=== PATIENT | female | born 1945 | race Caucasian/White ===

== ENCOUNTER 2016-10-04 09:10 | Inpatient (IN) | payer OTHER, MEDICARE ==
--- NOTE | 2016-09-30 14:09 | GHP ---
[f rep st] PREOP HISTORY AND PHYSICAL DATE OF ADMISSION: 10/04/2016 DATE OF SURGERY: 10/04/2016. PREOP DIAGNOSIS: Left diabetic foot ulcer. HISTORY OF PRESENT ILLNESS: The patient is a 71-year-old woman who underwent left great toe amputati on in June 2016 at [facility]. She presented to [facility] on er 2015 with severe septic shock and [place] due to left foot osteomyelitis. She underwent amputation of the left 5th metatarsal and partial 1st cuneiform, with debridement of skin and soft tissue on 2015. She also underwent EpiFix application and wound VAC placement. She returned to the operating room on July 21, 2016 for further debridement. At the time of surge ry, the wound measured 15 x 8.5 x 1 cm. There was tendon and bone exposed. Culture showed MSSA, and she underwent a course of IV Ancef. She was discharged to [facility] with IV antibiotics on July 24, 2016. She is a nonsmoker. She has presented to our office weekly for EpiFix application and wound VAC change, with improvement of the wound dimensions. PAST MEDICAL HISTORY: Diabetes, hypertension, [place], anemia. MEDICATIONS: Atorvastatin, 81 mg of aspirin, Lantus, lisinopril, metformin, metoprolol, MiraLAX and Senokot. PAST SURGICAL HISTORY: Left foot surgeries, as mentioned above. ALLERGIES: Augmentin, adhesives, MSG, sulfa, tetracycline. FAMILY HISTORY: She reports a family history of type 1 diabetes. SOCIAL HISTORY: She is a nonsmoker. She denies alcohol or recreational drug use. She lives in a [place] [facility] apartment, but is currently at [facility]. REVIEW OF SYSTEMS: A 10-point review of systems is negative, aside from HPI. PHYSICAL EXAMINATION: GENERAL: Well-developed, well-nourished woman in no acute distress. HEENT: Normocephalic, atraumatic. No hearing deficits. Pupils equal and round. No scleral icterus. Mucou s membranes moist. She wears glasses. NECK: Trachea midline. RESPIRATORY: Clear to auscultation bilaterally. No increased work of breathing. CARDIOVASCULAR: Regular rate and rhythm. No peripher al edema. SKIN: On September 27, 2016, the wound measured 12.4 x 11.5 x 0.2 cm. There is a small am ount of tendon exposed. No bone is exposed. There was no active drainage, surrounding erythema or e vidence of infection. PSYCH: Mood and affect normal. IMPRESSION AND PLAN: The patient is a 71-year-old woman status post amputation for a left foot diabe tic foot ulcer. At this time, she is ready for a split-thickness skin graft on the dorsal part of he r foot. PLAN: We discussed risks of surgery including, but not limited to, heart attack, stroke, blood clots , and . We discussed the risks of infection, bleeding, failure for graft take, continued delaye d wound healing, or need for additional procedures. She understands the risks and would like to proc eed. She is scheduled for left foot split-thickness skin graft with wound VAC placement. I anticipa te this to be an outpatient procedure. She will receive [facility] on-call to the operating room. /[id number]/MODL
[~2016-10-04 09:10] MED LIST: ceFAZolin 2 GM/DEXTROSE 100 ML IV ONE
[2016-10-04] MEDS ORDERED: CEFAZOLIN 2 GM/DEXTROSE/100 ML BAG IV ONE (10:37)
[2016-10-04] MEDS ORDERED: THROMBIN (RECOMBINANT) 20,000 UNIT SPRAY TP ONE (10:48)
[2016-10-04] MEDS ORDERED: BUPIVACAINE 0.5% 30 ML SDV ONE (10:49)
[2016-10-04] MEDS ORDERED: MINERAL OIL 10 ML VIAL TP ONE (10:49)
[2016-10-04] MEDS ORDERED: MIDAZOLAM 2 MG/2 ML VIAL ONE (12:00)
[2016-10-04] MEDS ORDERED: fentaNYL 100 MCG/2 ML INJ ONE ×2 (12:12→13:15)
[2016-10-04] MEDS ORDERED: ONDANSETRON 4 MG/2 ML VIAL ONE (12:13)
[2016-10-04] MEDS ORDERED: LIDOCAINE 2% 5 ML SDV ONE (12:14)
[2016-10-04] MEDS ORDERED: KETOROLAC 30 MG/1 ML SDV ONE (12:45)
[2016-10-04] MEDS ORDERED: ONDANSETRON DISINTEGRATING 4 MG TAB PO PRN (12:59)
[2016-10-04] MEDS ORDERED: ONDANSETRON 4 MG/2 ML VIAL IVP PRN (12:59)
[2016-10-04] MEDS ORDERED: diphenhydrAMINE 25 MG CAP PO PRN (12:59)
[2016-10-04] MEDS ORDERED: ACETAMINOPHEN 325 MG TAB PO PRN (12:59)
[2016-10-04] MEDS ORDERED: D50W 25 GM/50 ML SYR IVP PRN (12:59)
[2016-10-04] MEDS ORDERED: hydrALAZINE 20 MG/ML VIAL ONE (14:02)
[2016-10-04] MEDS ORDERED: hydrALAZINE 20 MG/ML VIAL IVP ONE (14:30)
[2016-10-04] MEDS ORDERED: SENNOSIDES/DOCUSATE SODIUM TAB PO PRN (15:57)
[2016-10-04] MEDS ORDERED: POLYETHYLENE GLYCOL 3350 17 GM PKT PO PRN (15:57)
[2016-10-04] MEDS ORDERED: INSULIN LISPRO 100 UNIT/ML SC SCH (18:00)
[2016-10-04] MEDS: metFORMIN HCL 500 MG TAB PO SCH (18:26)
[2016-10-04] MEDS: HYDROCODONE/APAP 5/325 TAB PO PRN (20:47)
[2016-10-04] MEDS: METOPROLOL TARTRATE 50 MG TAB PO SCH (20:47)
[2016-10-04] MEDS ORDERED: INSULIN GLARGINE HUM REC ANLOG 5 UNIT SQ SCH (21:00)
[2016-10-04] MEDS: INSULIN GLARGINE 100 UNITS/ML SYRINGE SC SCH (21:13)
[2016-10-05] MEDS: HYDROCODONE/APAP 5/325 TAB PO PRN (00:52)
[2016-10-05] MEDS: ASPIRIN 81 MG CHEWABLE TAB PO SCH (08:33)
[2016-10-05] MEDS: metFORMIN HCL 500 MG TAB PO SCH ×2 (08:33→17:46)
[2016-10-05] MEDS: LISINOPRIL 5 MG TAB PO SCH (08:33)
[2016-10-05] MEDS: METOPROLOL TARTRATE 50 MG TAB PO SCH ×2 (08:33→20:13)
[2016-10-05] MEDS: VITAMIN B COMPLEX 1 EA CAP/TAB PO SCH (08:33)
[2016-10-05] MEDS ORDERED: SODIUM CL NASAL 45 ML BTL EACHNARE PRN (10:41)
--- NOTE | 2016-10-05 10:45 | SOAPPROG ---
SOAP Progress Note Assessment/Plan: Assessment: 71 yo with DM, HTN and large diabetic foot ulcer. She is s/p debridement of skin soft tissue and tendon. Yesterday I grafted it. Wound vac until 10/11. Dr. burt will remove it in her office The vac she has on is from her facility but I did not want to risk loosing the graft by changing the vac twice. Please do not hesitate to call me with any questions or concerns. Change thigh dressing as needed S: Pain controlled O: Thigh dressing saturated. changed. Wound vac to suction. Reactionary erythema Plan: 10/05/16 10:43 Objective: Vital Signs Temp Pulse Resp BP Pulse Ox 36.4 C 63 18 145/78 H 100 10/05/16 07:51 10/05/16 07:51 10/05/16 07:51 10/05/16 07:51 10/05/16 07:51 10/04/16 10/05/16 10/06/16 05:59 05:59 05:59 Intake Total 1650 Output Total 410 Balance 1240 ICD10 Worksheet Patient Problems: Problems Problem Status Onset Cellulitis of foot Acute Myocardial infarct Acute Rhabdomyolysis Acute
[2016-10-05] MEDS: oxyCODONE IR 5 MG TAB PO PRN ×3 (11:27→22:02)
[2016-10-05] MEDS ORDERED: diphenhydrAMINE 50 MG CAP PO PRN (13:36)
[2016-10-05] MEDS ORDERED: ACETAMINOPHEN 325 MG TAB PO PRN (13:36)
[2016-10-05] MEDS ORDERED: guaiFENesin 600 MG TAB.ER PO PRN (13:36)
[2016-10-05] MEDS ORDERED: DICLOFENAC SODIUM TP PRN (13:36)
--- NOTE | 2016-10-05 14:30 | GCON ---
[f rep st] CONSULTATION DATE OF CONSULTATION: 10/05/2016 REASON FOR CONSULTATION: Medical management. HISTORY OF PRESENT ILLNESS: Ms Gutierrez is a 71-year-old female, who has a history of diabetes with hy pertension and underwent a debridement and skin soft tissue and tendon with grafting performed by Dr Beena Rubi. I am asked to consult on the patient during this hospitalization to assist in medical zackary gement. The patient tells me she is feeling well. She denies any nausea, vomiting, diarrhea. Socrates es any fevers, sweats or night chills. Denies any dyspnea, chest pain, shortness of breath or other problems. Her pain is well managed at this time. She is just lethargic and tired. PAST MEDICAL HISTORY: 1. Diabetes mellitus. 2. Hypertension. 3. Diabetic foot ulcer. 4. Osteomyelitis. 5. History of septic shock due to cellulitis. 6. Non ST-elevation myocardial infarction. 7. Anemia. PAST SURGICAL HISTORY: 1. Several left foot surgical interventions. 2. Right great toe foot graft. MEDICATIONS: Please refer to [facility] for specific outpatient medications. ALLERGIES: Sulfa, tetracyclines, Augmentin and MSG. FAMILY HISTORY: Her father had history of colon cancer. Mother had porotic leg cancer. SOCIAL HISTORY: The patient lives independently. Has recently been at a long-term facility. She denies any tobacco, alcohol or drug use. REVIEW OF SYSTEMS: Comprehensive 10-point review of systems is negative other than noted in the HPI . PHYSICAL EXAM: GENERAL: The patient is alert and oriented, in no acute distress. Well-developed. VITAL SIGNS: Afebrile 36.4, pulse is 63, respiratory rate is 18, blood pressure is 145/78, she is saturating 100% on 1 L. HEENT: Normocephalic, atraumatic. Mucosal membranes are moist. Pupils eq ual, round, reactive to light. NECK: Supple. No JVD noted. CARDIOVASCULAR: Regular rate and rhy thm. No gallop or murmur appreciated. LUNGS: Clear to auscultation bilaterally. No rhonchi or wh eezes noted. ABDOMEN: Bowel sounds are positive. Soft and nontender. There is no guarding or rig idity noted. EXTREMITIES: She has a wound VAC on her left foot. There is no clubbing or cyanosis appreciated. NEUROLOGIC: Patient is grossly intact. LABORATORY DATA: Blood glucose is 109. ASSESSMENT/PLAN: This is a 71-year-old female, with planned surgical intervention performed by Dr. Rubi for skin graft and debridement of the left foot. 1. Diabetes mellitus. We will continue the patient's previously prescribed insulin regimen and fol low closely during this hospitalization given her acute stress situation. 2. History of myocardial infarction. We will monitor the patient closely and consult Cardiology if felt warranted. She has no signs of complication or infarction at this time. 3. Left foot wound. This is managed by Dr. Rubi. The wound VAC is intact and will continue per Jessica Rubi's plan. 4. History of hypertension. The patient's blood pressure is stable at this time. 5. History of anemia. I will order laboratory evaluation to evaluate the patient's current level o f anemia. Thank you for the ability to consult in this pleasant woman's care. We will follow along during thi s patient's hospital course. /[id number]/MODL
[2016-10-05] MEDS: HYDROCORTISONE 1% CREAM TP SCH (20:13)
[2016-10-05] MEDS: CLOTRIMAZOLE/BETAMET DIPROP 15 GM CRTUBE TP SCH (20:13)
[2016-10-05] MEDS: INSULIN GLARGINE 100 UNITS/ML SYRINGE SC SCH (22:02)
[2016-10-06] MEDS: oxyCODONE IR 5 MG TAB PO PRN ×2 (02:50→09:30)
[2016-10-06 03:03] VITALS: RESP 18
[2016-10-06 05:46] LABS: HEMATOCRIT 28.9 % (38.0-47.0); MEAN CELL HEMOGLOBIN 24.4 pg (27.9-34.1); MEAN CELL HEMOGLOBIN CONCENTR. 31.1 g/dL (32.4-36.7); MEAN CELL VOLUME 78.3 fL (81.5-99.8); RED BLOOD CELL COUNT 3.69 10^6/uL (4.18-5.33); RED CELL DISTRIBUTION WIDTH 16.2 % (11.5-15.2)
[2016-10-06 05:56] LABS: ANION GAP 8 mEq/L (8-16); CARBON DIOXIDE 27 mEq/l (22-31); CHLORIDE 96 mEq/L (97-110); CREATININE 0.8 mg/dL (0.6-1.0); GLOMERULAR FILTRATION RATE > 60; GLUCOSE 132 mg/dL (70-100); POTASSIUM 4.3 mEq/L (3.5-5.2); SODIUM 131 mEq/L (134-144)
[2016-10-06] MEDS ORDERED: POTASSIUM CL 10 MEQ TAB PO SCH (09:00)
[2016-10-06] MEDS ORDERED: ATORVASTATIN CALCIUM 20 MG TAB PO SCH (09:00)
[2016-10-06] MEDS ORDERED: FUROSEMIDE 20 MG TAB PO SCH (09:00)
[2016-10-06] MEDS: VITAMIN B COMPLEX 1 EA CAP/TAB PO SCH (09:08)
[2016-10-06] MEDS: METOPROLOL TARTRATE 50 MG TAB PO SCH (09:08)
[2016-10-06] MEDS: ASPIRIN 81 MG CHEWABLE TAB PO SCH (09:08)
[2016-10-06] MEDS: metFORMIN HCL 500 MG TAB PO SCH (09:08)
[2016-10-06] MEDS: LISINOPRIL 5 MG TAB PO SCH (09:08)
[2016-10-06] MEDS: HYDROCORTISONE 1% CREAM TP SCH (09:13)
[2016-10-06] MEDS: CLOTRIMAZOLE/BETAMET DIPROP 15 GM CRTUBE TP SCH (09:13)
--- NOTE | 2016-10-06 10:01 | SOAPPROG ---
SOAP Progress Note Assessment/Plan: Assessment: 71 yo with DM, HTN and large diabetic foot ulcer. She is s/p debridement of skin soft tissue and tendon. I grafted it 10/04/2016. Wound vac until 10/11. Dr. Rubi will remove it in her office on 10/11/2016. Change thigh dressing as needed S: Pain controlled O: Thigh dressing dry - recently changed Wound vac to suction. Reactionary erythema Plan: 10/05/16 10:43 10/06/16 10:00 Objective: Vital Signs Temp Pulse Resp BP Pulse Ox 36.4 C 68 18 140/74 H 90 L 10/06/16 07:27 10/06/16 07:27 10/06/16 07:27 10/06/16 07:27 10/06/16 07:27 Laboratory Results 10/06/16 05:16 10/06/16 05:16 10/05/16 10/06/16 10/07/16 05:59 05:59 05:59 Intake Total 1650 Output Total 410 300 Balance 1240 -300 ICD10 Worksheet Patient Problems: Problems Problem Status Onset Cellulitis of foot Acute Myocardial infarct Acute Rhabdomyolysis Acute
--- NOTE | 2016-10-06 10:04 | PDIAF ---
- Diagnosis Diagnosis: diabetic foot ulcer s/p skin graft Code Status: Full Code - Medication Management Discharge Medications: Medications to Continue on Transfer Acetaminophen [Tylenol 325mg (*)] 650 mg PO Q4 PRN 07/09/16 [Last Taken Unknown] Vitamin B Complex [B Complex] 1 each PO DAILY 07/09/16 [Last Taken Unknown] Aspirin [Aspirin 81mg (*)] 81 mg PO DAILY #0 tab.chew 07/24/16 [Last Taken Unknown] Lisinopril [Zestril 5 mg (*)] 5 mg PO DAILY #0 tab 07/24/16 [Last Taken 07:30] Metoprolol Tartrate [Lopressor 50 mg (*)] 50 mg PO BID #0 tab 07/24/16 [Last Taken 10/04/16 07:00] Polyethylene Glycol 3350 [Miralax 17 gm (*)] 17 gm PO DAILY PRN #0 pkt 07/24/16 [Last Taken Unknown] oxyCODONE IR [Oxycodone Ir (*)] 5 - 10 mg PO Q3HRS PRN #0 tab 07/24/16 [Last Taken 10/04/16 07:30] Insulin Glargine,Hum.rec.anlog [Lantus Solostar] 5 unit SQ HS 10/02/16 [Last Taken Unknown] Atorvastatin Calcium [Lipitor 20 mg (*)] 20 mg PO DAILY 10/04/16 [Last Taken Unknown] Clotrimazole/Betamethasone Dip [Clotrimazole-Betamethasone Crm] 1 nona TP BID [Last Taken Unknown] Diclofenac Sodium [Voltaren Gel (*)] 1 nona TP TID PRN 10/04/16 [Last Taken Unknown] Furosemide [Lasix 20 MG (*)] 20 mg PO DAILY 10/04/16 [Last Taken Unknown] Hydrocortisone 1% [Hydrocortisone 1% cream (*)] 1 nona TP BID 10/04/16 [Last Taken Unknown] Metformin HCl [Glucophage 1000 mg] 1,000 mg PO BIDMEAL 10/04/16 [Last Taken Unknown] Potassium Cl [Klor-Con] 10 meq PO DAILY 10/04/16 [Last Taken Unknown] Sennosides/Docusate Sodium [Senokot-S (OTC)] 1 each PO BID PRN 10/04/16 [Last Taken Unknown] Sennosides/Docusate Sodium [Senokot-S] 1 tab PO BID 10/04/16 [Last Taken ] Sodium Cl Nasal [[place] (*)] 2 spray EACHNARE QID PRN 10/04/16 [Last Taken Unknown] diphenhydrAMINE [Benadryl 50 MG (*)] 50 mg PO Q8 PRN 10/04/16 [Last Taken Unknown] guaiFENesin [Mucinex 600 MG (*)] 600 mg PO BID PRN 10/04/16 [Last Taken Unknown] Discharge Medications: Refer to the Discharge Home Medication list for PRN reason. - Orders Services needed: Registered Nurse, Physical Therapy, Occupational Therapy Diet Recommendation: no restrictions on diet Wound Care Instructions: Do not shower. Sponge bath. Wound vac to suction continously. No wound vac changes. Change the thigh dressing as needed for saturation. Non stick dressing (I was using mepilex transfer and tegaderm) Activity/Weight Bearing Restrictions: Non weight bearing with bathroom privledges. Graft on Bottom of the foot as well so want to try not to disturb it as much as possible. This will need to be balanced with her weak right leg - Follow Up Care Current Providers and Referrals: JOSE HERNANDEZ [Other] Kait Rubi MD [Medical Doctor] - 10/11/16 (Call to make an appointment)
[2016-10-06 11:07] VITALS: BP 132/94; PULSE 74; TEMP 98.4; O2SAT 91
--- NOTE | 2016-10-06 13:57 | GDS ---
[f rep st] DISCHARGE SUMMARY REASON FOR ADMISSION: The patient is a 71-year-old woman with severe diabetes, who presented with a severe diabetic foot infection. I have been following her outpatient. She is ready for skin graft ing. PRIMARY DIAGNOSIS: Chronic diabetic foot wound. OTHER PERTINENT DIAGNOSES: Diabetes mellitus, hypertension, osteomyelitis, history of non-ST elevat ion myocardial infarction, anemia. HOSPITAL COURSE: The patient was taken to the operating room on October 04, 2016 for debridement a nd split-thickness skin grafting. A wound VAC was placed. She was monitored on the floor postopera tively. Her thigh dressing was changed daily. The wound VAC maintained suction. CONDITIONS ON DISCHARGE: 1. Has difficulty doing any weightbearing. 2. She is tolerating a normal diet. 3. Her pain is controlled. 4. Limit weightbearing on left foot as much as possible. This will be difficult as she has weaknes s in her right leg already. She may pivot and transfer to chair, but I do not want her doing long d istance ambulation as the graft is on the bottom of her foot. 5. Maintain wound VAC to suction. Dr. Rubi will remove it in her office on October 11, 2016. Taisha franco needs to call to make an appointment. /[id number]/MODL
--- NOTE | 2016-11-01 06:36 | GOP ---
[f rep st] OPERATIVE REPORT DATE OF OPERATION: 11/01/2016 SURGEON: Kait Rubi MD PLAN CHECKER: ELMER Roe ANESTHESIA: General. PREOPERATIVE DIAGNOSIS: Diabetic foot ulcer POSTOPERATIVE DIAGNOSIS: Diabetic foot ulcer PROCEDURE PERFORMED: Debridement skin soft tissue and grafting of left foot wound [id number].03 FINDINGS: healthy granulation tissue SPECIMENS: None. ESTIMATED BLOOD LOSS: Minimal. INDICATIONS: She had a left great toe amputation June 2016, with extensive debridement of skin, soft tissue, and tendon. I met her, and she was in severe septic shock, with myocardial infarction, due to left foot osteomyelitis. I amputated her 1st metatarsal partial 1st cuneiform, with debridement of skin, soft tissue, July 12, 2016. She returned to the operating room, July, for further debridement. In the office she has had EpiFix and negative pressure wound therapy. Her wound measures approximately 15 x 8.5 cm DESCRIPTION OF PROCEDURE: The patient was brought into the operating room, placed supine on the table, and general anesthesia was administered. Her foot and thigh were prepped and draped in the usual sterile fashion. I debrided the wound on her left foot so that there was healthy clean viable granulation tissue. I then obtained a split-thickness skin graft from her left upper thigh at 1:12,000 of an inch. I hand pie-crusted this. I placed an epinephrine- soaked sponge to the left upper thigh. I placed a skin graft over the foot. I stapled this in place. I placed Adaptic Touch followed by a wound VAC. Hemostasis was achieved on the thigh. I then placed Mepilex transfer and a Tegaderm. She was awakened in the operating room, extubated, transferred to PACU in stable condition. /[id number]/MODL MTDD
== END 2016-10-06 13:51 | DRG 624 ==
LOC: FSGY 09:10 → F3E 10:53
PROVIDERS: ADMIT Surgery; ATTEND Surgery
PROC: 0HBJXZZ Excision of Left Upper Leg Skin, External Approach (ICD-10-PCS; principal; 2016-10-04 10:15)
PROC: 0HRNX74 Replacement of Left Foot Skin with Autologous Tissue Substitute, Partial Thickness, External Approach (ICD-10-PCS; principal; 2016-10-04 10:15)
PROC: 0HBNXZZ Excision of Left Foot Skin, External Approach (ICD-10-PCS; principal; 2016-10-04 10:15)
DX: E11.621 Type 2 diabetes mellitus with foot ulcer (principal); L97.509 Non-pressure chronic ulcer of other part of unspecified foot with unspecified severity; I10 Essential (primary) hypertension; I25.10 Atherosclerotic heart disease of native coronary artery without angina pectoris; I25.2 Old myocardial infarction; Z86.14 Personal history of Methicillin resistant Staphylococcus aureus infection; Z89.412 Acquired absence of left great toe
CPT/HCPCS: 97161-GP; G8978-GP-CL; G8979-GP-CK; J0171; J0360; J0690; J1815; J1885; J2250; J2405; J3010

== ENCOUNTER 2016-10-12 19:56 | Inpatient (IN) | payer OTHER, MEDICARE ==
[2016-10-12] MEDS ORDERED: VANCOMYCIN 1.25 GM in D5W 250 ML IV ONE (20:16)
--- NOTE | 2016-10-12 20:44 | EDPHY ---
H & P Time Seen by Provider: 10/12/16 20:10 HPI/ROS: HPI Fever, possible wound infection. 71-year-old female by ambulance from [facility]. Patient has a history of a diabetic foot ulcer. She underwent left great toe amputation in June 2016 at [facility]. She then was admitted to [facility] for severe septic shock and [place] due to left foot osteomyelitis. She then underwent amputation of the 5th metatarsal and partial 1st cuneiform with debridement of skin and soft tissue July 122015. She had a wound VAC placed at that time. After further surgeries in other complications including MSSA infection was treated with IV Ancef, she underwent a left foot split-thickness skin graft placement with wound VAC placement on October 04. [facility] reports that she developed a fever tonight and had an episode of vomiting. The also noted increased erythema around the area of her wound VAC spreading up her left medial leg. ROS: Constitutional: As, no chills. No weakness. Eyes: No discharge. No changes in vision. ENT: No sore throat. No nasal congestion or rhinorrhea. Respiratory: No cough. No shortness of breath. Cardiac: No chest pain, no palpitations. Gastrointestinal: No abdominal pain, no vomiting, no diarrhea. Genitourinary: No hematuria. No dysuria or increased frequency with urination. Musculoskeletal: No back pain. No neck pain. No myalgias or arthralgias. Skin: As above Neurological: No headache. No focal weakness or altered sensation. Past medical history: Diabetes, hypertension, mi, anemia. As above. Her general surgeon is Dr. Kait Rubi. Social history: Here by herself. Physical Exam: General Appearance: Alert, no distress. This patient is responding to questions appropriately and in full sentences. This patient appears well- hydrated and well-nourished. Eyes: Pupils equal and round no pallor or injection. No lid edema, erythema or injection. Respiratory: There are no retractions, lungs are clear to auscultation with good air movement bilaterally. Cardiovascular: Regular rate and rhythm. No murmur. Gastrointestinal: Abdomen is soft and nontender, no masses, bowel sounds normal. No focal tenderness at McBurney's point. No Wilson sign. Neurological: Motor sensory function is grossly intact. Cranial nerves are normal. Skin: Warm and dry, no rashes. The patient was rolled. No decubitus ulcers. The wound VAC was taken down. The left foot graft was inspected. This appears intact. She does have erythematous borders around the graft site with erythema spreading up the medial aspect of her left ankle and distal leg. The graft harvest site which is on the left mid anterior lateral thigh was inspected. This appears to be without evidence of infectious process. Musculoskeletal: Neck is supple and nontender. Extremities are symmetrical. All joints range without pain or impingement. Psychiatric: No agitation. No depression. Database: EKG: Imaging: Left foot x-ray series: Questionable osteomyelitis versus degenerative changes of the medial cuneiform. No acute fracture. No gas. Interpreted by me. Chest x-ray AP portable; the cardiac mediastinal silhouette is unremarkable. No evidence of pneumothorax. Possible early left lower lobe infiltrate. Mild bronchitis. No other acute cardiopulmonary disease process noted. Interpreted by me. Procedures: Emergency department course: IV was placed. She was placed on a monitor. She was started on IV normal saline with 1 L to be given over the next hour. Vital signs have been reviewed. White blood cell count is 27.7. Lactate was obtained and is 2.9. Sepsis declared. During my inspection of her skin graft Gram stain and culture obtained and sent. After appropriate cultures obtained patient started on IV vancomycin at 1.25 g. 9:40 p.m., discussed case with Dr. Stan Hinds. Reviewed past medical history and Olivia Rubi involvement with this patient. He has agreed to accept patient for admission with hospitalist to consult. 10:15 p.m., spoke with Dr. Ennis. Case discussed in detail. She is currently at the patient's bedside. 10:30 p.m., severe sepsis declared and protocol initiated. Repeat venous lactate were ordered, patient to be given additional antibiotic coverage with IV Levaquin for possible left lower lobe pneumonia. 11:00 p.m., patient admitted in stable condition to Dr. Hinds. Differential Diagnosis: The differential diagnosis on this patient includes but is not limited to left foot skin graft infection, bronchitis. Sepsis unlikely. This represents a partial list of diagnoses considered. These considerations are based on history , physical exam, past history, reassessment and diagnostic testing. Smoking Status: Never smoked Constitutional: Initial Vital Signs Temperature (C) 36.9 C 10/12/16 20:08 Heart Rate 69 02/25/17 20:08 Respiratory Rate 16 10/12/16 20:08 Blood Pressure 124/55 H 10/12/16 20:08 O2 Sat (%) 76 L 10/12/16 20:08 O2 Delivery Mode Nasal Cannula O2 (L/minute) 3 Allergies/Adverse Reactions: amoxicillin trihydrate [From Augmentin] Allergy (Intermediate, Verified 20:06) potassium clavulanate [From Augmentin] Allergy (Intermediate, Verified 10/12/16 20:06) monosodium glutamate Allergy (Mild, Verified 10/12/16 20:06) adhesive tape Allergy (Verified 10/12/16 20:06) Sulfa (Sulfonamide Antibiotics) Allergy (Verified 10/12/16 20:06) Tetracyclines Allergy (Verified 10/12/16 20:06) Home Medications: Medication Instructions Recorded Vitamin B Complex [B Complex] 1 tab PO DAILY 07/09/16 Lisinopril [Zestril 5 mg (*)] 5 mg PO DAILY #0 tab 07/24/16 Metoprolol Tartrate [Lopressor 50 50 mg PO BID #0 tab 07/24/16 mg (*)] Polyethylene Glycol 3350 [Miralax 17 gm PO DAILY PRN #0 pkt 07/24/16 17 gm (*)] oxyCODONE IR [Oxycodone Ir (*)] 5 - 10 mg PO Q3HRS PRN #0 tab 07/24/16 Insulin Glargine,Hum.rec.anlog 5 unit SQ HS 10/02/16 [Lantus Solostar] Atorvastatin Calcium [Lipitor 20 20 mg PO DAILY 10/04/16 mg (*)] Clotrimazole/Betamethasone Dip 1 nona TP BID 10/04/16 [Clotrimazole-Betamethasone Crm] Diclofenac Sodium [Voltaren Gel 1 nona TP TID PRN 10/04/16 (*)] Furosemide [Lasix 20 MG (*)] 20 mg PO DAILY 10/04/16 Hydrocortisone 1% [Hydrocortisone 1 nona TP BID 10/04/16 1% cream (*)] Metformin HCl [Glucophage 1000 mg] 1,000 mg PO BIDMEAL 10/04/16 Potassium Cl [Klor-Con 10 meq (RX)] 10 meq PO DAILY 10/04/16 Sennosides/Docusate Sodium 1 each PO BID PRN 10/04/16 [Senokot-S] Sennosides/Docusate Sodium 1 tab PO DAILY 10/04/16 [Senokot-S] Sodium Cl Nasal [[place] (*)] 2 spray EACHNARE QID PRN 10/04/16 diphenhydrAMINE [Benadryl 50 MG 50 mg PO Q8 PRN 10/04/16 (*)] guaiFENesin [Mucinex 600 MG (*)] 600 mg PO BID PRN 10/04/16 Aspirin EC [Aspirin EC 81 mg (*)] 81 mg PO DAILY 10/13/16 Medical Decision Making - Data Points Laboratory Results: Laboratory Results 10/12/16 20:45 10/12/16 20:45 Microbiology Results: MICROBIOLOGY 10/12/16 20:45 Foot - Swab Gram Stain - Final 10/12/16 20:45 Foot - Swab Wound Culture - Preliminary Gram Neg Fredi Nonlactose Ferm. Streptococcus Pyogenes Grp A MRSA 10/12/16 20:45 Blood Blood Culture - Preliminary Gram Positive Cocci Chains 10/12/16 20:45 Blood Blood Panel (PCR) - Final Strep Pyogenes Group A Medications Given: Discontinued Medications Vancomycin HCl 1.25 gm/ (Dextrose) 250 mls @ 166.67 mls/hr IV EDNOW ONE PRN Reason: Protocol Stop: 10/12/16 21:45 Last Admin: 10/12/16 21:20 Dose: 250 mls Sodium Chloride (Ns) 1,000 mls @ 0 mls/hr IV ONCE ONE PRN Reason: Wide Open Stop: 10/12/16 20:46 Last Admin: 10/12/16 20:45 Dose: 1,000 mls Sodium Chloride (Ns) 1,000 mls @ 0 mls/hr IV ONCE ONE PRN Reason: Wide Open Stop: 10/12/16 21:45 Last Admin: 10/12/16 22:15 Dose: Not Given Levofloxacin/Dextrose (Levaquin 750 Mg (Premix)) 150 mls @ 100 mls/hr IV EDNOW ONE PRN Reason: Protocol Stop: 10/13/16 00:00 Last Admin: 10/12/16 23:10 Dose: 150 mls Sodium Chloride (Ns) 1,000 mls @ 3,000 mls/hr IV ONCE ONE Stop: 10/12/16 23:20 Last Admin: 10/13/16 00:36 Dose: 1,000 mls Magnesium Sulfate (Magnesium Sulf 2 Gm (Premix)) 50 mls @ 50 mls/hr IV ONCE ONE Stop: 10/13/16 06:22 Last Admin: 10/13/16 05:45 Dose: 50 mls Levofloxacin/Dextrose (Levaquin 500 Mg (Premix)) 100 mls @ 100 mls/hr IV DAILY [facility] PRN Reason: Protocol Stop: 11/12/16 08:59 Last Admin: 10/13/16 09:22 Dose: 100 mls Cefazolin Sodium 2 gm/ (Dextrose) 100 mls @ 200 mls/hr IV Q8 [facility] Stop: 11/12/16 11:59 Last Admin: 10/13/16 12:13 Dose: Not Given Potassium Chloride (Klor-Con) 10 - 40 meq PO ONCE ONE PRN Reason: Protocol Stop: 10/13/16 09:36 Last Admin: 10/13/16 09:44 Dose: 10 meq Sodium Chloride (Ns *For Sepsis Order Set Only*) 2,041 ml 30 ml/kg (2041 ml) IV EDNOW ONE Stop: 10/12/16 22:32 Last Admin: 10/12/16 22:35 Dose: Not Given Departure - Departure Disposition: [facility] Acute Clinical Impression: History of fever, Vomiting, Skin graft infection, Possible pneumonia, Sepsis
[2016-10-12] MEDS ORDERED: NS 1,000 ML IV ONE ×3 (20:45→23:01)
[2016-10-12 21:05] LABS: ADD DIFF? YES; ADD MORPH? NO; ADD SCAN? NO; ATYPICAL LYMPHOCYTE FLAG 0 (0-99); FRAGMENT RBC FLAG 0 (0-99); HEMATOCRIT 31.8 % (38.0-47.0); HEMOGLOBIN 9.9 g/dL (12.6-16.3); LEFT SHIFT FLG 0 (0-99); LIPEMIA HEMOLYSIS FLAG 80 (0-99); MEAN CELL HEMOGLOBIN 24.4 pg (27.9-34.1); MEAN CELL HEMOGLOBIN CONCENTR. 31.1 g/dL (32.4-36.7); MEAN CELL VOLUME 78.3 fL (81.5-99.8); MEAN PLATELET VOLUME 8.4 fL (8.7-11.7); PLATELET CLUMPS FLAG 0 (0-99); PLATELET COUNT 334 10^3/uL (150-400); RED BLOOD CELL COUNT 4.06 10^6/uL (4.18-5.33); RED CELL DISTRIBUTION WIDTH 16.4 % (11.5-15.2)
[2016-10-12 21:09] LABS: INR 1.14 (0.83-1.16); PROTIME(PATIENT) 14.5 SEC (12.0-15.0)
[2016-10-12 21:10] LABS: APTT 28.5 SEC (23.0-38.0)
[2016-10-12 21:12] LABS: ANION GAP 11 mEq/L (8-16); BILIRUBIN,TOTAL 0.6 mg/dL (0.1-1.4); CARBON DIOXIDE 26 mEq/l (22-31); CHLORIDE 92 mEq/L (97-110); CREATININE 0.8 mg/dL (0.6-1.0); GLOMERULAR FILTRATION RATE > 60; GLUCOSE 170 mg/dL (70-100); POTASSIUM 3.4 mEq/L (3.5-5.2); SODIUM 129 mEq/L (134-144)
[2016-10-12 21:33] LABS: MACROCYTES 1+; PLATELET ESTIMATE ADEQUATE (ADEQ); POLYCHROMASIA 1+; TOXIC GRANULATION PRESENT; TOXIC VACUOLIZATION PRESENT
[2016-10-12 21:56] LABS: LACGHOST ORDER
[2016-10-12] MEDS ORDERED: ONDANSETRON 4 MG/2 ML VIAL IVP PRN (22:12)
[2016-10-12] MEDS ORDERED: ACETAMINOPHEN 325 MG TAB PO PRN (22:12)
[2016-10-12] MEDS ORDERED: ONDANSETRON DISINTEGRATING 4 MG TAB PO PRN (22:12)
[2016-10-12] MEDS ORDERED: NS 1,000 ML BAG *FOR SEPSIS ORDER SET ONLY IV ONE (22:31)
--- NOTE | 2016-10-12 22:44 | GCON ---
DATE OF CONSULTATION: 10/12/2016 CHIEF COMPLAINT: Chills. HISTORY OF PRESENT ILLNESS: This is a 71-year-old female, well known to my partner, Dr. Rubi. Briefly, in June 2016, she underwent left great toe amputation at an outside hospital. She subsequently presented to the [facility] approximately 1 month later with severe septic shock and CT secondary to left foot osteomyelitis. She subsequently underwent further amputation of the left 5th metatarsal and partial 1st cuneiform with debridement of skin and soft tissues on the . She subsequently left with a wound VAC. At that time. She was subsequently discharged home on July 24 with wound VAC and IV antibiotic care. She subsequently presented back as an outpatient basis in early September where it was evaluated the wound had healed and she was subsequently taken to the operating room on October 04 for split-thickness skin graft, left thigh donor site. She subsequently had an uneventful hospital stay and was discharged back to rehab facility on the of this month. She states that she has been doing well. She was seen in the clinic most recently yesterday, where Dr. Rubi took the wound VAC down, felt that the site was healing appropriately. She had no stigmata of infection and was doing well. The wound VAC was subsequently replaced. She states that last evening she felt well, into the morning had breakfast, later this morning and into the afternoon began to have rigors and chills and was reportedly febrile at her care facility which is why she was brought here. Here in the emergency department, she is currently afebrile and nontoxic appearing. She states that she has no pain in that left lower extremity and she has been not weightbearing as per her recommendations, but she overall feels well other than the rigors and chills that she experienced earlier today. She continues to tolerate a regular diet and other than this feels well. PAST MEDICAL HISTORY: Diabetes, hypertension, CT, anemia. PAST SURGICAL HISTORY: Multiple left foot surgeries, as mentioned above. REVIEW OF SYSTEMS: A full 10-point review was performed and unless explicitly stated above is otherwise negative. ALLERGIES: Augmentin, adhesive, MSG, sulfa, and tetracycline. SOCIAL HISTORY: Currently lives at [facility]. PHYSICAL EXAM: VITAL SIGNS: Temperature 36.9, blood pressure 124/55, heart rate 69, she is currently 91% on 2 L. GENERAL: She is alert and oriented, in no acute distress. CV: She has a regular rate and rhythm without any murmurs. LUNGS: Clear to auscultation bilaterally. ABDOMEN: Obese, soft, nondistended and nontender. EXTREMITIES: Her left thigh donor site is clean, dry and intact. There are some punctate areas of recent bleeding which have scabbed over. The site is tender, but nonerythematous. Her graft site has for the most part taken. There is a surrounding rim superiorly of erythematous tissue which is warm to the touch. It does not appear as though the wound has completely sloughed, although it looks that is threatened at this time. LABORATORY DATA: Leukocytosis to 27,000, lactic acid 2.9, sodium of 129, K of 3.4. A chest x-ray which looks unremarkable. ASSESSMENT: A 71-year-old female with left lower extremity infection status post split-thickness skin graft. We will plan to admit the patient to my service. I have asked the Medicine Service to consult and assist with management of her multiple medical comorbidities. In addition, I am not 100% certain her leukocytosis is completely attributable to her extremity cellulitis and will continue to search for an additional source. In the past, she has been on IV Ancef, as she has been dennis-sensitive. I am concerned this time, given her history of methicillin-resistant Staphylococcus aureus and leukocytosis to 27,000 that she may have a more virulent infection. Will discuss with the Medicine Team which antibiotics are appropriate. I do not feel at this point in time that she requires any further debridement, as a majority of the wound bed and graft has successfully taken and is viable. We will continue nonweightbearing status. /[id number]/MODL MTDD
[2016-10-13] MEDS: CEPACOL LOZENGE PO PRN ×7 (00:36→20:37)
[2016-10-13] MEDS ORDERED: D50W 25 GM/50 ML SYR IVP PRN (02:16)
--- NOTE | 2016-10-13 02:19 | PDGENHP ---
History and Physical - Chief Complaint chills - History of Present Illness Patient is a 71-year-old female with history of hypertension, dm 2, diastolic heart failure, history of RI and chronic left foot wound who presents to the ED with fever and chills. Patient underwent a left great toe a amputation in 2015, this was complicated by osteomyelitis with associated septic shock and [facility] hospitalization. Subsequently she underwent L 5th metatarsal amputation and surrounding debridement, with postop wound VAC placement. Since this surgery in mid July, she has been following in an outpatient basis with General surgery. In mid September she underwent split-thickness skin graft to the left foot wound (10/04-10/06 hospitalization). She was most recently evaluated in the general surgery clinic on 10/11 and graft site appeared to be healing well, wound Vac was removed. Today, 10/12, at [facility] patient reports sudden onset chills/rigors and was noted to be febrile by SNF staff, so she was transported to the ED for further evaluation. Patient does report feeling increased pressure/tightness and warmth in her LLE. She denies any recent headache, dizziness, coughing, congestion, chest pain, abdominal pain, n/v/d or dysuria. She also denies any obvious sick contacts. On arrival to the ED, patient is afebrile and hemodynamically stable. Evaluation of her left lower extremity reveals edema, erythema and warmth of her left foot and extending proximately. Labs revealed leukocytosis, elevated lactate. She was cultured in initiated on antibiotics and admitted to the general surgery service for presumed recurrent L foot wound infection. CXR revealed possible infiltrate, so she was also covered for possible respiratory infection. Hospitalist service was consulted for management of her chronic medical conditions. History Information - Allergies/Home Medication List Allergies/Adverse Reactions: amoxicillin trihydrate [From Augmentin] Allergy (Intermediate, Verified 20:06) potassium clavulanate [From Augmentin] Allergy (Intermediate, Verified 10/12/16 20:06) monosodium glutamate Allergy (Mild, Verified 10/12/16 20:06) adhesive tape Allergy (Verified 10/12/16 20:06) Sulfa (Sulfonamide Antibiotics) Allergy (Verified 10/12/16 20:06) Tetracyclines Allergy (Verified 10/12/16 20:06) Home Medications: Acetaminophen [Tylenol 325mg (*)] 650 mg PO Q4 PRN 07/09/16 [Last Taken Unknown] Vitamin B Complex [B Complex] 1 each PO DAILY 07/09/16 [Last Taken Unknown] Insulin Glargine,Hum.rec.anlog [Lantus Solostar] 5 unit SQ HS 10/02/16 [Last Taken Unknown] Atorvastatin Calcium [Lipitor 20 mg (*)] 20 mg PO DAILY 10/04/16 [Last Taken Unknown] Clotrimazole/Betamethasone Dip [Clotrimazole-Betamethasone Crm] 1 nona TP BID [Last Taken Unknown] Diclofenac Sodium [Voltaren Gel (*)] 1 nona TP TID PRN 10/04/16 [Last Taken Unknown] Furosemide [Lasix 20 MG (*)] 20 mg PO DAILY 10/04/16 [Last Taken Unknown] Hydrocortisone 1% [Hydrocortisone 1% cream (*)] 1 nona TP BID 10/04/16 [Last Taken Unknown] Metformin HCl [Glucophage 1000 mg] 1,000 mg PO BIDMEAL 10/04/16 [Last Taken Unknown] Potassium Cl [Klor-Con 10 meq (RX)] 10 meq PO DAILY 10/04/16 [Last Taken Unknown ] Sennosides/Docusate Sodium [Senokot-S] 1 each PO BID PRN 10/04/16 [Last Taken Unknown] Sennosides/Docusate Sodium [Senokot-S] 1 tab PO BID 10/04/16 [Last Taken ] Sodium Cl Nasal [[place] (*)] 2 spray [place] QID PRN 10/04/16 [Last Taken Unknown] diphenhydrAMINE [Benadryl 50 MG (*)] 50 mg PO Q8 PRN 10/04/16 [Last Taken Unknown] guaiFENesin [Mucinex 600 MG (*)] 600 mg PO BID PRN 10/04/16 [Last Taken Unknown] I have personally reviewed and updated: family history, medical history, social history, surgical history - Past Medical History Additional medical history: Hypertension. DM2, on insulin. h/o NSTEMI, medically managed. diastolic heart failure, 06/2016 TTE, EF 60%. chronic anemia - Surgical History Additional surgical history: multiple L foot surgeries. hysterectomy - Family History Positive for: non-pertinent - Social History Smoking Status: Never smoked Alcohol Use: None Drug Use: None Additional social history: Currently resides in [facility]. Review of Systems ROS: 10pt was reviewed & negative except for what was stated in HPI & below Physical Exam Temp Pulse Resp BP Pulse Ox 36.9 C 70 16 116/48 L 96 10/13/16 00:24 10/13/16 00:24 10/13/16 00:24 10/13/16 00:24 10/13/16 00:24 O2 (L/minute) 3 Constitutional: no apparent distress, appears nourished, not in pain Eyes: PERRL, anicteric sclera, EOMI Ears, Nose, Mouth, Throat: hearing normal, ears appear normal, no oral mucosal ulcers, dry mucous membranes Cardiovascular: regular rate and rhythym, no murmur, rub, or gallop, edema (LLE edema and warmth extending to thigh), No JVD Peripheral Pulses: 2+: dorsalis-pedis (R), dorsalis-pedis (L) Respiratory: no respiratory distress, no rales or rhonchi, clear to auscultation Gastrointestinal: normoactive bowel sounds, soft, non-tender abdomen, no palpable masses, No tenderness, No guarding, No rebound, No distension Genitourinary: no bladder fullness, no bladder tenderness Skin: erythema (left foot in dressing, skin graft in place with wound with surrounding tenderness to palpation, erythema and edema extending from foot proximately to thigh) Neurologic: AAOx3, sensation intact bilaterally, CN II-XII Intact, No weakness, No numbness, No facial droop Psychiatric: interacting appropriately, not anxious, not encephalopathic, thought process linear Lab Data & Imaging Review 10/12/16 20:45 10/12/16 20:45 WBC 27.77 10^3/uL (3.80-9.50) H 10/12/16 20:45 RBC 4.06 10^6/uL (4.18-5.33) L 10/12/16 20:45 Hgb 9.9 g/dL (12.6-16.3) L 10/12/16 20:45 Hct 31.8 % (38.0-47.0) L 10/12/16 20:45 MCV 78.3 fL (81.5-99.8) L 10/12/16 20:45 MCH 24.4 pg (27.9-34.1) L 10/12/16 20:45 MCHC 31.1 g/dL (32.4-36.7) L 10/12/16 20:45 RDW 16.4 % (11.5-15.2) H 10/12/16 20:45 Plt Count 334 10^3/uL (150-400) 10/12/16 20:45 MPV 8.4 fL (8.7-11.7) L 10/12/16 20:45 Neut % (Auto) Not Reported 10/12/16 20:45 Lymph % (Auto) Not Reported 10/12/16 20:45 [place] % (Auto) Not Reported 10/12/16 20:45 Eos % (Auto) Not Reported 10/12/16 20:45 Baso % (Auto) Not Reported 10/12/16 20:45 Nucleat RBC Rel Count 0.0 % (0.0-0.2) 10/12/16 20:45 Absolute Neuts (auto) Not Reported 10/12/16 20:45 Absolute Lymphs (auto) Not Reported 10/12/16 20:45 Absolute Monos (auto) Not Reported 10/12/16 20:45 Absolute Eos (auto) Not Reported 10/12/16 20:45 Absolute Basos (auto) Not Reported 10/12/16 20:45 Absolute Nucleated RBC 0.00 10^3/uL (0-0.01) 10/12/16 20:45 Immature Gran % Not Reported 10/12/16 20:45 Seg Neutrophils % 74 % 10/12/16 20:45 Band Neutrophils % 21 % 10/12/16 20:45 Lymphocytes % 1 % 10/12/16 20:45 Monocytes % 4 % 10/12/16 20:45 Immature Gran # Not Reported 10/12/16 20:45 Absolute Seg Neuts 20.55 10^/uL (1.70-6.50) H 10/12/16 20:45 Absolute Band Neuts 5.83 10^3/uL (0.00-0.70) H 10/12/16 20:45 Absolute Lymphocytes 0.28 10^3/uL (1.00-3.00) L 10/12/16 20:45 Absolute Monocytes 1.11 10^3/uL (0.30-0.80) H 10/12/16 20:45 Toxic Granulation PRESENT H 10/12/16 20:45 Toxic Vacuolation PRESENT H 10/12/16 20:45 Platelet Estimate ADEQUATE (ADEQ) 10/12/16 20:45 Polychromasia 1+ H 10/12/16 20:45 Oval Macrocytes 1+ H 10/12/16 20:45 PT 14.5 SEC (12.0-15.0) 10/12/16 20:45 INR 1.14 (0.83-1.16) 10/12/16 20:45 APTT 28.5 SEC (23.0-38.0) 10/12/16 20:45 VBG Lactic Acid 3.1 mmol/L (0.7-2.1) H 10/12/16 22:50 Sodium 129 mEq/L (134-144) L 10/12/16 20:45 Potassium 3.4 mEq/L (3.5-5.2) L 10/12/16 20:45 Chloride 92 mEq/L (97-110) L 10/12/16 20:45 Carbon Dioxide 26 mEq/l (22-31) 10/12/16 20:45 Anion Gap 11 mEq/L (8-16) 10/12/16 20:45 BUN 26 mg/dL (7-23) H 10/12/16 20:45 Creatinine 0.8 mg/dL (0.6-1.0) 10/12/16 20:45 Estimated GFR > 60 10/12/16 20:45 Glucose 170 mg/dL (70-100) H 10/12/16 20:45 Calcium 8.0 mg/dL (8.5-10.4) L 10/12/16 20:45 Total Bilirubin 0.6 mg/dL (0.1-1.4) 10/12/16 20:45 Visualized and Interpreted Chest x-ray results: Yes Chest X-Ray results: other (possible retrocardiac opacity vs atelectasis) Visualized and Interpreted imaging results: Yes Interpretation: L foot x-ray: post surgical changes, cannot r/o osteomyelitis Assessment & Plan Assessment: Patient is a 71/F with DM2, HTN, CAD and chronic L foot wound with recent skin graft to the wound who presents to ED after a febrile episode at her SNF. ED evaluation reveals leukocytosis, elevated lactic acid, consistent with acute infection, with source presumed to be recurrent L foot cellulitis. Plan: # sepsis Patient with recorded fever in SNF prior to arrival and with leukocytosis, meeting sepsis criteria with source presumed to be L foot chronic wound site infection/cellulitis. CXR shows possible LLL infiltrate, however, patient denies any respiratory symptoms. UA and flu swab are still pending to complete the infectious w/u. Will cover with broadly Vanc and levaquin until cultures result. # lactic acidosis Likely related to sepsis and an element of hypovolemia. Patient was given 2 L NS and will repeat LA in AM. Patient does have a history of diastolic CHF, so will be cautious with IV fluid resuscitation and monitor volume status closely. # hyperglycemia, DM2 Patient slightly hyperglycemic on presentation. Will monitor FS TIDAC, place on sliding scale coverage and resume home insulin regimen once confirmed. # HTN BP normal on presentation. Will hold antihypertensives in setting of acute infection/sepsis and resume if patient becomes hypertensive. # CAD, diastolic CHF Patient without any cardiac complaints on presentation. Will check admission EKG. Will confirm and continue home meds. # dispo: admit to inpatient service for > 2 [place] stay # gen: cardiac/diabetic diet DVT ppx: lovenox Full code
[2016-10-13] MEDS ORDERED: PROTOCOL MAGNESIUM 1 DOSE IV PRN (03:09)
[2016-10-13] MEDS ORDERED: PROTOCOL POTASSIUM 1 DOSE MISC PRN (03:09)
[2016-10-13 03:24] LABS: COLOR YELLOW; LEUKOCYTE ESTERASE,URINE NEGATIVE (NEGATIVE); NITRITE,URINE NEGATIVE (NEGATIVE)
[2016-10-13 05:06] LABS: % IMMATURE GRANULYOCYTES 0.9 % (0.0-1.1); ABSOLUTE IMMATURE GRANULOCYTES 0.28 10^3/uL (0.00-0.10); ABSOLUTE NRBC COUNT 0.02 10^3/uL (0-0.01); ADD DIFF? NO; ADD MORPH? NO; ADD SCAN? NO; ATYPICAL LYMPHOCYTE FLAG 0 (0-99); FRAGMENT RBC FLAG 0 (0-99); HEMATOCRIT 27.3 % (38.0-47.0); HEMOGLOBIN 8.8 g/dL (12.6-16.3); LEFT SHIFT FLG 40 (0-99); LIPEMIA HEMOLYSIS FLAG 80 (0-99); MEAN CELL HEMOGLOBIN 24.3 pg (27.9-34.1); MEAN CELL HEMOGLOBIN CONCENTR. 32.2 g/dL (32.4-36.7); MEAN CELL VOLUME 75.4 fL (81.5-99.8); MEAN PLATELET VOLUME 8.3 fL (8.7-11.7); NRBC-AUTO% 0.1 % (0.0-0.2); PLATELET CLUMPS FLAG 0 (0-99); PLATELET COUNT 315 10^3/uL (150-400); RED BLOOD CELL COUNT 3.62 10^6/uL (4.18-5.33); RED CELL DISTRIBUTION WIDTH 16.4 % (11.5-15.2)
[2016-10-13 05:15] LABS: ANION GAP 8 mEq/L (8-16); CALCIUM 7.2 mg/dL (8.5-10.4); CARBON DIOXIDE 24 mEq/l (22-31); CHLORIDE 95 mEq/L (97-110); CREATININE 0.9 mg/dL (0.6-1.0); GLOMERULAR FILTRATION RATE > 60; GLUCOSE 216 mg/dL (70-100); POTASSIUM 3.9 mEq/L (3.5-5.2); SODIUM 127 mEq/L (134-144)
[2016-10-13 05:16] LABS: MAGNESIUM 0.8 mg/dL (1.6-2.3)
[2016-10-13] MEDS ORDERED: MAGNESIUM SULF 2 GM/WATER 50 ML IV ONE (05:23)
--- NOTE | 2016-10-13 05:42 | CPEKG ---
Heart Rate: 77 RR Interval: 779 P-R Interval: 156 QRSD Interval: 90 QT Interval: 432 QTC Interval: 489 P [place]: 52 QRS [place]: 103 T Wave [place]: 38 EKG Severity - BORDERLINE ECG - EKG Impression: SINUS RHYTHM EKG Impression: RIGHT AXIS DEVIATION EKG Impression: BORDERLINE PROLONGED QT INTERVAL Electronically Signed By: Getachew Matthews 13-Oct-2016 09:21:48
[2016-10-13] MEDS ORDERED: levOFLOXACIN 500 MG/DEXTROSE 100 ML IV SCH (09:00)
--- NOTE | 2016-10-13 09:18 | SOAPPROG ---
SOAP Progress Note Assessment/Plan: Assessment/Plan - erythema on superior portion of wound appears improved today. Graft site once again c/d/i with good graft take and good granulation elsewhere - WBC up to 29k, on vanc. Have asked Dr Edmonds who is familiar with the patient to evaluate and assist - Other than her leukocytosis she clinically looks well. She wants to eat and not be here. Her chest sounds clear and her abdomen is soft. - Will cont W-D dressings on graft site for the time being until erythema resolves 10/13/16 09:16 Subjective: Grumpy, no general complaints tho Objective: Vital Signs Temp Pulse Resp BP Pulse Ox 37.2 C 75 16 120/63 94 10/13/16 08:03 10/13/16 08:03 10/13/16 08:03 10/13/16 08:03 10/13/16 08:03 Laboratory Results 10/13/16 04:42 10/13/16 04:42 10/12/16 10/13/16 10/14/16 05:59 05:59 05:59 Intake Total 1300 Output Total 100 Balance 1200 PT 14.5 SEC (12.0-15.0) 10/12/16 20:45 INR 1.14 (0.83-1.16) 10/12/16 20:45 ICD10 Worksheet Patient Problems: Problems Problem Status Onset History of fever Acute Sepsis Acute Skin graft infection Acute Vomiting Acute Cellulitis of foot Acute Myocardial infarct Acute Rhabdomyolysis Acute
[2016-10-13] MEDS: INSULIN LISPRO 100 UNIT/ML SC SCH ×3 (09:23→17:21)
[2016-10-13] MEDS: ENOXAPARIN 40 MG/0.4 ML SYR SC SCH (09:23)
[2016-10-13] MEDS ORDERED: POTASSIUM CL 10 MEQ TAB PO ONE ×2 (09:35→20:11)
[2016-10-13] MEDS: HYDROCODONE/APAP 5/325 TAB PO PRN ×3 (09:37→20:06)
[2016-10-13] MEDS ORDERED: POTASSIUM CL 10 MEQ TAB ONE (09:37)
--- NOTE | 2016-10-13 09:45 | HOSPPROG ---
Hospitalist Progress Note Assessment/Plan: Patient is a 71/F with DM2, HTN, CAD and chronic L foot wound with recent skin graft to the wound who presents to ED fever and chills. Today is my 1st encounter with the patient. Chart reviewed. Evaluated the patient with Dr. Edmonds. # sepsis +blood culture this a.m. significant leukocytosis cxr shows poss LLL infiltrate but without any respiratory symptoms ua and influenza negative most likely from foot infection # Gas cellulitis to the left lower extremity with associated bacteremia vanco + Levaquin initially this has been discontinued and patient has been started on cefazolin left great toe amputation in 06/2016 (complications of sepsis and osteo) skin graft to left foot wound 10/04 unclear the infection is from the left foot versus the skin graft will get repeat labs in the morning. Continue supportive treatment. # lactic acidosis recent lactate stable improved w Iv hydration # anemia will follow # Hypomagnesium protocol #Hyponatremia was given 2 liters of fluid in ER will check urine studies # hyperglycemia, DM2 ada diet sliding scale hold metformin in the setting of high lactate # HTN resumed home med # CAD, diastolic CHF Patient without any cardiac complaints on presentation. Will check admission EKG. Will confirm and continue home meds. # dispo: admit to inpatient service for > 2 [place] stay # plan: will ask Physical therapy and Occupational therapy to see the patient. Recommending that she be nonweightbearing to the left foot. She is very fearful of causing more problems to her foot. Subjective: Brina is not complaining of pain but is very nervous about getting out of bed and fearful about hurting her foot Objective: Vital Signs Temp Pulse Resp BP Pulse Ox 37.2 C 75 16 120/63 94 10/13/16 08:03 10/13/16 08:03 10/13/16 08:03 10/13/16 08:03 10/13/16 08:03 Laboratory Results 10/13/16 04:42 10/13/16 04:42 10/12/16 10/13/16 10/14/16 05:59 05:59 05:59 Intake Total 1300 Output Total 100 Balance 1200 PT 14.5 SEC (12.0-15.0) 10/12/16 20:45 INR 1.14 (0.83-1.16) 10/12/16 20:45 - Physical Exam Constitutional: chronically ill appearing, uncomfortable Eyes: PERRL Ears, Nose, Mouth, Throat: hearing normal Cardiovascular: regular rate and rhythym, no murmur, rub, or gallop ( soft systolic murmur noted at the left sternal border) Respiratory: no respiratory distress Gastrointestinal: normoactive bowel sounds Skin: other ( evaluated left lower extremity with Dr. Edmonds. Were amputation was performed patient has good tissue healing. Left calf area has some erythema this extends to the outer side of the knee area. Upper thigh has a dressing in place from where the skin graft was taken) Musculoskeletal: generalized weakness Neurologic: AAOx3 Psychiatric: interacting appropriately, anxious ICD10 Worksheet Patient Problems: Problems Problem Status Onset History of fever Acute Sepsis Acute Skin graft infection Acute Vomiting Acute Cellulitis of foot Acute Myocardial infarct Acute Rhabdomyolysis Acute
[2016-10-13] MEDS ORDERED: guaiFENesin 600 MG TAB.ER PO PRN (10:41)
[2016-10-13] MEDS ORDERED: POLYETHYLENE GLYCOL 3350 17 GM PKT PO PRN (10:41)
[2016-10-13] MEDS ORDERED: SENNOSIDES/DOCUSATE SODIUM TAB PO PRN (10:41)
--- NOTE | 2016-10-13 11:42 | PCMIDPN ---
Assessment/Plan: GAS cellulitis LLE/bacteremia with portal of entry either L foot medial graft site vs L upper thigh harvest site. Fairly un-impressive exam LLE but does have faint erythema and warmth L calf, and posterior part of graft site on foot c/w cellulitis. Noted faint SM during last hospitalization. No symptoms of PNA. --narrow antibiotics to cefazolin, will need at least 2 weeks IV antibiotics. Reviewed abx duration with patient. 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 On presentation 07/09/2016, patient had severe sepsis with acute renal failure, hepatitis due to her left foot infection all resolving after ICU care, antibiotics and surgical intervention. Rec'd 6 weeks cefazolin, off since 08/23/16. Most recently she had graft placement 10/04/2016. In usual state of health until shaking chills at NH yesterday and "nurse over- reacted and sent me to the hospital." Very worried about graft site, worried about wound vac removal in ER last night. In ER patient started on levofloxacin for possible PNA and vancomycin for possible LLE cellulitis. Today blood cx grew GAS. Primary location of pain this AM is L calf Objective: Vital Signs Temp Pulse Resp BP Pulse Ox 37.2 C 75 16 120/63 94 10/13/16 08:03 10/13/16 08:03 10/13/16 08:03 10/13/16 08:03 10/13/16 08:03 Laboratory Results 10/13/16 04:42 10/13/16 04:42 10/12/16 10/13/16 10/14/16 05:59 05:59 05:59 Intake Total 1300 Output Total 100 300 Balance 1200 -300 - Physical Exam General Appearance: alert, no apparent distress EENT: pale conjunctiva, No scleral icterus Respiratory: lungs clear, No accessory muscle use Neck: supple Cardiac/Chest: systolic murmur (2/6) Extremities: pedal edema (L>R), erythema (faint erythema calf, more prominent posterior portion of foot wound, erythema more prominent lateral knee and medial calf) Abdomen: non-tender, soft Skin: No rash Neuro/Psych: alert, normal mood/affect, oriented x 3 - Time Spent With Patient Time Spent with Patient: greater than 35 minutes Time Spent with Patient: Greater than 35 minutes spent on this patients care, greater than 50% of time spent counseling, educating, and coordinating care regarding the above mentioned plan. ICD10 Worksheet Patient Problems: Problems Problem Status Onset History of fever Acute Sepsis Acute Skin graft infection Acute Vomiting Acute Cellulitis of foot Acute Myocardial infarct Acute Rhabdomyolysis Acute
[2016-10-13] MEDS ORDERED: ceFAZolin 2 GM/DEXTROSE 100 ML IV SCH (12:00)
[2016-10-13] MEDS: ceFAZolin 2 GM in D5W 100 ML IV SCH ×2 (12:12→12:13)
[2016-10-13] MEDS: SODIUM CL NASAL 45 ML BTL EACHNARE PRN (12:25)
--- NOTE | 2016-10-13 13:23 | WOCRNPDOC ---
NIKO Advanced Assessment Note - Skin Integrity Problem, Advanced Assess Left Upper Leg Surgical Wound/Incision Dressing Description: Clean/Dry, Intact Left Foot Surgical Wound/Incision Dressing Type: Kerlix Dressing Description: Clean/Dry, Intact Skin Integrity Problem Comment: Rounded on patient immediately following ID consult and placement of wet-to-dry dressing by Dr. Edmonds. At Dr. Edmonds' request, did not remove dressing to assess. Plan is for Dr. Rubi and team to see patient by Friday. Report to TOMASZ Balbuena. Coccyx Dressing Type: Allevyn Life Dressing Description: Not Intact (detaching 2/2 Calazime under dressing, preventing adherence.) Exudate Amount: None Exudate Characteristic(s): None Integumentary Issue Intervention: Dressing Applied (new Allevyn Sacrum ), Dressing Changed, Dressing Initialed & Dated Vidhya Wound Tissue: Intact Vidhya Wound Swelling: None Wound Bed Constitution: Healed Site Odor: None Site Measurement - Head-to-Toe Length X Width X Depth (cm): 1.5 x 1 x 0 Pressure Injury Present on Admit: Yes Skin Integrity Problem Comment: Removed non-viable sacrum dressing. Intact re- epithelializing scar tissue present at coccyx, currently presenting with evidence of a resurfaced pressure ulcer of unknown (to this senior writer) depth, prior to present assessment. Cleansed site, applied skin prep to intact perimeter, and placed new sacrum dressing. TOMASZ Balbuena assisting. Educated patient about importance of turns to maintain new tissue integrity: Verbalized understanding.
[2016-10-13 13:38] LABS: ALBUMIN 2.4 g/dL (3.5-5.0); BILIRUBIN,TOTAL 0.6 mg/dL (0.1-1.4); BILIRUBIN-CONJUGATED 0.4 mg/dL (0.0-0.5); BILIRUBIN-UNCONJUGATED 0.2 mg/dL (0.0-1.1); TOTAL PROTEIN 5.4 g/dL (6.3-8.2)
[2016-10-13] MEDS: VANCOMYCIN HCL/NORMAL SALINE 250 ML IV SCH (17:11)
[2016-10-13 19:54] LABS: POTASSIUM 3.7 mEq/L (3.5-5.2)
[2016-10-13] MEDS: METOPROLOL TARTRATE 50 MG TAB PO SCH (20:26)
[2016-10-13] MEDS: HYDROCORTISONE 1% CREAM TP SCH (20:28)
[2016-10-13] MEDS: CLOTRIMAZOLE/BETAMET DIPROP 15 GM CRTUBE TP SCH (20:28)
[2016-10-13] MEDS: INSULIN GLARGINE 100 UNITS/ML SYRINGE SC SCH (20:30)
[2016-10-13] MEDS ORDERED: INSULIN GLARGINE HUM REC ANLOG 5 UNIT SQ SCH (21:00)
[2016-10-13] MEDS ORDERED: VANCOMYCIN 1.5 GM in D5W 250 ML IV SCH (21:00)
[2016-10-14] MEDS: HYDROCODONE/APAP 5/325 TAB PO PRN ×4 (00:51→22:16)
[2016-10-14] MEDS: CEPACOL LOZENGE PO PRN ×5 (00:52→18:11)
[2016-10-14] MEDS: VANCOMYCIN HCL/NORMAL SALINE 250 ML IV SCH ×2 (02:38→17:04)
[2016-10-14 05:26] LABS: % IMMATURE GRANULYOCYTES 0.7 % (0.0-1.1); ABSOLUTE IMMATURE GRANULOCYTES 0.14 10^3/uL (0.00-0.10); ADD DIFF? NO; ADD MORPH? NO; ADD SCAN? NO; ATYPICAL LYMPHOCYTE FLAG 0 (0-99); FRAGMENT RBC FLAG 0 (0-99); HEMATOCRIT 25.7 % (38.0-47.0); HEMOGLOBIN 8.2 g/dL (12.6-16.3); LEFT SHIFT FLG 0 (0-99); LIPEMIA HEMOLYSIS FLAG 80 (0-99); MEAN CELL HEMOGLOBIN 24.6 pg (27.9-34.1); MEAN CELL HEMOGLOBIN CONCENTR. 31.9 g/dL (32.4-36.7); MEAN CELL VOLUME 76.9 fL (81.5-99.8); MEAN PLATELET VOLUME 8.3 fL (8.7-11.7); PLATELET CLUMPS FLAG 0 (0-99); PLATELET COUNT 285 10^3/uL (150-400); RED BLOOD CELL COUNT 3.34 10^6/uL (4.18-5.33); RED CELL DISTRIBUTION WIDTH 16.3 % (11.5-15.2)
[2016-10-14 05:47] LABS: ANION GAP 6 mEq/L (8-16); CALCIUM 7.8 mg/dL (8.5-10.4); CARBON DIOXIDE 25 mEq/l (22-31); CHLORIDE 97 mEq/L (97-110); CREATININE 0.8 mg/dL (0.6-1.0); GLOMERULAR FILTRATION RATE > 60; GLUCOSE 109 mg/dL (70-100); MAGNESIUM 1.5 mg/dL (1.6-2.3); SODIUM 128 mEq/L (134-144)
--- NOTE | 2016-10-14 09:07 | SOAPPROG ---
SOAP Progress Note Assessment/Plan: Assessment: 71 yo F s/p extensive LLE debridement and most recently STSG admitted with fevers and leukocytosis. Wound culture shows MRSA, GAS and E coli. IV vancomycin per ID Surrounding erythema resolved 75% graft take Dressings changed this am - donor site with mepilex transfer and tegaderm. Graft site with adaptic touch, gauze and kerlix. Change PRN Pain controlled S: feeling well this morning. [facility] to [facility]. No pain. O: sitting upright in chair, comfortable, NAD No increased wob dressings taken down. donor site CDI without surrounding erythema or drainage LLE graft site with appx 75% take. minimal erythema. no active drainage. nontender to palpation. dressings replaced - see above Objective: Vital Signs Temp Pulse Resp BP Pulse Ox 36.8 C 69 18 130/51 H 94 10/14/16 07:47 10/14/16 07:47 10/14/16 07:47 10/14/16 07:47 10/14/16 07:47 Laboratory Results 10/14/16 04:45 10/14/16 04:45 10/13/16 10/14/16 10/15/16 05:59 05:59 05:59 Intake Total 1300 250 Output Total 100 700 Balance 1200 -700 250 PT 14.5 SEC (12.0-15.0) 10/12/16 20:45 INR 1.14 (0.83-1.16) 10/12/16 20:45 ICD10 Worksheet Patient Problems: Problems Problem Status Onset History of fever Acute Sepsis Acute Skin graft infection Acute Vomiting Acute Cellulitis of foot Acute Myocardial infarct Acute Rhabdomyolysis Acute
[2016-10-14] MEDS: ENOXAPARIN 40 MG/0.4 ML SYR SC SCH (09:23)
[2016-10-14] MEDS: SENNOSIDES/DOCUSATE SODIUM TAB PO SCH (09:24)
[2016-10-14] MEDS: ATORVASTATIN CALCIUM 20 MG TAB PO SCH (09:24)
[2016-10-14] MEDS: VITAMIN B COMPLEX 1 EA CAP/TAB PO SCH (09:25)
[2016-10-14] MEDS: ASPIRIN EC 81 MG TAB PO SCH (09:26)
[2016-10-14] MEDS: POTASSIUM CL 10 MEQ TAB PO SCH (09:26)
[2016-10-14] MEDS: SODIUM CL NASAL 45 ML BTL EACHNARE PRN (09:28)
[2016-10-14] MEDS: INSULIN LISPRO 100 UNIT/ML SC SCH ×3 (09:28→18:21)
[2016-10-14] MEDS: METOPROLOL TARTRATE 50 MG TAB PO SCH ×2 (09:29→20:19)
[2016-10-14] MEDS: LISINOPRIL 5 MG TAB PO SCH (09:29)
[2016-10-14] MEDS: FUROSEMIDE 20 MG TAB PO SCH (09:29)
[2016-10-14] MEDS: HYDROCORTISONE 1% CREAM TP SCH ×2 (09:31→20:20)
[2016-10-14] MEDS: CLOTRIMAZOLE/BETAMET DIPROP 15 GM CRTUBE TP SCH ×2 (09:53→20:20)
[2016-10-14] MEDS ORDERED: MAGNESIUM SULF 1 GM/DEXTROSE 100 ML IV ONE ×2 (10:31→14:30)
[2016-10-14] MEDS ORDERED: MAGNESIUM SULF 1 GM/DEXTROSE 100 ML BAG IV ONE (14:00)
[2016-10-14] MEDS: NYSTATIN POWDER 15 GM BTL TP SCH ×3 (15:57→20:18)
--- NOTE | 2016-10-14 16:22 | HOSPPROG ---
Hospitalist Progress Note Assessment/Plan: Assessment: 71 yo F p/w sepsis 2/2 bacteremia and cellulitis in setting of chronic L foot wound with recent skin graft to the wound Plan: # Gas cellulitis to the left lower extremity. 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 Strep Pyogenes, suspect this is the overt source of infxn - cont Abx - appreciate ID - get repeat BCx 10/15 AM # Sepsis. Evidenced by sepsis-2 criteria of leukocytosis (WBC 27,800) + e/o end- organ failure (lactic acid 3.1) w/ likely blunted tachycardic response from bblocker, resulting in autonomic dysregulation in setting of infxn - s/p IVF and Abx - monitor CBC # Metabolic acidosis. Acute, lactic acidosis in setting of sepsis and hypovolemia, resolved w/ IVF # Anemia of chronic inflammatory disease. No e/o blood loss # Hyponatremia. 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 ISS, holding metformin # HTN. Chronic, resumed home Rx # Chronic diastolic CHF. No e/o acute exacerbation, cont bblocker, lasix, ACEi Diet. ADA PPx. High risk, lovenox 40 Code. Full Dispo. ADD uncertain, pending neg repeat BCx Subjective: Patient reporting fraction underneath her bilateral breasts as well as pannus, counseled the patient regarding her need for negative repeat blood cultures and increasing physical activity Objective: Vital Signs Temp Pulse Resp BP Pulse Ox 36.8 C 73 18 130/51 H 94 10/14/16 07:47 10/14/16 09:00 10/14/16 07:47 10/14/16 09:00 10/14/16 09:00 Laboratory Results 10/14/16 04:45 10/14/16 04:45 10/13/16 10/14/16 10/15/16 05:59 05:59 05:59 Intake Total 1300 250 Output Total 100 700 Balance 1200 -700 250 PT 14.5 SEC (12.0-15.0) 10/12/16 20:45 INR 1.14 (0.83-1.16) 10/12/16 20:45 - Time Spent With Patient Time Spent with Patient: greater than 35 minutes Time Spent with Patient: Greater than 35 minutes spent on this patients care, greater than 50% of time spent counseling, educating, and coordinating care regarding the above mentioned plan. - Physical Exam Constitutional: no apparent distress, chronically ill appearing, uncomfortable Cardiovascular: No systolic murmur, No irregularly irregular, No tachycardia, No edema Respiratory: no respiratory distress, no rales or rhonchi, clear to auscultation Gastrointestinal: normoactive bowel sounds, soft, non-tender abdomen, no palpable masses Skin: other (Mild erythema bilaterally under pannus with small abrasion on the left) Neurologic: AAOx3 Psychiatric: interacting appropriately, not anxious, not encephalopathic, thought process linear ICD10 Worksheet Patient Problems: Problems Problem Status Onset History of fever Acute Sepsis Acute Skin graft infection Acute Vomiting Acute Cellulitis of foot Acute Myocardial infarct Acute Rhabdomyolysis Acute
[2016-10-14] MEDS: TEARS/DEXTRAN 70/HYPROMELLOSE 15 ML OPHT.BTL EACHEYE PRN (18:09)
--- NOTE | 2016-10-14 18:28 | PCMIDPN ---
Assessment/Plan: Assessment/Plan: * Group A strep bacteremia/sepsis likely associated with left foot wound post skin grafting: Cultures of the wound bed also showing growth of MRSA and an ESBL producing E coli. Clinically has improved with antibiotic therapy. Continue vancomycin which will provide activity against both group A strep and MRSA. Suspect ESBL producing E coli may represent colonization and is not actively contributing to current presentation - therefore, will not provide targeted antibiotic therapy for this organism. Vancomycin dose adjusted based on trough level. Repeat blood cultures to document clearing of bacteremia. 10/14/16 18:25 10/14/16 18:28 Subjective: Patient without specific complaints. Overall left foot feels improved. Objective: Vital Signs Temp Pulse Resp BP Pulse Ox 36.3 C 58 L 16 132/72 H 95 10/14/16 16:00 10/14/16 16:00 10/14/16 16:00 10/14/16 16:00 10/14/16 16:00 Laboratory Results 10/14/16 04:45 10/14/16 04:45 10/13/16 10/14/16 10/15/16 05:59 05:59 05:59 Intake Total 1300 750 Output Total 100 700 150 Balance 1200 -700 600 Vancomycin # 2 Wound culture with growth of MRSA, group A Streptococcus, and ESBL producing E coli - Physical Exam General Appearance: alert, no apparent distress EENT: pharynx normal, No conjunctival petechiae Respiratory: lungs clear, No respiratory distress Cardiac/Chest: regular rate, rhythm, systolic murmur (2/6 left upper sternal border) Extremities: inflammation (Left foot wound without surrounding cellulitis; no tenderness around left thigh donor site) ICD10 Worksheet Patient Problems: Problems Problem Status Onset History of fever Acute Sepsis Acute Skin graft infection Acute Vomiting Acute Cellulitis of foot Acute Myocardial infarct Acute Rhabdomyolysis Acute
[2016-10-14] MEDS: INSULIN GLARGINE 100 UNITS/ML SYRINGE SC SCH (20:18)
[2016-10-15 06:30] LABS: % IMMATURE GRANULYOCYTES 0.6 % (0.0-1.1); ABSOLUTE IMMATURE GRANULOCYTES 0.07 10^3/uL (0.00-0.10); ADD DIFF? NO; ADD MORPH? NO; ADD SCAN? NO; ATYPICAL LYMPHOCYTE FLAG 0 (0-99); FRAGMENT RBC FLAG 0 (0-99); HEMATOCRIT 27.4 % (38.0-47.0); HEMOGLOBIN 8.6 g/dL (12.6-16.3); LEFT SHIFT FLG 0 (0-99); LIPEMIA HEMOLYSIS FLAG 80 (0-99); MEAN CELL HEMOGLOBIN 24.5 pg (27.9-34.1); MEAN CELL HEMOGLOBIN CONCENTR. 31.4 g/dL (32.4-36.7); MEAN CELL VOLUME 78.1 fL (81.5-99.8); MEAN PLATELET VOLUME 8.9 fL (8.7-11.7); PLATELET CLUMPS FLAG 0 (0-99); PLATELET COUNT 336 10^3/uL (150-400); RED BLOOD CELL COUNT 3.51 10^6/uL (4.18-5.33); RED CELL DISTRIBUTION WIDTH 16.1 % (11.5-15.2)
[2016-10-15 06:37] LABS: ANION GAP 8 mEq/L (8-16); CALCIUM 8.6 mg/dL (8.5-10.4); CARBON DIOXIDE 25 mEq/l (22-31); CHLORIDE 95 mEq/L (97-110); CREATININE 0.8 mg/dL (0.6-1.0); GLOMERULAR FILTRATION RATE > 60; GLUCOSE 124 mg/dL (70-100); POTASSIUM 4.5 mEq/L (3.5-5.2); SODIUM 128 mEq/L (134-144)
[2016-10-15] MEDS ORDERED: VANCOMYCIN HCL/NORMAL SALINE 250 ML IV SCH (07:00)
[2016-10-15] MEDS: NYSTATIN POWDER 15 GM BTL TP SCH ×3 (07:53→21:46)
[2016-10-15] MEDS: METOPROLOL TARTRATE 50 MG TAB PO SCH ×2 (07:54→21:43)
[2016-10-15] MEDS: POTASSIUM CL 10 MEQ TAB PO SCH (07:54)
[2016-10-15] MEDS: FUROSEMIDE 20 MG TAB PO SCH (07:54)
[2016-10-15] MEDS: SENNOSIDES/DOCUSATE SODIUM TAB PO SCH (07:54)
[2016-10-15] MEDS: LISINOPRIL 5 MG TAB PO SCH (07:54)
[2016-10-15] MEDS: VITAMIN B COMPLEX 1 EA CAP/TAB PO SCH (07:55)
[2016-10-15] MEDS: ATORVASTATIN CALCIUM 20 MG TAB PO SCH (07:55)
[2016-10-15] MEDS: ASPIRIN EC 81 MG TAB PO SCH (07:55)
[2016-10-15] MEDS: ENOXAPARIN 40 MG/0.4 ML SYR SC SCH (07:55)
[2016-10-15] MEDS: CLOTRIMAZOLE/BETAMET DIPROP 15 GM CRTUBE TP SCH ×2 (07:56→21:46)
[2016-10-15] MEDS: HYDROCORTISONE 1% CREAM TP SCH ×2 (07:57→21:46)
[2016-10-15] MEDS: VANCOMYCIN HCL/NORMAL SALINE 250 ML IV SCH (07:58)
[2016-10-15] MEDS: INSULIN LISPRO 100 UNIT/ML SC SCH ×3 (08:11→16:55)
--- NOTE | 2016-10-15 09:08 | PCMIDPN ---
Assessment/Plan: Assessment/Plan: 1. Group A Strep sepsis, bacteremia: -f/u blood cx from 10/14, 10/15 are pending. -Currently on vanco -WBC markedly improved. Creatinine stable at 0.8. -Trough done after two doses was at 19. Dosed was reduced already from q12 to daily. -Will reassess trough later in the week 2. Left foot graft site: - s/p graft on 10/04/16. - Cx with Group A Strep, MRSA, ESBL E.coli -Currently on Vanco to cover GAS, MRSA for now. -Graft site and harvest examined with surgical team. [place] removed today at bedside by them. Meds Vanco 1g daily - PRevious was on q12 Subjective: Afebrile. Feels better overall. denies pain involving her LLE thigh or foot. just spilled hot tea on herself. Denies sob, abd pain or diarrhea. She tells me that a small wound on her upper back had some pus in it last week and that the nurse had squeezed out some pus from it. denies pain at that site. Objective: Vital Signs Temp Pulse Resp BP Pulse Ox 36.7 C 94 16 127/64 H 95 10/15/16 07:45 10/15/16 07:45 10/15/16 07:45 10/15/16 07:45 10/14/16 16:00 Laboratory Results 10/15/16 05:25 10/15/16 05:25 10/14/16 10/15/16 10/16/16 05:59 05:59 05:59 Intake Total 1050 Output Total 700 150 Balance -700 900 - Physical Exam General Appearance: alert, no apparent distress Respiratory: lungs clear Cardiac/Chest: regular rate, rhythm Extremities: swelling (bilateral LE edema) Abdomen: normal bowel sounds, non-tender, soft, No distended Skin: erythema (left thigh harvest site: clean no surrounding erythema. left foot graft site mostly well taken. one spot with some slough. [place] removed by DR. Rubi at bedside while i was present. no real surrounding erythema as such. Left leg has chronic venous stasis pigmentation to it. ) ICD10 Worksheet Patient Problems: Problems Problem Status Onset History of fever Acute Sepsis Acute Skin graft infection Acute Vomiting Acute Cellulitis of foot Acute Myocardial infarct Acute Rhabdomyolysis Acute
[2016-10-15] MEDS: HYDROCODONE/APAP 5/325 TAB PO PRN ×2 (10:09→21:41)
--- NOTE | 2016-10-15 10:56 | SOAPPROG ---
SOAP Progress Note Assessment/Plan: Assessment: 71 yo F s/p extensive LLE debridement and most recently STSG admitted with fevers and leukocytosis. Wound culture shows MRSA, GAS and E coli. IV vancomycin per ID. Waiting for bactremia to clear Surrounding erythema resolved 75% graft take Dressings changed and [place] removed. Pain controlled Seen with Dr. Rubi and Dr. Moncada S: No complaints this morning. pain controlled. O: laying in bed, comfortable, NAD No increased wob dressings taken down. donor site CDI without surrounding erythema or drainage LLE graft site with appx 75% take. fibrinous slough overlying site of previously exposed bone. no bone exposed at this time. no surrounding erythema. no active drainage. nontender to palpation. dressings replaced Objective: Vital Signs Temp Pulse Resp BP Pulse Ox 36.7 C 94 16 127/64 H 95 10/15/16 07:45 10/15/16 07:45 10/15/16 07:45 10/15/16 07:45 10/14/16 16:00 Laboratory Results 10/15/16 05:25 10/15/16 05:25 10/14/16 10/15/16 10/16/16 05:59 05:59 05:59 Intake Total 1050 Output Total 700 150 Balance -700 900 PT 14.5 SEC (12.0-15.0) 10/12/16 20:45 INR 1.14 (0.83-1.16) 10/12/16 20:45 ICD10 Worksheet Patient Problems: Problems Problem Status Onset History of fever Acute Sepsis Acute Skin graft infection Acute Vomiting Acute Cellulitis of foot Acute Myocardial infarct Acute Rhabdomyolysis Acute
[2016-10-15] MEDS: TEARS/DEXTRAN 70/HYPROMELLOSE 15 ML OPHT.BTL EACHEYE PRN (11:02)
--- NOTE | 2016-10-15 21:21 | HOSPPROG ---
Hospitalist Progress Note Assessment/Plan: DIAGNOSES: -ACUTE CELLULITIS AND WOUND INFECTION L FOOT, W RECENT SKIN GRAFT AFTER PRIOR DEBRIDEMENT -ACUTE SEPSIS -BATEREMIA -GRP A STREP, MRSA, ECOLI IN CULTURES SO FAR -ANEMIA PLANS: -continue current abx -wound care, elevation -dvt prophylaxis SUBJECTIVE: no pain in leg or foot no nausea, sob, chills eating ok VITAL SIGNS: stable without fever EXAMINATION: alert oriented relaxed watching tv skin warm dry color ok resps easy lungs clear heart reg abd soft nondistended nontender L leg/foot in bandages, toes are warm w good color distally; I did not remove bandage as it had just but removed and replaced iv site good Objective: Vital Signs Temp Pulse Resp BP Pulse Ox 37 C 94 16 131/83 H 95 10/15/16 15:27 10/15/16 15:27 10/15/16 15:27 10/15/16 15:27 10/14/16 16:00 Laboratory Results 10/15/16 05:25 10/15/16 05:25 10/14/16 10/15/16 10/16/16 06:59 06:59 06:59 Intake Total 971 022 8147 Output Total 522 279 4225 Balance -450 650 -75 PT 14.5 SEC (12.0-15.0) 10/12/16 20:45 INR 1.14 (0.83-1.16) 10/12/16 20:45 ICD10 Worksheet Patient Problems: Problems Problem Status Onset History of fever Acute Sepsis Acute Skin graft infection Acute Vomiting Acute Cellulitis of foot Acute Myocardial infarct Acute Rhabdomyolysis Acute
[2016-10-15] MEDS: SODIUM CL NASAL 45 ML BTL EACHNARE PRN (21:48)
[2016-10-15] MEDS: INSULIN GLARGINE 100 UNITS/ML SYRINGE SC SCH (21:51)
[2016-10-16] MEDS: HYDROCODONE/APAP 5/325 TAB PO PRN ×2 (04:02→20:58)
[2016-10-16] MEDS: VANCOMYCIN HCL/NORMAL SALINE 250 ML IV SCH (05:39)
[2016-10-16 06:00] LABS: % IMMATURE GRANULYOCYTES 0.4 % (0.0-1.1); ABSOLUTE IMMATURE GRANULOCYTES 0.03 10^3/uL (0.00-0.10); ADD DIFF? NO; ADD MORPH? NO; ADD SCAN? NO; ATYPICAL LYMPHOCYTE FLAG 20 (0-99); FRAGMENT RBC FLAG 0 (0-99); HEMATOCRIT 27.6 % (38.0-47.0); HEMOGLOBIN 8.7 g/dL (12.6-16.3); LEFT SHIFT FLG 0 (0-99); LIPEMIA HEMOLYSIS FLAG 80 (0-99); MEAN CELL HEMOGLOBIN 24.3 pg (27.9-34.1); MEAN CELL HEMOGLOBIN CONCENTR. 31.5 g/dL (32.4-36.7); MEAN CELL VOLUME 77.1 fL (81.5-99.8); MEAN PLATELET VOLUME 8.6 fL (8.7-11.7); PLATELET CLUMPS FLAG 0 (0-99); PLATELET COUNT 313 10^3/uL (150-400); RED BLOOD CELL COUNT 3.58 10^6/uL (4.18-5.33); RED CELL DISTRIBUTION WIDTH 16.1 % (11.5-15.2)
[2016-10-16 06:10] LABS: ANION GAP 7 mEq/L (8-16); CALCIUM 8.5 mg/dL (8.5-10.4); CARBON DIOXIDE 25 mEq/l (22-31); CHLORIDE 98 mEq/L (97-110); CREATININE 0.7 mg/dL (0.6-1.0); GLOMERULAR FILTRATION RATE > 60; GLUCOSE 132 mg/dL (70-100); POTASSIUM 4.2 mEq/L (3.5-5.2); SODIUM 130 mEq/L (134-144)
[2016-10-16] MEDS: ENOXAPARIN 40 MG/0.4 ML SYR SC SCH (08:20)
[2016-10-16] MEDS: NYSTATIN POWDER 15 GM BTL TP SCH ×3 (08:20→20:54)
[2016-10-16] MEDS: INSULIN LISPRO 100 UNIT/ML SC SCH ×3 (08:20→18:16)
[2016-10-16] MEDS: ASPIRIN EC 81 MG TAB PO SCH (08:21)
[2016-10-16] MEDS: METOPROLOL TARTRATE 50 MG TAB PO SCH ×2 (08:21→20:51)
[2016-10-16] MEDS: POTASSIUM CL 10 MEQ TAB PO SCH (08:21)
[2016-10-16] MEDS: VITAMIN B COMPLEX 1 EA CAP/TAB PO SCH (08:21)
[2016-10-16] MEDS: LISINOPRIL 5 MG TAB PO SCH (08:21)
[2016-10-16] MEDS: ATORVASTATIN CALCIUM 20 MG TAB PO SCH (08:21)
[2016-10-16] MEDS: FUROSEMIDE 20 MG TAB PO SCH (08:21)
[2016-10-16] MEDS: SENNOSIDES/DOCUSATE SODIUM TAB PO SCH (08:21)
[2016-10-16] MEDS: HYDROCORTISONE 1% CREAM TP SCH ×2 (09:44→21:10)
[2016-10-16] MEDS: CLOTRIMAZOLE/BETAMET DIPROP 15 GM CRTUBE TP SCH ×2 (09:44→20:54)
--- NOTE | 2016-10-16 12:52 | SOAPPROG ---
SOAP Progress Note Assessment/Plan: Assessment: 71 yo F s/p extensive LLE debridement and most recently STSG admitted with fevers and leukocytosis. Wound culture shows MRSA, GAS and E coli. IV vancomycin per ID. Repeat blood cx pending Surrounding erythema resolved Dressings intact - change PRN Pain controlled Seen with Dr. Rubi S: No complaints this morning. likely back to [facility] today or tomorrow per pt O: laying in bed, comfortable, NAD No increased wob dressings intact without staining or surrounding erythema 10/16/16 12:50 Objective: Vital Signs Temp Pulse Resp BP Pulse Ox 36.8 C 65 16 155/81 H 93 10/16/16 07:23 10/16/16 08:21 10/16/16 07:23 10/16/16 08:21 10/16/16 07:23 Laboratory Results 10/16/16 05:16 10/16/16 05:16 10/15/16 10/16/16 10/17/16 05:59 05:59 05:59 Intake Total 1050 1875 300 Output Total 150 2000 200 Balance 900 -125 100 PT 14.5 SEC (12.0-15.0) 10/12/16 20:45 INR 1.14 (0.83-1.16) 10/12/16 20:45 ICD10 Worksheet Patient Problems: Problems Problem Status Onset ESBL (extended spectrum beta-lactamase) producing bacteria infection Acute ~ History of fever Acute MRSA (methicillin resistant Staphylococcus aureus) Acute ~10/12/16 Sepsis Acute Skin graft infection Acute Vomiting Acute Cellulitis of foot Acute Myocardial infarct Acute Rhabdomyolysis Acute
[2016-10-16] MEDS: TEARS/DEXTRAN 70/HYPROMELLOSE 15 ML OPHT.BTL EACHEYE PRN (16:00)
[2016-10-16] MEDS ORDERED: ALTEPLASE 2 MG VIAL IVP PRN (16:10)
--- NOTE | 2016-10-16 16:29 | HOSPPROG ---
Hospitalist Progress Note Assessment/Plan: 71-year-old female with known history foot wound infection. Is my 1st encounter with the patient, chart reviewed. Patient reviewed with Dr. Shaggy Luke. DIAGNOSES: #ACUTE CELLULITIS AND WOUND INFECTION L FOOT, W RECENT SKIN GRAFT AFTER PRIOR DEBRIDEMENT Antibiotics per Infectious Disease further intervention per surgery #ACUTE SEPSIS resolved #BACTEREMIA will need IV antibiotic therapy per Infectious Disease #GRP A STREP, MRSA, ECOLI IN CULTURES continue to follow #ANEMIA chronic and stable PLANS: -continue current abx -wound care, elevation -dvt prophylaxis Subjective: denies any pain currently no other specific issues. Up in the chair eating lunch. Objective: Vital Signs Temp Pulse Resp BP Pulse Ox 36.8 C 65 16 168/71 H 97 10/16/16 15:52 10/16/16 15:52 10/16/16 15:52 10/16/16 15:52 10/16/16 15:52 Laboratory Results 10/16/16 05:16 10/16/16 05:16 10/15/16 10/16/16 10/17/16 05:59 05:59 05:59 Intake Total 1050 1875 300 Output Total 150 2000 800 Balance 900 -125 -500 PT 14.5 SEC (12.0-15.0) 10/12/16 20:45 INR 1.14 (0.83-1.16) 10/12/16 20:45 - Physical Exam Constitutional: no apparent distress, appears nourished, not in pain Eyes: PERRL, anicteric sclera, EOMI Ears, Nose, Mouth, Throat: moist mucous membranes, hearing normal, ears appear normal Cardiovascular: No JVD, No tachycardia, No edema Respiratory: no respiratory distress, no rales or rhonchi, reduced air movement Gastrointestinal: No tenderness, No ascites Skin: warm, No abrasion, No rash Musculoskeletal: no joint effusions, abnormal gait, generalized weakness Neurologic: AAOx3 Psychiatric: interacting appropriately, not anxious, not encephalopathic ICD10 Worksheet Patient Problems: Problems Problem Status Onset MRSA (methicillin resistant Staphylococcus aureus) Acute ~10/12/16 ESBL (extended spectrum beta-lactamase) producing bacteria infection Acute ~ Myocardial infarct Acute Rhabdomyolysis Acute Cellulitis of foot Acute History of fever Acute Vomiting Acute Skin graft infection Acute Sepsis Acute
--- NOTE | 2016-10-16 18:43 | PCMIDPN ---
Assessment/Plan: Assessment/Plan: * Group A strep bacteremia/sepsis likely associated with left foot wound post skin grafting: Cultures of the wound bed also showing growth of MRSA and an ESBL producing E coli. Continued clinical improvement with some residual erythema although significantly fainter in quality. Plan 2 weeks of vancomycin post clearance of blood cultures. Continued local wound care as outlined by Dr. Rubi. Reassess vancomycin trough in a.m. prior to discharge. Place PICC line prior to discharge with anticipated discharge tomorrow. 10/16/16 18:40 Subjective: Patient eager to go home. No pain in left lower extremity over previous cellulitic areas. Notes these are less warm. Objective: Vital Signs Temp Pulse Resp BP Pulse Ox 36.8 C 65 16 168/71 H 97 10/16/16 15:52 10/16/16 15:52 10/16/16 15:52 10/16/16 15:52 10/16/16 15:52 Laboratory Results 10/16/16 05:16 10/16/16 05:16 10/15/16 10/16/16 10/17/16 05:59 05:59 05:59 Intake Total 1050 1875 500 Output Total 150 2000 800 Balance 900 -125 -300 Vancomycin # for Blood cultures 09/2026 and 10/15/2016 no growth - Physical Exam General Appearance: alert, no apparent distress EENT: No scleral icterus, No conjunctival petechiae Respiratory: lungs clear, No respiratory distress Cardiac/Chest: regular rate, rhythm Extremities: inflammation (Left lower extremity with faint erythema over foot, anterior martin and medial thigh without significant tenderness; edema present in dependent areas; mild warmth present) ICD10 Worksheet Patient Problems: Problems Problem Status Onset ESBL (extended spectrum beta-lactamase) producing bacteria infection Acute ~ History of fever Acute MRSA (methicillin resistant Staphylococcus aureus) Acute ~10/12/16 Sepsis Acute Skin graft infection Acute Vomiting Acute Cellulitis of foot Acute Myocardial infarct Acute Rhabdomyolysis Acute
[2016-10-16] MEDS: INSULIN GLARGINE 100 UNITS/ML SYRINGE SC SCH (20:53)
[2016-10-16] MEDS: CEPACOL LOZENGE PO PRN (21:00)
[2016-10-17] MEDS: HYDROCODONE/APAP 5/325 TAB PO PRN ×2 (01:39→16:03)
[2016-10-17] MEDS: CEPACOL LOZENGE PO PRN (01:42)
[2016-10-17 04:29] LABS: % IMMATURE GRANULYOCYTES 0.6 % (0.0-1.1); ABSOLUTE IMMATURE GRANULOCYTES 0.04 10^3/uL (0.00-0.10); ADD DIFF? NO; ADD MORPH? NO; ADD SCAN? NO; ATYPICAL LYMPHOCYTE FLAG 30 (0-99); FRAGMENT RBC FLAG 0 (0-99); HEMATOCRIT 25.6 % (38.0-47.0); HEMOGLOBIN 8.2 g/dL (12.6-16.3); LEFT SHIFT FLG 0 (0-99); LIPEMIA HEMOLYSIS FLAG 80 (0-99); MEAN CELL HEMOGLOBIN 24.2 pg (27.9-34.1); MEAN CELL VOLUME 75.5 fL (81.5-99.8); MEAN PLATELET VOLUME 8.6 fL (8.7-11.7); PLATELET CLUMPS FLAG 0 (0-99); PLATELET COUNT 330 10^3/uL (150-400); RED BLOOD CELL COUNT 3.39 10^6/uL (4.18-5.33); RED CELL DISTRIBUTION WIDTH 16.3 % (11.5-15.2)
[2016-10-17 05:13] LABS: ANION GAP 6 mEq/L (8-16); CALCIUM 8.4 mg/dL (8.5-10.4); CARBON DIOXIDE 27 mEq/l (22-31); CHLORIDE 97 mEq/L (97-110); CREATININE 0.7 mg/dL (0.6-1.0); GLOMERULAR FILTRATION RATE > 60; GLUCOSE 162 mg/dL (70-100); POTASSIUM 4.1 mEq/L (3.5-5.2); SODIUM 130 mEq/L (134-144)
[2016-10-17] MEDS: VANCOMYCIN HCL/NORMAL SALINE 250 ML IV SCH (05:30)
[2016-10-17] MEDS: INSULIN LISPRO 100 UNIT/ML SC SCH ×2 (08:01→11:42)
[2016-10-17] MEDS: METOPROLOL TARTRATE 50 MG TAB PO SCH (08:51)
[2016-10-17] MEDS: SENNOSIDES/DOCUSATE SODIUM TAB PO SCH (08:51)
[2016-10-17] MEDS: FUROSEMIDE 20 MG TAB PO SCH (08:53)
[2016-10-17] MEDS: ASPIRIN EC 81 MG TAB PO SCH (08:53)
[2016-10-17] MEDS: ENOXAPARIN 40 MG/0.4 ML SYR SC SCH (08:53)
[2016-10-17] MEDS: VITAMIN B COMPLEX 1 EA CAP/TAB PO SCH (08:53)
[2016-10-17] MEDS: LISINOPRIL 5 MG TAB PO SCH (08:54)
[2016-10-17] MEDS: POTASSIUM CL 10 MEQ TAB PO SCH (08:55)
[2016-10-17] MEDS: ATORVASTATIN CALCIUM 20 MG TAB PO SCH (08:55)
[2016-10-17] MEDS: HYDROCORTISONE 1% CREAM TP SCH (09:03)
[2016-10-17] MEDS: NYSTATIN POWDER 15 GM BTL TP SCH (09:03)
[2016-10-17] MEDS: CLOTRIMAZOLE/BETAMET DIPROP 15 GM CRTUBE TP SCH (09:03)
[2016-10-17] MEDS: TEARS/DEXTRAN 70/HYPROMELLOSE 15 ML OPHT.BTL EACHEYE PRN (09:06)
--- NOTE | 2016-10-17 10:16 | SOAPPROG ---
SOAP Progress Note Assessment/Plan: Assessment: s/p sTSG for severe diabetic foot ulcer. She was admitted for bacteremia. She should be returning to her facility soon. She may shower without any dressings on. Pat the wound dry. Re-dress the foot with a nonstick layer such as Adaptic Touch and wrapped with gauze. The size should be dressed with a nonstick dressing such as Mepilex transfer or Vaseline gauze. She has a scheduled follow-up appointment with me next . Continue nonweightbearing as much as possible for another 2 weeks. S: Feeling improved. Eager to return to facility O: there is about 80% graft take. Her foot is healthy. There is no surrounding erythema. The donor site is clean without signs of infection. It has minimal drainage Plan: 10/17/16 10:15 Objective: Vital Signs Temp Pulse Resp BP Pulse Ox 36.7 C 62 16 162/84 H 92 10/17/16 08:00 10/17/16 08:51 10/17/16 08:00 10/17/16 08:54 10/17/16 08:00 Laboratory Results 10/17/16 04:15 10/17/16 04:15 10/16/16 10/17/16 10/18/16 05:59 05:59 05:59 Intake Total 1875 750 Output Total 1999 1450 500 Balance -125 -700 -500 PT 14.5 SEC (12.0-15.0) 10/12/16 20:45 INR 1.14 (0.83-1.16) 10/12/16 20:45 ICD10 Worksheet Patient Problems: Problems Problem Status Onset ESBL (extended spectrum beta-lactamase) producing bacteria infection Acute ~ History of fever Acute MRSA (methicillin resistant Staphylococcus aureus) Acute ~10/12/16 Sepsis Acute Skin graft infection Acute Vomiting Acute Cellulitis of foot Acute Myocardial infarct Acute Rhabdomyolysis Acute
--- NOTE | 2016-10-17 10:50 | PDIAF ---
- Diagnosis Diagnosis: Group A strep bacteremia Code Status: Full Code - Medication Management Discharge Medications: Medications to Continue on Transfer Vitamin B Complex [B Complex] 1 tab PO DAILY 07/09/16 [Last Taken 10/12/16 08:00 ] Lisinopril [Zestril 5 mg (*)] 5 mg PO DAILY #0 tab 07/24/16 [Last Taken 08:00] Metoprolol Tartrate [Lopressor 50 mg (*)] 50 mg PO BID #0 tab 07/24/16 [Last Taken 10/12/16 08:00] Polyethylene Glycol 3350 [Miralax 17 gm (*)] 17 gm PO DAILY PRN #0 pkt 07/24/16 [Last Taken Unknown] oxyCODONE IR [Oxycodone Ir (*)] 5 - 10 mg PO Q3HRS PRN #0 tab 07/24/16 [Last Taken 10/12/16 14:00 10 MG] Insulin Glargine,Hum.rec.anlog [Lantus Solostar] 5 unit SQ HS 10/02/16 [Last Taken 10/11/16] Atorvastatin Calcium [Lipitor 20 mg (*)] 20 mg PO DAILY 10/04/16 [Last Taken ] Clotrimazole/Betamethasone Dip [Clotrimazole-Betamethasone Crm] 1 nona TP BID [Last Taken 10/12/16 08:00] Diclofenac Sodium [Voltaren Gel (*)] 1 nona TP TID PRN 10/04/16 [Last Taken 10/12] Furosemide [Lasix 20 MG (*)] 20 mg PO DAILY 10/04/16 [Last Taken 10/12/16 08:00] Hydrocortisone 1% [Hydrocortisone 1% cream (*)] 1 nona TP BID 10/04/16 [Last Taken 10/11/16 08:00] Metformin HCl [Glucophage 1000 mg] 1,000 mg PO BIDMEAL 10/04/16 [Last Taken 08:00] Potassium Cl [Klor-Con 10 meq (RX)] 10 meq PO DAILY 10/04/16 [Last Taken 08:00] Sennosides/Docusate Sodium [Senokot-S] 1 each PO BID PRN 10/04/16 [Last Taken Unknown] Sennosides/Docusate Sodium [Senokot-S] 1 tab PO DAILY 10/04/16 [Last Taken 10/12 08:00] Sodium Cl Nasal [[place] (*)] 2 spray EACHNARE QID PRN 10/04/16 [Last Taken Unknown] diphenhydrAMINE [Benadryl 50 MG (*)] 50 mg PO Q8 PRN 10/04/16 [Last Taken 08:00] guaiFENesin [Mucinex 600 MG (*)] 600 mg PO BID PRN 10/04/16 [Last Taken Unknown] Aspirin EC [Aspirin EC 81 mg (*)] 81 mg PO DAILY 10/13/16 [Last Taken 10/12/16 08:00] Intermediate Antibiotics: Vancomycin 1 g IV q24 Facility Engineer Antibiotic Stop Date: 10/28/16 Discharge Medications: Refer to the Discharge Home Medication list for PRN reason. PICC Care - Routine: Yes - Labs/Radiology CBC Date: 10/21/16 (weekly q friday) CMP Date: 10/21/16 (weekly q friday) Creatinine Date: 10/24/16 (weekly q ) Vanco Trough Date and Time: weekly q friday and 30 minutes before dose Call or Fax Lab and Imaging Results to: Dr. Edmonds, - Follow Up Care Current Providers and Referrals: Kait Rubi MD [Medical Doctor] - 10/24/16 12:30 pm Patient,NotPresent [Unknown] - As per Instructions Arielle Edmonds MD [Medical Doctor] - 10/22/16 1:30 pm
--- NOTE | 2016-10-17 12:43 | PDIAF ---
- Diagnosis Diagnosis: Group A strep bacteremia Code Status: Full Code - Medication Management Discharge Medications: Medications to Continue on Transfer Vitamin B Complex [B Complex] 1 tab PO DAILY 07/09/16 [Last Taken 10/12/16 08:00 ] Lisinopril [Zestril 5 mg (*)] 5 mg PO DAILY #0 tab 07/24/16 [Last Taken 08:00] Metoprolol Tartrate [Lopressor 50 mg (*)] 50 mg PO BID #0 tab 07/24/16 [Last Taken 10/12/16 08:00] Polyethylene Glycol 3350 [Miralax 17 gm (*)] 17 gm PO DAILY PRN #0 pkt 07/24/16 [Last Taken Unknown] oxyCODONE IR [Oxycodone Ir (*)] 5 - 10 mg PO Q3HRS PRN #0 tab 07/24/16 [Last Taken 10/12/16 14:00 10 MG] Insulin Glargine,Hum.rec.anlog [Lantus Solostar] 5 unit SQ HS 10/02/16 [Last Taken 10/11/16] Atorvastatin Calcium [Lipitor 20 mg (*)] 20 mg PO DAILY 10/04/16 [Last Taken ] Clotrimazole/Betamethasone Dip [Clotrimazole-Betamethasone Crm] 1 nona TP BID [Last Taken 10/12/16 08:00] Diclofenac Sodium [Voltaren Gel (*)] 1 nona TP TID PRN 10/04/16 [Last Taken 10/12] Furosemide [Lasix 20 MG (*)] 20 mg PO DAILY 10/04/16 [Last Taken 10/12/16 08:00] Hydrocortisone 1% [Hydrocortisone 1% cream (*)] 1 nona TP BID 10/04/16 [Last Taken 10/11/16 08:00] Metformin HCl [Glucophage 1000 mg] 1,000 mg PO BIDMEAL 10/04/16 [Last Taken 08:00] Potassium Cl [Klor-Con 10 meq (RX)] 10 meq PO DAILY 10/04/16 [Last Taken 08:00] Sennosides/Docusate Sodium [Senokot-S] 1 each PO BID PRN 10/04/16 [Last Taken Unknown] Sennosides/Docusate Sodium [Senokot-S] 1 tab PO DAILY 10/04/16 [Last Taken 10/12 08:00] Sodium Cl Nasal [[place] (*)] 2 spray EACHNARE QID PRN 10/04/16 [Last Taken Unknown] diphenhydrAMINE [Benadryl 50 MG (*)] 50 mg PO Q8 PRN 10/04/16 [Last Taken 08:00] guaiFENesin [Mucinex 600 MG (*)] 600 mg PO BID PRN 10/04/16 [Last Taken Unknown] Aspirin EC [Aspirin EC 81 mg (*)] 81 mg PO DAILY 10/13/16 [Last Taken 10/12/16 08:00] Acetaminophen [Tylenol 325mg (*)] 650 mg PO Q4HRS PRN #0 tab 10/17/16 [Last Taken Unknown] Alteplase [Cathflo Activase 2 mg (*)] 2 mg IVP PRN PRN #0 vial 10/17/16 [Last Taken Unknown] Benzocaine/Menthol 15/4 [Cepacol Lozenge] 1 ea PO PRN PRN #0 lozenge 10/17/16 [ Last Taken Unknown] Enoxaparin [Lovenox 40 MG (*)] 40 mg SC DAILY #0 syr 10/17/16 [Last Taken Unknown] Hydrocodone/APAP 5/325 [[place] 5/325 (*)] 1 - 2 tab PO Q4HRS PRN #0 tab 10/17/16 [Last Taken Unknown] Nystatin Powder [Mycostatin Powder] 1 nona TP TID #0 powder 10/17/16 [Last Taken Unknown] Tears/Dextran 70/Hypromellose [Natural Balance Tears (*)] 1 drop EACHEYE Q2HRS PRN #0 opht.btl 10/17/16 [Last Taken Unknown] Vancomycin HCl/Normal Saline [Vancomycin 1 gm (Premix)] 125 ml IV Q24H #0 bag [Last Taken Unknown] Payroll Accounting Manager Antibiotics: Vancomycin 1 g IV q24 Mcfp Antibiotic Stop Date: 10/28/16 Discharge Medications: Refer to the Discharge Home Medication list for PRN reason. PICC Care - Routine: Yes - Orders Services needed: Registered Nurse, Physical Therapy, Occupational Therapy - Labs/Radiology CBC Date: 10/21/16 (weekly q friday) CMP Date: 10/21/16 (weekly q friday) Creatinine Date: 10/24/16 (weekly q ) Vanco Trough Date and Time: weekly q friday and 30 minutes before dose Call or Fax Lab and Imaging Results to: Dr. Edmonds, - Follow Up Care Current Providers and Referrals: Kait Rubi MD [Medical Doctor] - 10/24/16 12:30 pm Arielle Edmonds MD [Medical Doctor] - 10/22/16 1:30 pm Patient,NotPresent [Unknown] - As per Instructions
--- NOTE | 2016-10-17 14:06 | GDS ---
DISCHARGE DIAGNOSES: 1. Acute cellulitis with wound infection of the left foot. 2. Acute sepsis. 3. Bacteremia. 4. Group A strep. 5. Anemia. CONSULTATIONS: 1. General Surgery. 2. Infectious Disease. PHYSICAL EXAM: GENERAL: The patient is alert. VITAL SIGNS: Afebrile at 36.7, pulse of 62, respir atory rate 16, blood pressure is 162/84, she is saturating 92% on room air. I have seen and evaluat ed the patient on the day of discharge. HOSPITAL COURSE: The patient is a 71-year-old female who has a history of a left foot wound infecti on. She was admitted to the hospital and evaluated. She was diagnosed with: 1. Acute cellulitis and wound infection of the left foot. She received consultation from Surgery a s well as Infectious Disease. Her infection is improving. She has had significant debridements. S he will require continued IV antibiotic therapy in the outpatient setting. A PICC line has been aylin stacey prior to disposition. 2. Acute sepsis. This has resolved. 3. Bacteremia. The patient demonstrated E coli as well as MRSA and group A strep. In her wound cu lture, she is noted to have group A strep bacteremia which has resolved during this hospital course and will require further antibiotic therapy. 4. Anemia. This is a chronic problem for the patient but is stable. DISPOSITION: The patient will be discharged to [facility] where she has been residing si dee her foot infection. She will continue therapies there with further evaluation to be done with Jessica Rubi as well as Dr. Edmonds in the outpatient setting. She will get dressing changes and further nursing care. There are no other pending studies. DISCHARGE MEDICATIONS: Please refer to EMR form. The patient will continue IV vancomycin 1 g in e outpatient setting. I spent greater than 35 minutes in the care, coordination, and management of this patient's disposit ion. /[id number]/MODL
[2016-10-17 15:47] VITALS: BP 170/84; PULSE 70; RESP 18; TEMP 98.4; O2SAT 94
== END 2016-10-17 16:41 | DRG 872 ==
LOC: EDUNIT# → F3N 23:40
PROVIDERS: ADMIT Surgery; ATTEND Surgery
PROC: 02HV33Z Insertion of Infusion Device into Superior Vena Cava, Percutaneous Approach (ICD-10-PCS; principal; 2016-10-17)
DX: A40.0 Sepsis due to streptococcus, group A (principal); L03.116 Cellulitis of left lower limb; I50.32 Chronic diastolic (congestive) heart failure; E87.1 Hypo-osmolality and hyponatremia; E87.2 Acidosis; D64.9 Anemia, unspecified; E83.42 Hypomagnesemia; E11.65 Type 2 diabetes mellitus with hyperglycemia; I10 Essential (primary) hypertension; I25.10 Atherosclerotic heart disease of native coronary artery without angina pectoris; I25.2 Old myocardial infarction; Z89.412 Acquired absence of left great toe; Z89.422 Acquired absence of other left toe(s)
CPT/HCPCS: 96365; 97110-GP; 97161-GP; 97165-GO; 97530-GP; 97535-GO; C1751; G8978-GP-CK; G8979-GP-CJ; G8987-GO-CK; G8988-GO-CJ; J0690; J1650; J1815; J1956; J3370; J3475

== ENCOUNTER 2016-12-25 10:30 | Inpatient (IN) | payer OTHER, MEDICARE ==
--- NOTE | 2016-12-25 11:27 | EDPHY ---
H & P Time Seen by Provider: 12/25/16 11:02 HPI/ROS: CHIEF COMPLAINT: Right facial mass HISTORY OF PRESENT ILLNESS: The patient is a 71-year-old female who presents emergency department with a right facial swelling and redness. The patient recently had a left great toe, metatarsal removal. She was recovering in a nursing facility when she developed MRI say. She was admitted to the hospital for this infection. She has been doing better until Friday when she developed redness and swelling on the right side of her face. Increased in size. She denies fevers or chills. No nausea or vomiting. She has no pain with movement of her jaw. No headache. No visual change. REVIEW OF SYSTEMS: My complete review of systems is negative except as mentioned in the HPI. Past Medical/Surgical History: Meniere's disease, diabetes, hypertension, CHF Past surgical history: Includes great toe, metatarsal resection, cataract surgery Social history: The patient is at home. She does not smoke. Smoking Status: Never smoked Physical Exam: Vitals noted. 139/90, 70, 20, 95% on room air, 36.8 GENERAL: Well-appearing, in no acute distress, alert. HEENT: Eyes normal to inspection, normal pharynx, no signs of dehydration. Right face: The patient has a palpable mass with ulcerative Center. There is white colored discharge. There is surrounding erythema and warmth. This is not include the ear or extend to the eye. NECK: No thyromegaly, no lymphadenopathy, supple. RESPIRATORY: Clear to auscultation bilaterally, no rales, rhonchi or wheezing. CVS: Regular rate and rhythm, no rubs, murmurs, or gallops. ABDOMEN: Soft, nontender, nondistended, no organomegaly. BACK: Normal to inspection, no CVA tenderness. SKIN: Normal color, no rash, warm, dry. No pallor. EXTREMITIES: No pedal edema, no calf tenderness, no Homans sign or cords, no joint swelling. Left great toe and metacarpal resection. No warmth or significant erythema. No tenderness palpation. NEURO/PSYCH: Alert and oriented x3, normal mood and affect, normal motor sensory exam. No obvious cranial nerve deficit. Constitutional: Initial Vital Signs Temperature (C) 36.8 C 12/25/16 10:38 Heart Rate 70 12/25/16 10:38 Respiratory Rate 20 12/25/16 10:38 Blood Pressure 139/90 H 12/25/16 10:38 O2 Sat (%) 95 12/25/16 10:38 O2 Delivery Mode Room Air Allergies/Adverse Reactions: amoxicillin trihydrate [From Augmentin] Allergy (Intermediate, Verified 10:36) potassium clavulanate [From Augmentin] Allergy (Intermediate, Verified 12/25/16 10:36) monosodium glutamate Allergy (Mild, Verified 12/25/16 10:36) adhesive tape Allergy (Verified 12/25/16 10:36) Sulfa (Sulfonamide Antibiotics) Allergy (Verified 12/25/16 10:36) Tetracyclines Allergy (Verified 12/25/16 10:36) Home Medications: Medication Instructions Recorded Vitamin B Complex [B Complex] 1 tab PO DAILY 07/09/16 Lisinopril [Zestril 5 mg (*)] 5 mg PO DAILY #0 tab 07/24/16 Metoprolol Tartrate [Lopressor 50 50 mg PO BID #0 tab 07/24/16 mg (*)] Polyethylene Glycol 3350 [Miralax 17 gm PO DAILY PRN #0 pkt 07/24/16 17 gm (*)] oxyCODONE IR [Oxycodone Ir (*)] 5 - 10 mg PO Q3HRS PRN #0 tab 07/24/16 Insulin Glargine,Hum.rec.anlog 5 unit SQ HS 10/02/16 [Lantus Solostar] Atorvastatin Calcium [Lipitor 20 20 mg PO DAILY 10/04/16 mg (*)] Clotrimazole/Betamethasone Dip 1 nona TP BID 10/04/16 [Clotrimazole-Betamethasone Crm] Diclofenac Sodium [Voltaren Gel 1 nona TP TID PRN 10/04/16 (*)] Hydrocortisone 1% [Hydrocortisone 1 nona TP BID 10/04/16 1% cream (*)] Potassium Cl [Klor-Con 10 meq (RX)] 10 meq PO DAILY 10/04/16 Sennosides/Docusate Sodium 1 each PO BID PRN 10/04/16 [Senokot-S] Sennosides/Docusate Sodium 1 tab PO DAILY 10/04/16 [Senokot-S] Sodium Cl Nasal [[place] (*)] 2 spray EACHNARE QID PRN 10/04/16 guaiFENesin [Mucinex 600 MG (*)] 600 mg PO BID PRN 10/04/16 metFORMIN HCL [Glucophage 1000 mg] 1,000 mg PO BIDMEAL 10/04/16 Aspirin EC [Aspirin EC 81 mg (*)] 81 mg PO DAILY 10/13/16 Acetaminophen [Tylenol 325mg (*)] 650 mg PO Q4HRS PRN #0 tab 10/17/16 Alteplase [Cathflo Activase 2 mg 2 mg IVP PRN PRN #0 vial 10/17/16 (*)] Benzocaine/Menthol 15/4 [Cepacol 1 ea PO PRN PRN #0 lozenge 10/17/16 Lozenge] Hydrocodone/APAP 5/325 [[place] 1 - 2 tab PO Q4HRS PRN #0 tab 10/17/16 5/325 (*)] Nystatin Powder [Mycostatin Powder] 1 nona TP TID #0 powder 10/17/16 Tears/Dextran 70/Hypromellose 1 drop EACHEYE Q2HRS PRN #0 10/17/16 [Natural Balance Tears (*)] [id number] Medical Decision Making - Diagnostics Imaging Results: Imaging Impressions Face CT 12/25/16 11:30 Impression: 1. Right facial temporal subcutaneous 5 x 1.8 cm solid-appearing mass representing neoplasm or less likely phlegmon. Recommend surgical consult. 2. No drainable abscesses or significant adenopathy. 3. Severe cervical spondylosis. 4. Carotid atherosclerotic disease. 5. No sinusitis. Findings and recommendations discussed with Emergency Department physician, Zoey Dexter, at 12:56 hour, 12/25/2016. Final report concurs with initial preliminary interpretation. ED Course/Re-evaluation: In the emergency department I discussed possible etiologies with the patient. I answered all her questions. An IV was placed. Laboratory studies including cultures were drawn. The patient was given vancomycin 1 g IV and Rocephin 1 g IV. Surgery was consulted to evaluate the facial abscess. I discussed the case with Dr. Thomas. He recommended that I discussed case with ENT. They were paged. 1020: I discussed the case with Dr. Paredes's scrub nurse. She was in a procedure. She was informed the patient consultation. CT of the face: Please refer the dictated report by Dr. Cooper Rosales. There is no fluid collection. This appears to be a phlegmon. 1330: ENT consulted again. Aware that patient is being admitted and needs evaluation Differential Diagnosis: My differential includes but is not limited to cellulitis, abscess, MRSA, bacteremia, sepsis - Data Points Laboratory Results: Laboratory Results 12/25/16 11:35 12/25/16 11:35 12/25/16 12/25/16 12/25/16 11:35 11:35 11:35 WBC 7.63 10^3/uL 10^3/uL (3.80-9.50) RBC 4.13 10^6/uL L 10^6/uL (4.18-5.33) Hgb 9.9 g/dL L g/dL (12.6-16.3) Hct 32.0 % L % (38.0-47.0) MCV 77.5 fL L fL (81.5-99.8) MCH 24.0 pg L pg (27.9-34.1) MCHC 30.9 g/dL L g/dL (32.4-36.7) RDW 19.8 % H % (11.5-15.2) Plt Count 337 10^3/uL 10^3/uL (150-400) MPV 8.7 fL fL (8.7-11.7) Neut % (Auto) 70.1 % % (39.3-74.2) Lymph % (Auto) 19.5 % % (15.0-45.0) Rooks % (Auto) 8.0 % % (4.5-13.0) Eos % (Auto) 1.7 % % (0.6-7.6) Baso % (Auto) 0.3 % % (0.3-1.7) Nucleat RBC Rel Count 0.0 % % (0.0-0.2) Absolute Neuts (auto) 5.35 10^3/uL 10^3/uL (1.70-6.50) Absolute Lymphs (auto) 1.49 10^3/uL 10^3/uL (1.00-3.00) Absolute Monos (auto) 0.61 10^3/uL 10^3/uL (0.30-0.80) Absolute Eos (auto) 0.13 10^3/uL 10^3/uL (0.03-0.40) Absolute Basos (auto) 0.02 10^3/uL 10^3/uL (0.02-0.10) Absolute Nucleated RBC 0.00 10^3/uL 10^3/uL (0-0.01) Immature Gran % 0.4 % % (0.0-1.1) Immature Gran # 0.03 10^3/uL 10^3/uL (0.00-0.10) PT REJ INR REJ APTT REJ Sodium 135 mEq/L mEq/L (134-144) Potassium 4.6 mEq/L mEq/L (3.5-5.2) Chloride 96 mEq/L L mEq/L (97-110) Carbon Dioxide 27 mEq/l mEq/l (22-31) Anion Gap 12 mEq/L mEq/L (8-16) BUN 25 mg/dL H mg/dL (7-23) Creatinine 0.8 mg/dL mg/dL (0.6-1.0) Estimated GFR > 60 Glucose 169 mg/dL H mg/dL (70-100) Calcium 9.4 mg/dL mg/dL (8.5-10.4) Medications Given: Discontinued Medications Ceftriaxone Sodium/Dextrose (Rocephin 1 Gm (Premix)) 50 mls @ 100 mls/hr IV EDNOW ONE PRN Reason: Protocol Stop: 12/25/16 11:58 Last Admin: 12/25/16 12:10 Dose: 50 mls Vancomycin/Sodium Chloride (Vancomycin 1 Gm (Premix)) 250 mls @ 250 mls/hr IV EDNOW ONE PRN Reason: Protocol Stop: 12/25/16 12:28 Last Admin: 12/25/16 12:10 Dose: 250 mls Morphine Sulfate (Morphine) 2 mg IVP EDNOW ONE Stop: 12/25/16 13:02 Last Admin: 12/25/16 13:14 Dose: 2 mg Ondansetron HCl (Zofran) 4 mg IVP EDNOW ONE Stop: 12/25/16 13:01 Last Admin: 12/25/16 13:14 Dose: 4 mg Departure - Departure Disposition: [facility] Inpatient Acute Clinical Impression: Facial cellulitis Condition: Good
[2016-12-25] MEDS ORDERED: VANCOMYCIN HCL/NORMAL SALINE 250 ML IV ONE (11:29)
[2016-12-25 11:53] LABS: % IMMATURE GRANULYOCYTES 0.4 % (0.0-1.1); ABSOLUTE IMMATURE GRANULOCYTES 0.03 10^3/uL (0.00-0.10); ADD DIFF? NO; ADD MORPH? NO; ADD SCAN? NO; ATYPICAL LYMPHOCYTE FLAG 10 (0-99); FRAGMENT RBC FLAG 20 (0-99); HEMOGLOBIN 9.9 g/dL (12.6-16.3); LEFT SHIFT FLG 0 (0-99); LIPEMIA HEMOLYSIS FLAG 80 (0-99); MEAN CELL HEMOGLOBIN CONCENTR. 30.9 g/dL (32.4-36.7); MEAN CELL VOLUME 77.5 fL (81.5-99.8); MEAN PLATELET VOLUME 8.7 fL (8.7-11.7); PLATELET CLUMPS FLAG 0 (0-99); PLATELET COUNT 337 10^3/uL (150-400); RED BLOOD CELL COUNT 4.13 10^6/uL (4.18-5.33); RED CELL DISTRIBUTION WIDTH 19.8 % (11.5-15.2)
[2016-12-25 12:06] LABS: ANION GAP 12 mEq/L (8-16); CALCIUM 9.4 mg/dL (8.5-10.4); CARBON DIOXIDE 27 mEq/l (22-31); CHLORIDE 96 mEq/L (97-110); CREATININE 0.8 mg/dL (0.6-1.0); GLOMERULAR FILTRATION RATE > 60; GLUCOSE 169 mg/dL (70-100); POTASSIUM 4.6 mEq/L (3.5-5.2); SODIUM 135 mEq/L (134-144)
[2016-12-25] MEDS ORDERED: IOPAMIDOL (ISOVUE-300) 100 ML BTL IV ONE (12:08)
[2016-12-25] MEDS ORDERED: ONDANSETRON 4 MG/2 ML VIAL ONE (12:58)
[2016-12-25] MEDS ORDERED: ONDANSETRON 4 MG/2 ML VIAL IVP ONE (13:00)
[2016-12-25] MEDS ORDERED: ONDANSETRON 4 MG/2 ML VIAL IVP PRN (14:52)
[2016-12-25] MEDS ORDERED: ONDANSETRON DISINTEGRATING 4 MG TAB PO PRN (14:52)
[2016-12-25] MEDS ORDERED: ACETAMINOPHEN 325 MG TAB PO PRN (14:52)
[2016-12-25] MEDS ORDERED: NS 1,000 ML IV SCH (15:00)
[2016-12-25] MEDS ORDERED: D50W 25 GM/50 ML SYR IVP PRN (15:02)
[2016-12-25] MEDS ORDERED: ERTAPENEM 1 GM in NS 100 ML IV SCH (15:30)
--- NOTE | 2016-12-25 15:33 | GHP ---
[f rep st] HISTORY AND PHYSICAL DATE OF ADMISSION: 12/25/2016 CHIEF COMPLAINT: Right-sided facial pain and swelling. HISTORY OF PRESENT ILLNESS: This is a 71-year-old female with a history of diabetes as well as a re cent left great toe metatarsal amputation due to Strep pyogenes infection who presents with right-si ded facial pain and swelling. She tells me this started over the weekend approximately 3 or 4 days ago. She says she was not picking at this. She put some topical antibiotics on it at the recommend ation of a home nurse. She tells me that the home nurse told her that it had been draining somethin g. She has not had any fevers at home. She completed vancomycin for right great toe infection with associated strep bacteremia. Also grew MRSA as well as ESBL E coli out of the wound culture. PAST MEDICAL/SURGICAL HISTORY: 1. Metatarsal amputation as above. 2. Diabetes mellitus type 2. 3. Hypertension. 4. History of NSTEMI medically managed. 5. Diastolic heart failure. 6. Chronic anemia. 7. Hysterectomy. MEDICATIONS: Please see medication reconciliation. ALLERGIES: Amoxicillin, potassium, monosodium glutamate, adhesive tape, sulfa, tetracycline. SOCIAL HISTORY: She is living at [facility]. She was discharged from a half-way facility o n November 08 back to [facility]. She does not drink or smoke. FAMILY HISTORY: This was reviewed and noncontributory. REVIEW OF SYSTEMS: A 10-point review of systems is conducted and is negative except per history of present illness. PHYSICAL EXAMINATION: VITAL SIGNS: Blood pressure is 151/82, heart rate 65, respiration rate 20, s aturating 96% on room air, temperature 36.6. GENERAL: The patient is a pleasant female who appears comfortable, in no acute distress. HEENT: Shows large right-sided fluctuant area above her right maxillary bone with surrounding erythema as well as warmth. It is very tender to palpation. CARDIO VASCULAR: Regular rate and rhythm. There are no murmurs, rubs, or gallops. PULMONARY: Lungs ren r to auscultation bilaterally. ABDOMEN: Soft, nontender, nondistended. SKIN: Shows no rash. : Shows no Hart. NEUROLOGIC: Shows her to be alert and oriented x3. She is moving all extremitie s. PSYCHIATRIC: Shows normal mood and affect. LABORATORY: White count is 7.6, hemoglobin is 9.9. INR was rejected. Basic metabolic panel is rel atively unremarkable. DATA: 1. I reviewed her chart as well as her previous microbiology. 2. I reviewed her face CT scan. This shows a right facial temporal subcutaneous 5 x 1.8 solid-appe aring mass which Radiology felt likely represents neoplasm or phlegmon. IMPRESSION AND PLAN: This is a 71-year-old female who presents with right-sided facial swelling and erythema. 1. Facial swelling, erythema: Clinically this looks more like an abscess/phlegmon with surrounding cellulitis than a neoplasm. I agree with. Will provide empiric antibiotics for now. Dr. Zhang with ENT has been consulted. She will need surgical exploration. Dr. Michelle with Infectious Disease h as been consulted, recommends at this point vancomycin. Will consider gram-negative therapy as well . Blood cultures have been drawn. She is overall nonsystemically toxic appearing. 2. Diabetes mellitus: We will continue her home insulin and follow her glucoses. 3. Hypertension: She is on metoprolol and lisinopril. We will continue these. 4. Coronary artery disease and diastolic congestive heart failure: Continue her home medications. No chest pain. 5. Deep venous thrombosis prophylaxis: Will start Lovenox after surgical consultation. 6. Diet: She will be n.p.o. pending Dr. Zhang' evaluation. /[id number]/MODL
--- NOTE | 2016-12-25 15:36 | PCMIDPN ---
Assessment/Plan: Assessment/Plan: * Right-sided facial abscess: Clinical findings consistent with right-sided facial abscess which is also noted on CT although appears to be more solid in nature radiographically. Most likely will be due to Staphylococcus aureus or beta-hemolytic streptococci. Recent history of MRSA raises this as a possibility. Also had recent group A strep bacteremia. Agree with plans for ENT consultation as this will require incision and drainage. Cultures can be obtained at time of drainage to assist with antibiotic management. Will treat with vancomycin monotherapy recognizing she was colonized with ESBL in the past given clinical stability and lower likelihood that would be related to E coli. Time spent, greater than 35 minutes, of which half was spent in education/ counseling/coordination of care related to facial abscess and plan of care. Findings and plan reviewed with Dr. Pfeiffer and patient. 12/25/16 15:26 Subjective: Patient known to Infectious Disease service from recent care associated with group A streptococcal bacteremia associated with left-sided skin and soft tissue infection with cultures also showing MRSA and ESBL producing E coli. Treated with 2 weeks of vancomycin which concluded on 10/28/2016. ESBL was not targeted as this was felt to represent colonization. Now readmitted with right- sided facial swelling, erythema and tenderness. Patient notes that she developed right-sided facial swelling beginning on Friday. This was not present preceding that time frame. This progressively enlarged and was associated with pain, erythema and warmth. She also had pain with opening her jaw. No associated fever or chills. Cultures from recent hospitalization in September were reviewed. Allergies: Augmentin associated with rash; Bactrim associated with throat closure (patient also list tetracyclines but this was associated with yeast infection which does not represent allergy) Has returned home from [facility]. ROS: Scab on right 4th toe with erythema for last week; skin graft site left foot well healed with some residual edema; dry mouth Objective: Vital Signs Temp Pulse Resp BP Pulse Ox 36.6 C 65 20 151/82 H 96 12/25/16 14:41 12/25/16 14:41 12/25/16 14:41 12/25/16 14:41 12/25/16 14:41 12/24/16 12/25/16 12/26/16 05:59 05:59 05:59 Intake Total 350 Balance 350 Status post vancomycin x1 and ceftriaxone x1 CT scan of face reviewed and interpreted by me showing 5 x 1.8 cm right temporal subcutaneous solid appearing lesion consistent with either mass or phlegmon; no continuous relationship to parotid - Physical Exam General Appearance: alert, no apparent distress EENT: pharynx normal, other (Right temporal region with fluctuant, erythematous , tender, pointing lesion measuring approximately 3-4 cm in diameter with erythema inferiorly toward lower jaw), No scleral icterus, No conjunctival petechiae Respiratory: lungs clear, No respiratory distress Cardiac/Chest: regular rate, rhythm Extremities: other (Left foot skin graft well healed; right 4th toe with superficial scab and erythema of entire toe) Abdomen: non-tender, No distended Skin: No embolic lesions ICD10 Worksheet Patient Problems: Problems Problem Status Onset Facial cellulitis Acute Cellulitis of foot Acute ESBL (extended spectrum beta-lactamase) producing bacteria infection Acute ~ History of fever Acute MRSA (methicillin resistant Staphylococcus aureus) Acute ~10/12/16 Myocardial infarct Acute Rhabdomyolysis Acute Sepsis Acute Skin graft infection Acute Vomiting Acute
--- NOTE | 2016-12-25 16:53 | GCON ---
[f rep st] CONSULTATION INPATIENT CONSULTATION REFERRING PHYSICIAN: Zoey Dexter MD REASON FOR CONSULTATION: Right facial abscess. CHIEF COMPLAINT: Facial swelling. HISTORY OF PRESENT ILLNESS: The patient is a 71-year-old female who had sudden onset of right facia l pain and swelling 5 days prior to presentation. She has a past medical history significant for di abetes, congestive heart failure, and recently had a metatarsal excision with skin grafting, in [facility] during one period of the recovery, while in an acute rehab, contracted MRSA. At this point of pre sentation back to the hospital for the facial swelling, she had actually been at home. She was not in the rehab at that time. She denies any fevers. She has no prior traumas to the area. She was s eptic at one point with her MRSA infection, however, this was several months ago. PAST MEDICAL HISTORY: 1. Type 2 diabetes. 2. Hypertension. 3. History of DE. 4. Diastolic heart failure. 5. Chronic anemia. PAST SURGICAL HISTORY: 1. Metatarsal amputation of the left foot with skin grafting. 2. Hysterectomy. ALLERGIES: Include amoxicillin, potassium, monosodium glutamate, adhesive tape, sulfa, and tetracyc line. SOCIAL HISTORY: She is a nonsmoker, nondrinker. She lives independently normally at home. FAMILY HISTORY: Noncontributory. REVIEW OF SYSTEMS: A 10-point review of systems was other performed and negative, except as in the history of present illness. CURRENT MEDICATIONS: Include ceftriaxone, vancomycin, morphine, Zofran, oxycodone. Please refer to her medication reconciliation upon admission for her home medications. PHYSICAL EXAMINATION: GENERAL: On examination, she is awake, alert, oriented, in no apparent distr ess. HEENT: Her right face has a 5 cm, erythematous, raised mass, likely infectious, over the righ t zygoma. Facial nerve is otherwise fully intact. Pupils equal and reactive to light. Extraocular muscles are intact. External ears are within normal limits. Anterior rhinoscopy is clean. Oral c avity exam is unremarkable. NECK: Supple without adenopathy or mass. SKIN: Palpation over the ma ss reveals no fluctuant areas at this time that are amenable to drainage, as this likely represents phlegmon. IMAGING: Facial CT performed earlier today confirms this is phlegmon with no drainable abscess at t his point in time. IMPRESSION: Right facial phlegmon. RECOMMENDATIONS: IV antibiotic management as per Infectious Disease. The report was suggestive of a mass, and I have doubts that this represents any sort of neoplasm given the onset and character. It is noted that Infectious Disease is requesting incision and drainage, however, this is not possib le at this moment in time. There is potential that this may be accomplished tomorrow night, after s he has had a full 24 hours of antibiotics. I discussed with the patient it is also possible that it will start draining spontaneously in that time as well. I will re-assess her tomorrow evening, or late afternoon. /[id number]/MODL
[2016-12-25] MEDS: INSULIN LISPRO 100 UNIT/ML SC SCH (18:01)
[2016-12-25] MEDS: oxyCODONE IR 5 MG TAB PO PRN (20:20)
[2016-12-25] MEDS: TEARS/DEXTRAN 70/HYPROMELLOSE 15 ML OPHT.BTL EACHEYE SCH (21:21)
[2016-12-26] MEDS: oxyCODONE IR 5 MG TAB PO PRN ×3 (01:28→19:34)
[2016-12-26 04:45] LABS: % IMMATURE GRANULYOCYTES 0.3 % (0.0-1.1); ABSOLUTE IMMATURE GRANULOCYTES 0.02 10^3/uL (0.00-0.10); ADD DIFF? NO; ADD MORPH? NO; ADD SCAN? NO; ATYPICAL LYMPHOCYTE FLAG 0 (0-99); FRAGMENT RBC FLAG 20 (0-99); HEMATOCRIT 27.6 % (38.0-47.0); HEMOGLOBIN 8.4 g/dL (12.6-16.3); LEFT SHIFT FLG 0 (0-99); LIPEMIA HEMOLYSIS FLAG 80 (0-99); MEAN CELL HEMOGLOBIN 23.8 pg (27.9-34.1); MEAN CELL HEMOGLOBIN CONCENTR. 30.4 g/dL (32.4-36.7); MEAN CELL VOLUME 78.2 fL (81.5-99.8); MEAN PLATELET VOLUME 8.7 fL (8.7-11.7); PLATELET CLUMPS FLAG 20 (0-99); PLATELET COUNT 269 10^3/uL (150-400); RED BLOOD CELL COUNT 3.53 10^6/uL (4.18-5.33)
[2016-12-26 05:03] LABS: ALANINE AMINOTRANSFERASE 30 IU/L (9-52); ALBUMIN 2.9 g/dL (3.5-5.0); ALKALINE PHOSPHATASE 93 IU/L (38-126); ANION GAP 5 mEq/L (8-16); ASPARTATE AMINOTRANSFERASE 22 IU/L (14-46); BILIRUBIN,TOTAL 0.3 mg/dL (0.1-1.4); CALCIUM 8.8 mg/dL (8.5-10.4); CARBON DIOXIDE 27 mEq/l (22-31); CHLORIDE 102 mEq/L (97-110); CREATININE 0.8 mg/dL (0.6-1.0); GLOMERULAR FILTRATION RATE > 60; GLUCOSE 125 mg/dL (70-100); POTASSIUM 4.4 mEq/L (3.5-5.2); SODIUM 134 mEq/L (134-144); TOTAL PROTEIN 5.9 g/dL (6.3-8.2)
[2016-12-26] MEDS: POTASSIUM CL 10 MEQ TAB PO SCH ×2 (08:27→10:26)
[2016-12-26] MEDS: TEARS/DEXTRAN 70/HYPROMELLOSE 15 ML OPHT.BTL EACHEYE SCH ×2 (08:27→21:52)
[2016-12-26] MEDS: INSULIN LISPRO 100 UNIT/ML SC SCH ×3 (08:28→18:59)
[2016-12-26] MEDS ORDERED: CLOTRIMAZOLE/BETAMET DIPROP 15 GM CRTUBE TP PRN (08:34)
[2016-12-26] MEDS ORDERED: HYDROCORTISONE 1% CREAM TP PRN (08:34)
[2016-12-26] MEDS ORDERED: DICLOFENAC SODIUM TP PRN ×2 (08:34→08:50)
--- NOTE | 2016-12-26 08:40 | HOSPPROG ---
Hospitalist Progress Note Assessment/Plan: # facial cellulitis - - I&D today by Dr Zhang - vanc monotherapy - taper when culture data available # DM2 - glucs ok - glargine + SSI, hold metformin # htn - home meds # CAD, dCHF - cont BB through I&D; restart asa tomorrow # vte ppx - lovenox tomorrow Subjective: face still sore Objective: Vital Signs Temp Pulse Resp BP Pulse Ox 36.9 C 84 18 142/67 H 94 12/26/16 07:59 12/26/16 07:59 12/26/16 07:59 12/26/16 07:59 12/26/16 07:59 Laboratory Results 12/26/16 04:22 12/26/16 04:22 12/25/16 12/26/16 12/27/16 05:59 05:59 05:59 Intake Total 570 Output Total 300 Balance 270 PT REJ 12/25/16 11:35 INR REJ 12/25/16 11:35 chart reviewed - Physical Exam Constitutional: no apparent distress, appears nourished Ears, Nose, Mouth, Throat: other (R face with mass/abscess, decreased erythema) Cardiovascular: regular rate and rhythym, no murmur, rub, or gallop Respiratory: no respiratory distress, no rales or rhonchi, clear to auscultation Gastrointestinal: normoactive bowel sounds, soft, non-tender abdomen, no palpable masses ICD10 Worksheet Patient Problems: Problems Problem Status Onset Facial cellulitis Acute MRSA (methicillin resistant Staphylococcus aureus) Acute ~10/12/16 ESBL (extended spectrum beta-lactamase) producing bacteria infection Acute ~ Myocardial infarct Acute Rhabdomyolysis Acute Cellulitis of foot Acute History of fever Acute Vomiting Acute Skin graft infection Acute Sepsis Acute
[2016-12-26] MEDS: METOPROLOL TARTRATE 50 MG TAB PO SCH (10:26)
[2016-12-26] MEDS: FUROSEMIDE 20 MG TAB PO SCH (10:26)
[2016-12-26] MEDS: LISINOPRIL 5 MG TAB PO SCH (10:26)
[2016-12-26] MEDS: ATORVASTATIN CALCIUM 20 MG TAB PO SCH (10:26)
[2016-12-26] MEDS: VANCOMYCIN HCL/NORMAL SALINE 250 ML IV SCH (12:03)
--- NOTE | 2016-12-26 16:42 | PCMIDPN ---
Assessment/Plan: Assessment: Right-sided facial abscess. Patient was evaluated by ENT yesterday. She is on IV vancomycin for empiric coverage. History of MRSA infections. Clinically patient needs this to be drained. Surgery to come by later today to decide on intervention. Meanwhile we will continue the IV vancomycin. Plan: 1. Continue IV vancomycin. 2. Follow up with ENT regarding drainage of probable right zygomatic arch abscess. Subjective: Patient is resting in her hospital bed. She seems to believe that ENT is coming late this afternoon early this evening to drain her abscess. She denies any complaint other than pain at the lesion. No fevers or chills. Objective: Vancomycin # 1 Vital Signs Temp Pulse Resp BP Pulse Ox 36.7 C 76 18 160/66 H 95 12/26/16 16:00 12/26/16 16:00 12/26/16 16:00 12/26/16 16:00 12/26/16 16:00 Laboratory Results 12/26/16 04:22 12/26/16 04:22 12/25/16 12/26/16 12/27/16 05:59 05:59 05:59 Intake Total 220 Output Total 300 Balance -80 - Physical Exam General Appearance: WD/WN, alert, no apparent distress, non-toxic EENT: No normal ENT inspection (Right-sided cutaneous lesion just above the zygomatic arch on the right side. Tender to palpation. Fluctuant. Some surrounding erythema.) Respiratory: lungs clear, normal breath sounds, No respiratory distress Cardiac/Chest: regular rate, rhythm, No tachycardia Neuro/Psych: alert, normal mood/affect, oriented x 3 ICD10 Worksheet Patient Problems: Problems Problem Status Onset Facial cellulitis Acute Cellulitis of foot Acute ESBL (extended spectrum beta-lactamase) producing bacteria infection Acute ~ History of fever Acute MRSA (methicillin resistant Staphylococcus aureus) Acute ~10/12/16 Myocardial infarct Acute Rhabdomyolysis Acute Sepsis Acute Skin graft infection Acute Vomiting Acute
[2016-12-26] MEDS: INSULIN GLARGINE 100 UNITS/ML SYRINGE SC SCH (18:58)
--- NOTE | 2016-12-26 19:27 | GPN ---
[f rep st] PROCEDURE NOTE PREPROCEDURE DIAGNOSIS: Right facial abscess. POSTPROCEDURE DIAGNOSIS: Right facial abscess. NAME OF PROCEDURE: Incision and drainage of right facial abscess with irrigation. ANESTHESIA: Straight local only. ESTIMATED BLOOD LOSS: Minimal. SPECIMENS: Times 2 aerobic, anaerobic, fastidious bacteria culture. INDICATIONS: The patient is a 71-year-old female with a history of MRSA who presented to the [facility] 24 hours ago with a right facial phlegmon. After 24 hours of antibiotic therapy, she has now dev eloped a soft, fluctuate, and drainable abscess. She reports a lot of pain and tenderness, but over all, there has been decreased surrounding erythema as compared to yesterday. DESCRIPTION OF PROCEDURE: The patient was anesthetized with a total of 1.5 cc of 1% lidocaine with 1:100,000 epinephrine in a ring block formation. The skin was then cleansed with chlorhexidine, and a 1 cm stab incision over the apex of the fluctuate area was made with the 15 blade scalpel. Immed iate return of purulence was cultured twice. The wound was then expressed of approximately 3 cc of purulent debris, and then irrigated with a total of 50 cc of sterile saline, and then packed with 2 inches of 1/4-inch iodoform gauze. The patient tolerated this all quite well, and reported relief at the conclusion. RECOMMENDATIONS: She should have this dressing changed with iodoform b.i.d. for at least the next f ew days. Cultures will determine, likely based on infectious disease consultation, further antibiot ic management. I will see her tomorrow, and likely follow up with her as an outpatient next week. My card was placed into the chart in the front. /[id number]/MODL
[2016-12-26] MEDS: HYDROCODONE/APAP 5/325 TAB PO PRN (21:52)
[2016-12-27] MEDS: oxyCODONE IR 5 MG TAB PO PRN ×3 (00:25→16:49)
[2016-12-27] MEDS: HYDROCODONE/APAP 5/325 TAB PO PRN ×2 (01:55→22:26)
[2016-12-27] MEDS: POTASSIUM CL 10 MEQ TAB PO SCH (08:25)
[2016-12-27] MEDS: METOPROLOL TARTRATE 50 MG TAB PO SCH (08:26)
[2016-12-27] MEDS: ASPIRIN EC 81 MG TAB PO SCH (08:26)
[2016-12-27] MEDS: FUROSEMIDE 20 MG TAB PO SCH (08:26)
[2016-12-27] MEDS: ATORVASTATIN CALCIUM 20 MG TAB PO SCH (08:26)
[2016-12-27] MEDS: INSULIN LISPRO 100 UNIT/ML SC SCH ×4 (08:26→22:42)
[2016-12-27] MEDS: LISINOPRIL 5 MG TAB PO SCH (08:26)
[2016-12-27] MEDS: ENOXAPARIN 40 MG/0.4 ML SYR SC SCH (08:26)
[2016-12-27] MEDS: TEARS/DEXTRAN 70/HYPROMELLOSE 15 ML OPHT.BTL EACHEYE SCH ×2 (08:27→22:26)
--- NOTE | 2016-12-27 08:57 | HOSPPROG ---
Hospitalist Progress Note Assessment/Plan: # facial abscess/cellulitis - - I&D yesterday by Dr. Zhang; repack twice daily - vanc monotherapy - taper when culture data available # DM2 - glucs ok - glargine + SSI, hold metformin # htn - home meds # CAD, dCHF - cont BB through I&D; restart asa tomorrow # vte ppx - lovenox tomorrow Subjective: status post I&D yesterday; pain on right maxilla feels better Objective: Vital Signs Temp Pulse Resp BP Pulse Ox 36.6 C 72 18 141/73 H 94 12/27/16 08:00 12/27/16 08:26 12/27/16 08:00 12/27/16 08:26 12/27/16 08:00 Laboratory Results 12/26/16 04:22 12/26/16 04:22 12/26/16 12/27/16 12/28/16 05:59 05:59 05:59 Intake Total 220 Output Total 300 2 Balance -80 -2 PT REJ 12/25/16 11:35 INR REJ 12/25/16 11:35 right face with a decreasing erythema, abscess which has been opened and packed. I unpacked today at bedside and expressed some pus. - Time Spent With Patient Time Spent with Patient: greater than 35 minutes Time Spent with Patient: Greater than 35 minutes spent on this patients care, greater than 50% of time spent counseling, educating, and coordinating care regarding the above mentioned plan. ICD10 Worksheet Patient Problems: Problems Problem Status Onset Facial cellulitis Acute MRSA (methicillin resistant Staphylococcus aureus) Acute ~10/12/16 ESBL (extended spectrum beta-lactamase) producing bacteria infection Acute ~ Myocardial infarct Acute Rhabdomyolysis Acute Cellulitis of foot Acute History of fever Acute Vomiting Acute Skin graft infection Acute Sepsis Acute
--- NOTE | 2016-12-27 10:01 | PCMIDPN ---
Assessment/Plan: 1. Facial abscess status post incision and drainage: Microbiology still pending, but suspect MRSA. Hopefully, the patient can be transitioned to oral doxycycline tomorrow (please note Dr. Michelle's notes were reviewed and state that the patient does not have an allergy to tetracyclines, per se,--she gets yeast infections from this antibiotic which is not an allergy) . The patient would like to be home before mother's Day. She has an appointment to see Dr. Edmonds December 31 at 2:00 p.m.. Subjective: In good spirits. Wants to go home tomorrow before mother's Day. No diarrhea. Facial abscess is still quite tender. Dressing was just changed and wound repacked. Objective: Afebrile Vancomycin 1 g IV daily day 2. Vital Signs Temp Pulse Resp BP Pulse Ox 36.6 C 72 18 141/73 H 94 12/27/16 08:00 12/27/16 08:26 12/27/16 08:00 12/27/16 08:26 12/27/16 08:00 Microbiology 12/26/16 Unknown Gram Stain - Final Face - Swab Laboratory Results 12/26/16 04:22 12/26/16 04:22 12/26/16 12/27/16 12/28/16 05:59 05:59 05:59 Intake Total 220 Output Total 300 2 Balance -80 -2 Facial abscess: G stain with 3+ GPc"s, culture pending Patient with previous history of MRSA - Physical Exam General Appearance: alert, no apparent distress EENT: pharynx normal Skin: other (Half-dollar size abscess with packing in place. Surrounding dusky erythema. Quite tender. Not fluctuant, although just drained by nursing staff when packing changed.) ICD10 Worksheet Patient Problems: Problems Problem Status Onset Facial cellulitis Acute Cellulitis of foot Acute ESBL (extended spectrum beta-lactamase) producing bacteria infection Acute ~ History of fever Acute MRSA (methicillin resistant Staphylococcus aureus) Acute ~10/12/16 Myocardial infarct Acute Rhabdomyolysis Acute Sepsis Acute Skin graft infection Acute Vomiting Acute
--- NOTE | 2016-12-27 10:05 | PDIAF ---
- Diagnosis Code Status: Full Code - Medication Management Discharge Medications: Medications to Continue on Transfer Acetaminophen [Tylenol 325mg (*)] 325 - 650 mg PO DAILY PRN 12/25/16 [Last Taken Unknown] Aspirin EC [Aspirin EC 81 mg (*)] 81 mg PO DAILY 12/25/16 [Last Taken 12/25/16] Atorvastatin Calcium [Lipitor 20 mg (*)] 20 mg PO DAILY 12/25/16 [Last Taken Unknown] Clotrimazole/Betamethasone Dip [Clotrimazole-Betamethasone Crm] 1 nona TP BID PRN 12/25/16 [Last Taken 12/25/16] Diclofenac Sodium [Voltaren] 1 nona TP BID PRN 12/25/16 [Last Taken Unknown] Furosemide [Lasix 20 MG (*)] 20 mg PO DAILY 12/25/16 [Last Taken Unknown] Hydrocodone/Acetaminophen [[place] 5/325 (*)] 1 each PO HS PRN 12/25/16 [Last Taken Unknown] Hydrocortisone 1% [Hydrocortisone 1% cream (*)] 1 nona TP DAILY PRN 12/25/16 [ Last Taken 12/25/16] Insulin Glargine [Lantus 100 UNITS/ML (*)] 10 units SC DAILY@1700 12/25/16 [ Last Taken 12/24/16] Lisinopril [Zestril 5 mg (*)] 5 mg PO DAILY 12/25/16 [Last Taken 12/25/16] Metformin HCl [Metformin 1000 mg] 1,000 mg PO BID 12/25/16 [Last Taken 12/25/16 09:00] Metoprolol Tartrate [Lopressor 50 mg (*)] 50 mg PO DAILY 12/25/16 [Last Taken ] Potassium Cl [Klor-Con] 10 meq PO DAILY 12/25/16 [Last Taken 12/25/16] Tears/Dextran 70/Hypromellose [Natural Balance Tears (*)] 1 drop EACHEYE BID 06/03 [Last Taken 12/25/16 09:00] Aircraft Life Support Fitter Antibiotics: Doxycycline 100 mg p.o. twice daily Aircraft Life Support Fitter Antibiotic Stop Date: 01/08/17 Discharge Medications: Refer to the Discharge Home Medication list for PRN reason. - Orders Services needed: Home Retirement Care Face to Face: I certify that this patient was under my care and that I had the required [id number] encounter meeting the encounter requirements on the discharge day. My findings support the fact that the patient is homebound as defined in CMS Chapter 7 Medicare Benefits Manual 30.1.1, The condition of the patient is such that there exists a normal inability to leave home and consequently, leaving home would require a considerable and taxing effort. - Follow Up Care Current Providers and Referrals: JOSE HERNANDEZ [Other] - As per Instructions Arielle Edmonds MD [Medical Doctor] - (Patient will see Dr. Edmonds at the [facility] FridayDecember 31 at 2:00 p.m.)
[2016-12-27] MEDS: VANCOMYCIN HCL/NORMAL SALINE 250 ML IV SCH (12:25)
[2016-12-27] MEDS: INSULIN GLARGINE 100 UNITS/ML SYRINGE SC SCH (16:50)
--- NOTE | 2016-12-27 18:35 | SOAPPROG ---
SOAP Progress Note Assessment/Plan: Assessment: Right +MRSA facial abscess s/p I&D - improved Plan: continue BID packing changes at home abx per ID f/u with me next friday [facility] [phone] (card in chart) my office will call her cell to arrange for appt. 12/27/16 18:33 Subjective: patient feels better, still some tenderness but much reduced Objective: Vital Signs Temp Pulse Resp BP Pulse Ox 36.6 C 68 16 133/62 H 95 12/27/16 15:42 12/27/16 15:42 12/27/16 15:42 12/27/16 15:42 12/27/16 15:42 Microbiology 12/26/16 Unknown Gram Stain - Final Face - Swab Laboratory Results 12/26/16 04:22 12/26/16 04:22 12/26/16 12/27/16 12/28/16 05:59 05:59 05:59 Intake Total 220 250 Output Total 300 2 Balance -80 -2 250 PT REJ 12/25/16 11:35 INR REJ 12/25/16 11:35 packing changed. minimall was placed in the cavity at this time. This was packed more aggressively by me. DSD over replaced overall the drainage is slowing, tenderness and redness is improved - Time Spent With Patient Time Spent With Patient: 10 minutes face to face >50% counseling and coordinating care ICD10 Worksheet Patient Problems: Problems Problem Status Onset Facial cellulitis Acute Cellulitis of foot Acute ESBL (extended spectrum beta-lactamase) producing bacteria infection Acute ~ History of fever Acute MRSA (methicillin resistant Staphylococcus aureus) Acute ~10/12/16 Myocardial infarct Acute Rhabdomyolysis Acute Sepsis Acute Skin graft infection Acute Vomiting Acute
[2016-12-28] MEDS: oxyCODONE IR 5 MG TAB PO PRN ×2 (04:44→11:14)
[2016-12-28 05:13] LABS: ANION GAP 8 mEq/L (8-16); CALCIUM 8.8 mg/dL (8.5-10.4); CARBON DIOXIDE 27 mEq/l (22-31); CHLORIDE 100 mEq/L (97-110); CREATININE 0.8 mg/dL (0.6-1.0); GLOMERULAR FILTRATION RATE > 60; GLUCOSE 148 mg/dL (70-100); POTASSIUM 4.2 mEq/L (3.5-5.2); SODIUM 135 mEq/L (134-144)
[2016-12-28 07:58] VITALS: BP 165/81; PULSE 68; RESP 14; TEMP 97.5; O2SAT 94
[2016-12-28] MEDS: FUROSEMIDE 20 MG TAB PO SCH (08:30)
[2016-12-28] MEDS: LISINOPRIL 5 MG TAB PO SCH (08:30)
[2016-12-28] MEDS: ATORVASTATIN CALCIUM 20 MG TAB PO SCH (08:31)
[2016-12-28] MEDS: ENOXAPARIN 40 MG/0.4 ML SYR SC SCH (08:31)
[2016-12-28] MEDS: ASPIRIN EC 81 MG TAB PO SCH (08:31)
[2016-12-28] MEDS: POTASSIUM CL 10 MEQ TAB PO SCH (08:31)
[2016-12-28] MEDS: METOPROLOL TARTRATE 50 MG TAB PO SCH (08:31)
[2016-12-28] MEDS: TEARS/DEXTRAN 70/HYPROMELLOSE 15 ML OPHT.BTL EACHEYE SCH (08:32)
[2016-12-28] MEDS ORDERED: DOXYCYCLINE HYCLATE 100 MG CAP/TAB PO SCH ×2 (09:45)
--- NOTE | 2016-12-28 10:05 | HOSPPROG ---
Hospitalist Progress Note Assessment/Plan: 71F PMH DM, htn, CAD/NSTEMI 07/03, recent L great toe [place] amputation due to S pyogenes (also had MRSA and ESBL E coli), bacteremia, p/w R facial pain and swelling. # facial abscess/cellulitis - - I&D yesterday by Dr. Zhang; repack twice daily - vanc monotherapy will be discontinued - start on Doxy BID # DM2 - glucs ok - glargine + SSI, hold metformin # htn - home meds mildly elevated today # CAD - NSTEMI in 07/03 with MPI without ischemia medically managed resumed ASA today #. anemia - may be monitored as outpatient if d/c today # vte ppx - lovenox #. Dispo - possible D/C if ride arrangement, abx, and dressing changes may be done Subjective: Feels facial pain tolerable. Swelling and erythema better. Objective: Vital Signs Temp Pulse Resp BP Pulse Ox 97.5 F 68 14 165/81 H 94 12/28/16 07:57 12/28/16 08:31 12/28/16 07:57 12/28/16 08:31 12/28/16 07:57 Microbiology 12/26/16 Unknown Gram Stain - Final Face - Swab Laboratory Results 12/26/16 04:22 12/28/16 04:15 12/27/16 12/28/16 12/29/16 05:59 05:59 05:59 Intake Total 250 Output Total 2 Balance -2 250 PT REJ 12/25/16 11:35 INR REJ 12/25/16 11:35 - Physical Exam Constitutional: no apparent distress, appears nourished Ears, Nose, Mouth, Throat: moist mucous membranes Cardiovascular: regular rate and rhythym, no murmur, rub, or gallop Respiratory: no respiratory distress, no rales or rhonchi Gastrointestinal: normoactive bowel sounds, soft, non-tender abdomen Genitourinary: no bladder fullness Skin: warm, normal color, other (R facial swelling with mild erythema) ICD10 Worksheet Patient Problems: Problems Problem Status Onset Facial cellulitis Acute Cellulitis of foot Acute ESBL (extended spectrum beta-lactamase) producing bacteria infection Acute ~ History of fever Acute MRSA (methicillin resistant Staphylococcus aureus) Acute ~10/12/16 Myocardial infarct Acute Rhabdomyolysis Acute Sepsis Acute Skin graft infection Acute Vomiting Acute
--- NOTE | 2016-12-28 11:13 | PDIAF ---
- Diagnosis Diagnosis: MRSA facial cellulitis Code Status: Full Code - Medication Management Discharge Medications: Medications to Continue on Transfer Acetaminophen [Tylenol 325mg (*)] 325 - 650 mg PO DAILY PRN 12/25/16 [Last Taken Unknown] Aspirin EC [Aspirin EC 81 mg (*)] 81 mg PO DAILY 12/25/16 [Last Taken 12/25/16] Atorvastatin Calcium [Lipitor 20 mg (*)] 20 mg PO DAILY 12/25/16 [Last Taken Unknown] Clotrimazole/Betamethasone Dip [Clotrimazole-Betamethasone Crm] 1 nona TP BID PRN 12/25/16 [Last Taken 12/25/16] Diclofenac Sodium [Voltaren] 1 nona TP BID PRN 12/25/16 [Last Taken Unknown] Furosemide [Lasix 20 MG (*)] 20 mg PO DAILY 12/25/16 [Last Taken Unknown] Hydrocortisone 1% [Hydrocortisone 1% cream (*)] 1 nona TP DAILY PRN 12/25/16 [ Last Taken 12/25/16] Insulin Glargine [Lantus 100 UNITS/ML (*)] 10 units SC DAILY@1700 12/25/16 [ Last Taken 12/24/16] Lisinopril [Zestril 5 mg (*)] 5 mg PO DAILY 12/25/16 [Last Taken 12/25/16] Metformin HCl [Metformin 1000 mg] 1,000 mg PO BID 12/25/16 [Last Taken 12/25/16 09:00] Metoprolol Tartrate [Lopressor 50 mg (*)] 50 mg PO DAILY 12/25/16 [Last Taken ] Potassium Cl [Klor-Con 10 meq (RX)] 10 meq PO DAILY 12/25/16 [Last Taken ] Tears/Dextran 70/Hypromellose [Natural Balance Tears (*)] 1 drop EACHEYE BID 06/03 [Last Taken 12/25/16 09:00] Doxycycline Hyclate [Vibramycin 100 MG (*)] 100 mg PO BID #10 capsule 12/28/16 [ Last Taken Unknown] Hydrocodone/Acetaminophen [[place] 5/325 (*)] 1 each PO Q4H PRN #7 tablet [Last Taken Unknown] Supply Chain Specialist Antibiotics: Doxycycline 100 mg p.o. twice daily Supply Chain Specialist Antibiotic Stop Date: 01/08/17 Discharge Medications: Refer to the Discharge Home Medication list for PRN reason. - Orders Services needed: Home Care, Registered Nurse, Physical Therapy, Occupational Therapy Home Care Face to Face: I certify that this patient was under my care and that I had the required [id number] encounter meeting the encounter requirements on the discharge day. My findings support the fact that the patient is homebound as defined in CMS Chapter 7 Medicare Benefits Manual 30.1.1, The condition of the patient is such that there exists a normal inability to leave home and consequently, leaving home would require a considerable and taxing effort. Diet Recommendation: ADA 1800 consistent carb Diet Texture: Regular Texture Diet - Follow Up Care Current Providers and Referrals: JOSE HERNANDEZ [Other] - As per Instructions Arielle Edmonds MD [Medical Doctor] - (Patient will see Dr. Edmonds at the [facility] FridayDecember 31 at 2:00 p.m.)
[2016-12-28] MEDS: INSULIN LISPRO 100 UNIT/ML SC SCH (11:18)
--- NOTE | 2016-12-28 11:47 | GDS ---
[f rep st] DISCHARGE SUMMARY DISCHARGE DIAGNOSES: 1. Facial abscess/cellulitis with Methicillin-resistant Staphylococcus aureus confirmed by I and D culture, status post I and D with Dr. Paredes. 2. Type 2 diabetes mellitus. 3. Hypertension. 4. History of [id number] myocardial infarction, medically managed. PROCEDURES: 1. 12/25/2016: Face CT showed right facial temporal subcutaneous 5 x 18 cm solid-appearing mass re presenting neoplasm or possibly phlegmon, no drainable abscess detected. 2. 12/26/2016: Right facial abscess incision and drainage. CONSULTATIONS: 1. Dr. Georgina Paredes of ENT. 2. Dr. Odom of Infectious Disease. HISTORY OF PRESENT ILLNESS: Please see H and P for complete detail. In brief, the patient is a 71- year-old female with a history of type 2 diabetes mellitus, on insulin therapies, hypertension, prev ious NSTEMI currently medically managed, recent left great toe metatarsal amputation with associated bacteremia with MRSA , ESBL, E coli, and strep pyogenes, who presented with right facial pain and s welling. The appearance was suggestive of abscess or phlegmon. ENT and ID were consulted. She has been treated with IV vancomycin as monotherapy and is being transitioned to p.o. doxycycline. Faci al erythema and swelling have improved significantly through her hospital course. HOSPITAL COURSE BY PROBLEM: 1. Facial abscess and cellulitis. She has been seen by ID and has been now switched to p.o. antibi otics after being on vancomycin as monotherapy. They are recommending p.o. doxycycline until 2016. She is being given enough doxycycline until she sees Dr. Edmonds for her followup appointment. She will then get a continuation of that prescription. 2. Facial pain. She requests a short prescription for hydrocodone in the form of [place], which will be given to her at discharge. 3. Hypertension. Some of her blood pressures have been mildly elevated. She will continue her p.o . regimen at home. 4. History of NSTEMI. She denies any symptoms suggestive of angina currently. Her home medication regimen has been continued through her hospital course. PHYSICAL EXAMINATION: VITAL SIGNS: On day of discharge, blood pressure of 165/81, heart rate 68, r espirations 14, O2 saturation 94% on room air, temp is 97.5 degrees Fahrenheit. GENERAL: She is a very pleasant female, in no apparent distress. HEENT: Eyes are without scleral icterus. Right fac ial wound is dressed with a Tegaderm and packing. HEART: Regular rate and rhythm. LUNGS: Clear. ABDOMEN: Soft with normoactive bowel sounds. EXTREMITIES: Lower extremity skin is warm and dry. LABORATORY DATA: CBC with WBC 5.88, hemoglobin 8.4, hematocrit 27.6, platelet count of 269. BMP wi th sodium 135, potassium 4.2, chloride 100, CO2 27, BUN 21, creatinine 0.8, glucose 148. ACTIVITY: As tolerated. DIET: Diabetic diet recommended. DISCHARGE MEDICATIONS: Please see med reconciliation for complete details. She is being given a ort prescription for [place], as well as doxycycline, which will be need to be refilled by ID. She wi ll be continued on her home clotrimazole, furosemide , metoprolol, metformin, lisinopril, insulin gl argine, hydrocortisone, Voltaren gel, aspirin, atorvastatin, Natural Balance tears, potassium. FOLLOWUP INSTRUCTIONS: 1. Daily wound dressing changes. 2. PT and OT through home care. 3. See Dr. Edmonds on 12/31 at 2 p.m. Please note that greater than 30 minutes was spent on discharge and coordination of care. /[id number]/MODL
--- NOTE | 2016-12-28 12:30 | PDIAF ---
- Diagnosis Diagnosis: MRSA facial cellulitis Code Status: Full Code - Medication Management Discharge Medications: Medications to Continue on Transfer Acetaminophen [Tylenol 325mg (*)] 325 - 650 mg PO DAILY PRN 12/25/16 [Last Taken Unknown] Aspirin EC [Aspirin EC 81 mg (*)] 81 mg PO DAILY 12/25/16 [Last Taken 12/25/16] Atorvastatin Calcium [Lipitor 20 mg (*)] 20 mg PO DAILY 12/25/16 [Last Taken Unknown] Clotrimazole/Betamethasone Dip [Clotrimazole-Betamethasone Crm] 1 nona TP BID PRN 12/25/16 [Last Taken 12/25/16] Diclofenac Sodium [Voltaren] 1 nona TP BID PRN 12/25/16 [Last Taken Unknown] Furosemide [Lasix 20 MG (*)] 20 mg PO DAILY 12/25/16 [Last Taken Unknown] Hydrocortisone 1% [Hydrocortisone 1% cream (*)] 1 nona TP DAILY PRN 12/25/16 [ Last Taken 12/25/16] Insulin Glargine [Lantus 100 UNITS/ML (*)] 10 units SC DAILY@1700 12/25/16 [ Last Taken 12/24/16] Lisinopril [Zestril 5 mg (*)] 5 mg PO DAILY 12/25/16 [Last Taken 12/25/16] Metformin HCl [Metformin 1000 mg] 1,000 mg PO BID 12/25/16 [Last Taken 12/25/16 09:00] Metoprolol Tartrate [Lopressor 50 mg (*)] 50 mg PO DAILY 12/25/16 [Last Taken ] Potassium Cl [Klor-Con 10 meq (RX)] 10 meq PO DAILY 12/25/16 [Last Taken ] Tears/Dextran 70/Hypromellose [Natural Balance Tears (*)] 1 drop EACHEYE BID 06/03 [Last Taken 12/25/16 09:00] Doxycycline Hyclate 100 mg PO BID #18 tab 12/28/16 [Last Taken Unknown] Hydrocodone/Acetaminophen [[place] 5/325 (*)] 1 each PO Q4H PRN #7 tablet [Last Taken Unknown] Grain Mixer Antibiotics: Doxycycline 100 mg p.o. twice daily [facility] Antibiotic Stop Date: 01/08/17 Discharge Medications: Refer to the Discharge Home Medication list for PRN reason. - Orders Services needed: Home Care, Registered Nurse, Physical Therapy, Occupational Therapy Home Care Face to Face: I certify that this patient was under my care and that I had the required [id number] encounter meeting the encounter requirements on the discharge day. My findings support the fact that the patient is homebound as defined in CMS Chapter 7 Medicare Benefits Manual 30.1.1, The condition of the patient is such that there exists a normal inability to leave home and consequently, leaving home would require a considerable and taxing effort. Diet Recommendation: ADA 1800 consistent carb Diet Texture: Regular Texture Diet Wound Care Instructions: daily packing with iodiform gauze 1/4 inch until follow up marcy Paredes/Kendal on Friday - Follow Up Care Current Providers and Referrals: JOSE HERNANDEZ [Other] - As per Instructions Arielle Edmonds MD [Medical Doctor] - (Patient will see Dr. Edmonds at the [facility] FridayDecember 31 at 2:00 p.m.)
== END 2016-12-28 13:13 | disposition home health service (06) | DRG 603 ==
LOC: F3E 14:20 → OBSVTOIN 14:52
PROVIDERS: ADMIT Student in an Organized Health Care Education/Training Program; ATTEND Internal Medicine
PROC: 0J913ZX Drainage of Face Subcutaneous Tissue and Fascia, Percutaneous Approach, Diagnostic (ICD-10-PCS; principal; 2016-12-26)
DX: L02.01 Cutaneous abscess of face (principal); B95.62 Methicillin resistant Staphylococcus aureus infection as the cause of diseases classified elsewhere; L03.211 Cellulitis of face; I11.9 Hypertensive heart disease without heart failure; I50.30 Unspecified diastolic (congestive) heart failure; E11.9 Type 2 diabetes mellitus without complications; D53.9 Nutritional anemia, unspecified; I25.10 Atherosclerotic heart disease of native coronary artery without angina pectoris; I25.2 Old myocardial infarction; Z89.412 Acquired absence of left great toe
CPT/HCPCS: 96374; J0696; J1335; J1650; J1815; J2405; J3370; Q9967

== ENCOUNTER 2017-05-06 15:15 | Inpatient (IN) | payer OTHER, MEDICARE ==
[2017-05-06] MEDS ORDERED: diphenhydrAMINE 25 MG CAP PO PRN (15:19)
[2017-05-06] MEDS ORDERED: OXYCODONE/APAP 5/325 TAB PO PRN (15:19)
[2017-05-06] MEDS ORDERED: ONDANSETRON DISINTEGRATING 4 MG TAB PO PRN (15:19)
[2017-05-06] MEDS ORDERED: ONDANSETRON 4 MG/2 ML VIAL IVP PRN ×2 (15:19→20:33)
[2017-05-06] MEDS ORDERED: NS 1,000 ML IV SCH (15:30)
--- NOTE | 2017-05-06 16:02 | GHP ---
[f rep st] HISTORY AND PHYSICAL DATE OF ADMISSION: 05/06/2017 ADMITTING DIAGNOSIS: Right buttock recurrent abscess. HISTORY OF PRESENT ILLNESS: The patient is a 72-year-old woman who developed a right buttock abscess in March 2017. She underwent I and D in the office. Culture showed MRSA. The wound healed by secondary intention. She presented to our office today with a recurrent right buttock abscess. She bumped the area on the commode 2 weeks ago. Since that time, she developed worsening swelling, redness, and drainage. Her daughter has been providing wound care. She denies any fevers or chills. She is not currently taking any antibiotics. She is using hydrocodone and Advil for pain. She last ate food at 1 p.m. and liquid at 11 a.m. PAST MEDICAL HISTORY: Anemia, type 2 diabetes, hypertension, Meniere disease, history of AK. PAST SURGICAL HISTORY: Toe amputation and skin graft. MEDICATIONS: Aspirin, B12, clotrimazole, betamethasone, furosemide, [place], [place]lor -Con, lisinopril, metformin, metoprolol, simvastatin, triamcinolone topical. ALLERGIES: Adhesive, Augmentin, MSG, sulfa, tetracycline. FAMILY MEDICAL HISTORY: CHF in father. Type 1 diabetes, hypertension and hyperlipidemia in father. SOCIAL HISTORY: She is with 1 daughter. She lives independently. She denies tobacco, alcohol, or recreational drug use. REVIEW OF SYSTEMS: 10-point review of systems negative aside from HPI. PHYSICAL EXAMINATION: GENERAL: A pleasant, well-developed, well-nourished, woman in no acute distress. HEENT: Normocephalic, atraumatic. No hearing deficits. Pupils equal and round. No scleral icterus. Mucous membranes moist. NECK: Trachea midline. RESPIRATORY: No increased work of breathing. CARDIOVASCULAR: No peripheral edema. MUSCULOSKELETAL: Status post left great toe amputation. Uses a wheelchair, transfers independently. SKIN: Warm and dry. Right buttock wound with active purulence, malodorous, boggy, and very tender to palpation and manipulation. Surrounding erythema extends 5cm circumferentially. There is also a smaller wound with 100% slough inferior to the larger wound. PSYCH: Mood and affect normal. 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 We have recommended operative debridement and wound vacuum-assisted closure placement. She will be admitted for IV antibiotics and surgical intervention. We discussed risks of surgery including, but not limited to, heart attack, stroke, blood clots, or . We discussed risks of infection, bleeding, or delayed wound healing. She understands the risks and would like to proceed. She will go to the operating room later this evening. She will remain n.p.o. until that time. All questions were answered to the patient's satisfaction. Additionally seen by Dr. Kait Rubi who agrees to the above impression and plan. /[id number]/MODL MTDD
[2017-05-06 17:48] LABS: % IMMATURE GRANULYOCYTES 0.8 % (0.0-1.1); ABSOLUTE IMMATURE GRANULOCYTES 0.07 10^3/uL (0.00-0.10); ADD DIFF? NO; ADD MORPH? NO; ADD SCAN? NO; ATYPICAL LYMPHOCYTE FLAG 10 (0-99); FRAGMENT RBC FLAG 0 (0-99); HEMATOCRIT 30.5 % (38.0-47.0); HEMOGLOBIN 9.5 g/dL (12.6-16.3); LEFT SHIFT FLG 0 (0-99); LIPEMIA HEMOLYSIS FLAG 80 (0-99); MEAN CELL HEMOGLOBIN 26.7 pg (27.9-34.1); MEAN CELL HEMOGLOBIN CONCENTR. 31.1 g/dL (32.4-36.7); MEAN CELL VOLUME 85.7 fL (81.5-99.8); PLATELET CLUMPS FLAG 0 (0-99); PLATELET COUNT 287 10^3/uL (150-400); RED BLOOD CELL COUNT 3.56 10^6/uL (4.18-5.33); RED CELL DISTRIBUTION WIDTH 16.6 % (11.5-15.2)
[2017-05-06] MEDS: VANCOMYCIN HCL/NORMAL SALINE 250 ML IV SCH (18:34)
[2017-05-06 19:16] LABS: ANION GAP 16 mEq/L (8-16); CALCIUM 9.6 mg/dL (8.5-10.4); CARBON DIOXIDE 16 mEq/l (22-31); CHLORIDE 100 mEq/L (97-110); CREATININE 1.9 mg/dL (0.6-1.0); GLOMERULAR FILTRATION RATE 26; GLUCOSE 69 mg/dL (70-100); POTASSIUM 5.1 mEq/L (3.5-5.2); SODIUM 132 mEq/L (134-144)
[2017-05-06] MEDS ORDERED: BUPIVACAINE 0.5% 30 ML SDV ONE (19:36)
--- NOTE | 2017-05-06 19:44 | PDANEPAE ---
ANE Past Medical History - Cardiovascular History Hx Hypertension: Yes Hx Arrhythmias: No Hx Chest Pain: No Hx Coronary Artery / Peripheral Vascular Disease: No Hx CHF / Valvular Disease: No Hx Palpitations: No Cardiovascular History Comment: Hx of "heart occurence" or event w/ osteomyelitis in ,anemia - Pulmonary History Hx COPD: No Hx Asthma/Reactive Airway Disease: No Hx Recent Upper Respiratory Infection: No Hx Oxygen in Use at Home: No Hx Sleep Apnea: No Sleep Apnea Screening Result - Last Documented: Negative - Neurologic History Hx Cerebrovascular Accident: No Hx Seizures: No Hx Dementia: No - Endocrine History Hx Diabetes: Yes Hypothyroid: No Hyperthyroid: No Obesity: no Endocrine History Comment: DM type 2 - Renal History Hx Renal Disorders: No - Liver History Hx Hepatic Disorders: No - Neurological & Psychiatric Hx Hx Neurological and Psychiatric Disorders: No - Cancer History Hx Cancer: No - Congenital Disorder History Hx Congenital Disorders: No - GI History GERD: no Hx Gastrointestinal Disorders: No - Other Health History Other Health History: L foot cellulitis; Culture:MSSA tx w/[facility]. D/C'd to [facility] on 07-24-16 on antibx. antibx completed. - Chronic Pain History Chronic Pain: No - Surgical History Prior Surgeries: L foot debridement 07-21-16, L great toe amputation and wound vac placement 07-12-16. hysterectomy, cataract sx, bilat 1st Rib resections. ANE Review of Systems Review of Systems: - Exercise capacity METS (RN): 3 METS ANE Patient History - Allergies Allergies/Adverse Reactions: amoxicillin trihydrate [From Augmentin] Allergy (Intermediate, Verified 10:36) potassium clavulanate [From Augmentin] Allergy (Intermediate, Verified 12/25/16 10:36) monosodium glutamate Allergy (Mild, Verified 12/25/16 10:36) adhesive tape Allergy (Verified 12/25/16 10:36) Sulfa (Sulfonamide Antibiotics) Allergy (Verified 12/25/16 10:36) Tetracyclines Allergy (Verified 12/28/16 09:46) Other-Enter Comments - Home Medications Home Medications: Aspirin EC [Aspirin EC 81 mg (*)] 81 mg PO DAILY 12/25/16 [Last Taken 05/06/17] Clotrimazole/Betamethasone Dip [Clotrimazole-Betamethasone Crm] 1 nona TP BID PRN 12/25/16 [Last Taken 05/06/17] Diclofenac Sodium [Voltaren] 1 nona TP BID PRN 12/25/16 [Last Taken 05/06/17 07: 00] Furosemide [Lasix 20 MG (*)] 20 mg PO DAILY 12/25/16 [Last Taken 05/06/17] Insulin Glargine [Lantus 100 UNITS/ML (*)] 10 units SC DAILY@1700 12/25/16 [ Last Taken 05/05/17] Lisinopril [Zestril 5 mg (*)] 5 mg PO DAILY 12/25/16 [Last Taken 05/06/17] Metformin HCl [Metformin 1000 mg] 1,000 mg PO BID 12/25/16 [Last Taken 05/06/17] Metoprolol Tartrate [Lopressor 50 mg (*)] 50 mg PO DAILY 12/25/16 [Last Taken ] Potassium Cl [Klor-Con 10 meq (RX)] 10 meq PO DAILY 12/25/16 [Last Taken ] Simvastatin [Zocor] 40 mg PO DAILY 05/06/17 [Last Taken Unknown] - NPO status NPO Since - Liquids (Date): 05/06/17 NPO Since - Liquids (Time): 13:00 NPO Since - Solids (Date): 05/06/17 NPO Since - Solids (Time): 13:00 - Smoking Hx Smoking Status: Never smoked ANE Labs/Vital Signs - Labs Result Diagrams: 05/06/17 17:20 05/06/17 17:20 - Vital Signs Blood Pressure: 135/75 Heart Rate: 64 Respiratory Rate: 12 O2 Sat (%): 95 Height: 154.94 cm Weight: 67.8 kg ANE Physical Exam - Airway Neck exam: FROM Mallampati Score: Class 2 Mouth exam: normal dental/mouth exam - Pulmonary Pulmonary: no respiratory distress, no rales or rhonchi - Cardiovascular Cardiovascular: regular rate and rhythym, no murmur, rub, or gallop - ASA Status ASA Status: III ANE Anesthesia Plan Anesthesia Plan: general endotracheal anesthesia Total IV Anesthesia: No
[2017-05-06] MEDS ORDERED: fentaNYL 100 MCG/2 ML INJ ONE ×3 (19:53→21:30)
[2017-05-06] MEDS ORDERED: PROPOFOL 200 MG/20 ML VIAL ONE (19:54)
[2017-05-06] MEDS ORDERED: LIDOCAINE 2% 5 ML SDV ONE (19:56)
[2017-05-06] MEDS ORDERED: LR 1,000 ML IV ONE (19:59)
[2017-05-06] MEDS ORDERED: ROCURONIUM 50 MG/5 ML VIAL ONE (20:01)
[2017-05-06] MEDS ORDERED: PHENYLEPHRINE HCL 100 MCG/ML SYR ONE (20:21)
[2017-05-06] MEDS ORDERED: ACETAMINOPHEN 500 MG TAB PO PRN (20:33)
[2017-05-06] MEDS ORDERED: NALOXONE HCL 0.4 MG/ML INJ IVP PRN (20:33)
[2017-05-06] MEDS ORDERED: HYDROmorphONE/DILAUDID 1 MG/ML INJ IVP PRN (20:33)
[2017-05-06] MEDS ORDERED: HYDROCODONE/APAP 5/325 TAB PO PRN (20:33)
[2017-05-06] MEDS ORDERED: SUGAMMADEX SODIUM 200 MG/2 ML VIAL IVP ONE (20:47)
[2017-05-06] MEDS ORDERED: CLOTRIMAZOLE/BETAMET DIPROP 15 GM CRTUBE TP PRN (21:12)
[2017-05-06] MEDS ORDERED: DICLOFENAC SODIUM 1% 100 GM GEL TP PRN (21:12)
--- NOTE | 2017-05-06 21:12 | POSTOPPROG ---
Post Op Note Date of Operation: 05/06/17 Surgeon: Kait Rubi Anesthesiologist: grace Anesthesia: GET(General Endotracheal) Pre-op Diagnosis: buttock abscess Post-op Diagnosis: same Indication: 72 yo with abscess on buttock Procedure: debride skin soft tissue [id number] Findings: indurated tissue multiple small tracks Inf/Abcess present in the surg proc area at time of surgery?: Yes Depth: Superfical (Skin SQ) EBL: Minimal Drains: Wound Vac Specimen(s): micro
--- NOTE | 2017-05-06 21:16 | POSTANESTH ---
Post Anesthetic Evaluation Cardiovascular Status: Normal, Stable Respiratory Status: Normal, Stable Level of Consciousness/Mental Status: Can Participate in Eval Pain Control: Adequate, Prn Tx Ordered Nausea/Vomiting Control: Adequate, Prn Tx Ordered Complications Possibly Related to Anesthesia: None Noted
[2017-05-06] MEDS: fentaNYL 100 MCG/2 ML INJ IVP PRN ×2 (21:31→21:36)
[2017-05-06] MEDS: HYDROCODONE/APAP 5/325 TAB PO PRN (22:24)
[2017-05-07] MEDS ORDERED: D50W 25 GM/50 ML SYR IVP PRN (00:33)
[2017-05-07] MEDS ORDERED: D10W 250 ML PRN HYPOGLYCEMIA IV (01:00)
[2017-05-07] MEDS ORDERED: NS BOLUS 1000 ML (Wide open) IV ONE (01:30)
[2017-05-07] MEDS: HYDROCODONE/APAP 5/325 TAB PO PRN ×3 (02:43→14:24)
--- NOTE | 2017-05-07 07:17 | GCON ---
[f rep st] CONSULTATION REFERRING PHYSICIAN: Kait Rubi MD REASON FOR CONSULTATION: Request consultation for medical management. CHIEF COMPLAINT: Fatigue. HISTORY OF PRESENT ILLNESS: This is a very pleasant 72-year-old female who is status post an I and D of a buttock abscess. The patient has a history of uncontrolled diabetes with neuropathy and MRSA a bscesses and cellulitis. The patient was admitted postoperatively as she had placement of a wound VA C and for IV antibiotics. At the time of my interview, the patient reports her pain is finally contr olled, and she otherwise denies any other complaints except for a pain in her butt. REVIEW OF SYSTEMS: GENERAL: No fevers, chills. SKIN: The patient complains of buttock abscess and pain. No other rashes or sores. EYES: The patient denies any changes in vision or ocular pain. ENT: No congestion, sore throat. CV: No chest pain, palpitations. RESPIRATORY: The patient denies any cough, shortness of breath. GI: No nausea, vomiting. : No dysuria or hematuria. MUSCULOSKELETAL: The patient with history of arthritis. Denies any current myalgias. NEURO: The patient reports numbness, tingling and neuropathy greatest in her feet. Remainder of review of systems negative except as noted above. ALLERGIES: To adhesive, Augmentin, MSG, sulfa, tetracycline. PAST MEDICAL HISTORY: Significant for anemia, diabetes type 2, hypertension, SC and CAD, cellulitis with history of MRSA. PAST SURGICAL HISTORY: Patient with a right toe amputation, skin graft, I and D, cataract surgery, h ysterectomy. FAMILY HISTORY: Significant for father with CHF, hyperlipidemia, diabetes type 1 and hypertension. SOCIAL HISTORY: The patient lives alone. She is , has 1 daughter who is very supportive. Sh e denies any tobacco, drugs, or alcohol. CODE STATUS: Full. PHYSICAL EXAMINATION: VITAL SIGNS: Vitals on arrival to the ER, blood pressure 136/66, pulse of 69, respiratory rate 14, O2 sat 100% on 3 L, temperature 36.3. Vitals on the floor, blood pressure 101 down to 78 over 47, pulse 72, respiratory rate dropped down as low as 10, max of 14, 1 L b y nasal cannula with a temperature of 36.4. GENERAL: No acute distress. Very pleasant, elderly, frail-appearing female who is lying quietly in bed. Appears quite fatigued. HEAD: Normocephalic, atraumatic. EYES: The patient keeps her eyes shut during the interview. There is no apparent scleral icterus or conjunctival injection. ENT: Mucous membranes appear dry. No oropharyngeal erythema. NECK: Supple. Trachea midline. CV: Regular rate and rhythm. Slightly distant heart sounds secondary to body habitus but no murmurs appreciated. RESPIRATORY: Lungs appear clear to auscultation bilaterally. Limited secondary to patient's mobilit y. ABDOMEN: Obese, soft, nontender to palpation. No rebound, guarding or masses appreciated. : No Hart in place. No suprapubic tenderness to palpation. EXTREMITIES: The patient with increased lower extremity edema bilaterally and symmetric. NEURO: Grossly nonfocal. The patient's exam limited secondary to patient fatigue and falling asleep . PSYCH: Patient is pleasant, cooperative. Though process, content and questions appear appropriate. LABORATORY STUDIES: WBC 9.0, H and H 9.5 and 30.5, MCV 85.7, platelet count is 287, no bands. Sodiu m is 132, potassium is 5.1, chloride 100, CO2 is 16, BUN 74, creatinine 1.9, GFR is 26, glucose 69, c alcium 9.6. ASSESSMENT AND PLAN: Very pleasant 72-year-old female status post incision and drainage of soft tiss ue abscess on the buttock. Consult hospitalist service for medical management by problem. 1. Hypotension. Likely secondary to hypovolemia as the patient does appear dry postoperatively. A bolus will be given, and the patient's IV fluid will be increased at rate. 2. Acute kidney injury. Likely secondary to prerenal injury related to her hypovolemia. IV fluids are continuing as noted above. 3. Hypoglycemia noted perioperatively. The patient will be given some juice and will monitor. Also , given patient's acute kidney injury, metformin is not indicated at this time. She will be placed o n low dose sliding scale and agree with resuming any long-acting insulin. 4. Diabetes type 2, uncontrolled, with and neuropathy. 5. Benign essential hypertension. Hydralazine p.r.n. for blood pressure. Will hold off on any neph rotoxic medications, including patient's lisinopril, although it is a low dose. 6. Anemia, likely of chronic disease. Will monitor in the morning. Minimal blood loss on incision and drainages. 7. Diabetes type 2, uncontrolled. Holding metformin secondary to acute kidney injury again. Contin ue Lantus and add a low-dose sliding scale. ADA diet. 8. Benign essential hypertension. Holding lisinopril. Continue metoprolol in setting of acute kidn ey injury. Holding Lasix secondary to hypotension. 9. Buttock abscess, status post incision and drainage, postop day number 0. On vancomycin as per pr imary team. 10. History of MRSA. On precautions. 11. Hyponatremia. Likely related to hypovolemia. Continue with the IV fluid hydration. 12. Episode of hypoglycemia. Likely secondary to patient's n.p.o. status for surgery. Patient tole rating intake. Will monitor Accu-Cheks. 13. Fluids, electrolytes, nutrition: IV fluids normal saline bolus p.r.n. Electrolyte replacement p.r.n. ADA diet, advance as tolerated. 14. Prophylaxis: Lovenox and sequential compression devices. 15. Code status: Full. DISPOSITION: Patient admitted to inpatient status on the medical floor as per surgery team. Thank you for this consultation. We will continue to follow along with you. /[id number]/MODL
[2017-05-07] MEDS ORDERED: metFORMIN HCL 500 MG TAB PO SCH (08:00)
[2017-05-07] MEDS ORDERED: LISINOPRIL 5 MG TAB PO SCH (09:00)
[2017-05-07] MEDS ORDERED: FUROSEMIDE 20 MG TAB PO SCH (09:00)
[2017-05-07] MEDS: METOPROLOL TARTRATE 50 MG TAB PO SCH (09:06)
[2017-05-07] MEDS: ATORVASTATIN CALCIUM 20 MG TAB PO SCH (09:16)
[2017-05-07] MEDS: POTASSIUM CL 10 MEQ TAB PO SCH (09:16)
[2017-05-07] MEDS: ASPIRIN EC 81 MG TAB PO SCH (09:16)
[2017-05-07 10:17] LABS: % IMMATURE GRANULYOCYTES 0.7 % (0.0-1.1); ABSOLUTE IMMATURE GRANULOCYTES 0.06 10^3/uL (0.00-0.10); ADD DIFF? NO; ADD MORPH? NO; ADD SCAN? NO; ATYPICAL LYMPHOCYTE FLAG 0 (0-99); FRAGMENT RBC FLAG 0 (0-99); HEMATOCRIT 29.8 % (38.0-47.0); HEMOGLOBIN 9.4 g/dL (12.6-16.3); LEFT SHIFT FLG 0 (0-99); LIPEMIA HEMOLYSIS FLAG 80 (0-99); MEAN CELL HEMOGLOBIN CONCENTR. 31.5 g/dL (32.4-36.7); MEAN CELL VOLUME 85.6 fL (81.5-99.8); MEAN PLATELET VOLUME 8.6 fL (8.7-11.7); PLATELET CLUMPS FLAG 0 (0-99); PLATELET COUNT 250 10^3/uL (150-400); RED BLOOD CELL COUNT 3.48 10^6/uL (4.18-5.33); RED CELL DISTRIBUTION WIDTH 16.8 % (11.5-15.2)
[2017-05-07 10:47] LABS: ANION GAP 11 mEq/L (8-16); CALCIUM 9.1 mg/dL (8.5-10.4); CARBON DIOXIDE 19 mEq/l (22-31); CHLORIDE 109 mEq/L (97-110); CREATININE 1.5 mg/dL (0.6-1.0); GLOMERULAR FILTRATION RATE 34; GLUCOSE 113 mg/dL (70-100); POTASSIUM 4.3 mEq/L (3.5-5.2); SODIUM 139 mEq/L (134-144)
--- NOTE | 2017-05-07 11:23 | SOAPPROG ---
SOAP Progress Note Assessment/Plan: Assessment: 72yo F POD#1 s/p Debridement skin/soft tissue of right buttock for recurrent abscess Pain controlled Wound vac to suction Regular diet Appreciate hospitalist management of comorbidiies Dispo: OK to D/c from surgery perspective when home wound vac approved. Will need home care. Seen c Dr. Rubi S: Feeling well. Pain controlled. No worsening symptoms overnight O: laying in bed, comfortable, NAD No increased WOB R buttock wound erythema significantly improved. Wound vac to suction. Surrounding induration resolved Objective: Vital Signs Temp Pulse Resp BP Pulse Ox 36.4 C 73 14 109/59 L 97 05/07/17 08:00 05/07/17 08:00 05/07/17 08:00 05/07/17 08:00 05/07/17 08:00 Microbiology 05/06/17 20:30 Gram Stain - Final Buttock - Tissue Laboratory Results 05/07/17 10:06 05/07/17 10:06 05/06/17 05/07/17 05/08/17 05:59 05:59 05:59 Intake Total 1065 Output Total 915 Balance 150 ICD10 Worksheet Patient Problems: Problems Problem Status Onset Cellulitis of foot Acute ESBL (extended spectrum beta-lactamase) producing bacteria infection Acute ~ Facial cellulitis Acute History of fever Acute MRSA (methicillin resistant Staphylococcus aureus) Acute ~03/04/17 Myocardial infarct Acute Rhabdomyolysis Acute Sepsis Acute Skin graft infection Acute Vomiting Acute
[2017-05-07] MEDS ORDERED: oxyCODONE IR 5 MG TAB PO PRN (14:30)
--- NOTE | 2017-05-07 15:51 | ASMTCMCOM ---
CM Note CM Note Notes: Patient in need of home wound vac. Application submitted on [employer], awaiting signed perscription from or PA (PA aware). Notified Colleen at [facility] #[phone] of referral. Met with patient regarding discharge poc. She lives at [facility] and has used [facility] in the past (#[phone]). Referral sent to [facility]. Awaiting approval from [facility] for home vac. Discussed with RN. Case Management will follow. Date Signed: 05/07/2017 03:50 PM Electronically Signed By:Dionna Osborne RN
[2017-05-07] MEDS: VANCOMYCIN HCL/NORMAL SALINE 250 ML IV SCH (17:04)
--- NOTE | 2017-05-07 17:16 | SOAPPROG ---
SOAP Progress Note Assessment/Plan: 1. s/p buttock wound debridement, hx MRSA abscesses -wound vac in place -awaiting home wound vac approval -care per surgery team -on IV vanc, transition to PO when culture results available 2. Hypotension, symptomatic post op -still lower BP but asymptomatic -hold regular meds today, restart in AM -PT/OT eval 3. Acute renal insuff -improved with IV fluids 4. Type 2 DM poorly controlled historically -follow closely 5. Anemia -chronic/stable DISPO- home with [facility] (lives independent at [facility]) and wound vac 1-2 more mdnts depending upon stability post op and wound care 05/08/17 07:41 Subjective: Feels well, pain OK with meds. Good appetite, no CP/SOB/abd pain. Objective: Vital Signs Temp Pulse Resp BP Pulse Ox 97.5 F 84 16 100/79 97 05/07/17 16:00 05/07/17 16:00 05/07/17 16:00 05/07/17 16:00 05/07/17 16:00 Microbiology 05/06/17 20:30 Gram Stain - Final Buttock - Tissue Laboratory Results 05/07/17 10:06 05/07/17 10:06 05/06/17 05/07/17 05/08/17 11:59 11:59 11:59 Intake Total 1065 Output Total 915 Balance 150 Physical Exam - Physical Exam General Appearance: WD/WN, alert, no apparent distress Respiratory: lungs clear, normal breath sounds, No respiratory distress Cardiac/Chest: regular rate, rhythm Abdomen: normal bowel sounds, non-tender, soft, No distended, No guarding Skin: warm/dry Neuro/Psych: alert, normal mood/affect, No cognition abnormalities, No speech abnormalities ICD10 Worksheet Patient Problems: Problems Problem Status Onset Cellulitis of foot Acute ESBL (extended spectrum beta-lactamase) producing bacteria infection Acute ~ Facial cellulitis Acute History of fever Acute MRSA (methicillin resistant Staphylococcus aureus) Acute ~03/04/17 Myocardial infarct Acute Rhabdomyolysis Acute Sepsis Acute Skin graft infection Acute Vomiting Acute
[2017-05-07] MEDS ORDERED: BISACODYL 10 MG SUPP PR PRN (17:23)
[2017-05-07] MEDS ORDERED: POLYETHYLENE GLYCOL 3350 17 GM PKT PO PRN (17:23)
[2017-05-07] MEDS ORDERED: MAGNESIUM HYDROXIDE 30 ML UDCUP PO PRN (17:23)
[2017-05-07] MEDS ORDERED: LACTULOSE 20 GM/30 ML UDCUP PO PRN (17:23)
[2017-05-07] MEDS: NS 1,000 ML IV SCH (17:41)
[2017-05-07] MEDS: INSULIN GLARGINE 100 UNITS/ML SYRINGE SC SCH (17:41)
[2017-05-07] MEDS: SENNOSIDES/DOCUSATE SODIUM TAB PO SCH (20:51)
[2017-05-08] MEDS: HYDROCODONE/APAP 5/325 TAB PO PRN ×5 (01:24→23:29)
[2017-05-08] MEDS: NS 1,000 ML IV SCH (04:05)
[2017-05-08 05:48] LABS: ANION GAP 8 mEq/L (8-16); CALCIUM 9.1 mg/dL (8.5-10.4); CARBON DIOXIDE 20 mEq/l (22-31); CHLORIDE 110 mEq/L (97-110); CREATININE 1.3 mg/dL (0.6-1.0); GLOMERULAR FILTRATION RATE 40; GLUCOSE 141 mg/dL (70-100); POTASSIUM 4.1 mEq/L (3.5-5.2); SODIUM 138 mEq/L (134-144)
--- NOTE | 2017-05-08 08:43 | HOSPPROG ---
Hospitalist Progress Note Assessment/Plan: patient is a 72-year-old female status post I and D of a buttock abscess. She has a history of diabetes. Today is my 1st encounter with the patient. Chart reviewed. * Buttock abscess status post I and D culture growing out MR POND on vancomycin wound VAC in place Could go home on oral doxycycline * hypotension resolved *? abscess formation under left arm pit area not red or tender * acute renal insufficiency Creatinine is 1.3 Improved with hydration She get repeat labs in the outpatient setting will recheck in the a.m. avoid any nephrotoxins * type 2 diabetes Glucose this morning 141 place her on sliding scale * anemia She get repeat labs in the outpatient setting * plan. DC per surgical team. Patient was concerned that her wound VAC malfunction. Will place her on sliding scale/ encouraged her to consider a SNF with needing a wound vac, etc. Subjective: Brina is anxious about being dc. Doesn't want to go to a SNF. Objective: Vital Signs Temp Pulse Resp BP Pulse Ox 36.4 C 94 18 124/61 H 93 05/08/17 08:00 05/08/17 08:00 05/08/17 08:00 05/08/17 08:00 05/08/17 08:00 Microbiology 05/06/17 20:30 Gram Stain - Final Buttock - Tissue Laboratory Results 05/07/17 10:06 05/08/17 05:08 05/07/17 05/08/17 05/09/17 05:59 05:59 05:59 Intake Total 1065 1065 Output Total 915 1650 Balance 150 -585 - Physical Exam Constitutional: no apparent distress, not in pain Eyes: PERRL Ears, Nose, Mouth, Throat: hearing normal Cardiovascular: regular rate and rhythym Respiratory: no respiratory distress Gastrointestinal: normoactive bowel sounds Skin: warm, other (left arm pit with a few small nodules, non tender, not red) Musculoskeletal: full muscle strength Neurologic: AAOx3 Psychiatric: interacting appropriately, not anxious ICD10 Worksheet Patient Problems: Problems Problem Status Onset Cellulitis of foot Acute ESBL (extended spectrum beta-lactamase) producing bacteria infection Acute ~ Facial cellulitis Acute History of fever Acute MRSA (methicillin resistant Staphylococcus aureus) Acute ~03/04/17 Myocardial infarct Acute Rhabdomyolysis Acute Sepsis Acute Skin graft infection Acute Vomiting Acute
[2017-05-08] MEDS: POTASSIUM CL 10 MEQ TAB PO SCH (09:41)
[2017-05-08] MEDS: ATORVASTATIN CALCIUM 20 MG TAB PO SCH (09:41)
[2017-05-08] MEDS: METOPROLOL TARTRATE 50 MG TAB PO SCH (09:41)
[2017-05-08] MEDS: ASPIRIN EC 81 MG TAB PO SCH (09:41)
[2017-05-08] MEDS: SENNOSIDES/DOCUSATE SODIUM TAB PO SCH ×2 (09:42→19:46)
--- NOTE | 2017-05-08 10:50 | SOAPPROG ---
SOAP Progress Note Assessment/Plan: Assessment/Plan: 72-year-old female postoperative day 2 status post right buttock I and D for recurrent abscess Patient continues to do well, has been afebrile and her pain has been well controlled. The VAC has alarmed twice overnight but appears to be stable now. Still waiting home VAC to arrive. Patient also has what appears to be some small pea-sized abscesses in her left armpit which are nondraining, non erythematous and minimally fluctuant. Plan will be to continue vancomycin, home VAC when appropriate discharge home with home health I would do anything for those armpit abscesses as I anticipate those will resolve with IV antibiotics but if persisted could undergo an office incision and drainage 05/08/17 10:48 Subjective: Doing well, has concerns about the VAC leaking. Objective: Vital Signs Temp Pulse Resp BP Pulse Ox 36.4 C 94 18 124/61 H 93 05/08/17 08:00 05/08/17 08:00 05/08/17 08:00 05/08/17 08:00 05/08/17 08:00 Microbiology 05/06/17 20:30 Gram Stain - Final Buttock - Tissue Laboratory Results 05/07/17 10:06 05/08/17 05:08 05/07/17 05/08/17 05/09/17 05:59 05:59 05:59 Intake Total 1065 1065 450 Output Total 915 1650 250 Balance 150 -585 200 ICD10 Worksheet Patient Problems: Problems Problem Status Onset Cellulitis of foot Acute ESBL (extended spectrum beta-lactamase) producing bacteria infection Acute ~ Facial cellulitis Acute History of fever Acute MRSA (methicillin resistant Staphylococcus aureus) Acute ~03/04/17 Myocardial infarct Acute Rhabdomyolysis Acute Sepsis Acute Skin graft infection Acute Vomiting Acute
[2017-05-08] MEDS ORDERED: D50W 25 GM/50 ML SYR IVP PRN (15:24)
--- NOTE | 2017-05-08 16:42 | ASMTCMCOM ---
CM Note CM Note Notes: Wound vac delivered to pt, form signed and faxed back to [facility]. Pt unable to get ride from sister d/t late hour, she will come pick pt up tomorrow at 9am, Cathy at [facility] and Colleen at [facility] notified. Date Signed: 05/08/2017 04:39 PM Electronically Signed By:Jennifer Galeano RN
[2017-05-08] MEDS: VANCOMYCIN HCL/NORMAL SALINE 250 ML IV SCH (17:13)
[2017-05-08] MEDS: INSULIN LISPRO 100 UNIT/ML SC SCH (18:00)
[2017-05-08] MEDS: INSULIN GLARGINE 100 UNITS/ML SYRINGE SC SCH (18:00)
[2017-05-09] MEDS: HYDROCODONE/APAP 5/325 TAB PO PRN (04:48)
[2017-05-09 05:49] LABS: % IMMATURE GRANULYOCYTES 0.6 % (0.0-1.1); ABSOLUTE IMMATURE GRANULOCYTES 0.05 10^3/uL (0.00-0.10); ADD DIFF? NO; ADD MORPH? NO; ADD SCAN? NO; ATYPICAL LYMPHOCYTE FLAG 0 (0-99); FRAGMENT RBC FLAG 0 (0-99); HEMATOCRIT 26.4 % (38.0-47.0); HEMOGLOBIN 8.3 g/dL (12.6-16.3); LEFT SHIFT FLG 0 (0-99); LIPEMIA HEMOLYSIS FLAG 80 (0-99); MEAN CELL HEMOGLOBIN 26.7 pg (27.9-34.1); MEAN CELL HEMOGLOBIN CONCENTR. 31.4 g/dL (32.4-36.7); MEAN CELL VOLUME 84.9 fL (81.5-99.8); PLATELET CLUMPS FLAG 0 (0-99); PLATELET COUNT 272 10^3/uL (150-400); RED BLOOD CELL COUNT 3.11 10^6/uL (4.18-5.33); RED CELL DISTRIBUTION WIDTH 17.1 % (11.5-15.2)
[2017-05-09 06:01] LABS: ALANINE AMINOTRANSFERASE 30 IU/L (9-52); ALBUMIN 2.9 g/dL (3.5-5.0); ALKALINE PHOSPHATASE 72 IU/L (38-126); ANION GAP 9 mEq/L (8-16); ASPARTATE AMINOTRANSFERASE 13 IU/L (14-46); BILIRUBIN,TOTAL 0.3 mg/dL (0.1-1.4); CALCIUM 9.3 mg/dL (8.5-10.4); CARBON DIOXIDE 21 mEq/l (22-31); CHLORIDE 109 mEq/L (97-110); GLOMERULAR FILTRATION RATE 54; GLUCOSE 141 mg/dL (70-100); POTASSIUM 4.1 mEq/L (3.5-5.2); SODIUM 139 mEq/L (134-144); TOTAL PROTEIN 5.4 g/dL (6.3-8.2)
--- NOTE | 2017-05-09 07:21 | PDIAF ---
- Diagnosis Diagnosis: sacral decub ulcer Code Status: Full Code - Medication Management Discharge Medications: Medications to Continue on Transfer Aspirin EC [Aspirin EC 81 mg (*)] 81 mg PO DAILY 12/25/16 [Last Taken 05/06/17] Clotrimazole/Betamethasone Dip [Clotrimazole-Betamethasone Crm] 1 nona TP BID PRN 12/25/16 [Last Taken 05/06/17] Diclofenac Sodium [Voltaren] 1 nona TP BID PRN 12/25/16 [Last Taken 05/06/17 07: 00] Furosemide [Lasix 20 MG (*)] 20 mg PO DAILY 12/25/16 [Last Taken 05/06/17] Insulin Glargine [Lantus 100 UNITS/ML (*)] 10 units SC DAILY@1700 12/25/16 [ Last Taken 05/05/17] Lisinopril [Zestril 5 mg (*)] 5 mg PO DAILY 12/25/16 [Last Taken 05/06/17] Metformin HCl [Metformin 1000 mg] 1,000 mg PO BID 12/25/16 [Last Taken 05/06/17] Metoprolol Tartrate [Lopressor 50 mg (*)] 50 mg PO DAILY 12/25/16 [Last Taken ] Potassium Cl [Klor-Con 10 meq (RX)] 10 meq PO DAILY 12/25/16 [Last Taken ] Hydrocodone/Acetaminophen [[place] 5/325 (*)] 1 each PO Q4H PRN #7 tablet [Last Taken 05/06/17 07:00] Simvastatin [Zocor] 40 mg PO DAILY 05/06/17 [Last Taken Unknown] Hydrocodone/APAP 5/325 [[place] 5/325 (*)] 1 - 2 tab PO Q4HRS PRN #40 tab [Last Taken Unknown] Discharge Medications: Refer to the Discharge Home Medication list for PRN reason. - Orders Services needed: Home Care, Registered Nurse, Occupational Therapy Home Care Face to Face: I certify that this patient was under my care and that I had the required [id number] encounter meeting the encounter requirements on the discharge day. My findings support the fact that the patient is homebound as defined in Home Care Face to Face Continued: CMS Chapter 7 Medicare Benefits Manual 30.1.1 , The condition of the patient is such that there exists a normal inability to leave home and consequently, leaving home would require a considerable and taxing effort. Diet Recommendation: no restrictions on diet Diet Texture: Regular Texture Diet - Follow Up Care Current Providers and Referrals: Alex Rodriguez MD [Primary Care Provider] - Kait Rubi MD [Medical Doctor] - follow up in 1 week
--- NOTE | 2017-05-09 07:47 | PDIAF ---
- Diagnosis Diagnosis: sacral decub ulcer Code Status: Full Code - Medication Management Discharge Medications: Medications to Continue on Transfer Aspirin EC [Aspirin EC 81 mg (*)] 81 mg PO DAILY 12/25/16 [Last Taken 05/06/17] Clotrimazole/Betamethasone Dip [Clotrimazole-Betamethasone Crm] 1 nona TP BID PRN 12/25/16 [Last Taken 05/06/17] Diclofenac Sodium [Voltaren] 1 nona TP BID PRN 12/25/16 [Last Taken 05/06/17 07: 00] Furosemide [Lasix 20 MG (*)] 20 mg PO DAILY 12/25/16 [Last Taken 05/06/17] Insulin Glargine [Lantus 100 UNITS/ML (*)] 10 units SC DAILY@1700 12/25/16 [ Last Taken 05/05/17] Lisinopril [Zestril 5 mg (*)] 5 mg PO DAILY 12/25/16 [Last Taken 05/06/17] Metformin HCl [Metformin 1000 mg] 1,000 mg PO BID 12/25/16 [Last Taken 05/06/17] Metoprolol Tartrate [Lopressor 50 mg (*)] 50 mg PO DAILY 12/25/16 [Last Taken ] Potassium Cl [Klor-Con 10 meq (RX)] 10 meq PO DAILY 12/25/16 [Last Taken ] Hydrocodone/Acetaminophen [Sab[place] 5/325 (*)] 1 each PO Q4H PRN #7 tablet [Last Taken 05/06/17 07:00] Simvastatin [Zocor] 40 mg PO DAILY 05/06/17 [Last Taken Unknown] Doxycycline Monohydrate 100 mg PO BID #10 capsule 05/09/17 [Last Taken Unknown] Hydrocodone/APAP 5/325 [Sabinal 5/325 (*)] 1 - 2 tab PO Q4HRS PRN #40 tab [Last Taken Unknown] Discharge Medications: Refer to the Discharge Home Medication list for PRN reason. - Orders Services needed: Home Care, Registered Nurse, Occupational Therapy Home Care Face to Face: I certify that this patient was under my care and that I had the required [id number] encounter meeting the encounter requirements on the discharge day. My findings support the fact that the patient is homebound as defined in Home Care Face to Face Continued: CMS Chapter 7 Medicare Benefits Manual 30.1.1 , The condition of the patient is such that there exists a normal inability to leave home and consequently, leaving home would require a considerable and taxing effort. Diet Recommendation: no restrictions on diet Diet Texture: Regular Texture Diet - Follow Up Care Current Providers and Referrals: Kait Rubi MD [Medical Doctor] - follow up in 1 week Alex Rodriguez MD [Primary Care Provider] -
[2017-05-09 07:55] VITALS: BP 181/98; PULSE 82; RESP 18; TEMP 98.1; O2SAT 96
[2017-05-09] MEDS: INSULIN LISPRO 100 UNIT/ML SC SCH (08:10)
[2017-05-09] MEDS: POTASSIUM CL 10 MEQ TAB PO SCH (08:11)
[2017-05-09] MEDS: ATORVASTATIN CALCIUM 20 MG TAB PO SCH (08:11)
[2017-05-09] MEDS: ASPIRIN EC 81 MG TAB PO SCH (08:12)
[2017-05-09] MEDS: METOPROLOL TARTRATE 50 MG TAB PO SCH (08:12)
[2017-05-09] MEDS: SENNOSIDES/DOCUSATE SODIUM TAB PO SCH (08:13)
--- NOTE | 2017-05-09 09:24 | ASDISCHSUM ---
Discharge Information Plan Status:Home with Home Health Medically Cleared to Leave: Discharge Date:05/09/2017 09:04 AM D/C Disposition:Home Health Service [facility] D/C Disposition:[id number] Projected Discharge Date:05/08/2017 11:00 AM Transportation at D/C:Family Discharge Delay Reason: Follow-Up Date:05/08/2017 11:00 AM Discharge Slot: Final Diagnosis: Placement Information Referral Type:*Home Health Care Services Referral ID:[id number] Provider Name:[facility] Address 1:[address] [address] Address 2: City:[place] Selection Factors: State:[place] Patient Contact Information Contact Name:JUNAID Relationship:Sister Address: Work Phone: City: [facility] Phone: [facility] Code: Email: Financial Information Financial Class: Primary Plan Desc:MEDICARE INPATIENT Primary Plan Number:[id number] Secondary Plan Desc:AARP/MDR SUPPLEMENT Secondary Plan Number:[id number] Assessment Information [facility] CM Progress Note CM Note CM Note Notes: Patient in need of home wound vac. Application submitted on [employer], awaiting signed perscription from or CLAUDIA (PA aware). Notified Colleen at [facility] #[phone] of referral. Met with patient regarding discharge poc. She lives at [facility] and has used [employer] in the past (#[phone]). Referral sent to [employer]. Awaiting approval from [facility] for home vac. Discussed with RN. Case Management will follow. Date Signed: 05/07/2017 03:50 PM Electronically Signed By:Dionna Osborne RN [facility] CM Progress Note CM Note CM Note Notes: Wound vac delivered to pt, form signed and faxed back to [facility]. Pt unable to get ride from sister d/t late hour, she will come pick pt up tomorrow at 9am, Cathy at [facility] and Colleen at [facility] notified. Date Signed: 05/08/2017 04:39 PM Electronically Signed By:Jennifer Galeano RN [facility] CM Progress Note CM Note CM Note Notes: D/w PA, final orders faxed. Clotilde at [facility] notified and RN to visit today, pt's sister here to transport pt. Date Signed: 05/09/2017 09:22 AM Electronically Signed By:Jennifer Galeano RN Intervention Information Intervention Type:*Incorrect Registration Date of Service:05/07/2017 09:57 AM Patient Type:Inpatient Staff Member:TOMASZ Walker Susan Hours: Discipline: Severity: Comment:
--- NOTE | 2017-05-09 12:41 | GDS ---
[f rep st] DISCHARGE SUMMARY ADMITTING DIAGNOSIS: Right buttock abscess. SECONDARY DIAGNOSES: Type 2 diabetes, history of methicillin-resistant Staphylococcus aureus abscess , anemia, hypertension, Meniere disease, history of myocardial infarction. REASON FOR ADMISSION: The patient is a 72-year-old woman, who developed a recurrent right buttock ab scess. Previous culture showed MRSA. She was admitted for operative debridement. Wound VAC placeme nt, pain control, and observation. HOSPITAL COURSE: She was taken to the operating room by Dr. Kait Rubi on 05/06/2017, for debrideme nt of skin and soft tissue. The final wound dimensions measured 9 x 4 x 2 cm. The wound VAC was aylin stacey. By postoperative day #3, her pain was well controlled with oral pain medication. She was lisa ating a regular diet. She was transferring independently. She was ready for discharge. CONDITION: She is being discharged home with home care in stable. DISCHARGE MEDICATIONS: She was sent home with prescription for doxycycline, as well as [place]. She w as instructed to resume home medications. Please see EMR for further detail. DISCHARGE INSTRUCTIONS AND FOLLOWUP: She will have dressing changes twice weekly, wound VAC changes twice weekly, to be changed by home care. She will follow up in the office in 1 week. She understan ds to call our office with any worsening symptoms, questions, or concerns. /[id number]/MODL
--- NOTE | 2017-05-15 13:05 | GOP ---
[f rep st] OPERATIVE REPORT DATE OF OPERATION: 05/06/2017 SURGEON: Kait Rubi MD ANESTHESIA: General. ANESTHESIOLOGIST: Dr. Oni Gill. PREOPERATIVE DIAGNOSIS: Buttock abscess. POSTOPERATIVE DIAGNOSIS: Buttock abscess. PROCEDURE PERFORMED: Debridement of skin and soft tissue. FINDINGS: The wound measures 9 x 4 x 2 cm. SPECIMENS: Microbiology. ESTIMATED BLOOD LOSS: Minimal. INDICATIONS: The patient is a 72-year-old woman, who developed an abscess on her left buttock. This was healed and then it reopened. The area became very indurated, which did not improve with office in cision and drainage. DESCRIPTION OF PROCEDURE: The patient was brought into the operating room, and general anesthesia wa s administered. She was then placed in the prone position. Her bottom was prepped and draped in the u sual sterile fashion. I used electrocautery to excise the abscess on the left buttock. There were mul tiple small tracts, and each of these were excised until I got down to healthy tissue. The final woun d measurements 9 x 4 x 2 cm. Hemostasis was achieved. Irrigation was performed. A wound VAC was appli ed. She was placed back into the supine position, extubated, transferred to PACU in stable condition. /[id number]/MODL
== END 2017-05-09 09:04 | disposition home health service (06) | DRG 571 ==
LOC: F3E 15:15 → INTOOBSV 15:15 → OBSVTOIN 05-07 15:44
PROVIDERS: ADMIT Surgery; ATTEND Surgery
PROC: 0HB8XZZ Excision of Buttock Skin, External Approach (ICD-10-PCS; principal; 2017-05-06 18:30)
DX: L02.31 Cutaneous abscess of buttock (principal); B95.62 Methicillin resistant Staphylococcus aureus infection as the cause of diseases classified elsewhere; E87.1 Hypo-osmolality and hyponatremia; N17.9 Acute kidney failure, unspecified; I95.9 Hypotension, unspecified; E11.65 Type 2 diabetes mellitus with hyperglycemia; I25.10 Atherosclerotic heart disease of native coronary artery without angina pectoris; D63.8 Anemia in other chronic diseases classified elsewhere; I10 Essential (primary) hypertension; I25.2 Old myocardial infarction
CPT/HCPCS: G0378; J1815; J2370; J2704; J3010; J3370

== ENCOUNTER 2017-07-16 11:48 | Inpatient (IN) | payer OTHER, MEDICARE ==
[2017-07-16] MEDS ORDERED: VANCOMYCIN HCL/NORMAL SALINE 250 ML IV SCH (14:30)
[2017-07-16] MEDS ORDERED: DICLOFENAC SODIUM 1% 100 GM GEL TP PRN (14:45)
[2017-07-16] MEDS ORDERED: ONDANSETRON DISINTEGRATING 4 MG TAB PO PRN (14:47)
[2017-07-16] MEDS ORDERED: ACETAMINOPHEN 325 MG TAB PO PRN (14:47)
[2017-07-16] MEDS ORDERED: ONDANSETRON 4 MG/2 ML VIAL IVP PRN (14:47)
[2017-07-16] MEDS ORDERED: D50W 25 GM/50 ML SYR IVP PRN (14:47)
[2017-07-16] MEDS ORDERED: IBUPROFEN 200 MG TAB PO PRN (15:07)
[2017-07-16] MEDS ORDERED: IBUPROFEN 600 MG TAB PO ONE (15:15)
--- NOTE | 2017-07-16 15:29 | GHP ---
[f rep st] HISTORY AND PHYSICAL DATE OF ADMISSION: 07/16/2017 The patient is a 72-year-old female with history of diabetes, coronary artery disease, who presents w ith an abscess in her occipital region of her scalp. This began bothering her the day prior to Thank sgiving, which is about a week and a half ago. She did not have a ride so she set up a visit to Dr. Edmonds's office for today where she was sent over to Dr. Rubi's office, which performed I and D and culture. The patient has not had fever and chills. She lives at an assisted living where they check it. It has not been seen. She has had no drenching night sweats. She has had no shaking chills. No lightheadedness or dizziness. She states her blood sugars are well controlled. The patient does have a fair amount of cutaneous abscesses. She was admitted in December of this year wit h an abscess in her face, which has drained, and she was also admitted in April with a buttock ab scess and culture growing MRSA. REVIEW OF SYSTEMS: Complete 10-point review of systems conducted. Notable is that the edema in her legs is not new. She ambulates with a wheelchair. PAST MEDICAL HISTORY: 1. Diabetes. 2. 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 3. Numerous cutaneous abscesses. 4. Hypertension. 5. Hyperlipidemia. 6. History of NSTEMI, medically managed. 7. Diastolic heart failure. 8. History of hysterectomy. 9. ALLERGIES: Amoxicillin, clavulanate, monosodium glutamate. Adhesive tape. Sulfa. Tetracyclines. HOME MEDICATIONS: Hydrocodone, Lasix 20, diclofenac gel, B-12, clotrimazole, aspirin, simvastatin, p otassium, metoprolol, metformin, lisinopril, Lantus 10 units. SOCIAL HISTORY: Lives in [facility]. No alcohol. No tobacco. FAMILY HISTORY: Parents . PHYSICAL EXAMINATION: VITAL SIGNS: Presenting vitals today, temp 36.5, blood pressure 114/67, pulse 66, breathing 18 times a minute, 91% on room air. GENERAL: No acute distress. HEENT: Sclerae ani cteric. Oropharynx clear. Mucous membranes are moist. NECK: Supple without lymphadenopathy or JVD . At the base of her skull, right about the hairline, she has what appears to be about have a golf b all size of abscess that has a wick in it. It has been drained. There is still some fluctuance and tenderness. There is, I cannot tell, erythema. She has dark hair and it is tender. LUNGS: Clear t o auscultation bilaterally. HEART: S1, S2. Not tachycardic. Without murmurs. ABDOMEN: Soft. EX TREMITIES: Lower extremities show 3+ edema bilaterally. There is evidence of a prior left 1st toe a mputation. SKIN: Numerous small scabs. There is evidence of fungal skin infection under her breast s. NEUROLOGIC: Nonfocal. LABORATORY: Pending. Historically, she has a normal BUN and creatinine. There is no imaging. I have discussed the case w ith Dr. Arielle Edmonds and Dr. Elisabeth Rubi. ASSESSMENT AND PLAN: This is a 72-year-old female with recurrent cutaneous abscesses at this time in the occipital region. 1. Cutaneous abscess. The patient has stable vitals without sepsis. We will go ahead and check blo od cultures, start her on vancomycin given her history of methicillin-resistant Staphylococcus aureus . Made her n.p.o. past midnight for possible trip to the OR tomorrow. 2. Diabetes. Will continue her Lantus. Will hold her metformin, and we will give her high-dose lis pro sliding scale. 3. Edema. I think the patient is to get some inpatient IV diuresis, but I will hold off until she h as gone to the OR and returned. 4. Numerous cutaneous abscesses. I wonder if given these numerous excoriations on her body if she d oes not pick. We did not discuss that versus the possibility that she has some underlying immunodefi ciency. She is on steroids and any other immunosuppressives and denies a family history of immune pr oblems. 5. Prophylaxis, SCDs for now. Low-molecular and heparin postoperatively. 6. Fungal skin infection. Miconazole powder. DISPOSITION: Inpatient status. /[id number]/MODL
[2017-07-16] MEDS ORDERED: ALTEPLASE 2 MG VIAL IVP PRN (16:05)
[2017-07-16 18:06] LABS: % IMMATURE GRANULYOCYTES 1.6 % (0.0-1.1); ABSOLUTE NRBC COUNT 0.06 10^3/uL (0-0.01); ADD DIFF? NO; ADD MORPH? NO; ADD SCAN? NO; ATYPICAL LYMPHOCYTE FLAG 0 (0-99); FRAGMENT RBC FLAG 0 (0-99); HEMATOCRIT 30.2 % (38.0-47.0); HEMOGLOBIN 9.7 g/dL (12.6-16.3); LEFT SHIFT FLG 20 (0-99); LIPEMIA HEMOLYSIS FLAG 80 (0-99); MEAN CELL HEMOGLOBIN 28.6 pg (27.9-34.1); MEAN CELL HEMOGLOBIN CONCENTR. 32.1 g/dL (32.4-36.7); MEAN CELL VOLUME 89.1 fL (81.5-99.8); MEAN PLATELET VOLUME 8.6 fL (8.7-11.7); NRBC-AUTO% 0.5 % (0.0-0.2); PLATELET CLUMPS FLAG 10 (0-99); PLATELET COUNT 353 10^3/uL (150-400); RED BLOOD CELL COUNT 3.39 10^6/uL (4.18-5.33); RED CELL DISTRIBUTION WIDTH 17.3 % (11.5-15.2)
[2017-07-16] MEDS: INSULIN GLARGINE 100 UNITS/ML SYRINGE SC SCH ×2 (18:18→18:22)
[2017-07-16] MEDS: MICONAZOLE NITRATE 15 GM CRTUBE TP SCH ×2 (18:19→20:02)
[2017-07-16 18:22] LABS: APTT 29.3 SEC (23.0-38.0); INR 1.04 (0.83-1.16); PROTIME(PATIENT) 13.8 SEC (12.0-15.0)
[2017-07-16] MEDS: HYDROCODONE/APAP 5/325 TAB PO PRN (18:33)
[2017-07-16] MEDS: INSULIN LISPRO 100 UNIT/ML SC SCH (18:35)
--- NOTE | 2017-07-16 18:36 | PCMIDPN ---
Assessment/Plan: # Likely Staph Aureus abscess L occiput s/p initial I&D. Noted to have leukocytosis on blood work. --blood cultures --IV vancomycin, just give 1 dose because Cr 2.5, check random vancomycin in AM --reassess abscess tomorrow. # H/o MRSA: contact precautions # ARF, Cr 2.5 with elevated BUN: intermittent dosing of vancomycin for now. Notified hospitalist service for evaluation, ?volume depletion # severe intertrigo under breast: start Fluconazole 100 mg po daily Subjective: 72-year-old woman well known to me as an outpatient with multiple ID complications related to poorly controlled diabetes who presents to me in clinic today due to recurrent skin abscesses due to MRSA. When she was seen in clinic today it was noted on her R occiput that she had a 3x5cm abscess. Abscess started 2-3 days prior to Thanksgiving and she denied systemic symptoms. Patient was immediately referred to general surgery and I&D occurred but beside I&D was fairly painful and abscess extensive therefore was felt that I&D in OR may be needed and patient was admitted for further management. Gram stain from abscess shows 4+ GPCs. Objective: Vital Signs Temp Pulse Resp BP Pulse Ox 36.5 C 66 18 114/67 91 L 07/16/17 13:50 07/16/17 13:50 07/16/17 13:50 07/16/17 13:50 07/16/17 13:50 Laboratory Results 07/16/17 17:45 - Physical Exam General Appearance: alert, no apparent distress Respiratory: lungs clear, No accessory muscle use Cardiac/Chest: regular rate, rhythm Extremities: pedal edema Abdomen: non-tender, soft Skin: fluctuance (R occiput 3x5c, associated enduration and very faint erythema to the base and right. Centrally skin necrotic) Neuro/Psych: alert, normal mood/affect, oriented x 3 ICD10 Worksheet Patient Problems: Problems Problem Status Onset Cellulitis of foot Acute ESBL (extended spectrum beta-lactamase) producing bacteria infection Acute ~ Facial cellulitis Acute History of fever Acute MRSA (methicillin resistant Staphylococcus aureus) Acute ~03/04/17 Methicillin resistant Staphylococcus aureus infection Acute ~05/06/17 Myocardial infarct Acute Rhabdomyolysis Acute Sepsis Acute Skin graft infection Acute Vomiting Acute
[2017-07-16 18:52] LABS: ANION GAP 15 mEq/L (8-16); CALCIUM 8.8 mg/dL (8.5-10.4); CARBON DIOXIDE 14 mEq/l (22-31); CHLORIDE 105 mEq/L (97-110); CREATININE 2.5 mg/dL (0.6-1.0); GLOMERULAR FILTRATION RATE 19; GLUCOSE 112 mg/dL (70-100); SODIUM 134 mEq/L (134-144)
[2017-07-16] MEDS: METOPROLOL TARTRATE 50 MG TAB PO SCH (20:00)
[2017-07-16] MEDS: FLUCONAZOLE 100 MG TAB PO SCH (20:00)
[2017-07-17] MEDS ORDERED: NS 1,000 ML IV SCH (01:15)
[2017-07-17] MEDS: HYDROCODONE/APAP 5/325 TAB PO PRN ×3 (02:35→15:57)
[2017-07-17 06:21] LABS: ABSOLUTE IMMATURE GRANULOCYTES 0.19 10^3/uL (0.00-0.10); ABSOLUTE NRBC COUNT 0.04 10^3/uL (0-0.01); ADD DIFF? NO; ADD MORPH? NO; ADD SCAN? NO; ATYPICAL LYMPHOCYTE FLAG 0 (0-99); FRAGMENT RBC FLAG 0 (0-99); HEMATOCRIT 27.5 % (38.0-47.0); HEMOGLOBIN 8.7 g/dL (12.6-16.3); LEFT SHIFT FLG 10 (0-99); LIPEMIA HEMOLYSIS FLAG 80 (0-99); MEAN CELL HEMOGLOBIN 28.2 pg (27.9-34.1); MEAN CELL HEMOGLOBIN CONCENTR. 31.6 g/dL (32.4-36.7); MEAN CELL VOLUME 89.3 fL (81.5-99.8); MEAN PLATELET VOLUME 8.4 fL (8.7-11.7); NRBC-AUTO% 0.4 % (0.0-0.2); PLATELET CLUMPS FLAG 0 (0-99); PLATELET COUNT 285 10^3/uL (150-400); RED BLOOD CELL COUNT 3.08 10^6/uL (4.18-5.33); RED CELL DISTRIBUTION WIDTH 17.2 % (11.5-15.2)
[2017-07-17 06:41] LABS: ANION GAP 12 mEq/L (8-16); CALCIUM 8.5 mg/dL (8.5-10.4); CARBON DIOXIDE 20 mEq/l (22-31); CHLORIDE 108 mEq/L (97-110); CREATININE 1.8 mg/dL (0.6-1.0); GLOMERULAR FILTRATION RATE 28; GLUCOSE 91 mg/dL (70-100); POTASSIUM 4.7 mEq/L (3.5-5.2); SODIUM 140 mEq/L (134-144)
[2017-07-17 06:46] LABS: VANCOMYCIN RANDOM LEVEL 12.9 mcg/mL (0.0-40.0)
[2017-07-17] MEDS: CYANO/VITAMIN B12 1000 MCG TAB PO SCH (08:48)
[2017-07-17] MEDS: INSULIN LISPRO 100 UNIT/ML SC SCH ×3 (08:48→16:59)
[2017-07-17] MEDS: METOPROLOL TARTRATE 50 MG TAB PO SCH ×2 (08:48→20:55)
[2017-07-17] MEDS: POTASSIUM CL 10 MEQ TAB PO SCH (08:48)
[2017-07-17] MEDS: ATORVASTATIN CALCIUM 20 MG TAB PO SCH (08:49)
[2017-07-17] MEDS: MICONAZOLE NITRATE 15 GM CRTUBE TP SCH ×2 (08:52→20:55)
[2017-07-17] MEDS ORDERED: LISINOPRIL 5 MG TAB PO SCH (09:00)
[2017-07-17] MEDS: FLUCONAZOLE 100 MG TAB PO SCH (09:42)
--- NOTE | 2017-07-17 10:27 | WOCRNPDOC ---
WOCRN Advanced Assessment Note - Skin Integrity Problem, Advanced Assess Bilateral Breast Dressing Type: Other Other Dressing Type: chux folded under each breast Dressing Description: Shadowed Exudate Amount: Minimal Exudate Color: Yellow Exudate Characteristic(s): Serous Integumentary Issue Intervention: Visualized Under Dressing Vidhya Wound Tissue: Erythema, Macerated, Painful/Tender Wound Bed Color: [place], Red, Yellow Wound Bed Constitution: Smooth Tissue Wound Edges: Irregular Skin Integrity Problem Comment: Skin under bilateral breasts red and weeping with several areas of partial thickness opening distributed throughout related to moisture from skin to skin contact. Likely intertriginal dermatitis. Patient with significant pain to the area, yelling out in pain even when RN gently lifts breast to observe the area. Once wounds heal sufficiently, we discussed wearing a supportive bra to keep the breasts lifted and reduce the skin to skin contact. Patient was in agreement with this plan.
--- NOTE | 2017-07-17 10:52 | PCMIDPN ---
Assessment/Plan: # Likely Staph Aureus abscess L occiput s/p initial I&D. Noted to have leukocytosis on blood work. Still with fluctuance on exam --continue vancomycin, adjusting for renal function, random level 12.9 this AM, start dosing 1gm IV daily --return to OR today for more definitive I&D # H/o MRSA: contact precautions # ARF, Cr 2.5 --> 1.8 after fluids # Severe intertrigo under breast: start Fluconazole 100 mg po daily, will increase dose to 200mg when Cr normalizes (she would not let me examine today) micro 07/16 scalp aspirate: 4+ GPC, cx pending 07/16 blood cx (2) pending meds Vancomycin 1gm IV daily #2 fluconazole 100mg PO daily #[address] Rubi Subjective: feeling much better surprised about decline in renal function Objective: Vital Signs Temp Pulse Resp BP Pulse Ox 36.8 C 76 18 132/69 H 94 07/17/17 10:32 07/17/17 10:32 07/17/17 10:32 07/17/17 10:32 07/17/17 10:32 Laboratory Results 07/17/17 05:55 07/17/17 05:55 07/16/17 07/17/17 07/18/17 05:59 05:59 05:59 Intake Total 550 Balance 550 - Physical Exam General Appearance: alert EENT: poor dentition Respiratory: lungs clear, No accessory muscle use, No crackles Neck: supple Cardiac/Chest: regular rate, rhythm Extremities: pedal edema (2-3+ pitting) Abdomen: non-tender, soft Skin: warm/dry, fluctuance (R occiput, smaller are fluctance remains), No rash Neuro/Psych: alert, normal mood/affect, oriented x 3 ICD10 Worksheet Patient Problems: Problems Problem Status Onset Cellulitis of foot Acute ESBL (extended spectrum beta-lactamase) producing bacteria infection Acute ~ Facial cellulitis Acute History of fever Acute MRSA (methicillin resistant Staphylococcus aureus) Acute ~03/04/17 Methicillin resistant Staphylococcus aureus infection Acute ~05/06/17 Myocardial infarct Acute Rhabdomyolysis Acute Sepsis Acute Skin graft infection Acute Vomiting Acute
--- NOTE | 2017-07-17 11:34 | SOAPPROG ---
SOAP Progress Note Assessment/Plan: Assessment: 72 yo well known to me with hx multiple abscess (required partial amputation of foot and I&D buttock) now with large scalp abscess. I&D attempted in office but not fully evacuated due to pain. Less indurated today. Will explore in OR> Plan: 07/17/17 11:32 Objective: Vital Signs Temp Pulse Resp BP Pulse Ox 36.6 C 69 18 106/50 L 93 07/17/17 11:24 07/17/17 11:24 07/17/17 10:32 07/17/17 11:24 07/17/17 11:24 Laboratory Results 07/17/17 05:55 07/17/17 05:55 07/16/17 07/17/17 07/18/17 05:59 05:59 05:59 Intake Total 550 Balance 550 PT 13.8 SEC (12.0-15.0) 07/16/17 17:45 INR 1.04 (0.83-1.16) 07/16/17 17:45 ICD10 Worksheet Patient Problems: Problems Problem Status Onset Cellulitis of foot Acute ESBL (extended spectrum beta-lactamase) producing bacteria infection Acute ~ Facial cellulitis Acute History of fever Acute MRSA (methicillin resistant Staphylococcus aureus) Acute ~03/04/17 Methicillin resistant Staphylococcus aureus infection Acute ~05/06/17 Myocardial infarct Acute Rhabdomyolysis Acute Sepsis Acute Skin graft infection Acute Vomiting Acute
[2017-07-17] MEDS ORDERED: BUPIVACAINE 0.5% 30 ML SDV ONE (11:59)
--- NOTE | 2017-07-17 11:59 | PDANEPAE ---
ANE Past Medical History - Cardiovascular History Hx Hypertension: Yes Hx Arrhythmias: No Hx Chest Pain: No Hx Coronary Artery / Peripheral Vascular Disease: No Hx CHF / Valvular Disease: No Hx Palpitations: No Cardiovascular History Comment: Hx of "heart occurence" or event w/ osteomyelitis in ,anemia - Pulmonary History Hx COPD: No Hx Asthma/Reactive Airway Disease: No Hx Recent Upper Respiratory Infection: No Hx Oxygen in Use at Home: No Hx Sleep Apnea: No Sleep Apnea Screening Result - Last Documented: Negative - Neurologic History Hx Cerebrovascular Accident: No Hx Seizures: No Hx Dementia: No - Endocrine History Hx Diabetes: Yes Endocrine History Comment: DM type 2 - Renal History Hx Renal Disorders: No - Liver History Hx Hepatic Disorders: No - Neurological & Psychiatric Hx Hx Neurological and Psychiatric Disorders: No - Cancer History Hx Cancer: No - Congenital Disorder History Hx Congenital Disorders: No - GI History Hx Gastrointestinal Disorders: No - Other Health History Other Health History: L foot cellulitis; Culture:MSSA tx w/[facility]. D/C'd to [facility] on 07-24-16 on antibx. antibx completed. - Chronic Pain History Chronic Pain: No - Surgical History Prior Surgeries: L foot debridement 07-21-16, L great toe amputation and wound vac placement 07-12-16. hysterectomy, cataract sx, bilat 1st Rib resections. ANE Review of Systems Review of Systems: ANE Patient History - Allergies Allergies/Adverse Reactions: amoxicillin trihydrate [From Augmentin] Allergy (Intermediate, Verified 10:36) potassium clavulanate [From Augmentin] Allergy (Intermediate, Verified 12/25/16 10:36) monosodium glutamate Allergy (Mild, Verified 12/25/16 10:36) adhesive tape Allergy (Verified 12/25/16 10:36) Sulfa (Sulfonamide Antibiotics) Allergy (Verified 12/25/16 10:36) Tetracyclines Allergy (Verified 12/28/16 09:46) Other-Enter Comments - Home Medications Home Medications: Aspirin EC [Aspirin EC 81 mg (*)] 81 mg PO DAILY 12/25/16 [Last Taken 07/16/17] Clotrimazole/Betamethasone Dip [Clotrimazole-Betamethasone Crm] 1 nona TP BID PRN 12/25/16 [Last Taken 07/16/17] Furosemide [Lasix 20 MG (*)] 20 mg PO DAILY 12/25/16 [Last Taken 07/16/17] Insulin Glargine [Lantus 100 UNITS/ML (*)] 10 units SC DAILY@1700 12/25/16 [ Last Taken 07/15/17] Lisinopril [Zestril 5 mg (*)] 5 mg PO DAILY 12/25/16 [Last Taken 07/16/17] Metformin HCl [Metformin 1000 mg] 1,000 mg PO BID 12/25/16 [Last Taken 07/16/17] Metoprolol Tartrate [Lopressor 50 mg (*)] 50 mg PO BID 12/25/16 [Last Taken ] Potassium Cl [Klor-Con 10 meq (RX)] 10 meq PO DAILY 12/25/16 [Last Taken ] Simvastatin [Zocor] 40 mg PO DAILY 05/06/17 [Last Taken 07/15/17] Cyanocobalamin [Vitamin B12 (*)] 500 mcg PO DAILY 07/16/17 [Last Taken 07/16/17] Diclofenac Sodium 1% [Voltaren Gel (*)] 1 nona TP BID PRN 07/16/17 [Last Taken 21:00] Hydrocodone/APAP 5/325 [[place] 5/325 (*)] 1 - 2 tab PO Q4HRS PRN 07/16/17 [Last Taken 07/15/17] - NPO status NPO Since - Liquids (Date): 07/17/17 NPO Since - Liquids (Time): 00:00 NPO Since - Solids (Date): 07/17/17 NPO Since - Solids (Time): 00:00 - Smoking Hx Smoking Status: Never smoked ANE Labs/Vital Signs - Labs Result Diagrams: 07/17/17 05:55 07/17/17 05:55 - Vital Signs Blood Pressure: 106/50 Heart Rate: 69 Respiratory Rate: 18 O2 Sat (%): 93 Height: 154.94 cm Weight: 66.678 kg
[2017-07-17] MEDS ORDERED: VANCOMYCIN HCL/NORMAL SALINE 250 ML IV ONE (12:00)
--- NOTE | 2017-07-17 12:00 | PDMN ---
Medical Necessity Medical necessity: Pt meets IP criteria per MD; est los >2 mn for eval/tx s/p initial I&D of scalp abscess, edema, ARF & severe intertrigo under breast; admit for blood cxs, IV abx, IV diuresis, wound care & possible I&D in OR; hx diabetes, htn, diastolic heart failure, recurrent skin abscesses & MRSA; per H& P & order 07/16/17
[2017-07-17] MEDS ORDERED: MIDAZOLAM 2 MG/2 ML VIAL IVP ONE (12:01)
[2017-07-17] MEDS ORDERED: MIDAZOLAM 2 MG/2 ML VIAL ONE ×2 (12:10→12:21)
[2017-07-17] MEDS ORDERED: fentaNYL 100 MCG/2 ML INJ ONE (12:21)
[2017-07-17] MEDS ORDERED: PROPOFOL/EMULSION 500 MG/50 ML BOTTLE IV ONE (12:21)
[2017-07-17] MEDS ORDERED: HYDROGEN PEROXIDE 236 ML BOTTLE TP ONE (13:01)
--- NOTE | 2017-07-17 13:16 | POSTOPPROG ---
Post Op Note Date of Operation: 07/17/17 Surgeon: Kait Rubi Client Services Analyst: brian Anesthesiologist: anastacia Anesthesia: GET(General Endotracheal) Pre-op Diagnosis: scalp abscess Post-op Diagnosis: same Indication: HX MULTIPLE abscess Procedure: debride skin soft tissue scalp Findings: 1.5x6x1.6 Inf/Abcess present in the surg proc area at time of surgery?: Yes Depth: Deep Incisional (Fascial) EBL: Minimal
[2017-07-17] MEDS ORDERED: LIDOCAINE 2% 100 MG/5 ML SYR ONE (13:17)
[2017-07-17] MEDS ORDERED: RANITIDINE 50 MG/2 ML VIAL ONE (13:17)
[2017-07-17] MEDS ORDERED: ONDANSETRON 4 MG/2 ML VIAL ONE (13:17)
[2017-07-17] MEDS ORDERED: LABETALOL HCL 5 MG/ML 20 ML MDV ONE (13:17)
--- NOTE | 2017-07-17 13:33 | POSTANESTH ---
Post Anesthetic Evaluation Respiratory Status: Normal, Stable Level of Consciousness/Mental Status: Can Participate in Eval Pain Control: Adequate, Prn Tx Ordered Nausea/Vomiting Control: Adequate, Prn Tx Ordered Complications Possibly Related to Anesthesia: None Noted
[2017-07-17] MEDS ORDERED: NALOXONE HCL 0.4 MG/ML INJ IVP PRN (13:34)
--- NOTE | 2017-07-17 16:22 | HOSPPROG ---
Hospitalist Progress Note Assessment/Plan: DIAGNOSES: -large scalp abscess, now status post incision and drainage -history of recurrent skin abscesses -acute renal failure, suspect hemodynamic mechanism multifactorial etiology # some improvement with fluid so far # I did review her labs over the past year and her baseline creatinine is approximately 0.8 over that time -diabetes mellitus type 2, well controlled at this time -chronic normocytic anemia appears at very close to her baseline which is in the 9 range plus or minus -heart disease with diastolic heart failure and coronary disease, stable at this time PLANS: -continue antibiotics and wound care -continue IV hydration, recheck renal function -monitor sugars and adjust treatment as indicated -continue to hold WERNER-inhibitor at this time SUBJECTIVE: Still with scalp pain, no other pain or discomfort No respiratory or digestive symptoms Nose chills or sweats OBJECTIVE Vitals reviewed: Stable without fever Exam: alert oriented looks moderately uncomfortable Dressings on scalp are dry skin warm dry color ok resps not labored lungs clear BSs heart regular abd soft nondistended nontender, bowel sounds present limbs warm, no edema iv site ok Laboratory data Creatinine decreased to 1.8 still well above her baseline Electrolytes stable Some improvement in white blood cell count Hemoglobin decreased to 8.7 today Sugars in good range Objective: Vital Signs Temp Pulse Resp BP Pulse Ox 36.6 C 77 18 128/68 H 94 07/17/17 15:37 07/17/17 15:37 07/17/17 15:37 07/17/17 15:37 07/17/17 15:37 Laboratory Results 07/17/17 05:55 07/17/17 05:55 07/16/17 07/17/17 07/18/17 06:59 06:59 06:59 Intake Total 550 60 Balance 550 60 PT 13.8 SEC (12.0-15.0) 07/16/17 17:45 INR 1.04 (0.83-1.16) 07/16/17 17:45 ICD10 Worksheet Patient Problems: Problems Problem Status Onset Cellulitis of foot Acute ESBL (extended spectrum beta-lactamase) producing bacteria infection Acute ~ Facial cellulitis Acute History of fever Acute MRSA (methicillin resistant Staphylococcus aureus) Acute ~03/04/17 Methicillin resistant Staphylococcus aureus infection Acute ~05/06/17 Myocardial infarct Acute Rhabdomyolysis Acute Sepsis Acute Skin graft infection Acute Vomiting Acute
[2017-07-17] MEDS: INSULIN GLARGINE 100 UNITS/ML SYRINGE SC SCH (16:42)
[2017-07-17] MEDS: NS 1,000 ML IV SCH (16:43)
--- NOTE | 2017-07-17 16:53 | ASMTCMCOM ---
CM Note CM Note Notes: Received call from Clotilde at [facility], pt is current with them for RN. Pt lives at [facility]. Pt had scalp abscess drained today and is on IV but may be able to transition to PO abx. DC Plan: Homecare Date Signed: 07/17/2017 04:52 PM Electronically Signed By:Jennifer Galeano RN
[2017-07-18] MEDS: HYDROCODONE/APAP 5/325 TAB PO PRN ×5 (00:10→18:28)
[2017-07-18 06:24] LABS: ANION GAP 7 mEq/L (8-16); CALCIUM 8.2 mg/dL (8.5-10.4); CARBON DIOXIDE 22 mEq/l (22-31); CHLORIDE 113 mEq/L (97-110); CREATININE 1.1 mg/dL (0.6-1.0); GLOMERULAR FILTRATION RATE 49; GLUCOSE 114 mg/dL (70-100); POTASSIUM 4.4 mEq/L (3.5-5.2); SODIUM 142 mEq/L (134-144)
[2017-07-18] MEDS: INSULIN LISPRO 100 UNIT/ML SC SCH ×3 (08:10→18:27)
--- NOTE | 2017-07-18 09:27 | SOAPPROG ---
<Amy Anderson - Last Filed: 07/18/17 09:31> SOAP Progress Note Assessment/Plan: Assessment: POD #1 for definitive surgical incision and drainage of posterior scalp abscess. Abscess drained partially in office but patient unable to tolerate further draining due to pain. Cultures taken in office positive for staph aureus Neuro- Pain controlled with PO pain medication Resp- Deep breaths Cardiac- Continue to monitor GI- Continue to monitor FEN- Regular diet Heme/ID- Continue fluconazole for breast intertrigo and vancomycin. Appreciate ID. White count improved from 12.8 to 9.4 today. Dispo- Remain inpatient for monitoring of wounds and pain control S: Pt still experiencing mild pain to posterior scalp and under breasts. No fevers, nausea, or vomiting O: Lying in bed. Surgical site with improving erythema and induration. cooling pan tender Intertrigo with improved erythema. Zinc paste applied to area Plan: 07/18/17 09:24 Objective: Vital Signs Temp Pulse Resp BP Pulse Ox 36.6 C 82 20 99/60 L 90 L 07/18/17 07:39 07/18/17 07:39 07/18/17 07:39 07/18/17 07:39 07/18/17 07:39 Laboratory Results 07/17/17 05:55 07/18/17 05:45 07/17/17 07/18/17 07/19/17 05:59 05:59 05:59 Intake Total 550 910 Balance 550 910 PT 13.8 SEC (12.0-15.0) 07/16/17 17:45 INR 1.04 (0.83-1.16) 07/16/17 17:45 ICD10 Worksheet Patient Problems: Problems Problem Status Onset Cellulitis of foot Acute ESBL (extended spectrum beta-lactamase) producing bacteria infection Acute ~ Facial cellulitis Acute History of fever Acute MRSA (methicillin resistant Staphylococcus aureus) Acute ~03/04/17 Methicillin resistant Staphylococcus aureus infection Acute ~05/06/17 Myocardial infarct Acute Rhabdomyolysis Acute Sepsis Acute Skin graft infection Acute Vomiting Acute <Kait Rubi - Last Filed: 07/18/17 09:51> SOAP Progress Note Assessment/Plan: Assessment: Induration much improved on scalp. Packed with HFB ready. Change Q 3 days and prn Zinc powder to intertrigo Plan: 07/18/17 09:50 Objective: Vital Signs Temp Pulse Resp BP Pulse Ox 36.6 C 82 20 99/60 L 90 L 07/18/17 07:39 07/18/17 07:39 07/18/17 07:39 07/18/17 09:33 07/18/17 07:39 Laboratory Results 07/17/17 05:55 07/18/17 05:45 07/17/17 07/18/17 07/19/17 05:59 05:59 05:59 Intake Total 550 910 Balance 550 910 PT 13.8 SEC (12.0-15.0) 07/16/17 17:45 INR 1.04 (0.83-1.16) 07/16/17 17:45
[2017-07-18] MEDS: METOPROLOL TARTRATE 50 MG TAB PO SCH ×2 (09:33→21:47)
[2017-07-18] MEDS: ATORVASTATIN CALCIUM 20 MG TAB PO SCH (09:39)
[2017-07-18] MEDS: CYANO/VITAMIN B12 1000 MCG TAB PO SCH (09:40)
[2017-07-18] MEDS: FLUCONAZOLE 100 MG TAB PO SCH (09:42)
[2017-07-18] MEDS: POTASSIUM CL 10 MEQ TAB PO SCH (09:42)
[2017-07-18] MEDS: MICONAZOLE NITRATE 15 GM CRTUBE TP SCH ×2 (10:35→21:44)
--- NOTE | 2017-07-18 11:38 | PCMIDPN ---
Assessment/Plan: 1. Large scalp abscess secondary to Staph aureus status post incision and drainage: Spoke with micro lab. Specimen has already been sent to [facility] for susceptibility testing (our machine is down). PBP testing will be performed tomorrow morning in *our* lab, but not today given logistical issues. Continue vancomycin. Repeat trough pending. Appreciate 's care. Wound care will be a significant factor for her moving forward given the large hole in her scalp, and this was conveyed to the patient today. Blood cultures remain negative. 2. Intertriginous candidiasis beneath breasts bilaterally: Increase fluconazole to 200 mg daily in the setting of improved kidney function. She does not want to use nystatin powder as she says that it "cakes. " Subjective: Status post incision and drainage of scalp abscess yesterday. She says that it is crystalizer tender, but overall feels better. Visiting with her sister. Objective: Vancomycin 1 g IV daily day 3 Fluconazole 100 mg daily day 2 Afebrile Vital Signs Temp Pulse Resp BP Pulse Ox 36.6 C 82 20 99/60 L 90 L 07/18/17 07:39 07/18/17 07:39 07/18/17 07:39 07/18/17 09:33 07/18/17 07:39 Laboratory Results 07/17/17 05:55 07/18/17 05:45 07/17/17 07/18/17 07/19/17 05:59 05:59 05:59 Intake Total 550 910 Balance 550 910 Blood cultures negative July 16 July 16 head: 4+ Staph aureus - Physical Exam General Appearance: alert, no apparent distress EENT: other (Large open wound occipital area with hydrofera blue dressing in place. Mild malodor notable. Some tenderness along right inferior margin of the wound with some induration, but no fluctuance along the margins. No significant zahra-incisional cellulitis. I cannot really appreciate the base of the wound secondary to dressing coverage, which I did not take down.) Respiratory: lungs clear Abdomen: non-tender, soft Skin: other (Beet red erythema/maceration under both breasts bilaterally with an ulcerative component. Dressings in place. Multiple scabbed over areas diffusely along her back arms and left breast where she has scratched herself. PICC line right upper extremity looks fine.) ICD10 Worksheet Patient Problems: Problems Problem Status Onset Cellulitis of foot Acute ESBL (extended spectrum beta-lactamase) producing bacteria infection Acute ~ Facial cellulitis Acute History of fever Acute MRSA (methicillin resistant Staphylococcus aureus) Acute ~03/04/17 Methicillin resistant Staphylococcus aureus infection Acute ~05/06/17 Myocardial infarct Acute Rhabdomyolysis Acute Sepsis Acute Skin graft infection Acute Vomiting Acute
[2017-07-18] MEDS ORDERED: FLUCONAZOLE 100 MG TAB PO ONE (11:45)
[2017-07-18] MEDS: VANCOMYCIN HCL/NORMAL SALINE 250 ML IV SCH (11:57)
--- NOTE | 2017-07-18 12:52 | HOSPPROG ---
Hospitalist Progress Note Assessment/Plan: DIAGNOSES: -large scalp abscess, now status post incision and drainage -history of recurrent skin abscesses -acute renal failure, suspect hemodynamic mechanism multifactorial etiology # resolving nicely with IV fluids and WERNER-inhibitor held # baseline creatinine is approximately 0.8 over past year -severe intertriginous yeast dermatitis under both breasts -diabetes mellitus type 2, well controlled at this time -chronic normocytic anemia appears at very close to her baseline which is in the 9 range plus or minus -heart disease with diastolic heart failure and coronary disease, stable at this time PLANS: -continue antibiotics, antifungals and wound care -can stop IV hydration, recheck renal function -monitor sugars and adjust treatment as indicated -continue to hold WERNER-inhibitor at this time, will resume renal function stable over the next day or 2 SUBJECTIVE: Still with scalp breast pain, no other pain or discomfort No respiratory or digestive symptoms No chills or sweats Otherwise feels well OBJECTIVE Vitals reviewed: Stable without fever Exam: I examined the patient today with Dr. Sun Odom alert oriented looks moderately uncomfortable Scalp wound with some surrounding edema and erythema but no fluctuance, winded with minimal drainage Intertriginous skin under the breast with severely angry use dermatitis from yeast, quite tender skin warm dry color ok resps not labored lungs clear BSs heart regular abd soft nondistended nontender, bowel sounds present limbs warm, no edema iv site ok Laboratory data Creatinine decreased to 1.1 baseline at 0.8 Electrolytes stable Should remain in reasonable range for the hospice setting Objective: Vital Signs Temp Pulse Resp BP Pulse Ox 36.6 C 80 18 101/60 91 L 07/18/17 11:43 07/18/17 11:43 07/18/17 11:43 07/18/17 11:43 07/18/17 11:43 Laboratory Results 07/17/17 05:55 07/18/17 05:45 07/17/17 07/18/17 07/19/17 06:59 06:59 06:59 Intake Total 550 910 Balance 550 910 PT 13.8 SEC (12.0-15.0) 07/16/17 17:45 INR 1.04 (0.83-1.16) 07/16/17 17:45 ICD10 Worksheet Patient Problems: Problems Problem Status Onset Cellulitis of foot Acute ESBL (extended spectrum beta-lactamase) producing bacteria infection Acute ~ Facial cellulitis Acute History of fever Acute MRSA (methicillin resistant Staphylococcus aureus) Acute ~03/04/17 Methicillin resistant Staphylococcus aureus infection Acute ~05/06/17 Myocardial infarct Acute Rhabdomyolysis Acute Sepsis Acute Skin graft infection Acute Vomiting Acute
[2017-07-18] MEDS: NS 1,000 ML IV SCH (16:19)
--- NOTE | 2017-07-18 16:32 | ASMTCMCOM ---
CM Note CM Note Notes: Anticipate pt will return to [facility] w/HHC at [place].However, per PT recommendation there is a chance pt may need SNF rehab depending on her progress but pt seemed resistant to this. She does have local support of daughter. Pt is current w[facility] (RN/PT/OT) prior to admit and would resume care with them. Spoke w/Cathy from [facility] to update her on pt. We discussed tht may be getting close to time for pt to think about transitioning to assisted living at ; Cathy plans on following up on that when pt returns home. Pt will have wound care needs at [place]. She is currently on IV ABX's, not clear if this will need to be mcfp or not. Case Management will follow and will see how she does tomorrow w/PT- if need be will approach idea of SNF again with her. Date Signed: 07/18/2017 04:32 PM Electronically Signed By:Carmelita Waddell RN
[2017-07-18] MEDS: INSULIN GLARGINE 100 UNITS/ML SYRINGE SC SCH (18:25)
[2017-07-19] MEDS: HYDROCODONE/APAP 5/325 TAB PO PRN ×4 (00:10→21:23)
[2017-07-19] MEDS: METOPROLOL TARTRATE 50 MG TAB PO SCH ×2 (08:01→21:22)
[2017-07-19] MEDS: ENOXAPARIN 40 MG/0.4 ML SYR SC SCH (08:01)
[2017-07-19] MEDS: ATORVASTATIN CALCIUM 20 MG TAB PO SCH (08:01)
[2017-07-19] MEDS: FLUCONAZOLE 100 MG TAB PO SCH (08:02)
[2017-07-19] MEDS: CYANO/VITAMIN B12 1000 MCG TAB PO SCH (08:02)
[2017-07-19] MEDS: POTASSIUM CL 10 MEQ TAB PO SCH (08:03)
[2017-07-19] MEDS: INSULIN LISPRO 100 UNIT/ML SC SCH ×3 (08:10→17:22)
[2017-07-19] MEDS: MICONAZOLE NITRATE 15 GM CRTUBE TP SCH ×2 (08:10→21:05)
--- NOTE | 2017-07-19 11:59 | SOAPPROG ---
SOAP Progress Note Assessment/Plan: Assessment: 32-YEAR-OLD FEMALE STATUS POST I AND D OF SCALP ABSCESS/COMPLAINS OF DIFFICULTY IN WITH HEAD POSITION AFEBRILE/VITAL SIGNS STABLE/DRESSINGS DRY EATING OKAY Plan: CONTINUE IV ANTIBIOTICS 07/19/17 11:58 Objective: Vital Signs Temp Pulse Resp BP Pulse Ox 36.6 C 70 18 117/86 H 94 07/19/17 11:45 07/19/17 11:45 07/19/17 11:45 07/19/17 11:45 07/19/17 11:45 Laboratory Results 07/17/17 05:55 07/18/17 05:45 07/18/17 07/19/17 07/20/17 05:59 05:59 05:59 Intake Total 910 700 Balance 910 700 PT 13.8 SEC (12.0-15.0) 07/16/17 17:45 INR 1.04 (0.83-1.16) 07/16/17 17:45 ICD10 Worksheet Patient Problems: Problems Problem Status Onset Cellulitis of foot Acute ESBL (extended spectrum beta-lactamase) producing bacteria infection Acute ~ Facial cellulitis Acute History of fever Acute MRSA (methicillin resistant Staphylococcus aureus) Acute ~03/04/17 Methicillin resistant Staphylococcus aureus infection Acute ~05/06/17 Myocardial infarct Acute Rhabdomyolysis Acute Sepsis Acute Skin graft infection Acute Vomiting Acute
[2017-07-19] MEDS: VANCOMYCIN HCL/NORMAL SALINE 250 ML IV SCH (12:03)
--- NOTE | 2017-07-19 14:03 | PCMIDPN ---
Assessment/Plan: Assessment/Plan: * Posterior scalp abscess due to Staphylococcus aureus, likely MRSA status post incision and drainage: Await susceptibility profile on Staphylococcus aureus isolate but suspect will be MRSA based on prior history of MRSA. No significant inflammatory findings around incision and drainage site. Likely will bili transition to oral therapy once susceptibility available over next 24- 48 hours. Continue vancomycin in interim. Follow creatinine over time. 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 * Intertrigo: Continue oral fluconazole and topical miconazole. Slowly improving. 07/19/17 14:00 07/19/17 14:02 07/19/17 14:04 Subjective: Patient notes rash under breast improving but still painful. Objective: Vital Signs Temp Pulse Resp BP Pulse Ox 36.6 C 70 18 117/86 H 94 07/19/17 11:45 07/19/17 11:45 07/19/17 11:45 07/19/17 11:45 07/19/17 11:45 Laboratory Results 07/17/17 05:55 07/18/17 05:45 07/18/17 07/19/17 07/20/17 05:59 05:59 05:59 Intake Total 910 700 Balance 910 700 Vancomycin # 4 Fluconazole # 3 blood cultures x2 no growth Scalp abscess Staphylococcus aureus with susceptibility pending Laboratory Tests 07/17/17 07/18/17 05:55 10:50 Vancomycin Trough 14.2 Random Vancomycin 12.9 - Physical Exam General Appearance: alert, no apparent distress EENT: other (Posterior scalp abscess site packed with Hydrofera Blue; no surrounding erythema) Extremities: inflammation (Left buttock with ulceration and surrounding erythema which is tender to palpation) Skin: other (Intertrigo with maceration under both breasts) ICD10 Worksheet Patient Problems: Problems Problem Status Onset Cellulitis of foot Acute ESBL (extended spectrum beta-lactamase) producing bacteria infection Acute ~ Facial cellulitis Acute History of fever Acute MRSA (methicillin resistant Staphylococcus aureus) Acute ~03/04/17 Methicillin resistant Staphylococcus aureus infection Acute ~05/06/17 Myocardial infarct Acute Rhabdomyolysis Acute Sepsis Acute Skin graft infection Acute Vomiting Acute
--- NOTE | 2017-07-19 16:41 | ASMTCMCOM ---
CM Note CM Note Notes: PT still recommending SNF today. SWer went to meet w/ Pt. Pt. still refusing SNF and would like her [facility] to resume. Would like RN, PT, OT, and SUPERVISOR SCRE[employer]KING at d/c. Pt. will have wound care needs to be addressed either by homecare RN or wound care clinic. Likely will be transitioning to oral antibiotics per RN. CM to follow. Date Signed: 07/19/2017 04:41 PM Electronically Signed By:Cindy Dillon LCSW
--- NOTE | 2017-07-19 16:52 | HOSPPROG ---
Hospitalist Progress Note Assessment/Plan: DIAGNOSES: -large scalp abscess, now status post incision and drainage, suspect staph, cultures were done in Dr. Rubi's clinic prior to this admission and can be followed -history of recurrent skin abscesses -acute renal failure, suspect hemodynamic mechanism multifactorial etiology # resolving nicely with IV fluids and WERNER-inhibitor held # baseline creatinine is approximately 0.8 over past year -severe intertriginous yeast dermatitis under both breasts -diabetes mellitus type 2, well controlled at this time -chronic normocytic anemia appears at very close to her baseline which is in the 9 range plus or minus -heart disease with diastolic heart failure and coronary disease, stable at this time PLANS: -continue antibiotics, antifungals and wound care -check vancomycin level tomorrow -can stop IV hydration, recheck renal function, continue to hold WERNER-inhibitor at this time, will resume renal function stable over the next day or 2 -monitor sugars and adjust treatment as indicated I reviewed her course in detail today with Dr. Vinicio Michelle. Will continue antibiotics wound care, and follow cultures. Once we know the identity of the organism will tailor antibiotics appropriately. SUBJECTIVE: Little change in her scalp lesion pain at this time; the intertriginous pain below breast is improving significantly No respiratory or digestive symptoms No chills or sweats Otherwise feels well OBJECTIVE Vitals reviewed: Stable without fever Exam: alert oriented looks moderately uncomfortable Scalp wound with some surrounding edema and erythema but no fluctuance, winded with minimal drainage Intertriginous skin under the breast with severely angry use dermatitis from yeast, quite tender skin warm dry color ok resps not labored lungs clear BSs heart regular abd soft nondistended nontender, bowel sounds present limbs warm, no edema iv site ok Objective: Vital Signs Temp Pulse Resp BP Pulse Ox 36.6 C 70 18 117/86 H 94 07/19/17 11:45 07/19/17 11:45 07/19/17 11:45 07/19/17 11:45 07/19/17 11:45 Laboratory Results 07/17/17 05:55 07/18/17 05:45 07/18/17 07/19/17 07/20/17 06:59 06:59 06:59 Intake Total 910 700 Balance 910 700 PT 13.8 SEC (12.0-15.0) 07/16/17 17:45 INR 1.04 (0.83-1.16) 07/16/17 17:45 ICD10 Worksheet Patient Problems: Problems Problem Status Onset Cellulitis of foot Acute ESBL (extended spectrum beta-lactamase) producing bacteria infection Acute ~ Facial cellulitis Acute History of fever Acute MRSA (methicillin resistant Staphylococcus aureus) Acute ~03/04/17 Methicillin resistant Staphylococcus aureus infection Acute ~05/06/17 Myocardial infarct Acute Rhabdomyolysis Acute Sepsis Acute Skin graft infection Acute Vomiting Acute
[2017-07-19] MEDS: INSULIN GLARGINE 100 UNITS/ML SYRINGE SC SCH (17:24)
[2017-07-20] MEDS: HYDROCODONE/APAP 5/325 TAB PO PRN ×4 (02:45→21:38)
[2017-07-20 04:49] LABS: ABSOLUTE IMMATURE GRANULOCYTES 0.17 10^3/uL (0.00-0.10); ABSOLUTE NRBC COUNT 0.04 10^3/uL (0-0.01); ADD DIFF? NO; ADD MORPH? NO; ADD SCAN? NO; ATYPICAL LYMPHOCYTE FLAG 0 (0-99); FRAGMENT RBC FLAG 0 (0-99); HEMATOCRIT 28.7 % (38.0-47.0); HEMOGLOBIN 8.5 g/dL (12.6-16.3); LEFT SHIFT FLG 20 (0-99); LIPEMIA HEMOLYSIS FLAG 70 (0-99); MEAN CELL HEMOGLOBIN 27.2 pg (27.9-34.1); MEAN CELL HEMOGLOBIN CONCENTR. 29.6 g/dL (32.4-36.7); MEAN PLATELET VOLUME 8.4 fL (8.7-11.7); NRBC-AUTO% 0.7 % (0.0-0.2); PLATELET CLUMPS FLAG 0 (0-99); PLATELET COUNT 225 10^3/uL (150-400); RED BLOOD CELL COUNT 3.12 10^6/uL (4.18-5.33); RED CELL DISTRIBUTION WIDTH 17.4 % (11.5-15.2)
[2017-07-20 04:58] LABS: POTASSIUM 4.9 mEq/L (3.5-5.2)
[2017-07-20 04:59] LABS: ANION GAP 3 mEq/L (8-16); CALCIUM 8.1 mg/dL (8.5-10.4); CARBON DIOXIDE 25 mEq/l (22-31); CHLORIDE 110 mEq/L (97-110); CREATININE 0.8 mg/dL (0.6-1.0); GLOMERULAR FILTRATION RATE > 60; GLUCOSE 133 mg/dL (70-100); SODIUM 138 mEq/L (134-144)
[2017-07-20] MEDS: ATORVASTATIN CALCIUM 20 MG TAB PO SCH (09:11)
[2017-07-20] MEDS: CYANO/VITAMIN B12 1000 MCG TAB PO SCH (09:11)
[2017-07-20] MEDS: FLUCONAZOLE 100 MG TAB PO SCH (09:11)
[2017-07-20] MEDS: POTASSIUM CL 10 MEQ TAB PO SCH (09:12)
[2017-07-20] MEDS: METOPROLOL TARTRATE 50 MG TAB PO SCH ×2 (09:12→21:39)
[2017-07-20] MEDS: INSULIN LISPRO 100 UNIT/ML SC SCH ×3 (09:14→17:21)
[2017-07-20] MEDS: MICONAZOLE NITRATE 15 GM CRTUBE TP SCH ×2 (09:35→21:43)
[2017-07-20] MEDS: ENOXAPARIN 40 MG/0.4 ML SYR SC SCH (09:35)
[2017-07-20] MEDS: VANCOMYCIN HCL/NORMAL SALINE 250 ML IV SCH (14:40)
--- NOTE | 2017-07-20 16:22 | HOSPPROG ---
Hospitalist Progress Note Assessment/Plan: Assessment: 72-year-old female presents with acute MRSA scalp abscess Plan: 1. MRSA scalp abscess. Acute, status post incision and drainage by Dr. Rubi -continue on IV vancomycin, trough -sensitivities currently pending -transition of antibiotics per infectious disease -follow-up wound care by Dr. Rubi tomorrow 2. Left axillary abscess. Currently healing, receiving regular wound care 3. Acute kidney injury. Secondary to hypovolemia, status post IV fluids, continue monitor -plan to reinitiate WERNER-inhibitor tomorrow if renal function remains normal -stop IV fluids 4. Yeast dermatitis. Continue antifungals 5. Diabetes mellitus type 2. Currently controlled, continue to monitor, fasting blood glucose 130 6. Anemia. Chronic normocytic, secondary to inflammatory disease, continue monitor 7. Chronic diastolic congestive heart failure. No evidence of acute exacerbation, continue monitor volume status 8. Hypertension. Chronic, continue to monitor on home medications Diet. Diabetic Prophylaxis. High risk patient, Lovenox 40 Code. Full Disposition. Anticipated discharge is 07/21, pending stabilization of conditions outlined above. Subjective: Patient reports ongoing discomfort along her posterior occiput Objective: Vital Signs Temp Pulse Resp BP Pulse Ox 36.4 C 68 18 145/76 H 93 07/20/17 11:52 07/20/17 11:52 07/20/17 11:52 07/20/17 11:52 07/20/17 11:52 Laboratory Results 07/20/17 04:30 07/20/17 04:30 07/19/17 07/20/17 07/21/17 05:59 05:59 05:59 Intake Total 700 Balance 700 PT 13.8 SEC (12.0-15.0) 07/16/17 17:45 INR 1.04 (0.83-1.16) 07/16/17 17:45 - Physical Exam Constitutional: no apparent distress, not in pain, chronically ill appearing, uncomfortable Cardiovascular: regular rate and rhythym, no murmur, rub, or gallop, No edema Respiratory: no respiratory distress, no rales or rhonchi, clear to auscultation Gastrointestinal: normoactive bowel sounds, soft, non-tender abdomen, no palpable masses, No distension Skin: other (Ulcerated open wound all along her posterior scalp with xerofoam blue, tenderness around the edges, minimal erythema along the edges, minimal induration) Neurologic: AAOx3, sensation intact bilaterally, No weakness Psychiatric: interacting appropriately, not anxious, not encephalopathic, thought process linear ICD10 Worksheet Patient Problems: Problems Problem Status Onset Methicillin resistant Staphylococcus aureus infection Acute ~05/06/17 Facial cellulitis Acute MRSA (methicillin resistant Staphylococcus aureus) Acute ~03/04/17 ESBL (extended spectrum beta-lactamase) producing bacteria infection Acute ~ Myocardial infarct Acute Rhabdomyolysis Acute Cellulitis of foot Acute History of fever Acute Vomiting Acute Skin graft infection Acute Sepsis Acute
--- NOTE | 2017-07-20 16:24 | SOAPPROG ---
SOAP Progress Note Assessment/Plan: Assessment: 32-YEAR-OLD FEMALE STATUS POST I AND D OF SCALP ABSCESS/COMPLAINS OF DIFFICULTY IN WITH HEAD POSITION AFEBRILE/VITAL SIGNS STABLE/DRESSINGS DRY EATING OKAY Plan: CONTINUE IV ANTIBIOTICS 07/19/17 11:58 07/20/17 16:23 AFEBRILE/WOUND CLEAN WITH GRANULATION/NO MAJOR PROBLEMS EXCEPT FOR DISCOMFORT BECAUSE OF THE LOCATION OF THE WOUND AGAINST HER PILLOW/HOME SOON WITH THE HOME CARE Objective: Vital Signs Temp Pulse Resp BP Pulse Ox 36.4 C 68 18 145/76 H 93 07/20/17 11:52 07/20/17 11:52 07/20/17 11:52 07/20/17 11:52 07/20/17 11:52 Laboratory Results 07/20/17 04:30 07/20/17 04:30 07/19/17 07/20/17 07/21/17 05:59 05:59 05:59 Intake Total 700 Balance 700 PT 13.8 SEC (12.0-15.0) 07/16/17 17:45 INR 1.04 (0.83-1.16) 07/16/17 17:45 ICD10 Worksheet Patient Problems: Problems Problem Status Onset Cellulitis of foot Acute ESBL (extended spectrum beta-lactamase) producing bacteria infection Acute ~ Facial cellulitis Acute History of fever Acute MRSA (methicillin resistant Staphylococcus aureus) Acute ~03/04/17 Methicillin resistant Staphylococcus aureus infection Acute ~05/06/17 Myocardial infarct Acute Rhabdomyolysis Acute Sepsis Acute Skin graft infection Acute Vomiting Acute
--- NOTE | 2017-07-20 16:35 | PCMIDPN ---
Assessment/Plan: Assessment/Plan: * Posterior scalp abscess due to MRSA status post incision and drainage: MRSA isolate is susceptible to tetracyclines. Patient has tetracyclines listed as allergy which is incorrect as reaction is "gets yeast infection" which does not represent allergic reaction. She has tolerated doxycycline before. Will stop vancomycin and transition to oral doxycycline to complete another 5 days of therapy. No active signs of infection at abscess incision and drainage site. * Intertrigo: Continue oral fluconazole and topical miconazole. 07/20/17 16:32 Subjective: Feels better overall with some pain at incision and drainage site. Objective: Vital Signs Temp Pulse Resp BP Pulse Ox 36.6 C 65 20 166/79 H 95 07/20/17 16:00 07/20/17 16:00 07/20/17 16:00 07/20/17 16:00 07/20/17 16:00 Laboratory Results 07/20/17 04:30 07/20/17 04:30 07/19/17 07/20/17 07/21/17 05:59 05:59 05:59 Intake Total 700 Balance 700 Vancomycin # 5 Fluconazole # 4 Blood cultures x2 no growth Scalp abscess with growth of MRSA susceptible to tetracyclines Laboratory Tests 07/20/17 14:30 Vancomycin Trough 13.5 - Physical Exam General Appearance: alert, no apparent distress EENT: other (Scalp abscess with granulation throughout; no purulence or surrounding cellulitis), No scleral icterus Extremities: inflammation (Left posterior thigh ulceration with clean base and no surrounding cellulitis) ICD10 Worksheet Patient Problems: Problems Problem Status Onset Methicillin resistant Staphylococcus aureus infection Acute ~05/06/17 Facial cellulitis Acute MRSA (methicillin resistant Staphylococcus aureus) Acute ~03/04/17 ESBL (extended spectrum beta-lactamase) producing bacteria infection Acute ~ Myocardial infarct Acute Rhabdomyolysis Acute Cellulitis of foot Acute History of fever Acute Vomiting Acute Skin graft infection Acute Sepsis Acute
[2017-07-20] MEDS: INSULIN GLARGINE 100 UNITS/ML SYRINGE SC SCH (17:21)
[2017-07-20] MEDS: DOCUSATE SODIUM 100 MG CAP PO SCH (21:39)
[2017-07-21] MEDS: HYDROCODONE/APAP 5/325 TAB PO PRN ×3 (02:44→21:09)
[2017-07-21 06:32] LABS: ABSOLUTE IMMATURE GRANULOCYTES 0.14 10^3/uL (0.00-0.10); ABSOLUTE NRBC COUNT 0.06 10^3/uL (0-0.01); ADD DIFF? NO; ADD MORPH? NO; ADD SCAN? NO; ATYPICAL LYMPHOCYTE FLAG 0 (0-99); FRAGMENT RBC FLAG 0 (0-99); HEMATOCRIT 23.9 % (38.0-47.0); HEMOGLOBIN 7.5 g/dL (12.6-16.3); LEFT SHIFT FLG 10 (0-99); LIPEMIA HEMOLYSIS FLAG 80 (0-99); MEAN CELL HEMOGLOBIN 28.2 pg (27.9-34.1); MEAN CELL HEMOGLOBIN CONCENTR. 31.4 g/dL (32.4-36.7); MEAN CELL VOLUME 89.8 fL (81.5-99.8); MEAN PLATELET VOLUME 8.5 fL (8.7-11.7); NRBC-AUTO% 0.8 % (0.0-0.2); PLATELET CLUMPS FLAG 10 (0-99); PLATELET COUNT 271 10^3/uL (150-400); RED BLOOD CELL COUNT 2.66 10^6/uL (4.18-5.33); RED CELL DISTRIBUTION WIDTH 17.4 % (11.5-15.2)
[2017-07-21 07:09] LABS: ALBUMIN 2.2 g/dL (3.5-5.0); ANION GAP 7 mEq/L (8-16); CALCIUM 8.3 mg/dL (8.5-10.4); CARBON DIOXIDE 21 mEq/l (22-31); CHLORIDE 110 mEq/L (97-110); CREATININE 0.7 mg/dL (0.6-1.0); GLOMERULAR FILTRATION RATE > 60; GLUCOSE 102 mg/dL (70-100); POTASSIUM 4.9 mEq/L (3.5-5.2); SODIUM 138 mEq/L (134-144)
[2017-07-21] MEDS: INSULIN LISPRO 100 UNIT/ML SC SCH ×3 (08:58→17:12)
[2017-07-21] MEDS: ENOXAPARIN 40 MG/0.4 ML SYR SC SCH (09:07)
[2017-07-21] MEDS: POTASSIUM CL 10 MEQ TAB PO SCH (09:07)
[2017-07-21] MEDS: CYANO/VITAMIN B12 1000 MCG TAB PO SCH (09:08)
[2017-07-21] MEDS: ATORVASTATIN CALCIUM 20 MG TAB PO SCH (09:08)
[2017-07-21] MEDS: DOXYCYCLINE HYCLATE 100 MG CAP/TAB PO SCH ×2 (09:09→21:09)
[2017-07-21] MEDS: METOPROLOL TARTRATE 50 MG TAB PO SCH ×2 (09:09→21:09)
[2017-07-21] MEDS: FLUCONAZOLE 100 MG TAB PO SCH (09:10)
[2017-07-21] MEDS: DOCUSATE SODIUM 100 MG CAP PO SCH ×2 (09:10→21:08)
[2017-07-21] MEDS: MICONAZOLE NITRATE 15 GM CRTUBE TP SCH ×2 (09:12→21:10)
--- NOTE | 2017-07-21 12:36 | SOAPPROG ---
SOAP Progress Note Assessment/Plan: Assessment: 72yo F POD #4 s/p I&D posterior scalp abscess. Culture shows MRSA. Inframammary intertrigo Pain controlled Scalp dressing changed today. 75% granulation tissue ID following - PO fluconazole and doxycycline Anemia - will receive PRBCs today. Monitor H/H Appreciate hospitalist management of comorbidities Dispo: pending stabilization of H/H. Likely home soon with close outpatient follow-up and home RN for wound care S: She is still very uncomfortable, worse under her breast and the back of her head. She is very concerned about being able to care for the wounds at home. O: Lying in bed. Posterior scalp wound tender but without surrounding erythema or induration. No purulence. Hydrofera blue transfer replaced and outer bandage Other dressings recently changed by RN 07/21/17 12:36 07/21/17 12:38 Objective: Vital Signs Temp Pulse Resp BP Pulse Ox 36.4 C 58 L 16 172/92 H 97 07/21/17 11:36 07/21/17 11:36 07/21/17 11:36 07/21/17 11:36 07/21/17 11:36 Laboratory Results 07/21/17 06:15 07/21/17 06:15 07/20/17 07/21/17 07/22/17 05:59 05:59 05:59 Intake Total 855 Balance 855 PT 13.8 SEC (12.0-15.0) 07/16/17 17:45 INR 1.04 (0.83-1.16) 07/16/17 17:45 ICD10 Worksheet Patient Problems: Problems Problem Status Onset Cellulitis of foot Acute ESBL (extended spectrum beta-lactamase) producing bacteria infection Acute ~ Facial cellulitis Acute History of fever Acute MRSA (methicillin resistant Staphylococcus aureus) Acute ~03/04/17 Methicillin resistant Staphylococcus aureus infection Acute ~05/06/17 Myocardial infarct Acute Rhabdomyolysis Acute Sepsis Acute Skin graft infection Acute Vomiting Acute
--- NOTE | 2017-07-21 14:46 | ASMTCMCOM ---
CM Note CM Note Notes: CM spoke w/ Cathy Larson from [facility] and provided updates. Pt will most likely d/c with PT, OT, RN and FOUR ROLL CALENDER OPERATOR. CM to follow. Plan: Ahmet Robbins with [facility]; PT, OT, RN, FOUR ROLL CALENDER OPERATOR Date Signed: 07/21/2017 02:46 PM Electronically Signed By:KEVIN Veliz
[2017-07-21] MEDS: INSULIN GLARGINE 100 UNITS/ML SYRINGE SC SCH (18:37)
[2017-07-21] MEDS ORDERED: POLYETHYLENE GLYCOL 3350 17 GM PKT PO PRN (19:38)
[2017-07-21] MEDS ORDERED: BISACODYL 10 MG SUPP PR PRN (19:38)
[2017-07-21] MEDS ORDERED: MAGNESIUM HYDROXIDE 30 ML UDCUP PO PRN (19:38)
[2017-07-21] MEDS ORDERED: LACTULOSE 20 GM/30 ML UDCUP PO PRN (19:38)
--- NOTE | 2017-07-21 19:41 | HOSPPROG ---
Hospitalist Progress Note Assessment/Plan: Assessment: 72-year-old female presents with acute MRSA scalp abscess Plan: 1. MRSA scalp abscess. Acute, status post incision and drainage by Dr. Rubi -appreciate ID consult, adjusted to Doxycycline for 5 subsequent days -follow-up wound care as outpt by Dr. Rubi -pain control still an issue, using norco PRN, repositioning, patient feels incapable of caring for self at independent living -counseled patient that we will attempt to increase level of home care services at , cont to work w/ therapy to ensure safe DC home tomorrow 2. Left axillary abscess. Currently healing, receiving regular wound care 3. Acute kidney injury. Secondary to hypovolemia, status post IV fluids, continue monitor -restart home ACEi 4. Yeast dermatitis. Continue antifungals 5. Diabetes mellitus type 2. Currently controlled, continue to monitor, fasting blood glucose 110 6. Anemia. Chronic normocytic, secondary to inflammatory disease, continue monitor 7. Chronic diastolic congestive heart failure. No evidence of acute exacerbation, continue monitor volume status 8. Hypertension. Chronic, continue to monitor on home medications Diet. Diabetic Prophylaxis. High risk patient, Lovenox 40 Code. Full Disposition. Anticipated discharge is 07/22, pending stabilization of conditions outlined above, patient feeling frightened of care required at home, will cont to reassess w/ therapy modalities. Subjective: patient feels unsafe at home, posterior occiput of scalp painful Objective: Vital Signs Temp Pulse Resp BP Pulse Ox 36.6 C 67 18 165/84 H 96 07/21/17 15:54 07/21/17 15:54 07/21/17 15:54 07/21/17 15:54 07/21/17 15:54 Laboratory Results 07/21/17 06:15 07/21/17 06:15 07/20/17 07/21/17 07/22/17 05:59 05:59 05:59 Intake Total 855 550 Balance 855 550 PT 13.8 SEC (12.0-15.0) 07/16/17 17:45 INR 1.04 (0.83-1.16) 07/16/17 17:45 - Time Spent With Patient Time Spent with Patient: greater than 35 minutes Time Spent with Patient: Greater than 35 minutes spent on this patients care, greater than 50% of time spent counseling, educating, and coordinating care regarding the above mentioned plan. - Pending Discharge Pending Discharge Within 24 Hours: Yes Pending Discharge Date: 07/22/17 Pending Discharge Time: 11:00 - Physical Exam Constitutional: no apparent distress, uncomfortable, No not in pain (mild in head) Neurologic: AAOx3, No facial droop Psychiatric: not encephalopathic, thought process linear, anxious, No agitated ICD10 Worksheet Patient Problems: Problems Problem Status Onset Methicillin resistant Staphylococcus aureus infection Acute ~05/06/17 Facial cellulitis Acute MRSA (methicillin resistant Staphylococcus aureus) Acute ~03/04/17 ESBL (extended spectrum beta-lactamase) producing bacteria infection Acute ~ Myocardial infarct Acute Rhabdomyolysis Acute Cellulitis of foot Acute History of fever Acute Vomiting Acute Skin graft infection Acute Sepsis Acute
[2017-07-22] MEDS: HYDROCODONE/APAP 5/325 TAB PO PRN ×2 (04:16→13:41)
[2017-07-22 04:48] LABS: % IMMATURE GRANULYOCYTES 2.7 % (0.0-1.1); ABSOLUTE NRBC COUNT 0.08 10^3/uL (0-0.01); ADD DIFF? NO; ADD MORPH? YES; ADD SCAN? NO; ATYPICAL LYMPHOCYTE FLAG 0 (0-99); FRAGMENT RBC FLAG 40 (0-99); HEMATOCRIT 29.2 % (38.0-47.0); HEMOGLOBIN 9.3 g/dL (12.6-16.3); LEFT SHIFT FLG 20 (0-99); LIPEMIA HEMOLYSIS FLAG 80 (0-99); MEAN CELL HEMOGLOBIN 25.9 pg (27.9-34.1); MEAN CELL HEMOGLOBIN CONCENTR. 31.8 g/dL (32.4-36.7); MEAN CELL VOLUME 81.3 fL (81.5-99.8); MEAN PLATELET VOLUME 8.5 fL (8.7-11.7); PLATELET CLUMPS FLAG 0 (0-99); PLATELET COUNT 327 10^3/uL (150-400); RED BLOOD CELL COUNT 3.59 10^6/uL (4.18-5.33)
[2017-07-22 04:50] LABS: NRBC-AUTO% 1.1 % (0.0-0.2); RED CELL DISTRIBUTION WIDTH 24.7 % (11.5-15.2)
[2017-07-22 05:28] LABS: ELLIPTOCYTES 1+; MICROCYTES 1+; PLATELET ESTIMATE ADEQUATE (ADEQ)
[2017-07-22 07:36] VITALS: O2SAT 96
[2017-07-22] MEDS: INSULIN LISPRO 100 UNIT/ML SC SCH ×2 (08:22→11:52)
[2017-07-22] MEDS: ATORVASTATIN CALCIUM 20 MG TAB PO SCH (08:29)
[2017-07-22] MEDS: CYANO/VITAMIN B12 1000 MCG TAB PO SCH (08:29)
[2017-07-22] MEDS: FLUCONAZOLE 100 MG TAB PO SCH (08:29)
[2017-07-22] MEDS: DOCUSATE SODIUM 100 MG CAP PO SCH (08:29)
[2017-07-22] MEDS: ENOXAPARIN 40 MG/0.4 ML SYR SC SCH (08:29)
[2017-07-22] MEDS: POTASSIUM CL 10 MEQ TAB PO SCH (08:30)
[2017-07-22] MEDS: METOPROLOL TARTRATE 50 MG TAB PO SCH (08:30)
[2017-07-22] MEDS: DOXYCYCLINE HYCLATE 100 MG CAP/TAB PO SCH (08:30)
[2017-07-22] MEDS: MICONAZOLE NITRATE 15 GM CRTUBE TP SCH (08:45)
[2017-07-22] MEDS ORDERED: LISINOPRIL 5 MG TAB PO SCH ×2 (09:02→09:15)
--- NOTE | 2017-07-22 10:31 | PDIAF ---
- Diagnosis Diagnosis: Scalp abscess, MRSA Code Status: Full Code - Medication Management Discharge Medications: Medications to Continue on Transfer RX: Aspirin EC [Aspirin EC 81 mg (*)] 81 mg PO DAILY 12/25/16 [Last Taken ] RX: Clotrimazole/Betamethasone Dip [Clotrimazole-Betamethasone Crm] 1 nona TP BID PRN 12/25/16 [Last Taken 07/16/17] RX: Furosemide [Lasix 20 MG (*)] 20 mg PO DAILY 12/25/16 [Last Taken 07/16/17] RX: Insulin Glargine [Lantus 100 UNITS/ML (*)] 10 units SC DAILY@1700 12/25/16 [ Last Taken 07/15/17] RX: Lisinopril [Zestril 5 mg (*)] 5 mg PO DAILY 12/25/16 [Last Taken 07/16/17] RX: Metformin HCl [Metformin 1000 mg] 1,000 mg PO BID 12/25/16 [Last Taken 07/16] RX: Metoprolol Tartrate [Lopressor 50 mg (*)] 50 mg PO BID 12/25/16 [Last Taken 07/16/17] RX: Potassium Cl [Klor-Con 10 meq (RX)] 10 meq PO DAILY 12/25/16 [Last Taken ] RX: Simvastatin [Zocor] 40 mg PO DAILY 05/06/17 [Last Taken 07/15/17] RX: Cyanocobalamin [Vitamin B12 (*)] 500 mcg PO DAILY 07/16/17 [Last Taken 07/16] RX: Diclofenac Sodium 1% [Voltaren Gel (*)] 1 nona TP BID PRN 07/16/17 [Last Taken 07/15/17 21:00] RX: Docusate Sodium [Colace 100 MG (*)] 100 mg PO BID #20 cap 07/22/17 [Last Taken Unknown] RX: Doxycycline Hyclate [Vibramycin 100 MG (*)] 100 mg PO BID #9 capsule [Last Taken Unknown] RX: Fluconazole [Diflucan (*)] 200 mg PO DAILY #4 tab 07/22/17 [Last Taken Unknown] RX: Hydrocodone/APAP 5/325 [Summit 5/325 (*)] 1 - 2 tab PO Q4HRS PRN #40 tab 01/01 [Last Taken Unknown] Custodial Antibiotics: Doxycycline 100mg bid PO, Fluconazole 100mg daily PO Freight Brakeman Antibiotic Stop Date: 07/26/17 Discharge Medications: Refer to the Discharge Home Medication list for PRN reason. PICC Care - Routine: N/A - Orders Services needed: Home Care, Registered Nurse, Certified Spindle Setter, Physical Therapy, Occupational Therapy Home Care Face to Face: I certify that this patient was under my care and that I had the required [id number] encounter meeting the encounter requirements on the discharge day. My findings support the fact that the patient is homebound as defined in Home Care Face to Face Continued: CMS Chapter 7 Medicare Benefits Manual 30.1.1 , The condition of the patient is such that there exists a normal inability to leave home and consequently, leaving home would require a considerable and taxing effort. Isolation Type: Contact Isolation Oxygen: NA Diet Recommendation: ADA 2000 consistent carb Diet Texture: Regular Texture Diet Weigh Patient: weekly Hart: Not applicable Wound Care Instructions: 1. Scalp, L axilla and R buttock -please change Hydrofera blue ready q3d. May change outer dressings as needed. 2. Skin tear of R arm - wound gel, adaptic touch and mepilex/allevyn, change q3d. 3. Inframammary intertrigo - apply zinc spray and interdry daily. OK to take a shower and wash hair immediately prior to dressing change. 4. F/u with Dr. Rubi/Amy in 1 week. Call our office with worsening symptoms, questions or concerns. - Labs/Radiology BMP Date: 07/28/17 CBC w/diff Date: 07/28/17 Call or Fax Lab and Imaging Results to: Dr. Rubi and Dr. Rodriguez - Follow Up Care Current Providers and Referrals: Kait Rubi MD [Medical Doctor] - follow up in 1 week Alex Rodriguez MD [Primary Care Provider] - follow up in 1 week
--- NOTE | 2017-07-22 10:37 | PDDCSUM ---
Discharge Summary Discharge Summary: DISCHARGE SUMMARY FOLLOW-UP ITEMS: Outpatient wound care follow-up with Dr. Kait Rubi DATE OF ADMISSION: 07/16/2017 DATE OF DISCHARGE: 07/22/2017 DISCHARGE DIAGNOSES: 1. MRSA scalp abscess 2. Left axillary abscess 3. Acute kidney injury 4. Yeast dermatitis/intertrigo 5. Diabetes mellitus type 2 6. Anemia 7. Chronic diastolic congestive heart failure 8. Chronic hypertension 9. Chronic pain with continuous opiate dependency CONSULTATIONS: Infectious Disease, General surgery PROCEDURES / IMAGING: None CHIEF COMPLAINT: Posterior scalp pain SUBJECTIVE: Patient is feeling well at time of discharge, she is feeling confident on her discharge home PHYSICAL EXAM ON DISCHARGE: Systolic blood pressure is 160, heart rate 60, afebrile overnight, satting on room air, wound area has will demarcated edges without any adjacent erythema, mildly tender around the edges, packed with hydrofera Blue LABS ON DISCHARGE: Hemoglobin 9.3, white blood cell count 7500, glucose 120 HOSPITAL COURSE BY PROBLEM: The patient presented with a MRSA scalp abscess which required incision and drainage by Dr. Rubi. The patient was initially treated with IV vancomycin, and then speciation and sensitivity demonstrated that the organism was sensitive to tetracyclines. Infectious Disease consulted in the patient's care and determined that the patient is not truly allergic to tetracyclines, and she has tolerated doxycycline in the past. Consequently she was a given an additional 5 days of doxycycline after her stabilization on IV vancomycin during her hospitalization. She was also identified as having yeast dermatitis/ intertrigo, and she was administered topical antifungals as well as fluconazole. She will continue on for subsequent days of fluconazole after discharge and will follow up at Dr. Kait Rubi office for all of her subsequent wound care. She did experience acute kidney injury secondary to hypovolemia and this was identified on presentation, treated with IV fluids, holding her WERNER-inhibitor, creatinine down trended to normal by time of discharge. Consequently, the patient was re-initiated on her WERNER-inhibitor prior to discharge, and she will reinitiate her WERNER-inhibitor, diuretic, continue her beta-irina after discharge. She has an element of chronic normocytic anemia secondary to chronic inflammatory disease and her hemoglobin level was 7.5 on July 21, requiring 1 U blood transfusion prior to discharge. Her diabetes mellitus type 2 was reasonably controlled during her hospitalization, we recommended ongoing outpatient home diabetic management moving forward to facilitate wound healing. Patient's pain was well managed with Augusta, and she chronically takes Augusta at home, was provided with a script for some additional pain medication and stool softener at discharge. The patient has home care services arranged prior to discharge. DISCHARGE MEDICATIONS: Please see official discharge medication reconciliation sheet in chart , Augusta as needed, docusate while on Augusta, doxycycline 100 mg twice daily for 4 subsequent days, fluconazole 100 mg daily for 4 subsequent days, continue all other home medications. DISCHARGE INSTRUCTIONS: Please follow up with Dr. Kait Rubi next week as scheduled, primary care provider thereafter. TIME SPENT: Greater than 30 minutes were spent on direct patient care, as well as discharge planning and preparation.
[2017-07-22 11:29] VITALS: BP 155/93; PULSE 61; RESP 16; TEMP 97.8
--- NOTE | 2017-07-22 11:44 | WOCRNPDOC ---
WOCRN Advanced Assessment Note - Skin Integrity Problem, Advanced Assess Bilateral Breast Dressing Type: Interdry Dressing Description: Intact Exudate Amount: Scant Exudate Color: Reddish/Yellow Exudate Characteristic(s): Serosanguinous Integumentary Issue Intervention: Visualized Under Dressing, Barrier Cream Applied (Touchless zinc oxide spray) Vidhya Wound Tissue: Erythema, Denuded Vidhya Wound Swelling: Mild Wound Bed Color: Red, Yellow Wound Bed Constitution: Red/Catlin - Non Granular Tissue, Adhered Slough Skin Integrity Problem Comment: Severely raw, denuded skin noted underneath bilateral breasts, worse on left than right. Left side has some adhered slough in the lateral aspect of a linear wound. Patient reports pain and drainage are both remarkably better since surgery, and she stated that the Touchless Zinc spray has worked well due to its painless application. She has used Interdry sheets in the past, and has a sheet under each breast. I explained that the antimicrobial and wicking benefits of these sheets are inactivated by powders or creams; she says she prefers them because they are thin, lightweight, and soft. We discussed using scraps/squares of flannel under her breasts when she gets home, as these are easy to acquire, soft, and significantly less expensive than Interdry. Advise continue tx w/ zinc to help keep skin protected from both moisture and friction.
--- NOTE | 2017-07-22 14:06 | ASDISCHSUM ---
Discharge Information Plan Status:Home with Home Health Medically Cleared to Leave:07/21/2017 Discharge Date:07/22/2017 01:50 PM CM D/C Disposition: ADT D/C Disposition:Home Health Service Projected Discharge Date:07/22/2017 11:00 AM Transportation at D/C: Discharge Delay Reason: Follow-Up Date:07/22/2017 11:00 AM Discharge Slot: Final Diagnosis: Placement Information Referral Type:*Home Health Care Services Referral ID:[id number] Provider Name:[facility] Address 1:[address] [address] Address 2: City:[place] Selection Factors: State:[place] Patient Contact Information Contact Name:JUNAID Relationship:Sister Address: Work Phone: Meño:AJAY Saldivar Phone: [facility] Code:[place] Email: Financial Information Financial Class: Primary Plan Desc:MEDICARE INPATIENT Primary Plan Number:[id number] Secondary Plan Desc:AARP/MDR SUPPLEMENT Secondary Plan Number:[id number] Assessment Information [facility] CM Progress Note CM Note CM Note Notes: Received call from Clotilde at [facility], pt is current with them for RN. Pt lives at [facility]. Pt had scalp abscess drained today and is on IV but may be able to transition to PO abx. DC Plan: Homecare Date Signed: 07/17/2017 04:52 PM Electronically Signed By:Jennifer Galeano RN [facility] CM Progress Note CM Note CM Note Notes: Anticipate pt will return to [facility] w/HHC at mt.However, per PT recommendation there is a chance pt may need SNF rehab depending on her progress but pt seemed resistant to this. She does have local support of daughter. Pt is current w/[facility] (RN/PT/OT) prior to admit and would resume care with them. Spoke w/Cathy from [facility] to update her on pt. We discussed tht may be getting close to time for pt to think about transitioning to assisted living at ; Cathy plans on following up on that when pt returns home. Pt will have wound care needs at mt. She is currently on IV ABX's, not clear if this will need to be spider assembler or not. Case Management will follow and will see how she does tomorrow w/PT- if need be will approach idea of SNF again with her. Date Signed: 07/18/2017 04:32 PM Electronically Signed By:Carmelita Waddell RN [facility] Progress Note CM Note CM Note Notes: PT still recommending SNF today. Meerar went to meet w/ Pt. Pt. still refusing SNF and would like her [facility] to resume. Would like RN, PT, OT, and SALES PROMOTION OFFICER at d/c. Pt. will have wound care needs to be addressed either by homecare RN or wound care clinic. Likely will be transitioning to oral antibiotics per RN. CM to follow. Date Signed: 07/19/2017 04:41 PM Electronically Signed By:Cindy Dillon LCSW [facility] CM Progress Note CM Note CM Note Notes: CM spoke w/ Cathy Larson from [facility] and provided updates. Pt will most likely d/c with PT, OT, RN and SALES PROMOTION OFFICER. CM to follow. Plan: [facility] with [facility]; PT, OT, RN, SALES PROMOTION OFFICER Date Signed: 07/21/2017 02:46 PM Electronically Signed By:KEVIN Veliz Case Management Discharge Plan Note Case Management Discharge Discharge Order Complete? Answers: Yes Patient to Obtain Answers: Independently Medications Transportation Arranged Answers: Taxi - Voucher Transport will Pick (Date 07/22/2017 02:00 PM & Time) EMTALA Complete Answers: No Case Management Transport Answers: Yes Form Complete Faxed Final Orders Answers: Yes Agency/Facility Transfer Answers: Yes Report Printed & Faxed to Receiving Agency [facility] Notified Answers: No Discharge Comments Notes: Pt is being discharged back to [facility] w/ [facility] for PT, OT, RN, SALES PROMOTION OFFICER. sent d/c orders to [facility]. CM tried to arrange a ride through [employer] but they did not have any availabilities today. CM provided pt w/ a taxi voucher. CM available changes. Plan: [facility]; PT, OT, RN, SALES PROMOTION OFFICER Date Signed: 07/22/2017 11:17 AM Electronically Signed By:KEVIN Veliz Intervention Information Intervention Type:*Incorrect Registration Date of Service:07/17/2017 11:30 AM Patient Type:Observation Staff Member:TOMASZ Mattson Courtney Hours: Discipline: Severity: Comment: Intervention Type:*IM-Signed Date of Service:07/22/2017 09:48 AM Patient Type:Inpatient Staff Member:Ivet Sky Hours: Discipline: Severity: Comment:
--- NOTE | 2017-07-22 16:41 | SOAPPROG ---
SOAP Progress Note Assessment/Plan: Assessment: 72yo F POD #5 s/p I&D posterior scalp abscess. Culture shows MRSA. Inframammary intertrigo Pain controlled Dressing itact ID following - PO fluconazole and doxycycline Anemia - s/p transfusion yesterday, H/H responded appropriately Appreciate hospitalist management of comorbidities Dispo: home today. may shower immediately prior to dressing change. f/u [address] Rubi. S: No new complaints today. worried about being able to take a shower and wash her hair O: Sitting upright in chair, NAD, comfortable No increased WOB Dressing intact Objective: Vital Signs Temp Pulse Resp BP Pulse Ox 36.6 C 61 16 155/93 H 96 07/22/17 11:26 07/22/17 11:26 07/22/17 11:26 07/22/17 11:26 07/22/17 11:26 Microbiology 07/16/17 17:45 Blood Culture - Final Blood 07/16/17 17:45 Blood Culture - Final Blood Laboratory Results 07/22/17 04:30 07/21/17 06:15 07/21/17 07/22/17 07/23/17 05:59 05:59 05:59 Intake Total 855 700 Output Total 500 200 Balance 855 200 -200 PT 13.8 SEC (12.0-15.0) 07/16/17 17:45 INR 1.04 (0.83-1.16) 07/16/17 17:45 ICD10 Worksheet Patient Problems: Problems Problem Status Onset Cellulitis of foot Acute ESBL (extended spectrum beta-lactamase) producing bacteria infection Acute ~ Facial cellulitis Acute History of fever Acute MRSA (methicillin resistant Staphylococcus aureus) Acute ~03/04/17 Methicillin resistant Staphylococcus aureus infection Acute ~05/06/17 Myocardial infarct Acute Rhabdomyolysis Acute Sepsis Acute Skin graft infection Acute Vomiting Acute
--- NOTE | 2017-08-13 09:23 | GOP ---
[f rep st] OPERATIVE REPORT DATE OF OPERATION: 07/17/2017 SURGEON: Kait Rubi MD CLINICAL RN LIAISON: CLAUDIA Dave student. ANESTHESIA: General. ANESTHESIOLOGIST: Erwin Culp MD. PREOPERATIVE DIAGNOSIS: Scalp abscess. POSTOPERATIVE DIAGNOSIS: Scalp abscess. PROCEDURE PERFORMED: Debride skin, soft tissue on the scalp, measuring 1.5 x 6 x 1.6 cm down to the level of the calvarium. FINDINGS: Multiple pockets. ESTIMATED BLOOD LOSS: Minimal. INDICATIONS: The patient is a 72-year-old, who has multiple MRSA abscesses. She developed a large 1 on her posterior scalp that was unable to be debrided adequately in the office. DESCRIPTION OF PROCEDURE: The patient was brought into the operating room, placed supine on the tabl e, and general anesthesia was administered. Her scalp was prepped with Betadine and draped in the [facility] sterile fashion. I ellipsed a large portion of necrotic skin. I was able to open up several are as where it had tunneled. The final measurements were 1.5 x 6 x 1.6 cm. There were no remaining abs cesses at the conclusion of the operation. Hemostasis was achieved. Copious irrigation was performe d. The wound was packed with Hydrofera Blue. She tolerated the procedure well. /[id number]/MODL
== END 2017-07-22 13:50 | disposition home health service (06) | DRG 571 ==
LOC: F3E 13:00 → OBSVTOIN 14:20
PROVIDERS: ADMIT Internal Medicine; ATTEND Internal Medicine
PROC: 02HV33Z Insertion of Infusion Device into Superior Vena Cava, Percutaneous Approach (ICD-10-PCS; 2017-07-16)
PROC: 0J900ZZ Drainage of Scalp Subcutaneous Tissue and Fascia, Open Approach (ICD-10-PCS; principal; 2017-07-17 12:15)
PROC: 0JB00ZZ Excision of Scalp Subcutaneous Tissue and Fascia, Open Approach (ICD-10-PCS; principal; 2017-07-17 12:15)
PROC: 30233N1 Transfusion of Nonautologous Red Blood Cells into Peripheral Vein, Percutaneous Approach (ICD-10-PCS; 2017-07-21)
DX: L02.01 Cutaneous abscess of face (principal); L02.412 Cutaneous abscess of left axilla; F11.20 Opioid dependence, uncomplicated; N17.9 Acute kidney failure, unspecified; I11.0 Hypertensive heart disease with heart failure; I50.32 Chronic diastolic (congestive) heart failure; B95.62 Methicillin resistant Staphylococcus aureus infection as the cause of diseases classified elsewhere; L30.4 Erythema intertrigo; E11.9 Type 2 diabetes mellitus without complications; D64.9 Anemia, unspecified; G89.29 Other chronic pain
CPT/HCPCS: 97116-GP; 97162-GP; 97165-GO; 97530-GO; 97530-GP; 97535-GO; C1751; G8978-GP-CJ; G8979-GP-CI; G8987-GO-CI; G8988-GO-CH; J1650; J1815; J2001; J2250; J2405; J2704; J2780; J3010; J3370; J3490; P9016

== ENCOUNTER → 2017-12-01 | Outpatient (CLI) | payer OTHER, MEDICARE | LOC: BHFA 14:45 | PROVIDERS: ATTEND Internal Medicine Cardiovascular Disease | DX: R01.1 Cardiac murmur, unspecified (principal) ==

== ENCOUNTER 2018-01-08 09:52 | Inpatient (IN) | payer OTHER, MEDICARE ==
--- NOTE | 2018-01-08 10:08 | EDPHY ---
General - History Smoking Status: Never smoked Time Seen by Provider: 01/08/18 10:01 Narrative: CHIEF COMPLAINT: Nausea, vomiting, diarrhea HISTORY OF PRESENT ILLNESS: Patient arrives by EMS and is seen just after arrival. She complains of nausea , vomiting and diarrhea x5 days. This started abruptly. Constant duration. [id number] over the 1st 2 days, worsening over the past 24 hr. No blood in the stools or emesis. No chest pain, shortness of breath, cough, fever or diaphoresis. She does have some abdominal discomfort when vomiting. Intolerant of liquids or solids at this time. Last intake was yesterday afternoon. The diarrhea is now described as watery and profuse. No recent antibiotics. She does live in an assisted living facility. No previous C difficile colitis. No recent travel. No other associated complaints or modifying factors. REVIEW OF SYSTEMS: Ten systems reviewed and are negative unless otherwise noted in the HPI PCP: Dr. Alex Rodriguez SPECIALISTS: Cardiology PAST MEDICAL HISTORY: Hypertension, non-insulin dependent diabetes, coronary artery disease with non STEMI, PAST SURGICAL HISTORY: Hysterectomy SOCIAL HISTORY: Nonsmoker. Lives in independent/assisted living. FAMILY HISTORY: Noncontributory EXAMINATION General Appearance: Alert, no distress Head: normocephalic, atraumatic Eyes: Pupils equal and round, no conjunctival pallor or injection ENT, Mouth: Mucous membranes mildly dry. Airway is widely patent. Neck: Normal inspection, supple, non-tender Respiratory: Lungs are clear to auscultation. No crackles. No diminishment or consolidation Cardiovascular: Regular rate and rhythm. No murmur Gastrointestinal: Abdomen is soft and nondistended. Mild tenderness in the epigastrium. No tympany. No rigidity. No guarding. Bowel sounds are auscultated in all 4 quadrants. Back: non-tender, no bony abnormalities. Superficial skin breakdown just below the gluteal cleft but above the anal verge. Neurological: A&O, nonfocal, strength is symmetric. Skin: Warm and dry, no rash. Skin breakdown as above. No petechiae or purpura Extremities: Nontender. Mild pedal edema. There is evidence of remote to a petition of the left foot. Psychiatric: Mood and affect normal DIFFERENTIAL DIAGNOSES: Including but not limited to gastroenteritis, gastritis, enteritis, colitis, C difficile colitis, mesenteric adenitis, dehydration, appendicitis MDM: 10:10 a.m. Nausea, vomiting diarrhea 5 days duration. The patient has been intolerant of intake by mouth since yesterday. Her vital signs are within normal limits, with reported systolic pressure in the 80s pre-hospital. She is 110 systolic at this time. She is awake alert no acute distress. Laboratory studies pending. 10:30 a.m. Notified by RN that the patient's pressure is decreasing. She is now reportedly in the 80s systolic. I re-evaluated. Her IV fluid is infusing but they are still attempting to place a 2nd line and she has poor IV access and they have not yet been able to obtain any blood. Dr. Miranda will be notified as well. 11:00 a.m. Patient has received 700 mL IV fluid and a 2nd IV has just been obtained. No blood from the IV but it will infuse, thus we will commence with a 2nd L of IV fluid and Dr. Miranda will evaluate the patient. 11:30 a.m. Patient re-evaluated and has been evaluated by Dr. Miranda. IV fluids still infusing. Pressure is still an 80 systolic. Attempted blood draw still been unsuccessful. 12:15 p.m. Patient re-evaluated. Her blood pressure has not been successfully cycled, suspected due to poor body habitus. She has now received 2 L IV fluid. We are attempting to obtain better blood pressure measurement. She does have palpable DP and PT pulses symmetrically. Uncertain if this is her real blood pressure as she has palpable pulses distally. 12:45 p.m. I was asked to perform a femoral stick it as they still not been able to obtain any blood for laboratory studies. I was able to do so but then the blood immediately clotted and thus was not usable. Been notified that the PICC line we placed shortly. 2:00 p.m. Patient has returned. from interventional radiology with her PICC in place. Laboratory studies are now being drawn as there was significant difficulty in obtaining him earlier. She is awake and conversing with me appropriately. Her pressure is still reading 60 systolic, but she has palpable DP and PT pulses. She is answering questions appropriately with normal mentation. She does now appear to be in a fibrillation by pulse oximetry, which she was not exhibiting earlier, thus I have ordered EKG. 2:10 p.m. EKG reveals sinus rhythm with bigeminy and has been reviewed by Dr. Miranda. 2:20 p.m. Lactic acid is markedly elevated at 7.6. Dr. Miranda is aware of this. We have reviewed the chest x-ray together and do not appreciate any pneumonia. Remainder laboratory studies are still pending. 2:47 p.m. Case discussed with Dr. Bolaños. she is currently evaluating the patient. She does have leukocytosis but her chemistry is still pending. She has requested IV Flagyl and IV ceftriaxone for empiric coverage. She has also requested CT scan abdomen pelvis. I have ordered this but her chemistries not return, that she may need a plain scan without contrast. 3:20 p.m. Notified technical assoc that the patient's glucose is less than 30. I have re- evaluated the patient this time she is receiving D50 and we will monitor closely. 4:00 p.m. Patient has been closely monitor this emergency department. She has not responded to vigorous IV fluid resuscitation. She is also not responding well to IV vasopressors. Laboratory studies returning with evidence of multisystem organ failure. Dr. Bolaños has been at bedside and monitoring closely, and she will discuss with family. Patient is admitted in critical condition. Procedure: Femoral vein venipuncture Indication: Lack of blood draws from current IV Consent: Verbal Description: Right inguinal canal was prepped with chlorhexidine x2. Using sterile glove an 18 gauge needle inserted into the right femoral vein was successful cannulation. Nonpulsatile, venous blood was drawn into the 20 cc syringe, totaling 15 mL. Needle was withdrawn with no bleeding noted. Pressure was held for 2 min. Uncomplicated. SUPERVISION: Patient was evaluated and examined in conjunction with my secondary supervising physician as documented. We have both examined the patient. (Kenny Rodgers) Medical Decision Making: I have also seen this patient because of hypotension and difficulty IV access. We now have 2 lines and are giving her 2 L of saline. Septic workup is being performed. At 11:20 a.m. Patient's blood pressure 73/43. She is being given 2 L of fluid. At this point so far we have been unable to draw blood. I did review the history with the patient of diarrhea Sepsis workup as been ordered Recheck again at 11:40 a.m.. Current blood pressure is 71/45. She has 1 L of saline running in working on a 2nd IV access Patient has continue be hypotensive. We had ordered a PICC line earlier. As I was moving the patient to room 1 for central line the PICC line people came and said they could put a PICC line in immediately. On return labs are finally obtain. Lactate is elevated. Hart catheter is inserted. Continued hypotension after 30 milliliters/kilogram infused. Patient started on Levophed. Also found that her blood sugar is 24. She is given D50 W IV. Consulted and discussed the case with Dr. Bolaños who sees the patient in the emergency department (Vinicio Miranda) - Diagnostics EKG Interpretation: EKG interpreted by me shows atrial fibrillation. Normal axis. QRS normal other than 1 PVC. Rate is 90 (Vinicio Miranda) Critical Care Time: Critical care time exclusive procedures 50 min (Vinicio Miranda) - Objective Vital Signs: Initial Vital Signs Temperature (C) 36.9 C 01/08/18 09:59 Heart Rate 94 01/08/18 09:59 Respiratory Rate 16 01/08/18 09:59 Blood Pressure 107/49 L 01/08/18 09:59 O2 Sat (%) 95 01/08/18 09:59 O2 Delivery Mode Room Air Allergies/Adverse Reactions: amoxicillin trihydrate [From Augmentin] Allergy (Intermediate, Verified 10:36) potassium clavulanate [From Augmentin] Allergy (Intermediate, Verified 12/25/16 10:36) monosodium glutamate Allergy (Mild, Verified 12/25/16 10:36) adhesive tape Allergy (Verified 12/25/16 10:36) Sulfa (Sulfonamide Antibiotics) Allergy (Verified 12/25/16 10:36) Home Medications: Medication Instructions Recorded Aspirin EC [Aspirin EC 81 mg (*)] 81 mg PO DAILY 12/25/16 Clotrimazole/Betamethasone Dip 1 nona TP BID PRN 12/25/16 [Clotrimazole-Betamethasone Crm] Insulin Glargine [Lantus 100 10 units SC HS 12/25/16 UNITS/ML (*)] Lisinopril [Zestril 5 mg (*)] 5 mg PO DAILY 12/25/16 Metformin HCl [Metformin 1000 mg] 1,000 mg PO BID 12/25/16 Metoprolol Tartrate [Lopressor 50 50 mg PO BID 12/25/16 mg (*)] Potassium Cl [Klor-Con 10 meq (RX)] 10 meq PO DAILY 12/25/16 Simvastatin [Zocor] 40 mg PO DAILY 05/06/17 Cyanocobalamin [Vitamin B12 (*)] 500 mcg PO DAILY 07/16/17 Diclofenac Sodium 1% [Voltaren Gel 1 nona TP BID PRN 07/16/17 (*)] Docusate Sodium [Colace 100 MG (*)] 100 mg PO BID #20 cap 07/22/17 Triamcinolone 0.05% 1 nona TP DAILY 01/08/18 Laboratory Results: Laboratory Results 01/08/18 14:10 01/08/18 14:10 Microbiology Results: MICROBIOLOGY 01/08/18 14:40 Blood Blood Culture - Preliminary Gram Negative Fredi 01/08/18 14:10 Blood Blood Culture - Preliminary Gram Negative Rfedi 01/08/18 14:10 Blood Blood Panel (PCR) - Final Escherichia Coli Medications Given: Acetaminophen (Tylenol) 650 mg PO Q4HRS PRN PRN Reason: Pain, Mild/Fever, Can Take PO Stop: 07/07/18 14:58 Last Admin: 01/08/18 17:43 Dose: 650 mg Dextrose (Dextrose 50% Syringe) 25 gm IVP PRN PRN PRN Reason: Hypoglycemia Stop: 07/07/18 15:17 Last Admin: 01/09/18 02:32 Dose: 25 gm Hydrocortisone (Solucortef) 100 mg IVP Q12H [facility] Stop: 01/10/18 11:31 Last Admin: 01/09/18 11:26 Dose: 100 mg Ascorbic Acid 1,500 mg/ (Dextrose) 103 mls @ 206 mls/hr IV Q6H ANGELA Stop: 01/12/18 09:59 Last Admin: 01/09/18 22:05 Dose: 103 mls Dextrose/Sodium Chloride (D5w Ns) 1,000 mls @ 100 mls/hr IV CONT ANGELA Stop: 07/07/18 15:29 Last Admin: 01/08/18 15:54 Dose: 1,000 mls Metronidazole/Sodium Chloride (Flagyl 250 Mg (Premix)) 50 mls @ 50 mls/hr IV Q8HRS ANGELA PRN Reason: Protocol Stop: 02/07/18 21:59 Last Admin: 01/09/18 21:34 Dose: 50 mls Norepinephrine 16 mg/ Sodium (Chloride) 266 mls @ 0 mls/hr IV CONT ANGELA; Per Protocol PRN Reason: Protocol Stop: 07/07/18 17:59 Last Admin: 01/09/18 09:13 Dose: 266 mls Vasopressin 25 unit/ Sodium (Chloride) 251.25 mls @ 24 mls/hr IV CONT ANGELA Stop: 07/07/18 22:45 Last Admin: 01/09/18 22:05 Dose: 251.25 mls Miscellaneous Medication (Prismasate [id number]) 5,000 mls @ 1,500 mls/hr DIAL AD ANGELA Stop: 07/07/18 23:29 Last Admin: 01/09/18 19:32 Dose: 5,000 mls Sodium Chloride (Ns) 1,000 mls @ 0 mls/hr MISC CONT ANGELA PRN Reason: As Directed Stop: 07/07/18 23:29 Last Admin: 01/09/18 20:42 Dose: 1,000 mls Sodium Bicarbonate 150 meq/ (Dextrose) 1,150 mls @ 100 mls/hr IV AD ANGELA Stop: 07/07/18 23:29 Last Admin: 01/09/18 06:16 Dose: 1,150 mls Potassium Chloride (Potassium Cl 20 Meq (Premix)) 50 mls @ 25 mls/hr IV PRN PRN PRN Reason: K less than 3.8 give 40MEQ Stop: 07/07/18 23:29 Last Admin: 01/09/18 13:28 Dose: 50 mls Magnesium Sulfate (Magnesium Sulf 2 Gm (Premix)) 50 mls @ 12.5 mls/hr IV PRN PRN PRN Reason: Mag less than 1.8 Stop: 07/07/18 23:29 Last Admin: 01/09/18 19:10 Dose: 50 mls Sodium Phosphate 20 mm/ (Dextrose) 256.6667 mls @ 64.167 mls/hr IV PRN PRN PRN Reason: Phos less than 2.5 Stop: 07/07/18 23:29 Last Admin: 01/09/18 13:12 Dose: 256.6667 mls Miscellaneous Medication 1 ea/ (Sterile Water) 4,000 mls @ 0 mls/hr DIAL AD ANGELA PRN Reason: As Directed Stop: 07/08/18 18:59 Last Admin: 01/09/18 20:42 Dose: 4,000 mls Calcium Chloride 5.7 gm/ (Sodium Chloride) 1,057 mls @ 90 mls/hr IV CONT ANGELA Stop: 07/08/18 08:44 Last Admin: 01/09/18 18:41 Dose: 1,057 mls Ceftriaxone Sodium 2 gm/ (Sterile Water) 20 mls @ 300 mls/hr IV DAILY ANGELA PRN Reason: Protocol Stop: 02/08/18 11:29 Last Admin: 01/09/18 11:30 Dose: 20 mls Insulin Human Lispro (Humalog Lispro) 0 unit SC TIDMEAL ANGELA PRN Reason: Protocol Stop: 07/07/18 17:59 Last Admin: 01/09/18 19:23 Dose: Not Given Discontinued Medications Sodium Chloride (Ns) 1,000 mls @ 0 mls/hr IV EDNOW ONE; Wide Open PRN Reason: Protocol Stop: 01/08/18 10:37 Last Admin: 01/08/18 10:40 Dose: 1,000 mls Sodium Chloride (Ns) 1,900 mls @ 3,800 mls/hr 30 ml/kg infuse over 30 min ( 1900 ml) IV EDNOW ONE PRN Reason: Protocol Stop: 01/08/18 11:49 Last Admin: 01/08/18 11:26 Dose: 1,900 mls Ceftriaxone Sodium/Dextrose (Rocephin 1 Gm (Premix)) 50 mls @ 100 mls/hr IV EDNOW ONE PRN Reason: Protocol Stop: 01/08/18 15:14 Last Admin: 01/08/18 15:30 Dose: 50 mls Metronidazole/Sodium Chloride (Flagyl 500 Mg (Premix)) 100 mls @ 100 mls/hr IV EDNOW ONE PRN Reason: Protocol Stop: 01/08/18 15:42 Last Admin: 01/08/18 16:08 Dose: 100 mls Norepinephrine 4 mg/ Sodium (Chloride) 500 mls @ 0 mls/hr IV EDNOW ONE; Per Protocol PRN Reason: Protocol Stop: 01/08/18 15:01 Last Admin: 01/08/18 15:04 Dose: 500 mls Sodium Bicarbonate 150 meq/ (Dextrose) 1,150 mls @ 75 mls/hr IV CONT ANGELA Stop: 07/07/18 15:44 Last Admin: 01/08/18 18:13 Dose: 1,150 mls Calcium Gluconate 1 gm/ (Dextrose) 60 mls @ 120 mls/hr IV ONCE ONE Stop: 01/08/18 16:59 Last Admin: 01/08/18 16:49 Dose: 60 mls Vancomycin/Sodium Chloride (Vancomycin 1 Gm (Premix)) 250 mls @ 250 mls/hr IV ONCE ONE Stop: 01/08/18 17:59 Last Admin: 01/08/18 16:50 Dose: 250 mls Cefepime HCl 2 gm/ Sterile (Water) 12.5 mls @ 150 mls/hr IV DAILY ONE PRN Reason: Protocol Stop: 01/08/18 22:26 Last Admin: 01/09/18 00:02 Dose: 12.5 mls Miscellaneous Medication 1 ea/Sodium Citrate 375 ml/ Sodium Chloride 519 ml/ Sterile Water/ Miscellaneous Information 3,000 mls @ 1,500 mls/hr DIAL AD ANGELA Stop: 07/07/18 23:29 Last Admin: 01/09/18 16:01 Dose: 3,000 mls Calcium Gluconate 16.67 gm/ (Sodium Chloride) 1,166.7 mls @ 0 mls/hr IV AD ANGELA ; Per Protocol PRN Reason: Protocol Stop: 07/07/18 23:29 Last Admin: 01/09/18 01:51 Dose: 1,166.7 mls Vancomycin/Sodium Chloride (Vancomycin 1 Gm (Premix)) 250 mls @ 250 mls/hr IV ONCE ONE Stop: 01/09/18 09:59 Last Admin: 01/09/18 08:38 Dose: 250 mls Miscellaneous Information (Message To [facility]) 1 ea MISC ONCE ONE Stop: 01/08/18 23:31 Last Admin: 01/09/18 04:09 Dose: 1 ea Sodium Bicarbonate (Sodium Bicarbonate) 50 meq IVP ONCE ONE Stop: 01/08/18 20:29 Last Admin: 01/08/18 20:58 Dose: 50 meq Sodium Bicarbonate (Sodium Bicarbonate) 50 meq IVP ONCE ONE Stop: 01/08/18 20:30 Last Admin: 01/08/18 21:03 Dose: 50 meq Departure - Departure Disposition: [facility] Acute Clinical Impression: Septic shock, ADOLPH (acute kidney injury), Hypoglycemia Diarrhea Qualifiers: Diarrhea type: unspecified type Qualified Code(s): R19.7 - Diarrhea, unspecified Condition: Critical
[2018-01-08] MEDS ORDERED: NS 1,000 ML IV ONE (10:36)
[2018-01-08] MEDS ORDERED: NS 1,900 ML IV ONE (11:20)
[2018-01-08] MEDS ORDERED: ALTEPLASE 2 MG VIAL IVP PRN (12:15)
--- NOTE | 2018-01-08 14:12 | CPEKG ---
Heart Rate: 90 RR Interval: 667 P-R Interval: 208 QRSD Interval: 84 QT Interval: 416 QTC Interval: 509 P Leggett: 0 QRS Leggett: 100 T Wave Leggett: 46 EKG Severity - ABNORMAL ECG - EKG Impression: atrail fibrillation EKG Impression: SUPRAVENTRICULAR BIGEMINY EKG Impression: RIGHT AXIS DEVIATION EKG Impression: BORDERLINE PROLONGED QT INTERVAL Electronically Signed By: Vinicio Miranda 08-Jan-2018 15:47:38
[2018-01-08 14:23] LABS: PLATELET COUNT 360 10^3/uL (150-400)
[2018-01-08 14:34] LABS: INR 1.51 (0.83-1.16); PROTIME(PATIENT) 18.4 SEC (12.0-15.0)
[2018-01-08] MEDS ORDERED: NOREPINEPHRINE/NS 500 ML IV ONE (14:36)
[2018-01-08] MEDS ORDERED: ACETAMINOPHEN 325 MG TAB PO PRN (14:59)
[2018-01-08] MEDS ORDERED: ONDANSETRON 4 MG/2 ML VIAL IVP PRN (14:59)
[2018-01-08] MEDS ORDERED: ONDANSETRON DISINTEGRATING 4 MG TAB PO PRN (14:59)
[2018-01-08] MEDS ORDERED: NOREPINEPHRINE BITARTRATE 4 MG in NS 500 ML IV ONE (15:00)
[2018-01-08] MEDS ORDERED: NOREPINEPHRINE BITARTRATE 4 MG in D5W 500 ML IV ONE (15:00)
[2018-01-08] MEDS ORDERED: HYDROCORTISONE 100 MG/2 ML VIAL IVP SCH (15:15)
[2018-01-08] MEDS ORDERED: D50W 25 GM/50 ML SYR IVP ONE (15:25)
[2018-01-08] MEDS ORDERED: NOREPINEPHRINE/NS 500 ML IV SCH (15:30)
[2018-01-08] MEDS: D50W 25 GM/50 ML SYR IVP PRN (15:30)
[2018-01-08] MEDS ORDERED: D5W NS 1,000 ML IV SCH (15:30)
[2018-01-08] MEDS ORDERED: CALCIUM GLUCONATE 50 ML IV ONE (15:33)
[2018-01-08] MEDS ORDERED: PROTOCOL CALCIUM 1 DOSE IV PRN (15:33)
[2018-01-08] MEDS ORDERED: SODIUM BICARBONATE 150 MEQ in D5W 1,000 ML IV SCH ×2 (15:45→23:30)
[2018-01-08] MEDS ORDERED: VANCOMYCIN HCL/NORMAL SALINE 250 ML IV SCH (16:00)
--- NOTE | 2018-01-08 16:09 | GHP ---
[f rep st] HISTORY AND PHYSICAL DATE OF ADMISSION: 01/08/2018 CHIEF COMPLAINT: Septic shock, nausea, vomiting, diarrhea. HISTORY OF PRESENT ILLNESS: A 72-year-old female with history of MRSA of the scalp and left axillary abscess and infection in June of 2017, diabetes presenting with nausea, vomiting, diarrhea for 4 days. Describes the stool as watery and occurs every time she moved. Has had decreased p.o. intake of food and liquids. Mild headaches. No cough. No nasal congestion. No sick contacts. No recent travel. No abnormal foods. No recent antibiotics. Initially, in the ED, her blood pressure was 107/49 but dramatically dropped with systolics 60/30s. I declared septic shock at the time of my interview and started Levophed. Patient complained of right shoulder pain. Unclear how long as she is not fully participating in interview due to encephalopathy. REVIEW OF SYSTEMS: I completed a 10-point review of systems, negative except as noted in HPI. PAST MEDICAL HISTORY: 1. Diabetes, on insulin. 2. MRSA scalp and left axillary abscess in June 2017. 3. Normocytic anemia. 4. Diastolic heart failure. Echo 07/03 shows EF of 60% diastolic heart function, mild MR and TR, inferior hypokinesis. 5. Hypertension. 6. Chronic pain. 7. History of NSTEMI. PAST SURGICAL HISTORY: Hysterectomy. SOCIAL HISTORY: Lives independently at [facility]. No alcohol, tobacco, or illicits. FAMILY HISTORY: Noncontributory. ALLERGIES: Amoxicillin, clavulanate, monosodium glutamate, adhesive tape, sulfa , and tetracyclines. Denies anaphylaxis or serious reaction to antibiotics. HOME MEDICATIONS: Glargine 10 units q.h.s., triamcinolone cream, Colace, Voltaren gel, vitamin B12, metoprolol 50 mg b.i.d., metformin 1000 mg b.i.d., Zestril 5 mg daily, Zocor 40, potassium 10 mEq daily. LABS: Sodium 141, potassium 4.7, chloride 110, carbon dioxide 7, anion gap 24, creatinine is 2.8 with a baseline of 1.9 in October 2017, glucose is 24, calcium is 6.5, total bilirubin is 1.3, AST 713, ALT 295, alk phos 385, total protein is 4.4, albumin is 2.2, lactate is 7.6. UA is pending. INR is 1.5, PT is 18. WBC is 26, hemoglobin 8.3, hematocrit 28, platelets are 360, MCV is 102. Chest x-ray is personally reviewed by me. No acute opacity. Mild blunting of the right costophrenic angle. EKG is personally reviewed by me. Bigeminy anterior leads. Trop was pending. PHYSICAL EXAM: T: 33, HR 80s, BP: 68/38, RR 14, 95% 2L Gen: ill-appearing HEENT: PERRLA, dry mucous membranes CV: RRR Lungs: CTA ABD: soft, NT, ND, +BS : agustin in place, no urine Musk: right shoulder, mildly swollen, no warmth, redness. Right heel with ulceration and eschar, mild surrounding redness, no warmth Skin: cold extremities. sacral pressure ulcer. Skin tears in groin. Scalp with no ulcerations, abscess Psych: AX02, trailing off, not answering all questions Neuro: somnolent ASSESSMENT/PLAN: 1. Acute septic shock: Elevated lactate, WBC, and hypothermia. Suspect GI versus urinary source given recent symptoms. UA, GI PCR, blood cutlures pending. Chest x-ray is negative for PNA. History of MRSA axillary infection, but there is no evidence of that now. She does complain of right shoulder pain , which is chronic per daughter. Not warmth, redness over joint. H/o a right chronic heel ulcer. No drainage, minimal redness; plain film for osteo. GI panel , pending. Resuscitated aggressively in ER, sepsis protocol initiated: Levophed and broad abx for abdominal source with ceftriaxone and Flagyl. Add vancomycin given foot ulcer. IV steroids, Vitamin C. CT/ultrasound show gallstones, fluid, no tenderness on exam. Dr. Calderon evaluated and not convinced cholecystitis; pericholecystic fluid could be from sepsis. He states no surgical intervention warranted at this time. Call him if decompensates. 2. Anuric ADOLPH: due to hypotension, volume depletion. Creatinine is elevated 2.8, baseline is 1.9. Hold lisinopril and metformin. Will hydrate, repeat BMP. Spoke with Dr. Conner with renal. Rec 2 amps bicarb now, cont gtt. Repeat BMP, ABG. If not improved, may need HD this evening. Patient is agreeable to HD. 3. Hypoglycemia: Glucose is 24 in ED; due to decreased p.o. intake and acute critical illness. Nurse giving an amp now and will start D5 drip. 4. Hypocalcemia: Check ionized calcium. 5. Severe metabolic anion gap acidosis: due to acute illness, hypotension. Bicarb drip 6. Hypotension: due to acute infection. Imaging and labs pending as above. h/o NSTEMI, denies CP. Trop/EKG pending. Levophed. 7. Lactic acidosis: Again, secondary to acute infection, dehydration. 8. Transaminitis: Secondary to hypotension. Will repeat in the morning. CT abdomen and pelvis is pending. 9. Leukocytosis: Again, concern for acute infection. 10. Type 2 diabetes: Holding insulin now with hypoglycemia. 11. Macrocytic anemia: H and H are stable. No evidence of bleeding. 12. History of diastolic heart failure on echo of 2015: Monitor closely with IV fluids. 13. Hypertension: Hold antihypertensives with septic shock. 14. Chronic pain: Stable. 15. Acute encephalopathy: due to acute illness, normally AX3 at BL 16. Sacral pressure ulcer: present at admission. Wound care 17. Goals: patient's mental status cleared. Had lengthy conversation about goals. She wants Full code and interventions like HD. She did appoint MDPOA; form in chart. 18. Deep venous thrombosis prophylaxis. SCDs DISPOSITION: Patient warrants ICU admission given septic shock, critically ill warranting IV pressors, antibiotics. CRITICAL TIME SPENT: 90 minutes evaluating patient bedside, evaluating labs, prior notes, and coronary care in the ICU. Also, discussing goals with family, pt /[id number]/MODL MTDD
[2018-01-08] MEDS ORDERED: CALCIUM GLUCONATE 1 GM in D5W 50 ML IV ONE (16:30)
[2018-01-08] MEDS ORDERED: NOREPINEPHRINE BITARTRATE 4 MG in NS 500 ML IV SCH (17:00)
[2018-01-08] MEDS ORDERED: VANCOMYCIN HCL/NORMAL SALINE 250 ML IV ONE (17:00)
[2018-01-08] MEDS: ASCORBIC ACID 1,500 MG in D5W 100 ML IV SCH ×2 (17:11→21:35)
[2018-01-08] MEDS: INSULIN LISPRO 100 UNIT/ML SC SCH (19:00)
[2018-01-08] MEDS ORDERED: SODIUM BICARBONATE 50 MEQ/50 ML SYR IVP ONE ×2 (20:28→20:29)
[2018-01-08] MEDS ORDERED: CEFEPIME HCL 2 GM in STERILE WATER INJ 12.5 ML IV ONE (22:22)
[2018-01-08] MEDS: NOREPINEPHRINE BITARTRATE 16 MG in NS 250 ML IV SCH (23:00)
[2018-01-08] MEDS ORDERED: PRE-DILUTION FILTER SET 100 ****SEND #2 INITIALLY MISC PRN (23:30)
[2018-01-08] MEDS ORDERED: HEPARIN MISC ONE (23:30)
[2018-01-08] MEDS ORDERED: CALCIUM GLUCONATE 16.67 GM in NS 1,000 ML IV SCH (23:30)
[2018-01-08] MEDS ORDERED: [UNRECOGNIZED DRUG - OTHER] MISC ONE (23:30)
--- NOTE | 2018-01-09 | POSTOPPROG ---
Post Op Note Date of Operation: 01/08/18 Surgeon: Vijay Calderon Pre-op Diagnosis: acute renal failure/ sepsis Post-op Diagnosis: acute renal failure/ sepsis Indication: acute renal failure/ sepsis Procedure: placement of a dialysis catheter in right supraclvicular position Findings: acute renal failure/ sepsis Inf/Abcess present in the surg proc area at time of surgery?: No EBL: Minimal Total fluids administered: 250cc Complications: none Specimen(s): none
[2018-01-09] MEDS: HYDROCORTISONE 100 MG/2 ML VIAL IVP SCH ×3 (00:02→23:15)
--- NOTE | 2018-01-09 00:07 | PDCONSULT ---
Multiple Spindle Router Operator Note: NEPHROLOGY CONSULT: CC: N/V and diarrhea HPI: 72yo F with MD and HTN admitted with 4 days of intermittent N/V and diarrhea and generalized weakness. She reports decreased PO intake. Denies dysuria, abdominal pain, open wounds, chest pain, shortness of breath or cough. She reports that she was able to eat some flounder last night and keep it down, though it was dry. Patient reports that her drafter marine saw her yesterday and said that she looked terrible, so called the ambulance who brought her to ED. In the ED ,BP was initially in 100's systolic but soon dropped to 60's/30's. IVF were given, cultures were drawn, and Levophed was started. Patient remain anuric. Bicarb remained low at 7 despite bicarb drip. She currently reports dry mouth. 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 Allergies: Allergy/AdvReac Type Severity Reaction Status Date / Time amoxicillin trihydrate Allergy Intermediate Verified 12/25/16 10:36 [From Augmentin] potassium clavulanate Allergy Intermediate Verified 12/25/16 10:36 [From Augmentin] monosodium glutamate Allergy Mild Verified 12/25/16 10:36 adhesive tape Allergy Verified 12/25/16 10:36 Sulfa (Sulfonamide Allergy Verified 12/25/16 10:36 Antibiotics) Home Meds: Aspirin EC [Aspirin EC 81 mg (*)] 81 mg PO DAILY 12/25/16 [Last Taken 07/16/17] Clotrimazole/Betamethasone Dip [Clotrimazole-Betamethasone Crm] 1 nona TP BID PRN 12/25/16 [Last Taken 07/16/17] Insulin Glargine [Lantus 100 UNITS/ML (*)] 10 units SC HS 12/25/16 [Last Taken 07/15/17] Lisinopril [Zestril 5 mg (*)] 5 mg PO DAILY 12/25/16 [Last Taken 07/16/17] Metformin HCl [Metformin 1000 mg] 1,000 mg PO BID 12/25/16 [Last Taken 07/16/17] Metoprolol Tartrate [Lopressor 50 mg (*)] 50 mg PO BID 12/25/16 [Last Taken ] Potassium Cl [Klor-Con 10 meq (RX)] 10 meq PO DAILY 12/25/16 [Last Taken ] Simvastatin [Zocor] 40 mg PO DAILY 05/06/17 [Last Taken 07/15/17] Cyanocobalamin [Vitamin B12 (*)] 500 mcg PO DAILY 07/16/17 [Last Taken 07/16/17] Diclofenac Sodium 1% [Voltaren Gel (*)] 1 nona TP BID PRN 07/16/17 [Last Taken 21:00] Triamcinolone 0.05% 1 nona TP DAILY 01/08/18 [Last Taken Unknown] Social History: no alcohol or illicit drugs, 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 [employer] Family History: no known family history of kidney disease ROS: 11 systems reviewed and negative except for that described in HPI above Exam: Temp Pulse Resp BP Pulse Ox 37.2 C 79 18 84/51 L 100 01/08/18 21:00 01/08/18 23:30 01/08/18 23:30 01/08/18 23:30 01/08/18 23:30 On 20 Levophed O2 (L/minute) 2 General: acutely ill-appearing, slightly diaphoretic Eyes: anicteric sclera, no conjunctival injection HEENT: dry mucous membranes Pulm: anterior lung orosco CTAB, no wheezes or rales, breathing comfortably on O2 NC CV: NRRR, no g/m/r Abd: distended, non-tender, + BS : agustin with very minimal urine output MSK:moves all extremities, Missing L 1st digit Skin: few sores on dorsal aspect of L toes without surrounding erythema Psych: Pleasant, answers questions appropriately Neuro: CN II-XII grossly intact, moves all extremities WBC 23.03 10^3/uL (3.80-9.50) H 01/08/18 22:49 RBC 2.59 10^6/uL (4.18-5.33) L 01/08/18 22:49 Hgb 7.8 g/dL (12.6-16.3) L 01/08/18 22:49 POC Hgb 9.9 gm/dL (12.6-16.3) L 01/08/18 16:34 Hct 25.5 % (38.0-47.0) L 01/08/18 22:49 POC Hct 29 % (38-47) L 01/08/18 16:34 MCV 98.5 fL (81.5-99.8) 01/08/18 22:49 MCH 30.1 pg (27.9-34.1) 01/08/18 22:49 MCHC 30.6 g/dL (32.4-36.7) L 01/08/18 22:49 RDW 16.5 % (11.5-15.2) H 01/08/18 22:49 Plt Count 355 10^3/uL (150-400) 01/08/18 22:49 MPV 9.2 fL (8.7-11.7) 01/08/18 14:10 Neut % (Auto) Not Reported 01/08/18 14:10 Lymph % (Auto) Not Reported 01/08/18 14:10 Preston % (Auto) Not Reported 01/08/18 14:10 Eos % (Auto) Not Reported 01/08/18 14:10 Baso % (Auto) Not Reported 01/08/18 14:10 Nucleat RBC Rel Count Not Reported 01/08/18 14:10 Absolute Neuts (auto) Not Reported 01/08/18 14:10 Absolute Lymphs (auto) Not Reported 01/08/18 14:10 Absolute Monos (auto) Not Reported 01/08/18 14:10 Absolute Eos (auto) Not Reported 01/08/18 14:10 Absolute Basos (auto) Not Reported 01/08/18 14:10 Absolute Nucleated RBC Not Reported 01/08/18 14:10 Immature Gran % Not Reported 01/08/18 14:10 Seg Neutrophils % 79.0 % 01/08/18 14:10 Band Neutrophils % 15.0 % 01/08/18 14:10 Lymphocytes % 4.0 % 01/08/18 14:10 Monocytes % 2.0 % 01/08/18 14:10 Eosinophils % 0 % 01/08/18 14:10 Basophils % 0 % 01/08/18 14:10 Metamyelocytes % 0 % 01/08/18 14:10 Myelocytes % 0 % 01/08/18 14:10 Promyelocytes % 0 % 01/08/18 14:10 Blast Cells % 0 % 01/08/18 14:10 Immature Gran # Not Reported 01/08/18 14:10 Absolute Seg Neuts 20.86 10^/uL (1.70-6.50) H 01/08/18 14:10 Absolute Band Neuts 3.96 10^3/uL (0.00-0.70) H 01/08/18 14:10 Absolute Lymphocytes 1.06 10^3/uL (1.00-3.00) 01/08/18 14:10 Absolute Monocytes 0.53 10^3/uL (0.30-0.80) 01/08/18 14:10 Absolute Eosinophils 0.00 10^3/uL (0.03-0.40) L 01/08/18 14:10 Absolute Basophils 0.00 10^3/uL (0.02-0.10) L 01/08/18 14:10 Absolute Metamyelocyte 0.00 10^3/mL (0.00-0.00) 01/08/18 14:10 Absolute Myelocytes 0.00 10^3/mL (0.00-0.00) 01/08/18 14:10 Absolute Promyelocytes 0.00 10^3/uL (0.00-0.00) 01/08/18 14:10 Absolute Plasma Cells 0.00 10^3/uL (0.00-0.00) 01/08/18 14:10 Absolute Blast Cells 0.00 10^3/uL (0.00-0.00) 01/08/18 14:10 Plasma Cells % 0 % 01/08/18 14:10 Platelet Estimate ADEQUATE (ADEQ) 01/08/18 14:10 Oval Macrocytes 1+ H 01/08/18 14:10 Echinocytes 2+ H 01/08/18 14:10 Smear Review By Pastor MILLER MD 01/08/18 14:10 PT 18.4 SEC (12.0-15.0) H 01/08/18 14:10 INR 1.51 (0.83-1.16) H 01/08/18 14:10 APTT 37.0 SEC (23.0-38.0) 01/08/18 14:10 Puncture Site RIGHT RADIAL 01/08/18 22:35 Patient Temperature 37.3 DEGREES 01/08/18 22:35 pCO2 19 mmHg (34-38) L* 01/08/18 22:35 pO2 95 mmHg (65-75) H 01/08/18 22:35 Total CO2 10 mEq/L (23-27) L 01/08/18 22:35 ABG pH 7.31 (7.35-7.45) L 01/08/18 22:35 ABG HCO3 9 mEq/L (22-26) L 01/08/18 22:35 ABG O2 Saturation 96 % (92-95) H 01/08/18 22:35 ABG Base Excess -15.5 mEq/L (-2.5-2.5) L 01/08/18 22:35 ABG Lactic Acid 6.6 mmol/L (0.5-1.6) H 01/08/18 22:35 VBG Lactic Acid 6.4 mmol/L (0.7-2.1) H 01/08/18 16:30 Mixed VBG O2 Saturation 63 % (65-75) L 01/08/18 22:20 Total O2 Concentration 2.0 LITERS 01/08/18 22:35 POC Sodium 138 mEq/L (135-145) 01/08/18 16:34 Sodium 140 mEq/L (135-145) 01/08/18 18:00 POC Potassium 5.0 mEq/L (3.3-5.0) 01/08/18 16:34 Potassium 3.9 mEq/L (3.3-5.0) 01/08/18 18:00 POC Chloride 110 mEq/L (97-110) 01/08/18 16:34 Chloride 117 mEq/L (97-110) H 01/08/18 18:00 Carbon Dioxide 7 mEq/l (22-31) L* 01/08/18 18:00 Anion Gap 16 mEq/L (8-16) 01/08/18 18:00 POC BUN 37 mg/dL (7-23) H 01/08/18 16:34 BUN 30 mg/dL (7-23) H 01/08/18 18:00 Creatinine 2.2 mg/dL (0.6-1.0) H 01/08/18 18:00 POC Creatinine 3.4 mg/dL (0.6-1.0) H 01/08/18 16:34 Estimated GFR 22 01/08/18 18:00 Glucose 99 mg/dL (70-100) 01/08/18 18:00 POC Glucose 128 mg/dL (70-100) H 01/08/18 16:34 Calcium 5.3 mg/dL (8.5-10.4) L* 01/08/18 18:00 Ionized Calcium 1.07 MMOL/L (1.12-1.30) L 01/08/18 16:30 Total Bilirubin 1.3 mg/dL (0.1-1.4) 01/08/18 14:10 Conjugated Bilirubin 1.3 mg/dL (0.0-0.5) H 01/08/18 14:10 Unconjugated Bilirubin 0.0 mg/dL (0.0-1.1) 01/08/18 14:10 AST 713 IU/L (14-46) H 01/08/18 14:10 ALT 295 IU/L (9-52) H 01/08/18 14:10 Alkaline Phosphatase 385 IU/L (38-126) H 01/08/18 14:10 Troponin I 0.038 ng/mL (0.000-0.034) H 01/08/18 14:10 Total Protein 4.4 g/dL (6.3-8.2) L 01/08/18 14:10 Albumin 2.2 g/dL (3.5-5.0) L 01/08/18 14:10 Lipase 17 IU/L (23-300) L 01/08/18 14:10 Nasal Influenza A PCR NEGATIVE FOR FLU A (NEGATIVE) 01/08/18 10:25 Nasal Influenza B PCR NEGATIVE FOR FLU B (NEGATIVE) 01/08/18 10:25 Assessment/Plan:72yo F with MD and HTN admitted with 4 days of intermittent N/V and diarrhea and generalized weakness. Brought to ED by EMS where she subsequently developed shock (presumed septic) and anuric renal failure. ADOLPH presumed pre-renal + likely now ATN given prolonged hypotension and complete anuria. # Acute oliguric renal failure- patient completely anuric *Unable to obtain UA or urine lytes due to anuria *Temp dialysis catheter placed by Trauma surgeon late on the night of 01/08. 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 01/09 with regional citrate anticoagulation Once hemodynamically improves, consider renal ultrasound --dialysis consent in chart # Mixed AG and non-AG metabolic acidosis with appropriate respiratory compensation- presumed due to combination of lactic acidosis due to septic shock , acute renal failure, and possible metformin-associated lactic acidosis ( though patient has plenty of other reason to have lactic acidosis given shock) *Start CRRT *Additional bicarb drip at 100mL/hr # Septic shock- source unclear at this point *Cultures pending *Broad-spectrum antibiotics *Pressors per primary team *Appears volume replete, but now that patient will be on CRRT and have way to remove fluid if respiratory status decompensates, could try additional fluid boluses (is getting bicarb drip) *Getting stress dose steroids # Potassium- ok at this time, expect will drop with correction of bicarb --Replacement per protocol # Hypophosphatemia- will monitor for drop in phos with CRRT --Replacement per protocol # Hypoglycemia- likely 2/2 sepsis and accumulation of insulin in setting of ADOLPH Frequent glucose checks Thank you for allowing us to participate in the care of this patient. We will continue to follow along. >40min of critical care time spent on this care of this patient with >50% of time spent in counseling and coordination of care Urvashi Conner MD [facility]
--- NOTE | 2018-01-09 00:30 | GOP ---
[f rep st] OPERATIVE REPORT DATE OF OPERATION: 01/08/2018 SURGEON: Vijay Calderon MD ANESTHESIA: Local injection (4 cc 1% xylocaine). PREOPERATIVE DIAGNOSIS: Acute renal failure, sepsis. POSTOPERATIVE DIAGNOSIS: Acute renal failure, sepsis. PROCEDURE PERFORMED: Placement of a right supraclavicular 16 cm dialysis catheter. FINDINGS: Acute renal failure, sepsis. INDICATIONS: Acute renal failure, sepsis. DESCRIPTION OF PROCEDURE: The patient was appropriately identified. A time- out was carried out. Time-out was agreed to by members of her care team. The patient was placed in a Trendelenburg position. An ultrasound was used to confirm vascular anatomy. The vessels are moderately filled and a fluid bolus was started. Approximately 250 cc is used during the course of the procedure. The central and right neck as well as the supraclavicular region and right upper chest were carefully prepped with ChloraPrep. This was allowed to dry. The drape was carefully placed. She has oxygen in place. At a position 1 cm posterior to the junction of the right lateral border of the sternocleidomastoid and clavicle, the skin has been anesthetized. On the 1st pass, using a needle, which was dropped 15 degrees below the plane of the patient's bed and aiming for the contralateral nipple, the supraclavicular portion of the subclavian vein was accessed approximately 1 cm below the skin level. Good return was obtained. The needle was stabilized. The syringe was removed. A guidewire was carefully passed. Ectopy is identified, confirming placement and advancement into the heart. The guidewire was carefully pulled back. The needle was removed over the guidewire. The skin incision is enlarged. Two progressive larger dilators were passed. Finally, the flushed dialysis catheter was carefully passed over the guidewire and positioned. The guidewire was removed. The remaining port has a hub placed. This was carefully aspirated and then flushed using saline. The catheter is secured with 2 sutures of 3-0 Prolene. A sterile dressing is applied. X-rays obtained taken confirm placement. There is no evidence of pneumothorax. SURGEON: Vijay Calderon MD. /[id number]/MODL MTDD
[2018-01-09] MEDS: REPL FLUID TYPE D RXY 1 EA, SODIUM CITRATE 4% 375 ML, SODIUM Cl 3% 519 ML in WATER FOR ... DIAL SCH ×8 (01:37→16:01)
[2018-01-09] MEDS: B22GK4/0 PRISMASATE 5,000 ML DIAL SCH ×7 (01:38→22:58)
[2018-01-09] MEDS: D50W 25 GM/50 ML SYR IVP PRN (02:32)
[2018-01-09] MEDS: MAGNESIUM SULF 2 GM/WATER 50 ML IV PRN ×3 (03:21→19:10)
[2018-01-09] MEDS: ASCORBIC ACID 1,500 MG in D5W 100 ML IV SCH ×4 (03:27→22:05)
[2018-01-09] MEDS: NS 1,000 ML MISC SCH ×4 (06:19→20:42)
[2018-01-09 06:20] LABS: PLATELET COUNT 372 10^3/uL (150-400)
[2018-01-09 06:22] LABS: INR 1.36 (0.83-1.16); PROTIME(PATIENT) 16.9 SEC (12.0-15.0)
[2018-01-09] MEDS: INSULIN LISPRO 100 UNIT/ML SC SCH ×3 (07:55→19:23)
[2018-01-09] MEDS ORDERED: VANCOMYCIN HCL/NORMAL SALINE 250 ML IV ONE (09:00)
--- NOTE | 2018-01-09 09:07 | PDMN ---
Medical Necessity Medical necessity: Pt meets IP criteria per MD; est los >2 mn for eval/tx of septic shock; pt critically ill; admit to ICU for further workup/close monitoring, IV pressors, IV abx & ID consult; hx diabetes, MRSA of scalp & L axillary abscess, anemia, diastolic heart failure, HTN & NSTEMI; per H&P & order 01/08/18
[2018-01-09] MEDS: NOREPINEPHRINE BITARTRATE 16 MG in NS 250 ML IV SCH (09:13)
[2018-01-09] MEDS: VASOPRESSIN 25 UNIT in NS 250 ML IV SCH ×2 (09:14→22:05)
[2018-01-09] MEDS: CALCIUM CHLORIDE 5.7 GM in NS 1,000 ML IV SCH ×2 (09:30→18:41)
--- NOTE | 2018-01-09 11:21 | PCMIDPN ---
Assessment/Plan: Assessment: Septic shock secondary to E coli currently covering with ceftriaxone and metronidazole. Unclear etiology exactly. This is either genitourinary infection resulting in sepsis or secondary to cholecystitis. Her clinical exam does not correlate with acute cholecystitis but the non contrasted abdominal CT indicated that possibility. At this point would continue her coverage with ceftriaxone and continue ICU support. If there is still a lack of clarity in a couple of days as to what the etiology is favor HIDA scan. Plan: 1. Continue IV ceftriaxone. 2. Discontinue vancomycin. 3. Continue ICU pressor support and bicarbonate resuscitation. 01/09/18 15:01 01/09/18 15:01 01/09/18 15:03 Subjective: Patient is resting in her hospital bed. She is alert and communicative. Her family is in the room. They state that she is much better today than she was yesterday. Patient states that she feels better. Objective: Ceftriaxone # 2 Metronidazole # 1 Vital Signs Temp Pulse Resp BP Pulse Ox 36.3 C 86 13 140/52 H 100 01/09/18 09:00 01/09/18 10:00 01/09/18 10:00 01/09/18 10:00 01/09/18 10:00 Microbiology 01/09/18 08:25 Gastrointestinal Tract Panel (PCR) - Final Stool No Organism Detected Laboratory Results 01/09/18 06:00 01/09/18 07:50 01/08/18 01/09/18 01/10/18 05:59 05:59 05:59 Intake Total 6423 Output Total 1960 0 Balance 4463 0 - Physical Exam General Appearance: WD/WN, alert, no apparent distress, toxic (Mildly) Respiratory: lungs clear, normal breath sounds, No respiratory distress Cardiac/Chest: regular rate, rhythm, No tachycardia Extremities: non-tender, normal inspection Abdomen: non-tender, soft, No mass Skin: normal color, warm/dry, No rash Neuro/Psych: alert, normal mood/affect, oriented x 3 ICD10 Worksheet Patient Problems: Problems Problem Status Onset ADOLPH (acute kidney injury) Acute Diarrhea Acute Hypoglycemia Acute Septic shock Acute Cellulitis of foot Acute ESBL (extended spectrum beta-lactamase) producing bacteria infection Acute ~ Facial cellulitis Acute History of fever Acute MRSA (methicillin resistant Staphylococcus aureus) Acute ~03/04/17 Methicillin resistant Staphylococcus aureus infection Acute ~05/06/17 Myocardial infarct Acute Rhabdomyolysis Acute Sepsis Acute Skin graft infection Acute Vomiting Acute
[2018-01-09] MEDS: cefTRIAXone 2 GM in STERILE WATER INJ 20 ML IV SCH (11:30)
--- NOTE | 2018-01-09 12:28 | WOCRNPDOC ---
WOCRN Advanced Assessment Note - Skin Integrity Problem, Advanced Assess Right Posterior Heel Pressure Injury Dressing Type: Open to Air Integumentary Issue Intervention: Visualized Under Dressing (heel boots) Vidhya Wound Tissue: Blanching Wound Bed Color: Black, Red, Yellow, White Wound Bed Constitution: Red/[place] - Non Granular Tissue (5%), Adhered Slough (20% ), Stable Eschar (75%) Site Measurement - Head-to-Toe Length X Width X Depth (cm): 5.2x4.1x eschar Pressure Injury Stage: Unstageable Pressure Injury Present on Admit: Yes Skin Integrity Problem Comment: Pressure injury present on admission, covering the posterior aspect of right heel. TOMASZ Reynoso in room. Heels were in offloading boots; will write order to keep them offloaded. Will order betadine BID to keep area dry and stable. Wound care will round again next week. Right Proximal Plantar Foot Dressing Type: Open to Air Vidhya Wound Tissue: Blanching Wound Bed Color: Brown, Red Wound Edges: Irregular Site Measurement - Head-to-Toe Length X Width X Depth (cm): 1.2x1.3x0 Skin Integrity Problem Comment: Healing area. Some eschar remaining, but within epithelizing tissue. Leave intact, but continue to offload. Bilateral Groin Dermatitis Exudate Amount: Minimal Exudate Characteristic(s): Serosanguinous Vidhya Wound Tissue: Blanching, Erythema, Painful/Tender Wound Bed Color: [place], Red Wound Bed Constitution: Red/[place] - Non Granular Tissue Skin Integrity Problem Comment: Intertriginous dermatitis in groin skinfolds. Partial thickness throughout crease with drainage. Recommend inter-dry sheets without the use of powders or creams. Wound care will not follow this wound. Sacrum Dressing Type: Mepilex Border (Sacrum ) Dressing Description: Soiled (stool) Integumentary Issue Intervention: Dressing Changed Vidhya Wound Tissue: Blanching, Erythema (Extensive erythema over coccyx and lower sacrum. Alerted TOMASZ Reynoso), Scarred Wound Bed Constitution: Healed Pressure Injury Stage: Stage 2 Pressure Injury Present on Admit: Yes Skin Integrity Problem Comment: Multiple scarred areas noted on sacrum and coccyx from previously healed pressure injuries. The coccyx wound was staged in 2016 as a stage 2 however it is unclear what stage the other wounds were. At this point there are no open areas and all the tissue is blanching. However there is a small area of darker tissue on the left sacrum which may be an evolving DTI or may be an area of darker scar tissue. Will treat area with precautions for multiple pressure injuries to the area. Wound care will sign off this wound. Please reconsult if any wounds open or there is anything else of concern that appears. Dominique TOLBERT and Angeles RN in room for all care. Patient also incontinent of stool.
--- NOTE | 2018-01-09 12:47 | SOAPPROG ---
SOAP Progress Note Assessment/Plan: Assessment/Plan: 72yo F with MD and HTN admitted last night with septic shock and anuric ADOLPH 2/2 to probable ATN requiring CRRT. 1. Acute oliguric renal failure- patient completely anuric -still anuric, UA and lytes ordered -will hold on serologies for now -unknown baseline Cr however patient reports no h/o renal disease -abdominal US shows normal R kidney no hydro, may get formal renal US when stable -continue CRRT with citrate protocol for now, however may need to switch if unable to replete calcium 2. Mixed AG and non-AG metabolic acidosis with appropriate respiratory compensation-most likely ADOLPH and diarrhea -improved to 14 with CRRT and bicarb gtt -hold bicarb gtt given risk with hypocalcemia and correction of acidosis, await calcium repletion 3. Septic shock-possible acute cholecystitis -cultures GNR's -Broad-spectrum antibiotics renally dosed -on pressors, keep MAP>65 -stress dose steroids 4. HypoK -Replacement per protocol for goal >4 5. Hypophosphatemia- will monitor for drop in phos with CRRT --Replacement per protocol for goal >3 Thank you for allowing us to participate in the care of this patient. We will continue to follow along. Please contact #[phone] if ?'s. 01/09/18 14:24 Subjective: Still no urine output overnight. Having low ionized calciums per nursing. Patient awake and states she is feeling better. Daughter at bedside. Objective: Vital Signs Temp Pulse Resp BP Pulse Ox 36.8 C 86 16 116/57 L 95 01/09/18 11:00 01/09/18 12:00 01/09/18 12:00 01/09/18 12:00 01/09/18 12:00 Microbiology 01/09/18 08:25 Gastrointestinal Tract Panel (PCR) - Final Stool No Organism Detected Laboratory Results 01/09/18 06:00 01/09/18 11:45 01/08/18 01/09/18 01/10/18 05:59 05:59 05:59 Intake Total 6423 Output Total 1960 0 Balance 4463 0 PT 16.9 SEC (12.0-15.0) H 01/09/18 06:00 INR 1.36 (0.83-1.16) H 05/25/18 06:00 Physical Exam - Physical Exam General Appearance: WD/WN, alert, no apparent distress EENT: PERRL/EOMI, normal ENT inspection Neck: non-tender, full range of motion, supple Respiratory: chest non-tender, normal breath sounds Cardiac/Chest: normal peripheral pulses, regular rate, rhythm Abdomen: normal bowel sounds, non-tender, soft Back: Normal inspection Skin: normal color, warm/dry Extremities: normal range of motion, non-tender Neuro/Psych: no motor/sensory deficits, alert, normal mood/affect ICD10 Worksheet Patient Problems: Problems Problem Status Onset ADOLPH (acute kidney injury) Acute Diarrhea Acute Hypoglycemia Acute Septic shock Acute Cellulitis of foot Acute ESBL (extended spectrum beta-lactamase) producing bacteria infection Acute ~ Facial cellulitis Acute History of fever Acute MRSA (methicillin resistant Staphylococcus aureus) Acute ~03/04/17 Methicillin resistant Staphylococcus aureus infection Acute ~05/06/17 Myocardial infarct Acute Rhabdomyolysis Acute Sepsis Acute Skin graft infection Acute Vomiting Acute
[2018-01-09] MEDS: POTASSIUM Cl (KCl) 50 ML IV PRN ×2 (12:56→13:28)
[2018-01-09] MEDS: SODIUM PHOS 20 MM in D5W 250 ML IV PRN (13:12)
--- NOTE | 2018-01-09 14:14 | HOSPPROG ---
Hospitalist Progress Note Assessment/Plan: 72 yo F with MMI presenting with septic shock from presumed urinary source # septic shock: 2/2 ecoli bacteremia with urinary source likely--possibley GI source with imaging concerning for cholecystitis however no abd pain and gen surgy eval of imaging feels less likely etiology, bp improved on NE. Current abx ctx/flagyl--vanco dc'ed # e coli bacteremia: as above, sensi pending # anuric adolph: started on crrt, remains anuric, presumably related to shock wihtout prior hx of renal d/o # AGMA/lactic acidosis: multifactorial and related to shock as well as adolph, lactate remains elevated despite improved HD # acute encephalopathy: resolved, 2/2 sepsis # transaminitis: ischemic hepatitis presumably, will trend # gallbladder sludging/cholelithiasis: as above, not thought to be clinically significant # DM2: SSI # hypoglycemia: resolved, now mildly high, monitoring # chronic diastolic chf: euvolemic # htn #sacral pressure injury POA IP status Patient new to my care. Old records reviewed/summarized as above. Care plan reviewed with Dr. Summers on multidisciplinary rounds. > 40 min of critical care time spent in above. Subjective: patient feeling much better today, undergoing crrt Objective: Vital Signs Temp Pulse Resp BP Pulse Ox 2.6 C L 89 17 98/63 L 95 01/09/18 13:00 01/09/18 13:00 01/09/18 13:00 01/09/18 13:00 01/09/18 13:00 Microbiology 01/09/18 08:25 Gastrointestinal Tract Panel (PCR) - Final Stool No Organism Detected Laboratory Results 01/09/18 06:00 01/09/18 11:45 01/08/18 01/09/18 01/10/18 05:59 05:59 05:59 Intake Total 6423 Output Total 1960 0 Balance 4463 0 PT 16.9 SEC (12.0-15.0) H 01/09/18 06:00 INR 1.36 (0.83-1.16) H 01/09/18 06:00 awake alert anicteric op clear rrr no mrg cta soft nt nd no cce warm dry well perfused oriented ICD10 Worksheet Patient Problems: Problems Problem Status Onset Septic shock Acute ADOLPH (acute kidney injury) Acute Hypoglycemia Acute Diarrhea Acute Methicillin resistant Staphylococcus aureus infection Acute ~09/19/17 Facial cellulitis Acute MRSA (methicillin resistant Staphylococcus aureus) Acute ~03/04/17 ESBL (extended spectrum beta-lactamase) producing bacteria infection Acute ~ Myocardial infarct Acute Rhabdomyolysis Acute Cellulitis of foot Acute History of fever Acute Vomiting Acute Skin graft infection Acute Sepsis Acute
--- NOTE | 2018-01-09 14:41 | ASMTCASEMG ---
Living Arrangements What is your living Answers: Alone arrangement? Who do you live with? Type Of Residence What kind of residence do Answers: [facility]? Type of Residence Facility Name Notes: [facility] Independent Discharge Plan Comments Coordination Status Comments Notes: Pt is a 72 y/o female admitted for septic shock, nausea, vomiting and diarrhea. ID is involved and will continue seeing pt. Needs are TBD at this time. CM to follow. Plan: TBD Date Signed: 01/09/2018 02:41 PM Electronically Signed By:KEVIN Veliz
--- NOTE | 2018-01-09 15:23 | GCON ---
[f rep st] CONSULTATION CRITICAL CARE CONSULT DATE OF CONSULTATION: 01/09/2018 HISTORY OF PRESENT ILLNESS: This patient is a 72-year-old female with a remote history of an MRSA sc alp abscess, coronary artery disease and diabetes, who presented with nausea and vomiting times the l ast 4-5 days. The cause was unclear, and she presented to the emergency department, was found to be hypotensive and received IV fluids. The lactate level was quite elevated at 7.6, and she was also fo und to have a glucose of less than 30. This was obviously treated aggressively, and she was transfer red to the intensive care unit. At the time of my exam, she said that she was uncertain why she had gotten sick so suddenly and denied any unusual foods that she had eaten. There have been no recent s ick contacts. She had not had any recent antibiotics and denied any chest pain, hematemesis, or robert na. REVIEW OF SYSTEMS: Otherwise negative. PAST MEDICAL HISTORY: Includes hypertension, diabetes, coronary artery disease, with a qfn-DB-vmdchw ion ND in the past, a scalp abscess, anemia, diastolic dysfunction, chronic shoulder pain, B12 defici ency. PAST SURGICAL HISTORY: Only includes a hysterectomy in the past. SOCIAL HISTORY: She is a nonsmoker. No alcohol or IV drug use. FAMILY HISTORY: Noncontributory. MEDICATIONS: At this time include ceftriaxone, Solu-Cortef 150 mg q.12, Flagyl, Zofran, bicarb, vaso pressin. PHYSICAL EXAM: VITAL SIGNS: She had blood pressure at the time of my evaluation of 140/50, but was on high-dose Levophed at the time. Heart rate of 89, respirations 14, oxygen saturation 100% on 2 L. GENERAL: She was overweight but not morbidly obese, awake and oriented x3. Able to speak in full s entences without using accessory muscles for breathing. HEENT: Pupils equally round and reactive to light. Nonicteric and noninjected. Mucous membranes are moist, without erythema or exudate. NECK: Supple, without adenopathy or jugular vein distention. LUNGS: Breath sounds were clear to auscult ation bilaterally, without wheezes, rubs or rales. HEART: Regular rate and rhythm, without obvious murmur. ABDOMEN: Soft, nontender, nondistended, without hepatosplenomegaly. Normoactive bowel tone s. EXTREMITIES: No clubbing, cyanosis, or edema. NEUROLOGIC: Nonfocal. LABORATORY DATA: Objective data includes a white count on presentation of 23, with hematocrit 25, pl atelets of 355. White count was down to 21 today. Her initial blood gas showed a pH 7.31, pCO2 19, pO2 95, bicarb of 9, oxygen saturation 96%, consistent with a metabolic acidosis and respiratory comp ensation. Her lactate level was 7.1 and continues to rise, now at 7.7. Basic metabolic panel showed acute renal failure with a BUN of 34 and creatinine of 2.8. Her bicarb was only 7 on that panel. H er LFTs were markedly elevated at 713 and 295 for AST and ALT, respectively, alkaline phosphatase 385 . Troponin was 0.38. Albumin 2.2. Lipase was normal. ASSESSMENT/PLAN: 1. Septic shock with Escherichia coli growing in her blood on multiple bottles. The source here is uncertain. Not mentioned above was a CT scan that showed some inflammatory changes around her gallbl adder, but she lacks a Wilson sign, so I do not think that cholecystitis is very likely. A urinary s ource is another possibility, as well as translocation from a GI source. In any case, she seems to b e doing well, and her Levophed dose is being titrated down as we speak. 2. Acute kidney injury. She is currently on continuous renal replacement therapy and is tolerating this reasonably well, particularly since we were able to titrate the Levophed. Renal consult is zackary ging this of course, and she will stay on continuous flow until her blood pressure normalizes. I agr ee with keeping her euvolemic at this time. 3. Transaminitis. I think this is likely due to shock liver and should normalize on its own. 4. Persistent metabolic acidosis with a lactate level. This is probably related to her previous met formin, as well as decreased renal clearance. As long as the hemodynamics improve with dialysis, thi s should get better. 5. Hypoglycemia. This is also related to her underlying diabetes and prolonged effect of medication s. She is on a D5 drip at this time, which she should continue to maintain normal glucose. 6. Total of 45 minutes of critical care time was required for this patient. /[id number]/MODL
[2018-01-09] MEDS: REPL FLUID TYPE D CAPS 1 EA in WATER FOR INJECTION,STERILE 4,000 ML DIAL SCH ×3 (18:01→23:19)
[2018-01-09 18:31] LABS: INR 1.38 (0.83-1.16); PROTIME(PATIENT) 17.1 SEC (12.0-15.0)
[2018-01-10] MEDS: MAGNESIUM SULF 2 GM/WATER 50 ML IV PRN ×2 (01:33→12:59)
[2018-01-10] MEDS: POTASSIUM Cl (KCl) 50 ML IV PRN ×4 (01:37→09:12)
[2018-01-10] MEDS: CALCIUM CHLORIDE 5.7 GM in NS 1,000 ML IV SCH ×2 (01:55→09:20)
[2018-01-10] MEDS: SODIUM PHOS 20 MM in D5W 250 ML IV PRN (01:55)
[2018-01-10] MEDS: REPL FLUID TYPE D CAPS 1 EA in WATER FOR INJECTION,STERILE 4,000 ML DIAL SCH ×4 (02:00→11:06)
[2018-01-10] MEDS: B22GK4/0 PRISMASATE 5,000 ML DIAL SCH ×3 (02:20→09:46)
[2018-01-10] MEDS: ASCORBIC ACID 1,500 MG in D5W 100 ML IV SCH ×4 (03:15→22:49)
[2018-01-10] MEDS: NS 1,000 ML MISC SCH ×2 (04:41→09:46)
[2018-01-10] MEDS ORDERED: HEPARIN 5,000 UNIT/0.5 ML INJ SC ONE (06:30)
[2018-01-10] MEDS ORDERED: HEPARIN 50,000 UNIT/10 ML VIAL MISC ONE (06:45)
[2018-01-10 06:52] LABS: INR 1.41 (0.83-1.16); PROTIME(PATIENT) 17.4 SEC (12.0-15.0)
[2018-01-10 06:53] LABS: PLATELET COUNT 272 10^3/uL (150-400)
--- NOTE | 2018-01-10 07:34 | SOAPPROG ---
SOAP Progress Note Assessment/Plan: Assessment: #Oliguric ADOLPH- suspect ATN in setting of sepsis -on CRRT (initiated 01/09) - On cvvhdf with citrate, Qb 200, Qr 1500, Qd 1500, UF 0, CaCl gtt @ 150 cc/hr -CT non contrast no obstruction/stones -LFTs improving-- monitor for signs citrate toxicity as may need to switch to non-citrate formulation -replacing K and phos now #hypocalcemia -improved with holding bicarb gtt, increasing rate CaCl gtt -watch for citrate toxicity-- her LFTs are improving and iCA better this am-- will repeat LFTs later today and follow iCA trend #metabolic acidosis -lactate down trending 4.9 this am -last gas with ph 7.41 (good resp compensation)-- repeat this afternoon to ensure not tiring out. -continue to follow labs closely off bicarb gtt (held due to hypoCa) #sepsis- E coli bacteremia -remains on pressors -imaging suggestive of cholecystitis, also may be urinary source (no obstructing stones noted on CT). While transaminases are improving, her alk phos is rising. I am concerned for GB and will discuss with crit care-- ?should we get HIDA scan #Acute mental status change -head CT no acute change -check ammonia now -has not received sedation/pain meds -not uremia as on CRRT and labs improved. 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 On O2 by NC. Acute change in mental status this am- was talking and following commands, now somnolent and less responsive. Head CT reportedly negative. Made about 160 cc Urine. Objective: Vital Signs Temp Pulse Resp BP Pulse Ox 36.6 C 89 13 122/44 H 99 01/10/18 06:00 01/10/18 06:00 01/10/18 06:00 01/10/18 06:00 01/10/18 06:00 Microbiology 01/09/18 08:25 Gastrointestinal Tract Panel (PCR) - Final Stool No Organism Detected Laboratory Results 01/10/18 06:00 01/09/18 01/10/18 01/11/18 05:59 05:59 05:59 Intake Total 6423 4457 Output Total 1959 2000 Balance 4427 2456 PT 17.4 SEC (12.0-15.0) H 01/10/18 06:00 INR 1.41 (0.83-1.16) H 01/10/18 06:00 Physical Exam - Physical Exam General Appearance: other (somnolent, on O2 by NC) EENT: other (mmm) Respiratory: other (cta ant bilat, poor effort) Cardiac/Chest: regular rate, rhythm, other (no rub) Abdomen: non-tender, soft Skin: jaundice Extremities: other (+edema bilat) Neuro/Psych: other (somnolent, responds to pain, opens eyes to voice but not following commands) ICD10 Worksheet Patient Problems: Problems Problem Status Onset ADOLPH (acute kidney injury) Acute Diarrhea Acute Hypoglycemia Acute Septic shock Acute Cellulitis of foot Acute ESBL (extended spectrum beta-lactamase) producing bacteria infection Acute ~ Facial cellulitis Acute History of fever Acute MRSA (methicillin resistant Staphylococcus aureus) Acute ~03/04/17 Methicillin resistant Staphylococcus aureus infection Acute ~05/06/17 Myocardial infarct Acute Rhabdomyolysis Acute Sepsis Acute Skin graft infection Acute Vomiting Acute
[2018-01-10] MEDS: INSULIN LISPRO 100 UNIT/ML SC SCH ×2 (08:15→12:44)
[2018-01-10] MEDS: NOREPINEPHRINE BITARTRATE 16 MG in NS 250 ML IV SCH (08:38)
[2018-01-10] MEDS: VASOPRESSIN 25 UNIT in NS 250 ML IV SCH (08:38)
--- NOTE | 2018-01-10 08:47 | CPEKG ---
Heart Rate: 98 RR Interval: 612 P-R Interval: 133 QRSD Interval: 86 QT Interval: 372 QTC Interval: 476 P [place]: 0 QRS [place]: 101 T Wave [place]: -11 EKG Severity - ABNORMAL ECG - EKG Impression: SINUS RHYTHM EKG Impression: ABERRANT COMPLEX, POSSIBLY SUPRAVENTRICULAR EKG Impression: RIGHT AXIS DEVIATION EKG Impression: POOR R WAVE PROGRESSION EKG Impression: BORDERLINE T ABNORMALITIES, INFERIOR LEADS Electronically Signed By: Ariel Wang 12-Jan-2018 10:24:24
[2018-01-10] MEDS: cefTRIAXone 2 GM in STERILE WATER INJ 20 ML IV SCH (09:12)
[2018-01-10] MEDS: ACCESSORY DRAIN 1 EA BAG***SEND #2 INITIALLY MISC PRN (09:46)
[2018-01-10] MEDS ORDERED: CALCIUM CHLORIDE 1 GM/10 ML INJ IV ONE ×2 (10:54→21:15)
[2018-01-10] MEDS: PETROLAT,WHT/MIN OIL/SOD CHL 3.5 GM OPHT.OINT EACHEYE PRN ×2 (11:39→18:21)
[2018-01-10] MEDS: BGK 4/2.5 PRISMASATE 5,000 ML DIAL SCH ×4 (11:47→15:17)
[2018-01-10] MEDS: HYDROCORTISONE 100 MG/2 ML VIAL IVP SCH ×3 (12:02→22:50)
[2018-01-10] MEDS ORDERED: levETIRAcetam 500MG/NACL 100 ML IV ONE (12:24)
[2018-01-10] MEDS ORDERED: OLANZapine DISINTEGR 5 MG TAB PO ONE (12:25)
--- NOTE | 2018-01-10 13:28 | NEUROPROG ---
Assessment: [id number] - Neurology Consult: - CC: Altered Mental Status - HPI: Pt in ICU on antibiotics for sepsis from E.coli infection. She has also developed acute renal failure from sepsis and is on dialysis as well as some hypotension. She had been mentating normally until the morning of 01/10/18 when she was noted to have become obtunded. She was noted to be lying in bed with her eyes open but unresponsive to commands or external stimuli. A head CT showed no acute changes. She was agitated during the head CT so it was felt it would require increased sedation to obtain a brain MRI. I examined her on and found her obtunded but noted no clear lateralizing abnormalities to suggest stroke. Her current sepsis and renal failure on dialysis could be causing an acute encephalopathy but I wanted to exclude seizures so I started Keppra 500 mg bid and ordered an EEG. If she has not improved tomorrow and the EEG shows no seizures we can proceed with a brain MRI to evaluate for atypical stroke. - PMHx: HTN, DM, CAD, KS, scalp abscess, anemia, diastolic dysfunction, chronic shoulder pain, B12 def - SHx: no tobacco use FHx: NC - ROS: Pt denied acute fever, total vision loss, active severe chest pain, respiratory failure, total body severe rash, total bowel/bladder incontinence, psychosis, active seizures, or active bleeding - O: VS reviewed General: Obtunded Eyes: Fundoscopic exam not able to visualize optic disks CV: Heart RRR, no murmur, no carotid bruit Lungs: Clear to auscultation bilaterally, no rhonchi or rales Neuro: - Mental: pt lying in bed with eyes open, does not respond to commands or attend to environment, turns head towards pain in arms but not legs (underlying diabetic neuropathy so poor sensation in feet) - Cranial Nerves: . II: PERRL . III/IV/: Eyes conjugate, no Ptosis - Motor/Sensory: pt turns head towards nail bed pressure in hands but does not withdraw to pain . Tone: normal tone in all 4 extremity - Reflexes: B/L bic 2/ - Labs: 01/10/18- CBC WBC 10.9H Hct 22.4L, Chem CO2 14L BUN 5L - Rads: 01/10/18- Head CT: no acute changes, atrophy and CMVD seen (I personally visualized the images on 01/10/18) - Assessment: 1. Altered Mental Status: Unclear cause but may be from known E.coli sepsis or acute renal failure. I will evaluate for seizures with EEG and a trial of Keppra 500 mg bid. If this w/u is unremarkable we can proceed with a brain MRI w/ and /wo con tomorrow. - 2. E.coli sepsis with hypotension at times 3. Acute renal failure on dialysis 4. Transaminitis likely form sepsis - Plan: - Begin levetiracetam 500 mg bid to cover chance this is a non-convulsive seizure - EEG - Consider brain MRI w/ and w/o con tomorrow if patient not improved and EEG shows no seizures - 46 minutes of critical care time spent on acutely ill patient who abruptly become unresponsive, I evaluated patient, spoke with family, and arranged emergent EEG as well as beginning anti-seizure medication Objective: Vital Signs Temp Pulse Resp BP Pulse Ox 35.4 C L 79 22 H 131/47 H 100 01/10/18 09:00 01/10/18 13:00 01/10/18 13:00 01/10/18 13:00 01/10/18 13:00 Microbiology 01/09/18 08:25 Gastrointestinal Tract Panel (PCR) - Final Stool No Organism Detected Laboratory Results 01/10/18 06:00 01/10/18 12:05 01/09/18 01/10/18 01/11/18 05:59 05:59 05:59 Intake Total 6423 4457 Output Total 1960 2000 Balance 4463 2456 PT 17.4 SEC (12.0-15.0) H 01/10/18 06:00 INR 1.41 (0.83-1.16) H 01/10/18 06:00 Allergies/Adverse Reactions: amoxicillin trihydrate [From Augmentin] Allergy (Intermediate, Verified 10:36) potassium clavulanate [From Augmentin] Allergy (Intermediate, Verified 12/25/16 10:36) monosodium glutamate Allergy (Mild, Verified 12/25/16 10:36) adhesive tape Allergy (Verified 12/25/16 10:36) Sulfa (Sulfonamide Antibiotics) Allergy (Verified 12/25/16 10:36)
--- NOTE | 2018-01-10 15:06 | HOSPPROG ---
Hospitalist Progress Note Assessment/Plan: 72 yo F with MMI presenting with septic shock from presumed urinary source # NEW overnight: Acute encephalopathy: patient completely obtunded this am after being a&ox 3 yesterday, eyes open/unblinking, minimal response to pain. Etiology unclear--initial concern for citrate toxicity leading to acute hypocalcemia however repeat iCa wnl and seems that one very low draw was in error. Neuro consulted, ? seizures and started on keppra with EEG pending. MRI brain pending. Consider LP pending MRI results. # septic shock: 2/2 ecoli bacteremia with urinary source likely--possibley GI source with imaging concerning for cholecystitis however no abd pain and gen surgy eval of imaging feels less likely etiology, remains on both NE and vasopressin to maintain MAPS. Current abx ctx/flagyl # e coli bacteremia: as above, sensi pending # anuric adolph: started on crrt, remains anuric, presumably related to shock # AGMA/lactic acidosis: multifactorial and related to shock as well as adolph, lactate remains elevated despite improved HD # transaminitis: ischemic hepatitis presumably, essentially stable overnight # gallbladder sludging/cholelithiasis: as above, not thought to be clinically significant # DM2: SSI # hypoglycemia: resolved, now mildly high, monitoring # chronic diastolic chf: euvolemic # htn #sacral pressure injury POA IP status Care plan reviewed with Dr. Summers on multidisciplinary rounds. > 30 min of critical care time spent in above. Subjective: overnight patient noted to be obtunded, no longer interactive, no longer following commands Objective: Vital Signs Temp Pulse Resp BP Pulse Ox 35.4 C L 85 15 119/38 L 98 01/10/18 09:00 01/10/18 15:00 01/10/18 15:00 01/10/18 15:00 01/10/18 15:00 Microbiology 01/09/18 08:25 Gastrointestinal Tract Panel (PCR) - Final Stool No Organism Detected Laboratory Results 01/10/18 06:00 01/10/18 12:05 01/09/18 01/10/18 01/11/18 05:59 05:59 05:59 Intake Total 6423 4457 Output Total 3776 2000 Balance 4463 2456 PT 17.4 SEC (12.0-15.0) H 01/10/18 06:00 INR 1.41 (0.83-1.16) H 01/10/18 06:00 eyes open staring at ceiling not responsive to voice/slight response to pain-- grimmaces and blinks anicteric op clear rrr no mrg cta soft nt nd diffuse edema warm dry well perfused oriented appropriate ICD10 Worksheet Patient Problems: Problems Problem Status Onset Septic shock Acute ADOLPH (acute kidney injury) Acute Hypoglycemia Acute Diarrhea Acute Methicillin resistant Staphylococcus aureus infection Acute ~05/06/17 Facial cellulitis Acute MRSA (methicillin resistant Staphylococcus aureus) Acute ~03/04/17 ESBL (extended spectrum beta-lactamase) producing bacteria infection Acute ~ Myocardial infarct Acute Rhabdomyolysis Acute Cellulitis of foot Acute History of fever Acute Vomiting Acute Skin graft infection Acute Sepsis Acute
--- NOTE | 2018-01-10 15:13 | PDINTPN ---
Customer Technical Services Manager Progress Note Assessment/Plan: Assessment/plan: 72 F with DM admitted 01/09 with 3-4 days N/V/D of unclear etiology and found to have septic shock and acute renal failure, with subsequent blood cultures growing E. Coli. She was started on the sepsis protocol and CRRT after she was clearly anuric. Anitbiotics have included ceftriaxone and flagyl, while she has required levophed, vasopressin, and hydrocortisone after a reasonable fluid challenge failed to reverse her hypotension. * Septic shock- her wbc has reduced and she has been afebrile; though her pressor requirements remain static. The source for her e.coli remains presumptively urine, since there was no evidence for abdominal or pulmonary sources. Cholecystitis was considered based on CT findings, but she lacked any RUQ pain with deep palpation. * Altered mental status- she was quite lucid and normal 01/09 but clearly altered 01/10 without clear cause. Her head CT was negative, her wbc is now nearly normal, an EKG showed no obvious ischemia, her glucose was normal, and her exam had no localizing signs (with the remote possibility of UE rigidity). Her electrolytes appear normal including calcium after clarification with renal. She has received no neuroleptic medications. The absence of thrombocytopenia makes TTP/HUS unlikely, though there are 1+ shistocytes on her smear. Neurology and ID are both involved and an MRI is pending at this time. * ADOLPH- likely related to septic shock. She has started to make minimal urine and continues with CRRT. Appreciate renal consult as well. Changing from citrate bath today * critical care time 75 minutes including multiple bedside exams, family discussions, rn and md discussion with ID, neurology, renal, hospitalists. Subjective: acute onset obtundation early this am while getting CRRT. Objective: Vital Signs Temp Pulse Resp BP Pulse Ox 35.4 C L 79 22 H 131/47 H 100 01/10/18 09:00 01/10/18 13:00 01/10/18 13:00 01/10/18 13:00 01/10/18 13:00 Microbiology 01/09/18 08:25 Gastrointestinal Tract Panel (PCR) - Final Stool No Organism Detected Laboratory Results 01/10/18 06:00 01/10/18 12:05 01/09/18 01/10/18 01/11/18 05:59 05:59 05:59 Intake Total 6423 4457 Output Total 1960 2000 Balance 4487 2456 PT 17.4 SEC (12.0-15.0) H 01/10/18 06:00 INR 1.41 (0.83-1.16) H 01/10/18 06:00 Physical Exam - Physical Exam General Appearance: no apparent distress, obtunded EENT: PERRL/EOMI, pharynx normal, No scleral icterus (R), No scleral icterus (L) Neck: non-tender, supple, No lymphadenopathy (R), No lymphadenopathy (L) Respiratory: lungs clear, normal breath sounds, decreased breath sounds, No respiratory distress, No accessory muscle use Cardiac/Chest: regular rate, rhythm, No edema, No JVD Abdomen: non-tender, soft, No pulsatile mass, No distended, No guarding Skin: normal color, warm/dry, No cyanosis Lymphatic: no adenopathy Extremities: No pedal edema Neuro/Psych: cognition abnormalities ICD10 Worksheet Patient Problems: Problems Problem Status Onset ADOLPH (acute kidney injury) Acute Diarrhea Acute Hypoglycemia Acute Septic shock Acute Cellulitis of foot Acute ESBL (extended spectrum beta-lactamase) producing bacteria infection Acute ~ Facial cellulitis Acute History of fever Acute MRSA (methicillin resistant Staphylococcus aureus) Acute ~03/04/17 Methicillin resistant Staphylococcus aureus infection Acute ~05/06/17 Myocardial infarct Acute Rhabdomyolysis Acute Sepsis Acute Skin graft infection Acute Vomiting Acute
--- NOTE | 2018-01-10 17:32 | PCMIDPN ---
Assessment/Plan: Assessment: Septic shock secondary to E coli currently covering with ceftriaxone and metronidazole. Unclear etiology exactly. This is either genitourinary infection resulting in sepsis or secondary to cholecystitis. Her clinical exam does not correlate with acute cholecystitis but the non contrasted abdominal CT indicated that possibility. 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 She became very encephalopathic. And currently she is not able to respond to commands. This is perplexing considering her other septic parameters had improved. No clear metabolic derangement but this might be sepsis associated encephalopathy despite it showing up fairly late. Independently it is in negative predictor for beneficial outcome. However I would have to think that with all other parameters improved this may be a transient process also. Will continue to treat with IV ceftriaxone and monitor situation. Plan: 1. Continue IV ceftriaxone. 2. Discontinue vancomycin. 3. Continue ICU pressor support and bicarbonate resuscitation. 01/09/18 15:01 01/09/18 15:01 01/09/18 15:03 01/10/18 17:30 Subjective: Patient is unresponsive this morning. Her eyes spontaneously open but she does not track. She does not follow commands. No fevers. White blood cell count decreased significantly overnight. Objective: Ceftriaxone # 2 Vital Signs Temp Pulse Resp BP Pulse Ox 35.4 C L 85 15 119/38 L 98 01/10/18 09:00 01/10/18 15:00 01/10/18 15:00 01/10/18 15:00 01/10/18 15:00 Laboratory Results 01/10/18 06:00 01/10/18 12:05 01/09/18 01/10/18 01/11/18 05:59 05:59 05:59 Intake Total 3123 4457 Output Total 1959 2000 Balance 2735 8696 - Physical Exam General Appearance: WD/WN, obtunded, non-toxic, No alert Respiratory: lungs clear, normal breath sounds, No respiratory distress Cardiac/Chest: regular rate, rhythm, No tachycardia, No irregularly irregular Abdomen: non-tender, soft, No distended, No mass Skin: normal color, warm/dry, No rash Neuro/Psych: No alert, No normal mood/affect, No oriented x 3 ICD10 Worksheet Patient Problems: Problems Problem Status Onset ADOLPH (acute kidney injury) Acute Diarrhea Acute Hypoglycemia Acute Septic shock Acute Cellulitis of foot Acute ESBL (extended spectrum beta-lactamase) producing bacteria infection Acute ~ Facial cellulitis Acute History of fever Acute MRSA (methicillin resistant Staphylococcus aureus) Acute ~03/04/17 Methicillin resistant Staphylococcus aureus infection Acute ~05/06/17 Myocardial infarct Acute Rhabdomyolysis Acute Sepsis Acute Skin graft infection Acute Vomiting Acute
[2018-01-10] MEDS: ERTAPENEM 1 GM in NS 100 ML IV SCH (18:21)
[2018-01-10 19:07] LABS: INR 2.16 (0.83-1.16); PROTIME(PATIENT) 24.1 SEC (12.0-15.0)
[2018-01-10] MEDS ORDERED: ALBUMIN 5% 250 ML IV ONE ×2 (20:30→21:00)
--- NOTE | 2018-01-10 20:32 | CPEKG ---
Heart Rate: 91 RR Interval: 659 P-R Interval: 152 QRSD Interval: 80 QT Interval: 384 QTC Interval: 473 P [place]: 45 QRS [place]: 53 T Wave [place]: 23 EKG Severity - ABNORMAL ECG - EKG Impression: SINUS RHYTHM EKG Impression: VENTRICULAR BIGEMINY EKG Impression: LOW VOLTAGE THROUGHOUT EKG Impression: CONSIDER ANTEROSEPTAL INFARCT Electronically Signed By: Ariel Wang 12-Jan-2018 10:23:49
[2018-01-10] MEDS: EPINEPHrine 1 MG in NS 250 ML IV SCH ×3 (21:13→23:00)
[2018-01-10 21:54] LABS: PLATELET COUNT 211 10^3/uL (150-400)
[2018-01-10] MEDS ORDERED: NS 1,000 ML IV ONE (22:00)
[2018-01-10 22:02] LABS: PROTIME(PATIENT) 24.5 SEC (12.0-15.0)
[2018-01-10] MEDS: levETIRAcetam 500MG/NACL 100 ML IV SCH (22:49)
[2018-01-10] MEDS ORDERED: HYDROCORTISONE 100 MG/2 ML VIAL IVP SCH (23:30)
[2018-01-11] MEDS: NOREPINEPHRINE BITARTRATE 16 MG in NS 250 ML IV SCH ×4 (00:20→15:11)
[2018-01-11] MEDS: EPINEPHrine 1 MG in NS 250 ML IV SCH ×5 (00:20→14:03)
[2018-01-11] MEDS: BGK 4/2.5 PRISMASATE 5,000 ML DIAL SCH ×10 (00:20→21:27)
[2018-01-11] MEDS ORDERED: SODIUM BICARBONATE 150 MEQ in D5W 1,000 ML IV ONE (02:00)
[2018-01-11] MEDS: VASOPRESSIN 25 UNIT in NS 250 ML IV SCH ×3 (02:00→15:12)
[2018-01-11] MEDS: INSULIN LISPRO 100 UNIT/ML SC SCH ×4 (02:01→20:00)
[2018-01-11] MEDS: CALCIUM CHLORIDE 1 GM/10 ML INJ IV PRN ×2 (02:15→06:49)
[2018-01-11] MEDS: ASCORBIC ACID 1,500 MG in D5W 100 ML IV SCH ×4 (03:57→22:10)
[2018-01-11 06:17] LABS: PLATELET COUNT 186 10^3/uL (150-400)
--- NOTE | 2018-01-11 07:00 | SOAPPROG ---
SOAP Progress Note Assessment/Plan: Assessment: #Oliguric ADOLPH- suspect ATN in setting of sepsis -on CRRT (initiated 01/09) - On cvvhdf non citrate, Qb 200, Qr 1500, Qd 1500, UF 0 -CT non contrast no obstruction/stones #sepsis- E coli bacteremia -remains on pressors-- increasing needs and rising lactate -stool panel negative including E Coli 0157 strain -resp viral panel neg -imaging suggestive of cholecystitis, also may be urinary source (no obstructing stones noted on CT). While transaminases are improving, her alk phos is rising (bili ok)-- checking GGT and abd u/s now to re-evaluate biliary source. Had diarrhea and may have colitis but would exam not suggestive. Will see what ID thinks as well as I am concerned we don't have source control -continue broad spectrum antibiotics #hypocalcemia -have switched off citrate formulation CRRT -iCa a bit low this am likely due to starting bicarb gtt overnight--- following closely and replacing prn #metabolic acidosis -lactate back up, increasing pressors needs overnight -bicarb gtt restarted overnight #Acute mental status change -head CT no acute change, MRI neg, EEG pending-- started on keppra -ammonia ok -has not received sedation/pain meds -not uremia as on CRRT and labs improved. No concerns for line issue -neurology following I discussed with crit care team I am television newscast director for weekend Clotilde Alvarado MD [facility] pager [phone] 01/11/18 07:42 Subjective: Worsening hemodynamics overnight- increasing pressor needs, now on 3 pressors. Remains altered. MRI brain neg. No problems with CRRT machine/line, UF is 0. Started bicarb gtt overnight given worsening acidosis. Objective: Vital Signs Temp Pulse Resp BP Pulse Ox 34.4 C L 128 H 17 99/51 L 94 01/11/18 05:00 01/11/18 05:00 01/11/18 05:00 01/11/18 05:00 01/11/18 05:00 Laboratory Results 01/11/18 06:00 01/11/18 06:00 01/10/18 01/11/18 01/12/18 05:59 05:59 05:59 Intake Total 4457 Output Total 2000 Balance 2456 PT 24.5 SEC (12.0-15.0) H 01/10/18 21:41 INR 2.20 (0.83-1.16) H 01/10/18 21:41 Physical Exam - Physical Exam General Appearance: other (ill appearing, somnolent, on 3 pressors and CRRT) Neck: supple Respiratory: other (cta ant bilat, poor effort due to mental status) Cardiac/Chest: regular rate, rhythm, other (no rub) Abdomen: normal bowel sounds, non-tender, soft Skin: warm/dry Extremities: other (+edema) Neuro/Psych: other (not following commands, opens eyes, somnolent) ICD10 Worksheet Patient Problems: Problems Problem Status Onset ADOLPH (acute kidney injury) Acute Diarrhea Acute Hypoglycemia Acute Septic shock Acute Cellulitis of foot Acute ESBL (extended spectrum beta-lactamase) producing bacteria infection Acute ~ Facial cellulitis Acute History of fever Acute MRSA (methicillin resistant Staphylococcus aureus) Acute ~03/04/17 Methicillin resistant Staphylococcus aureus infection Acute ~05/06/17 Myocardial infarct Acute Rhabdomyolysis Acute Sepsis Acute Skin graft infection Acute Vomiting Acute
[2018-01-11] MEDS: ERTAPENEM 1 GM in NS 100 ML IV SCH (09:22)
[2018-01-11] MEDS: levETIRAcetam 500MG/NACL 100 ML IV SCH (09:25)
[2018-01-11] MEDS: CALCIUM CHLORIDE 1 GM/10 ML INJ IVP PRN ×3 (09:49→21:00)
--- NOTE | 2018-01-11 10:11 | PCMIDPN ---
Assessment/Plan: 1. Gram-negative iker sepsis of unclear etiology: The patient is now on ertapenem given her history of ESBL E coli in the past, which is appropriate coverage at this point in time. I do think she should go back on contact isolation until susceptibilities are available, and this was conveyed to the nursing staff. Pored over her imaging with Dr. Munoz. The patient clearly has radiographic evidence of cholecystitis, and on exam today she is quite tender in the right upper quadrant, although previously it was reported that she was not tender at all. Her urinalysis was abnormal on admission, but no urine culture was obtained given anuria. Therefore, given high clinical suspicion for acute on chronic cholecystitis, I do feel that it is prudent to get a surgical evaluation today for possible t-tube. She is too unstable to go to the operating room. Will discontinue metronidazole, which unnecessary with concomitant ertapenem. Repeat blood cultures are pending. Of note, the microbiology lab he has had problems with the susceptibilities on the patient's E coli; these will likely need another day. They also reported that the non lactose fire extinguisher mechanic is also the E coli. 2. Right lower extremity chronic heel eschar: X-ray does not show evidence of osteomyelitis. This appears dry on exam. This seems less likely to be the origin of the infection. Would hold off on further imaging of this area for now. Over 45 min was spent with this patient today, speaking with family members, reviewing radiology, and discussing case with rough and truing machine operator. Subjective: Spent quite some time reviewing patient's chart. Apparently was doing well after admission, then proceeded to become moribund over the past 24 hr, and is presently unresponsive. Antibiotic switch from ceftriaxone and metronidazole to ertapenem yesterday. She remains on metronidazole as well. The patient is obtunded, but is moaning when I press on her abdomen, particularly in the right upper quadrant. She remains on 2 pressors, and CRRT. Objective: Patient is hypothermic with a T min of 34.1 Ertapenem 1 g IV daily day 2 Metronidazole 250 Q 8 day 3 Status post ceftriaxone 2 g IV daily on January 09 and January 10, and cefepime on January 08 Vital Signs Temp Pulse Resp BP Pulse Ox 34.1 C L 117 H 17 95/49 L 95 01/11/18 08:00 01/11/18 08:00 01/11/18 08:00 01/11/18 08:00 01/11/18 08:00 Laboratory Results 01/11/18 06:00 01/11/18 06:00 01/10/18 01/11/18 01/12/18 05:59 05:59 05:59 Intake Total 5856 5093 Output Total 2000 8463 Balance 9816 -249 Blood cultures January 08: E coli in the anaerobic bottle of 1 set, and a gram- negative iker non lactose fire extinguisher mechanic that the micro lab says is also E coli in the anaerobic bottle of another set Blood cultures January 10 are pending - Physical Exam General Appearance: obese, other (Unresponsive, but moans when you press on her abdomen, particularly in the right upper quadrant) EENT: other (Dry mucous membranes) Respiratory: lungs clear Cardiac/Chest: tachycardia Extremities: other (Her forearms are wrapped secondary to chronic weeping skin tears. There is some puffiness of both of her hands.) Abdomen: other (Obese, the patient opens her eyes and moans when you press on her right upper quadrant. Hypoactive bowel sounds.) Skin: other (Patient has a large eschar over her right heel that is dry with no significant surrounding erythema. There is a mildly foul smell from this area. I cannot express any purulence from the eschar. The patient has some intertriginous candidiasis between pannicular folds) Neuro/Psych: other (Patient is unresponsive. Pupils are minimally reactive. She is only responsive, moaning and opening her eyes when I examine her abdomen as outlined above.) ICD10 Worksheet Patient Problems: Problems Problem Status Onset ADOLPH (acute kidney injury) Acute Diarrhea Acute Hypoglycemia Acute Septic shock Acute Cellulitis of foot Acute ESBL (extended spectrum beta-lactamase) producing bacteria infection Acute ~ Facial cellulitis Acute History of fever Acute MRSA (methicillin resistant Staphylococcus aureus) Acute ~03/04/17 Methicillin resistant Staphylococcus aureus infection Acute ~05/06/17 Myocardial infarct Acute Rhabdomyolysis Acute Sepsis Acute Skin graft infection Acute Vomiting Acute
[2018-01-11] MEDS: NS 1,000 ML MISC SCH ×3 (11:16→20:20)
--- NOTE | 2018-01-11 11:46 | PDINTPN ---
Materials Manager Progress Note Assessment/Plan: Assessment/plan: 72 F with DM admitted 01/09 with 3-4 days N/V/D of unclear etiology and found to have septic shock and acute renal failure, with subsequent blood cultures growing E. Coli. She was started on the sepsis protocol and CRRT after she was clearly anuric. Anitbiotics have included ceftriaxone and flagyl, while she has required levophed, vasopressin, and hydrocortisone after a reasonable fluid challenge failed to reverse her hypotension. * Septic shock- her wbc continues to normalize and she has been afebrile. The source for her e.coli remains presumptively urine, since there was no clear evidence for abdominal or pulmonary sources. Cholecystitis was considered based on CT findings, but she lacked any RUQ pain with deep palpation at the time of admission. Her US today looks identical to one from 06/2016, though she clearly moans with deep palpation now. Dr. Rubi will consult concerning possible PCT, but less likely cholecystectomy given hemodynamic instability. Repeat blood cultures from 01/10 are NTD * Hypotension from septic shock with E. Coli bacteremia. Her troponin bump is consistent with subendocardial ischemia but not an ACS, though we should keep following. Adrenal insufficiency cannot be tested at this time, but she is getting 100 mg q8 of hydrocortisone per sepsis protocol. No spinal injury, or obvious signs of bleeding (see below). * Lactic acidosis- on admission this was presumed to be from septic shock as well as metformin and responded appropriately until last PM around midnight. Given her exam findings today, she could have mesenteric ischemia, or it may be a function of severe hypotension requiring multiple pressors in an under-filled vascular system (CRRT had been inadvertantly removing some volume over time, now corrected). Surgical consult pending and will recheck urgently now. * Altered mental status- she was quite lucid and normal 01/09 but clearly altered 01/10 without clear cause. Her head CT was negative, her wbc is now nearly normal, an EKG showed no obvious ischemia, her glucose was normal, and her exam had no localizing signs (with the remote possibility of UE rigidity). Her electrolytes appear normal including calcium after clarification with renal. She has received no neuroleptic medications. The absence of thrombocytopenia makes TTP/HUS unlikely, though there were 1+ shistocytes on one smear. Her head CT, MRI, and EEG were unremarkable, suggesting only metabolic encephalopathy. Keppra started empirically 01/10 per neuro suggestion, but may dc given no seizure on eeg. * ADOLPH- likely related to septic shock, with contributions from likely mild CKD in setting of DM and multiple renal issues in past (all resolved). No UOP today , but continues on CRRT * Anemia- while I see no active bleeding, she will likely benefit from RBC transfusion. Gave one unit today. * Alk phos- with elevated GGT source is likely hepatic, though normalizing transaminases are a confounding variable. She had a normal HIDA 06/2016 when she had similar difficulties with osteomyelitis in her left foot. * DIC- her coag profile fit this late yesterday presumably from sepsis. Will recheck now * DVT prophylaxis with SCDs * Code status- family approached nursing staff last pm regarding DNR. Hospitalist spoke to them as did I this AM and they requested DNR which was reasonable given the circumstance. * critical care time 75 minutes including multiple bedside exams, family discussions, rn and md discussion with ID, neurology, renal, hospitalists. 01/11/18 11:19 01/11/18 11:47 Subjective: mental status remains poor, increased pressor requirement last pm after restarting CRRT, but now epi off. Objective: Vital Signs Temp Pulse Resp BP Pulse Ox 33.4 C L 95 18 101/56 L 93 01/11/18 11:00 01/11/18 11:00 01/11/18 11:00 01/11/18 11:00 01/11/18 11:00 Laboratory Results 01/11/18 06:00 01/11/18 06:00 01/10/18 01/11/18 01/12/18 05:59 05:59 05:59 Intake Total 4457 5093 Output Total 2000 568 Balance 2456 -587 PT 24.5 SEC (12.0-15.0) H 01/10/18 21:41 INR 2.20 (0.83-1.16) H 01/10/18 21:41 Physical Exam - Physical Exam General Appearance: obtunded, unresponsive, other (moans with abdominal palpation) EENT: PERRL/EOMI, other (minimal reactivity) Neck: non-tender, full range of motion (passive), supple Respiratory: lungs clear, normal breath sounds, decreased breath sounds, No respiratory distress, No accessory muscle use Cardiac/Chest: regular rate, rhythm, edema (mild peripheral), other (mild erythema under right breast with nystatin covering), No gallop Abdomen: soft, other (diffuse tenderness with deep palpation; non localizing), No normal bowel sounds, No distended, No guarding, No rebound, No mass, No hepatomegaly, No rigid Skin: normal color, warm/dry, No cyanosis Lymphatic: no adenopathy Extremities: pedal edema, other (left old skin graft/amp normal. right 3x4 cm dry non healing calcaneal ulcer without infection) Neuro/Psych: no motor/sensory deficits (as best I can tell), cognition abnormalities, speech abnormalities, No abnormal wood carving machine operator II-XII ICD10 Worksheet Patient Problems: Problems Problem Status Onset ADOLPH (acute kidney injury) Acute Diarrhea Acute Hypoglycemia Acute Septic shock Acute Cellulitis of foot Acute ESBL (extended spectrum beta-lactamase) producing bacteria infection Acute ~ Facial cellulitis Acute History of fever Acute MRSA (methicillin resistant Staphylococcus aureus) Acute ~03/04/17 Methicillin resistant Staphylococcus aureus infection Acute ~05/06/17 Myocardial infarct Acute Rhabdomyolysis Acute Sepsis Acute Skin graft infection Acute Vomiting Acute
--- NOTE | 2018-01-11 11:53 | NEUROPROG ---
Assessment: [id number] - Neurology Consult: - CC: Altered Mental Status - Narrative Summary: Pt in ICU on antibiotics for sepsis from E.coli infection. She has also developed acute renal failure from sepsis and is on dialysis as well as some hypotension. She had been mentating normally until the morning of 01/10/18 when she was noted to have become obtunded. She was noted to be lying in bed with her eyes open but unresponsive to commands or external stimuli. A head CT showed no acute changes. She was agitated during the head CT so it was felt it would require increased sedation to obtain a brain MRI. I examined her on and found her obtunded but noted no clear lateralizing abnormalities to suggest stroke. Her current sepsis and renal failure on dialysis could be causing an acute encephalopathy but I wanted to exclude seizures so I started Keppra 500 mg bid and ordered an EEG. If she has not improved tomorrow and the EEG shows no seizures we can proceed with a brain MRI to evaluate for atypical stroke. - HPI: F/U 01/11/18. EEG showed no active seizures (showed only slowing consistent with known encephalopathy). It does not appear she is having seizures so I will stop the levetiracetam 500 mg bid. Brain MRI unremarkable. At this time it seems most likely that her known sepsis is predisposing to acute encephalopathy. Recommended continued treatment as she is undergoing. ID is consulting. No further neurologic w/u needed at this time. - PMHx: HTN, DM, CAD, [place], scalp abscess, anemia, diastolic dysfunction, chronic shoulder pain, B12 def, E.coli sepsis w/2nd renal failure - SHx: no tobacco use FHx: NC - Labs: 01/10/18- CBC WBC 10.9H Hct 22.4L, Chem CO2 14L BUN 5L - Rads: 01/10/18- Head CT: no acute changes, atrophy and CMVD seen 01/10/18- Brain MRI w/o con: negative for acute changes 01/10/18- EEG: no seizures seen, generalized slowing consistent with underlying encephalopathy - Assessment: 1. Altered Mental Status: Unclear cause but likely be from known E.coli sepsis with acute renal failure. EEG showed no seizure activity, no improvement with Keppra trial, and brain MRI showed no acute changes. Recommend treating underlying sepsis with hopes it will improve her mentation. - 2. E.coli sepsis with hypotension at times 3. Acute renal failure on dialysis 4. Transaminitis likely form sepsis - Plan: - Stop levetiracetam 500 mg bid as it does not appear she was having seizures - Agree with current therapy for underlying sepsis - No further neurologic w/u needed at this time, neurology will sign off - - 35 minutes spent with patient and her family members at bedside, majority of time spent counseling and coordinating care to include discussing her EEG with proof technician and considering alternative causes for AMS. Objective: Vital Signs Temp Pulse Resp BP Pulse Ox 33.4 C L 95 18 101/56 L 93 01/11/18 11:00 01/11/18 11:00 01/11/18 11:00 01/11/18 11:00 01/11/18 11:00 Laboratory Results 01/11/18 06:00 01/11/18 06:00 01/10/18 01/11/18 01/12/18 05:59 05:59 05:59 Intake Total 7373 5093 Output Total 2000 0861 Balance 2456 -587 PT 24.5 SEC (12.0-15.0) H 01/10/18 21:41 INR 2.20 (0.83-1.16) H 01/10/18 21:41 Allergies/Adverse Reactions: amoxicillin trihydrate [From Augmentin] Allergy (Intermediate, Verified 10:36) potassium clavulanate [From Augmentin] Allergy (Intermediate, Verified 12/25/16 10:36) monosodium glutamate Allergy (Mild, Verified 12/25/16 10:36) adhesive tape Allergy (Verified 12/25/16 10:36) Sulfa (Sulfonamide Antibiotics) Allergy (Verified 12/25/16 10:36)
[2018-01-11 12:29] LABS: PLATELET COUNT 143 10^3/uL (150-400)
[2018-01-11] MEDS ORDERED: CALCIUM GLUCONATE 50 ML IV ONE (13:28)
[2018-01-11 13:46] LABS: INR 3.48 (0.83-1.16); PROTIME(PATIENT) 34.7 SEC (12.0-15.0)
[2018-01-11] MEDS ORDERED: SODIUM BICARBONATE 50 MEQ/50 ML SYR ONE (14:12)
[2018-01-11] MEDS: ACCESSORY DRAIN 1 EA BAG***SEND #2 INITIALLY MISC PRN ×2 (14:16→18:05)
[2018-01-11] MEDS: POTASSIUM Cl (KCl) 50 ML IV PRN (14:17)
--- NOTE | 2018-01-11 14:21 | GCON ---
[f rep st] CONSULTATION DATE OF CONSULTATION: 01/11/2018 REFERRING PHYSICIAN: Ba Summers MD REASON FOR CONSULTATION: Cholecystitis. HISTORY OF PRESENT ILLNESS: The patient is a 72-year-old woman well known to me. In the past, I have treated her for multiple infections, including serious infections of her left foot, which required partial amputation, prolonged antibiotics. I have also treated her for numerous MRSA abscesses, some of which have required debridement in the operating room with prolonged packing. She was admitted to the hospital on January 08, 2018, and she was found to be septic from E coli. She has known cholecystitis and cholelithiasis; however, has been asymptomatic. She had even a HIDA scan performed in June of 2016, which was normal. At this hospitalization, her LFTs were markedly elevated. She had an elevated white count and she was found to have E coli bacteremia. Her CT scan was obtained, which showed hydrops of the gallbladder and some pericholecystic fluid. There was no evidence of a bowel obstruction. She did have free fluid. Her white count has been improving. Her LFTs have been improving. She had an ultrasound today that showed pericholecystic fluid. I was consulted. Over the past day, she has become more obtunded and less responsive. PAST MEDICAL HISTORY: Includes diabetes, diastolic heart failure, hypertension , chronic pain, history of non-ST-LA. PAST SURGICAL HISTORY: Hysterectomy, incision and drainage of abscesses, partial foot amputation. SOCIAL HISTORY: She lives at [facility]. No tobacco, alcohol, or drug use. FAMILY HISTORY: Noncontributory. ALLERGIES: Per chart. REVIEW OF SYSTEMS: Unable to be obtained. PHYSICAL EXAMINATION: VITAL SIGNS: 33.4, 95, 101/56, 18, 93% on 2 L. GENERAL : Somnolent in bed. Family at bedside. NEURO: She is not responding to vocal stimulation. PSYCH: Unable to be assessed. HEENT: Normocephalic. No gross hearing deficits. Eyes are closed. Mucous membranes dry. LUNGS: No increased work of breathing. CARDIAC: Slightly tachycardic. ABDOMEN: her eyes open to very deep palpation, but she is not wincing. Her bowel sounds are present. She is very soft. She is not distended. LABORATORY/IMAGING: Results reviewed. In addition to the results I had detailed in the HPI, I have also noticed that her lactic acid has been increasing and her base deficit has been increasing. IMPRESSION/PLAN: The patient is a 72-year-old woman with heart failure, diabetes, and has had admissions for sepsis in the past. I do think that she has had chronic cholecystitis, and now, there is certainly component likely of acute cholecystitis. The issue is her LFTs are improving substantially with antibiotics. I do not think that she is safe to go to the operating room. She is currently on 3 pressors. I am concerned that her lactate is rising. I think this is likely due to her being on 3 pressors; however, I am not able to rule out an abdominal source. Again with her comorbidities in her current state , I do not think taking her to the operating room for an exploratory laparoscopy or laparotomy is parish. A cholecystostomy tube can be considered. The gallbladder can certainly be an issue, although I instructed her family that this may not alleviate all of her symptoms, as well as her being obtunded. I will continue to follow. /[id number]/MODL MTDD
--- NOTE | 2018-01-11 15:07 | ASMTCMCOM ---
CM Note CM Note Notes: Patient discussed in rounds. She is now a DNR. On CRRT, Also on vasopressors Unresponsive. Surgical consult done and patient condition too gaurded for surgical consideration. CM to follow. Plan: TBD Date Signed: 01/11/2018 03:07 PM Electronically Signed By:Aletha Leach RN
[2018-01-11] MEDS: SODIUM BICARBONATE 150 MEQ in D5W 1,000 ML IV SCH (15:27)
--- NOTE | 2018-01-11 16:02 | CPEEG ---
[f rep st] ELECTROENCEPHALOGRAM DATE OF STUDY: 01/10/2018 This is a 25 minute EEG performed on January 10, 2018. This EEG shows generalized slowing. But no epileptiform discharges or seizures. IMPRESSION: Overall abnormal EEG consistent with generalized slowing. No active seizure activity se en. /[id number]/MODL
--- NOTE | 2018-01-11 16:05 | HOSPPROG ---
Hospitalist Progress Note Assessment/Plan: 72 yo F with MMI presenting with septic shock from presumed urinary source # Acute encephalopathy: patient remains completely obtunded at this time, rapid decline remains somewhat puzzling but at this time most concerning for toxic metabolic encephalopathy related to infection. Tx as next. # septic shock: 2/2 ecoli bacteremia with urinary source likely though concern that cholecystitis may be contributing. Appreciate gen surg eval. At this time remains on both NE and vasopressin to maintain MAPS. Continue abx, stress dose steroids, high dose vitamin c. # e coli bacteremia: repeat cultures showing ngtd, transitioned from ctx/flagyl to ertepenam per ID # anuric adolph: remains on crrt, remains anuric, 2/2 shock # AGMA/lactic acidosis: multifactorial and related to shock as well as adolph, lactate continues to rise however and now 7.2 concerning for ischemic gut, would not tolerate surgery at this time, continue support as above # transaminitis: ischemic hepatitis presumably, essentially stable overnight # gallbladder sludging/cholelithiasis: as above, possibly contributing but unlikely to be main pick up driver, would not tolerate surgery, consider perc drain # DM2: SSI # hypoglycemia: resolved, now mildly high, monitoring # chronic diastolic chf: euvolemic # htn #sacral pressure injury POA IP status Care plan reviewed with Dr. Summers on multidisciplinary rounds as well as Dr. Rubi at bedside. Reviewed care plan with daughter and sister. > 45 min of critical care time spent in above. Subjective: no significant overnight events, remains obtunded Objective: Vital Signs Temp Pulse Resp BP Pulse Ox 33.1 C L 86 19 101/64 92 01/11/18 15:00 01/11/18 15:00 01/11/18 15:00 01/11/18 15:00 01/11/18 12:00 Laboratory Results 01/11/18 12:00 01/11/18 12:00 01/10/18 01/11/18 01/12/18 05:59 05:59 05:59 Intake Total 2777 5093 Output Total 2000 2172 Balance 2456 -587 PT 34.7 SEC (12.0-15.0) H 01/11/18 12:00 INR 3.48 (0.83-1.16) H 01/11/18 12:00 non responsive except minimally to pain anicteric op clear rrr no mrg cta soft nt nd diffuse edema warm dry well perfused ICD10 Worksheet Patient Problems: Problems Problem Status Onset ADOLPH (acute kidney injury) Acute Diarrhea Acute Hypoglycemia Acute Septic shock Acute Cellulitis of foot Acute ESBL (extended spectrum beta-lactamase) producing bacteria infection Acute ~ Facial cellulitis Acute History of fever Acute MRSA (methicillin resistant Staphylococcus aureus) Acute ~03/04/17 Methicillin resistant Staphylococcus aureus infection Acute ~05/06/17 Myocardial infarct Acute Rhabdomyolysis Acute Sepsis Acute Skin graft infection Acute Vomiting Acute
[2018-01-11] MEDS ORDERED: SODIUM BICARBONATE 50 MEQ/50 ML SYR IVP ONE (16:45)
[2018-01-11] MEDS: SODIUM PHOS 20 MM in D5W 250 ML IV PRN (16:54)
[2018-01-11] MEDS: HYDROCORTISONE 100 MG/2 ML VIAL IVP SCH ×3 (17:40→22:31)
[2018-01-12] MEDS: EPINEPHrine 1 MG in NS 250 ML IV SCH ×6 (00:04→07:01)
[2018-01-12] MEDS: BGK 4/2.5 PRISMASATE 5,000 ML DIAL SCH ×4 (00:37→04:23)
[2018-01-12] MEDS: NS 1,000 ML MISC SCH (00:40)
[2018-01-12] MEDS: HYDROCORTISONE 100 MG/2 ML VIAL IVP SCH (00:57)
[2018-01-12] MEDS: SODIUM BICARBONATE 150 MEQ in D5W 1,000 ML IV SCH (01:57)
[2018-01-12] MEDS: ASCORBIC ACID 1,500 MG in D5W 100 ML IV SCH (03:31)
[2018-01-12] MEDS: NOREPINEPHRINE BITARTRATE 16 MG in NS 250 ML IV SCH (04:23)
[2018-01-12] MEDS: VASOPRESSIN 25 UNIT in NS 250 ML IV SCH (04:25)
[2018-01-12] MEDS: CALCIUM CHLORIDE 1 GM/10 ML INJ IVP PRN (05:39)
[2018-01-12 05:50] LABS: PLATELET COUNT 110 10^3/uL (150-400)
[2018-01-12] MEDS ORDERED: NA BICARBONATE 50 MEQ/50 ML VIAL IV ONE (06:00)
[2018-01-12] MEDS ORDERED: NS 1,000 ML IV SCH (06:00)
[2018-01-12 07:23] VITALS: BP 62/28
--- NOTE | 2018-01-12 07:37 | SOAPPROG ---
SOAP Progress Note Assessment/Plan: Assessment: Brina worsened overnight. I had a discussion with her family and agree with the decision to withdraw pressors and proceed with comfort care S: Brina does not respond to stimuli O: Abdomen is soft and able to be palpated. More distended than yesterday Plan: 01/12/18 07:36 01/15/18 07:20 Objective: Vital Signs Temp Pulse Resp BP Pulse Ox 32.9 C L 102 H 15 62/28 L 90 L 01/12/18 06:00 01/12/18 07:00 01/12/18 07:00 01/12/18 07:00 01/11/18 21:00 Laboratory Results 01/12/18 05:04 01/12/18 05:04 01/11/18 01/12/18 01/13/18 05:59 05:59 05:59 Intake Total 5093 Output Total 5680 300 Balance -587 -300 PT 34.7 SEC (12.0-15.0) H 01/11/18 12:00 INR 3.48 (0.83-1.16) H 01/11/18 12:00 ICD10 Worksheet Patient Problems: Problems Problem Status Onset ADOLPH (acute kidney injury) Acute Cellulitis of foot Acute Diarrhea Acute ESBL (extended spectrum beta-lactamase) producing bacteria infection Acute ~ Facial cellulitis Acute History of fever Acute Hypoglycemia Acute MRSA (methicillin resistant Staphylococcus aureus) Acute ~03/04/17 Methicillin resistant Staphylococcus aureus infection Acute ~05/06/17 Myocardial infarct Acute Rhabdomyolysis Acute Sepsis Acute Septic shock Acute Skin graft infection Acute Vomiting Acute
--- NOTE | 2018-01-12 09:53 | PDDCSUM ---
Discharge Summary Discharge Summary: Summary: 01/08-01/12/18 Consultations: pulmonary/critical care, general surgery, ID, neurology, renal Procedures performed: PICC, abd/pelvis CT, abd US, brain MRI, EEG, CRRT, HD cath placement Hospital course by problem: 72 yo F with MMI presenting with septic shock from presumed urinary source # Acute encephalopathy: patient remains completely obtunded at this time, rapid decline remains somewhat puzzling but at this time most concerning for toxic metabolic encephalopathy related to infection. No improvement and ultimately patient . # septic shock: 2/2 ecoli bacteremia with urinary source likely though concern that cholecystitis may be contributing. Appreciate gen surg eval. Continued to decline despite pressors, stress dose steroids, abx. Ultimately given continued decline transitioned to comfort care and with family at bedside # e coli bacteremia: repeat cultures showing ngtd, transitioned from ctx/flagyl to ertepenam per ID # anuric blanca: on crrt, anuric, 2/2 shock # AGMA/lactic acidosis: multifactorial and related to shock as well as blanca, lactate continues to rise however and now 7.2 concerning for ischemic gut, would not tolerate surgery at this time, continue support as above # transaminitis: ischemic hepatitis presumably, essentially stable overnight # gallbladder sludging/cholelithiasis: as above, possibly contributing but unlikely to be main buggy driver, would not tolerate surgery, consider perc drain # DM2: SSI # hypoglycemia: resolved, now mildly high, monitoring # chronic diastolic chf: euvolemic # htn #sacral pressure injury POA Time of 824 01/12/18 > 35 min spent
--- NOTE | 2018-01-12 11:27 | PDINTPN ---
Program Evaluator Progress Note Assessment/Plan: Assessment/plan: 72 F with DM admitted 01/09 with 3-4 days N/V/D of unclear etiology and found to have septic shock and acute renal failure, with subsequent blood cultures growing E. Coli. She was started on the sepsis protocol and CRRT after she was clearly anuric. Anitbiotics have included ceftriaxone and flagyl, while she has required levophed, vasopressin, and hydrocortisone after a reasonable fluid challenge failed to reverse her hypotension. * Overnight with worsening hemodynamics and hypothermia despite efforst by dilaysis to correct. She also developed agonal respirations. Family decided to wd support and discussed this with Dr. Myers just before my arrival. I agreed and we procceeeded with withdrawal and she rapidly without obvious suffering. Family agreed to autopsy and declined donor. * * * * Septic shock- her wbc continues to normalize and she has been afebrile. The source for her e.coli remains presumptively urine, since there was no clear evidence for abdominal or pulmonary sources. Cholecystitis was considered based on CT findings, but she lacked any RUQ pain with deep palpation at the time of admission. Her US today looks identical to one from 06/2016, though she clearly moans with deep palpation now. * * Hypotension from septic shock with E. Coli bacteremia. Her troponin bump is consistent with subendocardial ischemia but not an ACS, though we should keep following. Adrenal insufficiency cannot be tested at this time, but she is getting 100 mg q8 of hydrocortisone per sepsis protocol. No spinal injury, or obvious signs of bleeding (see below). * Lactic acidosis- on admission this was presumed to be from septic shock as well as metformin and responded appropriately until last PM around midnight. Given her exam findings today, she could have mesenteric ischemia, or it may be a function of severe hypotension requiring multiple pressors in an under-filled vascular system (CRRT had been inadvertantly removing some volume over time, now corrected). Surgical consult pending and will recheck urgently now. * Altered mental status- she was quite lucid and normal 01/09 but clearly altered 01/10 without clear cause. Her head CT was negative, her wbc is now nearly normal, an EKG showed no obvious ischemia, her glucose was normal, and her exam had no localizing signs (with the remote possibility of UE rigidity). Her electrolytes appear normal including calcium after clarification with renal. She has received no neuroleptic medications. The absence of thrombocytopenia makes TTP/HUS unlikely, though there were 1+ shistocytes on one smear. Her head CT, MRI, and EEG were unremarkable, suggesting only metabolic encephalopathy. Keppra started empirically 01/10 per neuro suggestion, but may dc given no seizure on eeg. * ADOLPH- likely related to septic shock, with contributions from likely mild CKD in setting of DM and multiple renal issues in past (all resolved). No UOP today , but continues on CRRT * Anemia- while I see no active bleeding, she will likely benefit from RBC transfusion. Gave one unit today. * Alk phos- with elevated GGT source is likely hepatic, though normalizing transaminases are a confounding variable. She had a normal HIDA 06/2016 when she had similar difficulties with osteomyelitis in her left foot. * DIC- her coag profile fit this late yesterday presumably from sepsis. Will recheck now * DVT prophylaxis with SCDs * Code status- family approached nursing staff last pm regarding DNR. Hospitalist spoke to them as did I this AM and they requested DNR which was reasonable given the circumstance. * critical care time 35 minutes including multiple bedside exams, family discussions, rn and md discussion with ID, neurology, renal, hospitalists. 01/11/18 11:19 01/11/18 11:47 01/12/18 11:24 Objective: Vital Signs Temp Pulse Resp BP Pulse Ox 32.9 C L 102 H 15 62/28 L 90 L 01/12/18 06:00 01/12/18 07:00 01/12/18 07:00 01/12/18 07:00 01/11/18 21:00 Laboratory Results 01/12/18 05:04 01/12/18 05:04 01/11/18 01/12/18 01/13/18 05:59 05:59 05:59 Intake Total 5093 Output Total 5680 300 Balance -587 -300 PT 34.7 SEC (12.0-15.0) H 01/11/18 12:00 INR 3.48 (0.83-1.16) H 01/11/18 12:00 Physical Exam - Physical Exam General Appearance: obtunded EENT: No scleral icterus (R), No scleral icterus (L) Neck: supple, normal inspection Respiratory: lungs clear, decreased breath sounds, No respiratory distress, No accessory muscle use Cardiac/Chest: regular rate, rhythm, No edema Abdomen: soft, No non-tender, No distended Skin: pallor, No cyanosis Lymphatic: no adenopathy Extremities: No pedal edema Neuro/Psych: cognition abnormalities ICD10 Worksheet Patient Problems: Problems Problem Status Onset ADOLPH (acute kidney injury) Acute Diarrhea Acute Hypoglycemia Acute Septic shock Acute Cellulitis of foot Acute ESBL (extended spectrum beta-lactamase) producing bacteria infection Acute ~ Facial cellulitis Acute History of fever Acute MRSA (methicillin resistant Staphylococcus aureus) Acute ~03/04/17 Methicillin resistant Staphylococcus aureus infection Acute ~05/06/17 Myocardial infarct Acute Rhabdomyolysis Acute Sepsis Acute Skin graft infection Acute Vomiting Acute
== END 2018-01-12 10:00 | disposition expired | DRG 871 ==
LOC: EDUNIT# → F2N 16:20
PROVIDERS: ADMIT Internal Medicine; ATTEND Internal Medicine
PROC: 02HV33Z Insertion of Infusion Device into Superior Vena Cava, Percutaneous Approach (ICD-10-PCS; principal; 2018-01-08)
PROC: 02HV33Z Insertion of Infusion Device into Superior Vena Cava, Percutaneous Approach (ICD-10-PCS; 2018-01-08)
PROC: 5A1D90Z Performance of Urinary Filtration, Continuous, Greater than 18 hours Per Day (ICD-10-PCS; 2018-01-09)
DX: A41.51 Sepsis due to Escherichia coli [E. coli] (principal); R65.21 Severe sepsis with septic shock; G92 Toxic encephalopathy; N39.0 Urinary tract infection, site not specified; K80.12 Calculus of gallbladder with acute and chronic cholecystitis without obstruction; E87.2 Acidosis; N17.8 Other acute kidney failure; I11.0 Hypertensive heart disease with heart failure; I50.32 Chronic diastolic (congestive) heart failure; K75.9 Inflammatory liver disease, unspecified; E11.649 Type 2 diabetes mellitus with hypoglycemia without coma; L89.152 Pressure ulcer of sacral region, stage 2; L89.610 Pressure ulcer of right heel, unstageable; I25.10 Atherosclerotic heart disease of native coronary artery without angina pectoris; E86.9 Volume depletion, unspecified; I25.2 Old myocardial infarction; Z86.14 Personal history of Methicillin resistant Staphylococcus aureus infection; Z51.5 Encounter for palliative care; Z66 Do not resuscitate
CPT/HCPCS: 82947-QW; 84080-90; C1751; J0171; J0610; J0692; J0696; J1335; J1644; J1720; J1953; J2270; J3370; J3475; J3480; P9016; P9041